=== PATIENT | female | born 1955 | race Caucasian/White ===

== ENCOUNTER 2018-08-06 11:27 | Outpatient (REF) | payer SELFPAY ==
[2018-08-06 20:55] LABS: TSH (W/Ref FT4) 0.22 uIU/mL (0.358-3.74)
[2018-08-06 21:13] LABS: FREE T4 1.33 ng/dL (0.76-1.46)
== END 2018-08-06 11:47 ==
LOC: NCHCN 11:27
PROVIDERS: Visit Provider Family Medicine
DX: E03.9 Hypothyroidism, unspecified (principal)
CPT/HCPCS: 84439; 84443

== ENCOUNTER 2018-11-30 12:02 | Outpatient (REF) | payer BC, SELFPAY | END 2018-11-30 12:22 | LOC: NCHCN 12:02 | PROVIDERS: Visit Provider Family Medicine | DX: E03.9 Hypothyroidism, unspecified (principal) | CPT/HCPCS: 84443 ==

== ENCOUNTER 2019-11-11 22:17 | Outpatient (REF) | payer MEDICARE, SELFPAY ==
[2019-11-11 21:32] LABS: COMMENT (LAB VIEW ONLY) 47.66 mg/dL
[2019-11-11 21:34] LABS: Anion Gap 10.2 mmol/L (3-11); BUN 25 mg/dL (7-18); CO2 25.8 mmol/L (21.0-32.0); CREATININE 0.97 mg/dL (0.55-1.02); Calcium 9.6 mg/dL (8.5-10.1); Chloride 102 mmol/L (98-107); Estimated GFR 57.64 (mL/min/1.73m2); Glucose 106 mg/dL (74-106); Potassium 4.3 mmol/L (3.5-5.1); Sodium 138 mmol/L (136-145); TSH 1.37 uIU/mL (0.36-3.74)
== END 2019-11-11 22:37 ==
LOC: NCHCN 22:17
PROVIDERS: Visit Provider Family Medicine
DX: E03.9 Hypothyroidism, unspecified (principal); E78.5 Hyperlipidemia, unspecified; E11.9 Type 2 diabetes mellitus without complications
CPT/HCPCS: 80048; 82043; 82570; 84443

== ENCOUNTER 2020-02-14 14:59 | Outpatient (REF) | payer MEDICARE, SELFPAY ==
[2020-02-15 16:36] LABS: Rheumatoid Factor <8.6 IU/mL (<12.0)
[2020-02-16 15:16] LABS: ANA Interpretation Positive (Negative); ANA Titer Pattern 1:160 Homogeneous
[2020-02-17 16:03] LABS: SS-A Antibody 1.4 Units (<20.0)
== END 2020-02-14 15:19 ==
LOC: NCHCN 14:59
PROVIDERS: Visit Provider Family Medicine
DX: R68.2 Dry mouth, unspecified (principal)
CPT/HCPCS: 86038; 86235; 86431

== ENCOUNTER 2020-11-13 16:53 | Outpatient (REF) | payer MEDICARE, SELFPAY ==
[2020-11-13 22:04] LABS: COMMENT (LAB VIEW ONLY) 70.21 mg/dL; Microalb ug/mg Crea 20.9 ug/mg Cr
[2020-11-13 22:37] LABS: Anion Gap 8.9 mmol/L (3-11); BUN 27 mg/dL (7-18); CO2 27.1 mmol/L (21.0-32.0); CREATININE 0.9 mg/dL (0.55-1.02); Calcium 9.3 mg/dL (8.5-10.1); Calculated LDL 133 mg/dL (<100); Chloride 105 mmol/L (98-107); Cholesterol 221 mg/dL (<200); Glucose 120 mg/dL (74-106); HDL Cholesterol 48 mg/dL (40-60); Potassium 4.3 mmol/L (3.5-5.1); Sodium 141 mmol/L (136-145); TSH 0.06 uIU/mL (0.36-3.74); Triglyceride 204 mg/dL (<150)
== END 2020-11-13 16:54 | disposition home or self-care (01) ==
LOC: NCHCN 16:53
PROVIDERS: Visit Provider Family Medicine
DX: E78.5 Hyperlipidemia, unspecified (principal); E03.9 Hypothyroidism, unspecified; E11.9 Type 2 diabetes mellitus without complications; Z85.07 Personal history of malignant neoplasm of pancreas
CPT/HCPCS: 80048; 80061; 82043; 82570; 84443

== ENCOUNTER 2021-05-07 16:36 | Outpatient (REF) | payer MEDICARE, SELFPAY ==
[2021-05-07 21:42] LABS: Anion Gap 9.4 mmol/L (3-11); BUN 23 mg/dL (7-18); CO2 28.6 mmol/L (21.0-32.0); CREATININE 0.8 mg/dL (0.55-1.02); Calcium 9.9 mg/dL (8.5-10.1); Chloride 103 mmol/L (98-107); Glucose 105 mg/dL (74-106); Potassium 4.3 mmol/L (3.5-5.1); Sodium 141 mmol/L (136-145); TSH 0.37 uIU/mL (0.36-3.74)
== END 2021-05-07 16:37 | disposition home or self-care (01) ==
LOC: NCHCN 16:36
PROVIDERS: Visit Provider Family Medicine
DX: E03.9 Hypothyroidism, unspecified (principal); E11.9 Type 2 diabetes mellitus without complications; E78.5 Hyperlipidemia, unspecified
CPT/HCPCS: 80048; 83735; 84443

== ENCOUNTER 2022-02-03 19:00 | Outpatient (REF) | payer MEDICARE, SELFPAY ==
[2022-02-04 17:54] LABS: Albumin ug/mg Crea 8 (<30); Albumin, Ur 0.7 mg/dL (See Note); Creatinine, Ur 82.7 mg/dL (See Note)
== END 2022-02-03 19:01 | disposition home or self-care (01) ==
LOC: NCHCN 19:00
PROVIDERS: Visit Provider Family Medicine
DX: E11.9 Type 2 diabetes mellitus without complications (principal)
CPT/HCPCS: 82043; 82570

== ENCOUNTER 2022-08-04 13:18 | Outpatient (REF) | payer MEDICARE, SELFPAY ==
[2022-08-04 14:45] LABS: HCT 42.2 % (36.0-46.0); HGB 14.6 g/dL (11.2-15.7); MCH 32.1 pg (27.0-33.0); MCHC 34.6 % (32.0-36.0); MCV 93 fL (80-95); MPV 10.2 fL (8.0-11.0); Platelet Count 188 10^3/uL (130-400); RBC 4.55 10^6/uL (3.93-5.22); RDW 12.3 % (11.7-14.6); RDW-SD 42.5 fL; WBC 5.59 10^3/uL (4.4-10.8)
[2022-08-04 15:16] LABS: Anion Gap 10.6 mmol/L (3-11); BUN 28 mg/dL (7-18); CO2 25.4 mmol/L (21.0-32.0); CREATININE 0.9 mg/dL (0.55-1.02); Calcium 9.6 mg/dL (8.5-10.1); Calculated LDL 144 mg/dL (<100); Chloride 105 mmol/L (98-107); Cholesterol 234 mg/dL (<200); Estimated GFR 69.64 (mL/min/1.73m2); Glucose 132 mg/dL (74-106); HDL Cholesterol 59 mg/dL (40-60); Potassium 4.2 mmol/L (3.5-5.1); Sodium 141 mmol/L (136-145); TSH 1.43 uIU/mL (0.36-3.74); Triglyceride 159 mg/dL (<150)
== END 2022-08-04 13:19 | disposition home or self-care (01) ==
LOC: NCHCN 13:18
PROVIDERS: Visit Provider Family Medicine
DX: E03.9 Hypothyroidism, unspecified (principal); R53.83 Other fatigue; E78.5 Hyperlipidemia, unspecified; E11.9 Type 2 diabetes mellitus without complications
CPT/HCPCS: 80048; 80061; 85027; 84443

== ENCOUNTER 2022-11-20 17:29 | Outpatient (REF) | payer MEDICARE, SELFPAY ==
[2022-11-20 21:34] LABS: ESR 7 mm/hr (0-30)
[2022-11-20 21:57] LABS: Hemoglobin A1C 6.2 % (<5.7)
[2022-11-24 10:25] LABS: Lyme Ab w Rflx to Lyme Confirm Negative (Negative)
[2022-11-24 21:04] LABS: Anaplasma phagocytophilum Negative (Negative); B. miyamotoi PCR Negative (Negative); Babesia divergens/MO-1 Negative (Negative); Babesia duncani Negative (Negative); Babesia microti Negative (Negative); Ehrlichia chaffeensis Negative (Negative); Ehrlichia ewingii/canis Negative (Negative); Ehrlichia muris eauclairensis Negative (Negative)
== END 2022-11-20 17:30 | disposition home or self-care (01) ==
LOC: NCHCN 17:29
PROVIDERS: Visit Provider Family Medicine
DX: E11.9 Type 2 diabetes mellitus without complications (principal); M25.561 Pain in right knee; M25.562 Pain in left knee; Z11.8 Encounter for screening for other infectious and parasitic diseases
CPT/HCPCS: 85652; 87798; 83036; 86618

== ENCOUNTER 2023-10-06 16:02 | Outpatient (REF) | payer MEDICARE, SELFPAY ==
[2023-10-06 22:00] LABS: HCT 44.1 % (36.0-46.0); HGB 14.6 g/dL (11.2-15.7); MCH 31.6 pg (27.0-33.0); MCHC 33.1 % (32.0-36.0); MCV 96 fL (80-95); MPV 10.3 fL (8.0-11.0); Platelet Count 182 10^3/uL (130-400); RBC 4.62 10^6/uL (3.93-5.22); RDW 12.3 % (11.7-14.6); RDW-SD 43.1 fL; WBC 6.73 10^3/uL (4.4-10.8)
[2023-10-06 22:25] LABS: ALT 34 U/L (14-59); AST 26 U/L (15-37); Albumin 4.4 g/dL (3.4-5.0); Alkaline Phosphatase 84 U/L (46-116); Anion Gap 8.9 mmol/L (3-11); BUN 22 mg/dL (7-18); Bilirubin, Total 0.8 mg/dL (0.2-1.0); CO2 30.1 mmol/L (21.0-32.0); CREATININE 0.9 mg/dL (0.55-1.02); Calcium 9.6 mg/dL (8.5-10.1); Chloride 105 mmol/L (98-107); Glucose 89 mg/dL (74-106); Potassium 4.2 mmol/L (3.5-5.1); Sodium 144 mmol/L (136-145); TSH 0.88 uIU/Ml (0.36-3.74); Total Protein 7.8 g/dL (6.4-8.2)
[2023-10-06 22:30] LABS: COMMENT (LAB VIEW ONLY) 87.44 mg/dL; Microalb ug/mg Crea 5.6 ug/mg Cr
== END 2023-10-06 16:03 | disposition home or self-care (01) ==
LOC: NCHCN 16:02
PROVIDERS: Visit Provider Family Medicine
DX: E11.9 Type 2 diabetes mellitus without complications (principal); E03.9 Hypothyroidism, unspecified; R59.9 Enlarged lymph nodes, unspecified
CPT/HCPCS: 80053; 85027; 82043; 82570; 84443

== ENCOUNTER 2024-03-17 17:59 | Outpatient (REF) | payer MEDICARE, SELFPAY ==
[2024-03-17 17:20] LABS: TSH (W/Ref FT4) 2.41 uIU/mL (0.36-3.74)
--- OUTSIDE RECORDS SUMMARY | 2024-03-17 18:01 | XMS_ITS | Clinical Summary ---
Author Organization [facility] Address [address] [place] [address] Care Team Providers Care Pan Devulcanizer Helper Name Role Phone Roxanne Dawn MD Primary Care Provider [phone] Allergies Active Allergy Reactions Criticality Noted Date Comments Prochlorperazine Anxiety Medium 06/24/2016 Levofloxacin 06/24/2016 Patient's white blood count was affected Medications Medication Sig Dispensed Refills Start Date End Date Status insulin glargine (LANTUS SOLOSTAR) 100 unit/mL (3 mL) injection pen Inject 7 Units into the skin at bedtime. Active insulin aspart (NOVOLOG FLEXPEN) 100 unit/mL injectable pen Inject 3 Units into the skin as needed. Active levothyroxine (SYNTHROID) 100 mcg tablet Take 100 mcg by mouth daily. Active calcium-vitamin D (OS-VASU D) 500 mg(1,250mg) -200 unit per tablet Take 1 Tab by mouth 2 times daily with breakfast and dinner. Active insulin pen needles 31G x 5/16 by misc (non-drug; combo route) route daily. Active lancets 1 lancet by misc (non-drug; combo route) route as needed. Active canagliflozin (INVOKANA ORAL) Take by mouth. Activ e Active Problems Problem Noted Date Diagnosed Date Pure hypercholesterolemia 08/18/2016 Uncontrolled diabetes mell us secondary to pancreatic insufficiency 06/24/2016 Acquired hypothyroidism 06/24/2016 Surgical History Surgery Date Site/Laterality Comments BREAST SURGERY APPENDECTOMY Medical History Medical History Date Comments Thyroid disease Diabetes mellitus (HCC-CMS) Cancer (HCC-CMS) breast (2000) a nd 2007 neuroendocrine pancreatic - surgery at [facility] Family History Medical History Relation Comments Heart Disease Brother Cancer Father Heart Disease Mother Heart Disease Sister Relation Status Comments Brother Father Mother Sister Social History Tobacco Use Types Packs/Day Years Used Date Smoking Tobacco: Never Smokeless Tobacco: Never Alcohol Use Standard Drinks/Week Comments No 0 (1 standard drink = 0.6 oz pur e alcohol) stopped since diabetes Interpersonal Safety Answer Date Record ed Physically Hurt Never 02/07/2020 Verbally Threaten Not on file 02/07/2020 Sex and Gender Information Value Date Recorded Sex Assigned at Not on file Gender Identity Female 08/19/2021 9:10 EDT Sexual Orientation Not on file Obstetrics History Last Filed Vital Signs Vital Sign Reading Time Taken Comments Blood Pressure 118/68 08/18/2016 1115 EDT Pulse 62 08/18/2016 1115 EDT Temperature - - Respiratory Rate - - Oxygen Saturation - - Inhaled Oxygen Concentration - - Weight 74.8 kg (165 lb) 08/29/2021 1017 EDT Height 175.3 cm (5' 9) 08/29/2021 1017 EDT Body Mass Index 24.37 08/29/2021 1017 EDT Plan of Treatment Health Maintenance Due Date Last Done Comments Eye Exam 1955 Foot Exam 1955 Hepatitis C Screen 1954 RSV Immunization ( o r 60+ Years) (1 - 1-dose 60+ series) 2014 Hemoglobin A1C (Ha1C) 02/18/2017 08/18/2016, 017 Lipid Profile Screening (Cholesterol) 06/24/2017 Fall Risk Screening 2019 Microalbumin/Creatinine Ratio 02/03/2023 02/03/2022, 06/24/2016 COVID-19 Vaccine ( season) 2023 Procedures Procedure Name Priority Date/Time Associated Diagnosis Comments URINE [id number]-HC-GEXHSANC NE RATIO (ACR) Routine 02/03/2022 8:00 EDT POCT HEMOGLOBIN A1C, INTERFACED Routine 08/18/2016 11:57 EDT LIPID PROFILE (INCLUDES CHOLESTEROL, TRIGLYCERIDES, HDL, LDL) Routine 06/24/2016 11:50 EST 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 ([facility]) from Last 3 Months or Most Recently Relevant to Health Maintenance Results * URINE [id number] RATIO (ACR) (02/03/2022 8:00 EDT) Albumin, Urine 0.7 See Note mg/dL 2021 17:49 EDT [facility] Comment: NOTE: Reference range not established Creatinine, Urine 82.7 See Note mg/dL 02/04/2022 17:49 EDT [facility] Comment: NOTE: Reference range not established Lab Urine Albumin to Creatinine Ratio 8 <30 ??g/mg Creatinine 02/04/2022 17:49 EDT [facility] Comment: Urine Albumin/Creatinine Ratio: Normal: <30 ug/mg Creatinine Moderately increased albuminuria: 30-300 ug/mg Creatinine Severley increased albuminuria: >300 ug/mg Creatinine Urine URINE SPECIMEN COLLECTION, CLEAN CATCH / Unknown 02/03/2022 8:00 EDT 02/04/2022 17:00 EDT Provider Outr Resulting Lab CHEMISTRY & BLOOD GAS ORDERABLES Performing Organization Address City/[facility]/ZIP Co de Phone Number [facility] [address] [place] [address] * (ABNORMAL) POCT HEMOGLOBIN A1C (08/18/2016 11:57 EDT) [facility] [address] Hemoglobin A1C, POC Interfaced 6.5(H) <5.7 % 08/18/2016 12:03 EDT [facility] international banker ID [id number] 08/18/2016 12:03 EDT [facility] Comment:Test performed at En docrinology Blood specimen (specimen) BLOOD SPECIMEN / Unknown 08/18/2016 11:57 EDT 08/18/2016 12:03 EDT Salazar Melendrez MD POINT OF CARE TEST ORDERABLES Performing Organization Address City/[facility]/ZIP Co de Phone Number [facility] [address] [place] [address] * LIPID PROFILE (INCLUDES CHOLESTEROL, TRIGLYCERIDES, HDL, LDL) (06/24/2016 11:50 EST) Cholesterol 239 mg/dl 06/24/2016 13:52 [facility] Comment: Desirable:<200 Borderline High:200-239 High:>bn=441 Triglycerides 181 mg/dl 06/24/2016 13:52 [facility] Comment: Normal:<150 Borderline High:150-199 High:200-499 Very High:>eh=022 HDL 48 mg/dl 06/24/2016 13:52 [facility] Comment: Low:<40 Normal:40-60 Desirable: >60 LDL, Calculated 155 mg/dl 7 13:52 [facility] Comment: Optimal:<100 Near Optimal:100-129 Borderline High:130-159 High:160-189 Very High:>ub=058 Chol/HDL Ratio 5.0 06/24/2016 13:52 [facility] Fasting? Unknown 06/24/2016 13:52 [facility] Non HDL Cholesterol 191 mg/dl 06/24/2016 13:52 [facility] Comment: Desirable:<130 Borderline:130-159 High: 160-189 Very High: >ty=369 Blood specimen (specimen) BLOOD SPECIMEN / Unknown 06/24/2016 11:50 EST 06/24/2016 13:04 EST Salazar Melendrez MD CHEMISTRY & BLOOD GAS ORDERABLES [facility] [address] [place] [address] from Last 3 Months or Most Recently Relevant to Health Maintenance Care Teams Pan Devulcanizer Helper Relationship Specialty Start Date End Date Roxanne Dawn MD [address] [place] [address] PCP - General 06/16/16
--- OUTSIDE RECORDS SUMMARY | 2024-03-17 18:01 | XMS_ITS | Encounter Summary ---
Author Organization [facility] Address [address] [place] [address] Care Team Providers Care Music Industry Intern Name Role Phone Roxanne Dawn MD Primary Care Provider [phone] Encounter Details Date Type Department Care Team (Late st Contact Info) Description 02/04/2022 Lab Requisition [facility] Pathology & Laboratory Medicine - [address] [id number] Outr Resulting Lab, Provider Social History Tobacco Use Types Packs/Day Years [...] 9:10 EDT Sexual Orientation Not on file documented as of this encounter Functional Status Functional Status Response Date of Assess ment Because of a physical, menta l, or emotional condition, does this person have difficulty doing errands alone such as visiting a doctor's office or shopping? No 08/18/2016 Cognitive Status Response Date of Assessm ent Because of a physical, menta l, or emotional condition, does this person have serious difficulty concentrating, remembering, or making decisions? Yes 08/18/2016 documented as of this encounter Plan of Treatment Not on file documented as of this encounter Procedures Procedure Name Priority Date/Time Associated Diagnosis Comments URINE [id number]-VJ-BPGMZGJK NE RATIO (ACR) Routine 02/03/2022 8:00 EDT documented in this encounter Results * URINE [id number]-ZJ-[id number] RATIO (ACR) (02/03/2022 8:00 EDT) Albumin, Urine 0.7 See Note mg/dL 2021 17:49 EDT [facility] Comment: NOTE: Reference range not established Creatinine, Urine 82.7 See Note mg/dL 02/04/2022 17:49 EDT [facility] Comment: NOTE: Reference range not established Lab Urine Albumin to Creatinine Ratio 8 <30 ??g/mg Creatinine 02/04/2022 17:49 EDT [facility] Comment: Urine Albumin/Creatinine Ratio: Normal: <30 ug/mg Creatinine Moderately increased albuminuria: 30-300 ug/mg Creatinine Darrellley increased albuminuria: >300 ug/mg Creatinine Urine URINE SPECIMEN COLLECTION, CLEAN CATCH / Unknown 02/03/2022 8:00 EDT 02/04/2022 17:00 EDT Provider Outr Resulting Lab CHEMISTRY & BLOOD GAS ORDERABLES [facility] [address] [place] [address] documented in this encounter Visit Diagnoses Not on filedocumented in this encounter Care Teams Music Industry Intern Relationship Specialty Start Date End Date Roxanne Dawn MD [address] [place] [id number] PCP - General 06/16/16 documented as of this encounter
--- OUTSIDE RECORDS SUMMARY | 2024-03-17 18:01 | XMS_ITS | Referral Summary ---
Author Organization [facility] Address [address] [place] [address] Care Team Providers Care Senior Validation Engineer Name Role Phone Roxanne Dawn MD Primary Care Provider [phone] Allergies Active Allergy Reactions Criticality Noted Date [...] Diagnosed Date Pure hypercholesterolemia 08/18/2016 Uncontrolled diabetes mellit us secondary to pancreatic insufficiency 06/24/2016 Acquired hypothyroidism 06/24/2016 Social History Tobacco Use Types Packs/Day Years [...] 9:10 EDT Sexual Orientation Not on file Last Filed Vital Signs Vital Sign Reading Time Taken Comments Blood Pressure 118/68 08/18/2016 1115 EDT Pulse 62 08/18/2016 1115 EDT Temperature - - Respiratory Rate - - Oxygen Saturation - - Inhaled Oxygen Concentration - - Weight 74.8 kg (165 lb) 08/29/2021 1017 EDT Height 175.3 cm (5' 9) 08/29/2021 1017 EDT Body Mass Index 24.37 08/29/2021 1017 EDT Functional Status Functional Status Response Date of [...] concentrating, remembering, or making decisions? Yes 08/18/2016 Plan of Treatment Not on file Procedures Procedure Name Priority Date/Time Associated Diagnosis Comments URINE [id number] NE RATIO (ACR) Routine 02/03/2022 8:00 EDT POCT HEMOGLOBIN A1C, INTERFACED Routine 08/18/2016 11:57 EDT LIPID PROFILE (INCLUDES CHOLESTEROL, TRIGLYCERIDES, HDL, LDL) Routine 06/24/2016 11:50 EST 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 ([facility]) from Last 3 Months or Most Recently Relevant to Health Maintenance Results * URINE [id number] RATIO (ACR) (02/03/2022 8:00 EDT) Albumin, Urine 0.7 See Note mg/dL 2021 17:49 EDT [facility] Comment: NOTE: Reference range not established Creatinine, Urine 82.7 See Note mg/dL 02/04/2022 17:49 EDT [facility] Comment: NOTE: Reference range not established Lab Urine Albumin to Creatinine Ratio 8 <30 ??g/mg Creatinine 02/04/2022 17:49 EDT [facility] Comment: Urine Albumin/Creatinine Ratio: Normal: <30 ug/mg Creatinine Moderately increased albuminuria: 30-300 ug/mg Creatinine Severley increased albuminuria: >300 ug/mg Creatinine Urine URINE SPECIMEN COLLECTION, CLEAN CATCH / Unknown 02/03/2022 8:00 EDT 02/04/2022 17:00 EDT Provider Outr Resulting Lab CHEMISTRY & BLOOD GAS ORDERABLES Performing Organization Address City/[facility] Co de Phone Number [facility] [address] [place] [address] * (ABNORMAL) POCT HEMOGLOBIN A1C (08/18/2016 11:57 EDT) Hemoglobin A1C, POC Interfaced 6.5(H) <5.7 % 08/18/2016 12:03 EDT [facility] picking supervisor ID [id number] 08/18/2016 12:03 EDT [facility] Comment:Test performed at En docrinology Blood specimen (specimen) BLOOD SPECIMEN / Unknown 08/18/2016 11:57 EDT 08/18/2016 12:03 EDT Salazar Melendrez MD POINT OF CARE TEST ORDERABLES Performing Organization Address [facility] Co de Phone Number [facility] [address] [place] [address] * LIPID PROFILE (INCLUDES CHOLESTEROL, TRIGLYCERIDES, HDL, LDL) (06/24/2016 11:50 EST) Cholesterol 239 mg/dl 06/24/2016 13:52 [facility] Comment: Desirable:<200 Borderline High:200-239 High:>ka=076 Triglycerides 181 mg/dl 06/24/2016 13:52 [facility] Comment: Normal:<150 Borderline High:150-199 High:200-499 Very High:>as=646 HDL 48 mg/dl 06/24/2016 13:52 [facility] Comment: Low:<40 Normal:40-60 Desirable: >60 LDL, Calculated 155 mg/dl 01/17/201 7 13:52 EST [facility] Comment: Optimal:<100 Near Optimal:100-129 Borderline High:130-159 High:160-189 Very High:>vz=500 Chol/HDL Ratio 5.0 06/24/2016 13:52 EST [facility] Fasting? Unknown 06/24/2016 13:52 EST [facility] Non HDL Cholesterol 191 mg/dl 06/24/2016 13:52 EST [facility] Comment: Desirable:<130 Borderline:130-159 High: 160-189 Very High: >sa=962 Blood specimen (specimen) BLOOD SPECIMEN / Unknown 06/24/2016 11:50 EST 06/24/2016 13:04 EST Salazar Melendrez MD CHEMISTRY & BLOOD GAS ORDERABLES [facility] [address] [place] [address] from Last 3 Months or Most Recently Relevant to Health Maintenance Care Teams Senior Validation Engineer Relationship Specialty Start Date End Date Roxanne Dawn MD [address] [place] [address] PCP - General 06/16/16
--- OUTSIDE RECORDS SUMMARY | 2024-03-17 18:01 | XMS_ITS | Encounter Summary ---
Author Organization [facility] Address [address] [place] [address] Care Team Providers Care Assistant Boiler Operator Name Role Phone Roxanne Dawn MD Primary Care Provider [phone] Encounter Details Date Type Department Care Team (Late st Contact Info) Description 11/21/2022 Lab Requisition [facility] Pathology & Laboratory Medicine - [address] [id number] Outr Resulting Lab, Provider Social History Tobacco [...] Procedure Name Priority Date/Time Associated Diagnosis Comments LYME AB Routine 11/20/2022 17:15 EDT documented in this encounter Results * LYME AB (11/20/2022 17:15 EDT) Lyme Ab Negative Negative 11/24/2022 10:20 EDT [facility] Blood VENOUS BLOOD / Unknown 11/20/2022 17:15 EDT 11/21/2022 19:59 EDT Provider Outr Resulting Lab IMMUNOLOGY A ND SEROLOGY ORDERABLES Performing Organization Address City/State/[facility] Co de Phone Number [facility] [address] [place] [address] documented in this encounter Visit Diagnoses Not on filedocumented in this encounter Care Teams Assistant Boiler Operator Relationship Specialty Start Date End Date Roxanne Dawn MD [address] [place] [id number] PCP - General 06/16/16 documented as of this encounter
--- OUTSIDE RECORDS SUMMARY | 2024-03-17 18:02 | XMS_ITS | Encounter Summary ---
Author Organization [facility] [address] Care Team Providers Care Embedded Systems Designer Name Role Phone Roxanne Dawn MD Primary Care Provider [phone] Reason for Visit * Reason Comments Genetic Evaluation * Consultation (Priority 1) - Closed Specialty Diagnoses / Procedures Referred By Bryan cai Referred To Contact Genetics Diagnoses Malignant neoplasm of right breast, stage 2 Noe Joel MD [facility] HEMATOLOGY/[place] [address] [facility] Hem Onc Office [address] [place] [id number] Referral ID Status Reason Start Date Expiration Date V isits Requested Visits Authorized [id number] Closed Consult, Test & Treat 02/13/2023 02/13/2024 1 1 Encounter Details Date Type Department Care Team (Late st Contact Info) Description 05/11/2023 11:30 AM EST TH Visit (TeleHealth) Hematology [place] [address] Cally Stanford, [facility] HEMATOLOGY AND ONCOLOGY [place], [place] [id number] Malignant neoplasm of right breast, stage 2; Benign pancreatic islet cell tumors; Family history of malignant neoplasm of breast; Family history of colon cancer Social History Tobacco Use Types Packs/Day Years Used Date Smoking Tobacco: Never Smokeless Tobacco: Never Alcohol Use Standard Drinks/Week Comments Yes 0 (1 standard drink = 0.6 oz pur e alcohol) Sex and Gender Information Value Date Recorded Sex Assigned at Not on file Gender Identity Not on file Sexual Orientation Not on file documented as of this encounter Progress Notes * Cally Stanford LGC - 05/11/2023 11:30 AM EST Serenity Cummings was seen by ADEEL Loaiza in consultation at the request of Noe Joel to advise regarding possible heritable predisposition to cancer. I spent 30 minutes of this video encounter with the patient gathering medical and family history and discussing the likelihood of a genetic predisposition to cancer and the option of genetic testing. Reason for referral/Chief complaint Personal history of of breast cancer and pancreatic neuroendocrine tumor. Medical history Cancer hx and treatment: Serenity is a pleasant 67yo female with a history of breast cancer and pancreatic neuroendocrine tumor. 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 She was diagnosed with a pancreatic neuroendocrine tumor in 2007 at the age of 53 (s/p distal pancreatectomy with Dr. Saunders). She has no undergone any follow up for the PNET, however her CT a/p were wnl (imaging prompted by symptoms). She has been released from Med Onc follow up regarding her breast cancer history and is recommended to undergo annual mammograms. Family History Problem Relation Age of Onset Cancer Mother Oral cancer of the mouth (bone) Kidney Cancer Father 75 Colorectal Cancer Maternal Cousin 70 Breast Cancer Maternal Cousin Maternal ethnic background is [place] and [place]er. Paternal ethnic background is Faroese, Czech, and [place] Islander. There is no known Ashkenazi Buddhist ancestry. Genetic risk assessment Based on personal and/or family history, the likelihood that Serenity would be found to have a mutationin a cancer predisposition gene is high enough to offer the option of genetic testing. Specifically, Serenity meets NCCN criteria for BRCA1/2 based on her history of breast cancer diagnosed at age 46. Genetic test results may inform Serenity and her family members of their genetic cancer risks and guide cancer screening recommendations. Panel genetic testing for an inherited predisposition to cancer, including breast cancer and PNET, was discussed. The risks, benefits and limitations of panel genetic testing were reviewed, specifically a high rate of identifying a variant of uncertain significance, lack of knowledge of cancer riskfor newly identified, moderate risk genes included in the panel and lack of effective screening, aswell as cancer risk for other cancers not observed in the family. We reviewed dominant inheritance, meaning that if a mutation is detected there is a 50% chance for Serenity's children and siblings to have also inherited the same gene alteration. We discussed the Genetic Information Nondiscrimination Act (KINA), a federal law prohibiting discrimination by health insurance companies and most employers based on genetic information. KINA does not apply to life insurance, disability insurance or long-term care insurance. More information about KINA may be found at www.GinaHelp.org. Serenity opted for testing with [facility]' CancerNext-Expanded Panel, a next generation sequencingpanel that simultaneously analyzes 77 genes, including BRCA1 and BRCA2, that contribute to increased risk for cancer. Serenity was verbally consented and will be sent consent forms via [employer] to review, sign, and return. Orders for the saliva kit will be placed after signed consents are received. [facility] will send a saliva collection kit with prepaid return envelope directly to Serenity's home to obtain a sample. Instructions for sample collection and return are provided within the kit. We reviewed [facility]'s billing policy. Serenity will be notified by text and/or email once [facility] completestheir benefits investigation if her estimated out of pocket cost is over $100. At that time, if Serenity is concerned about the estimated test cost she will have the option to contact [facility] directly and either apply for [facility]'s patient assistance program to try and reduce cost of testing based on income information, cancel testing, or switch to a self-pay option of $250. If Serenity does not respond to [facility], testing will be billed to her insurance as the default option. Testing will take up to 3 weeks from when the lab receives the sample. Serenity will be contacted via telephone once her test results become available. At that time, we will discuss with Serenity the implications that this test result may have for her as well as her family members, review any recommended screening guidelines for cancer prevention and early detection, and answer any questions she may have. 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
--- OUTSIDE RECORDS SUMMARY | 2024-03-17 18:02 | XMS_ITS | Encounter Summary ---
Author Organization [facility] [place] [address] Care Team Providers Care Rn Document Improvement Specialist Name Role Phone Roxanne Dawn MD Primary Care Provider Encounter Details Date Type Department Care Team (Latest Contact Info) Description 10/19/2020 12:30 PM EDT - 10/19/2020 11:59 PM EDT Hospital Encounter Mammography/[place] [address] Noe Joel MD [facility] HEMATOLOGY/[place] [address] Malignant neoplasm of right breast, stage 2 Discharge Disposition: Home Social History Tobacco Use Types Packs/Day Years Used Date Smoking Tobacco: Never Smokeless Tobacco: Never Alcohol Use Standard Drinks/Week Comments Yes 0 (1 standard drink = 0.6 oz pur e alcohol) Sex and Gender Information Value Date Recorded Sex Assigned at Not on file Gender Identity Not on file Sexual Orientation Not on file documented as of this encounter Medications at Time of Discharge Medication Sig Dispensed Refills Start Date End Date cetirizine (ZyrTEC) 10 mg Tablet Take 10 mg by mouth daily. 09/21/2020 insulin needles, disposable, 31 gauge x 16 Needle Inject 1 each subcutaneously daily. Dx Code: E11.9 100 each 3 07/27/2019 levothyroxine (SYNTHROID) 112 mcg Tablet Take 1 tablet by mouth daily. 90 tablet 3 06/11/2018 LANTUS SOLOSTAR U-100 INSULIN pen Inject 3-5 Units subcutaneously every morning. 15 mL 3 05/12/2018 FREESTYLE LITE STRIPS 1 each by Other route 3 times daily. 300 strip 3 05/12/2018 HUMALOG KWIKPEN 100 unit/mL Insulin Pen Inject 1-4 Units subcutaneously 4 times daily as needed for High Blood Sugar. 15 mL 12 02/22/2018 estradiol (ESTRACE) 0.01 % (0.1 mg/gram) CreamIndications:Atro phic vaginitis Apply a montemayor-sized amount of cream twice weekly as needed 42.5 g 02/02/2018 FREESTYLE LANCETS 28 gauge Misc 1 each by Other route 2 times daily. 0 03/07/2017 cholecalciferol (Vitamin D3) 1,000 unit Tablet Take 1,000 Units by mouth daily. ALCAFTADINE (LASTACAFT OPHT) Apply to eye daily as needed. ketotifen (Zaditor) 0.025 % (0.035 %) Drops 1 drop as needed. Reported on 12/05/2016 documented as of this encounter Plan of Treatment Upcoming Encounters Date Type Department Care Team (Late st Contact Info) Description 04/25/2024 10:40 AM EST Appointment Mammography/[place] [address] Roxanne Dawn MD [address] [address] documented as of this encounter Procedures Procedure Name Priority Date/Time Associated Diagnosis Comments MAMMO SCREENING CAD AND COLLIN LEFT Routine 10/19/2020 12:53 PM EDT Malignant neoplasm of right breast, stage 2 documented in this encounter Results * Mammo Screening Cad and Collin Left (10/19/2020 12:53 PM EDT) Anatomical Region Laterality Modality Breast Left Mammography Narrative 10/21/2020 9:25 AM EDT LEFT BREAST MAMMOGRAPHY REASON FOR EXAM: Screening Clinical history: S/P Right mastectomy and left breast reduction. TECHNIQUE: CC and MLO views were obtained of the left breast using standard 2-D mammography as well as 3-D tomosynthesis. Computer aided detection was used. This is compared with prior images. FINDINGS: The breast is heterogeneously dense, which may obscure small masses. There are no suspicious microcalcifications, masses, or areas of distortion. The pattern is stable. CONCLUSION: No mammographic evidence of malignancy. RECOMMENDATION: Regular screening mammograms starting between age 40 and 50 reduces the risk of from breast cancer. All screening tests have both risks and benefits. These risks and benefits should be assessed for each individual patient through discussion with their provider to determine their preferred breast cancer screening schedule. Women should report any breast changes to a health care provider right away. Some women, because of their family history, a genetic tendency, or other factors, should be screened with annual breast MRI as well as with mammograms. (The number of women who fall into this category is very small). Patients and health care providers should discuss each patient? s history to decide if earlier screening and/or breast MRI are appropriate. Screening should continue as long as a woman is in good health and is expected to live 10 years or longer. Screening mammography may not detect 10-15% of breast cancers. A result letter has been sent to this patient by the [facility]. BIRADS CATEGORY 1: NEGATIVE Electronically signed by: ??JOSÉ MIGUEL MARTINEZ MD Noe Joel MD IMG MAMMO ORDERABLES documented in this encounter Visit Diagnoses Diagnosis Malignant neoplasm of right breast, stage 2 documented in this encounter Care Teams Rn Document Improvement Specialist Relationship Specialty Start Date End Date Roxanne Dawn MD [address] [place] [address] PCP - General 04/30/10 documented as of this encounter
--- OUTSIDE RECORDS SUMMARY | 2024-03-17 18:02 | XMS_ITS | Encounter Summary ---
Author Organization [facility] [place] [address] Care Team Providers Care Welding Machine Operator Arc Name Role Phone Roxanne Dawn MD Primary Care Provider [phone] Reason for Visit * Reason Onset Date Comments Medication Refill 05/12/2018 Encounter Details Date Type Department Care Team (Late st Contact Info) Description 05/12/2018 Refill [place] [address] Shyla Garber MD [facility] [place] [address] Social History Tobacco Use Types Packs/Day Years Used Date Smoking Tobacco: Never Smokeless Tobacco: Never Alcohol Use Standard Drinks/Week Comments Yes 0 (1 standard drink = 0.6 oz pur e alcohol) Sex and Gender Information Value Date Recorded Sex Assigned at Not on file Gender Identity Not on file Sexual Orientation Not on file documented as of this encounter Miscellaneous Notes * Telephone Encounter - Susy Luciano LPN - 05/12/2018 3:56 PM EST R/c to patient who verifies lantus dose. States she is testing 3 times per day and only needs one pen needle per day. Is not using fast acting insulin * Telephone Encounter - Susy Luciano LPN - 05/12/2018 3:50 PM EST 1. Medication: Patient will continue lantus very low dose 3-5 units to keep fasting BG 90-140 range. To decrease levothyroxine from 112 to 1 tab Thu-Thu and 0.5 tab on Thursday with lower TSH level at 0.30 (was 4.56 in Apr 2017). Target TSH 1.0-3.0 for her weight issue. To continue OTC-vitD 2,000 iu qd to keep vitD in mid normal range for her bone health To continue all other medications ?? 2. Monitoring: ok to monitor finger stick blood glucose 1x/day randomly either before each meal or at bedtime, or even 2 h post meals if she wants to know the food effect. Target BG 80-150 fasting, 80-150 pre-meal and below 180-200 if checking 2 h post meal. Target A1c < 7% for this patient documented in this encounter Plan of Treatment Upcoming Encounters Date Type Department Care Team (Late st Contact Info) Description 04/25/2024 10:40 AM EST Appointment Mammography/[place] [address] Roxanne Dawn MD [address] [place], [place] [address] documented as of this encounter Visit Diagnoses Not on filedocumented in this encounter Care Teams Welding Machine Operator Arc Relationship Specialty Start Date End Date Roxanne Dawn MD [address] [place] [address] PCP - General 04/30/10 documented as of this encounter
--- OUTSIDE RECORDS SUMMARY | 2024-03-17 18:02 | XMS_ITS | Encounter Summary ---
Author Organization [facility] Address [facility] [place] [address] Care Team Providers Care Scale Operator Name Role Phone Roxanne Dawn MD Primary Care Provider [phone] Reason for Visit * Consultation (Routine) - Closed Specialty Diagnoses / Procedures Referred By Bryan cai Referred To Contact Dermatology Diagnoses Notalgia paresthetica Noe Joel MD [facility] HEMATOLOGY/[place] [address] [facility] [address] [place] [address] Referral ID Status Reason Start Date Expiration Date V isits Requested Visits Authorized [id number] Closed Consult, Test & Treat 10/19/2020 10/19/2021 1 1 Encounter Details Date Type Department Care Team (Late st Contact Info) Description 12/19/2020 3:15 PM EDT Office Visit Dermatology at [facility] [address] [place] [address] Gal Greenfield MD [facility] DR [facility] [place] [address] [place] (actinic keratosis); SK (seborrheic keratosis); Notalgia paresthetica; Porokeratosis; Intertrigo; Subungual hematoma of fifth toe of left foot, subsequent encounter Social History Tobacco Use Types Packs/Day Years Used Date Smoking Tobacco: Never Smokeless Tobacco: Never Alcohol Use Standard Drinks/Week Comments Yes 0 (1 standard drink = 0.6 oz pur e alcohol) Sex and Gender Information Value Date Recorded Sex Assigned at Not on file Gender Identity Not on file Sexual Orientation Not on file documented as of this encounter Progress Notes * Gal Greenfield MD - 12/19/2020 3:15 PM EDT Images from the original note were not included. DEPARTMENT OF DERMATOLOGY [facility] Provider: Gal Greenfield MD Patient's preferred name Seernity Preferred contact method for results []myDH []Letter [x]Phone Detailed phone message OK? Yes PAST MEDICAL HISTORY If no, type N. If yes, type date, location, treatment Melanoma N Dysplastic nevi N SCC N BCC N AKs Y Other relevant past medical history (i.e. 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 year old. Patient returns to clinic today for a full skin exam, she had a mole on the forehead that her PCP was concerned about, it fell off, but the area gets scaly and scratchy, she has some spots on the legs and she keeps getting more of them, she would also like to discuss extreme itchiness on her back, it is constant, sometimes it gets painful, she takes an antihistamine which helped for a while but it doesn't help with pain, she notes that one of her toenails was black, it grew out and is mostly white with one dark area left. She has not noted any other new, growing, changing, bleeding, painful or otherwise symptomatic moles or other lesions. She has not noted any other changes in any preexisting lesions. Last visit at [facility] Derm: 03/11/2018 Last visit with this provider: Visit date not found Medications: Reviewed in eD-H Allergies: Reviewed in eD-H Skin Examination: Full skin examination: Patient asked to undress to their comfort level. Verbalized that the provider???s preference is that the patient remove all clothing and that the provider will not examine areas patient elects to keep covered. Patient elects to keep underwear on and have the following examined: scalp, hair, head, face, ears, neck, chest, axillae, abdomen, buttocks, back, and upper and lowerextremities. Genitalia were not examined. Assessment/Plan #. Actinic keratosis - Ill-defined gritty papule(s) on the right cheek x1 - Explained etiology, natural history and premalignant potential of these lesions. - Patient opted to proceed with liquid nitrogen. - Patient should to return to clinic for re-evaluation if lesions do not resolve with this treatment. Procedure: Destruction of lesion(s) with cryotherapy. Location(s): As noted above Number: 1 Discussed procedure and expectations including risks and benefits. Verbal consent obtained. Treatedwith LN2. There were no complications. Patient tolerated the procedure well. Post-procedure expectations and wound care were reviewed. #. Seborrheic Keratoses - stuck on, waxy papules on the face, trunk and extremities - Benign. No treatment needed. Patient reassured. #. Notalgia paresthetica -Chronic. Bothersome. -Recommends OTC Topical Capsicin - Start Rx Triamcinolone 0.1% cream twice a day to the affected areas for x 2 weeks, take 1 week off, and repeat as needed. Discontinue when smooth and no longer symptomatic.Discussed side effects and risks with chronic use including: skin thinning, glaucoma and cataracts with facial use and atrophy and ulceration on other joi of the body with prolonged daily use #.Porokeratosis-erythematous papule with hyperkeratotic left arm - Discussed that the treatment of porokeratosis is challenging. Asymptomatic. No further intervention required. #. Intertrigo: Patient with slightly erythematous and macerated plaques left axilia -Most frequently seen in obese and/or diabetic patients -Ensure intertriginous areas are completely dry after bathing -Avoid excessive heat and/or sweating as friction and moisture can exacerbate disease -Patient would benefit from tucking cotton or linen towels or cloths between the opposing skin folds. - Avoid clothing that is too tight or that chafes. -Discussed etiology and history. -can use Rx: Triamcinolone on affected areas as well BID for 2-3 days #. Subungual Hematoma- dark brown to black/purple discoloration underneath the 3rd digit of the left foot -No linear bands or dystrophy of the nail -Hx of trauma to the area Pt reassured. Advised given slow rate of growth of the nail of approx 1mm/month that this can take a year or more to resolve #. Sunscreen: -use at least SPF 30 sunscreen preferably zinc or titanium oxide, avoid peak hours of the day between 10am-2pm when the sun is the brightest. Other items to document in the assessment/plan if relevant ??? Sun protection discussed (protective clothing and SPF30+ broad-spectrum sunscreen) ??? OTC skin products discussed RTC: 2 year for FSE []Note routed to secretary board of commissioners [x]Recall has been placed in scheduling system []Appointment scheduled at checkout Scribe attestation: Boogie Calderon CMA and Reny Hopson have performed the documentation for this encounter in the presence of and acting as a scribe for Gal Greenfield MD I performed the above scribed service and agree with the accuracy of the documentation in this encounter. Reviewed and signed by: Gal Greenfield MD Dermatology [facility] documented in this encounter Plan of Treatment Upcoming Encounters Date Type Department Care Team (Late st Contact Info) Description 04/25/2024 10:40 AM EST Appointment Mammography[place] [address] Roxanne Dawn MD [address] [place] [address] documented as of this encounter Visit Diagnoses Diagnosis AK (actinic keratosis) Actinic keratosis SK (seborrheic keratosis) Other seborrheic keratosis Notalgia paresthetica Disturbance of skin sensation Porokeratosis Other specified congenital anomaly of skin Intertrigo Other specified erythematous condition Subungual hematoma of fifth toe of left foot, subsequent encounter documented in this encounter Care Teams Scale Operator Relationship Specialty Start Date End Date Roxanne Dawn MD [address] [place] [address] PCP - General 04/30/10 documented as of this encounter
--- OUTSIDE RECORDS SUMMARY | 2024-03-17 18:02 | XMS_ITS | Encounter Summary ---
Author Organization [facility] [place] [address] Care Team Providers Care Kitchen Cleaner Name Role Phone Roxanne Dawn MD Primary Care Provider [phone] Encounter Details Date Type Department Care Team (Latest Contact Info) Description 11/14/2021 1:48 PM EDT - 11/14/2021 11:59 PM EDT Hospital Encounter Mammography[place] [address] Noe Joel MD [facility] HEMATOLOGY/[place] [address] Malignant neoplasm of right breast, stage 2; Encounter for screening mammogram for malignant neoplasm of breast Discharge Disposition: Home Social History Tobacco Use [...] Sig Dispensed Refills Start Date End Date Invokana 100 mg Tablet 08/28/2021 naltrexone HCl (NALTREXONE ORAL) Take 4.5 mg by mouth daily. Jardiance 10 mg Tablet 11/23/2020 triamcinolone (KENALOG) 0.1 % CreamIndications:Nota lgia paresthetica,Intertri go apply twice a day to the affected areas for 2 weeks, take 1 week off, and repeat as needed 80 g 12/19/2020 cetirizine (ZyrTEC) 10 mg Tablet Take 10 mg by mouth daily. 09/21/2020 insulin needles, disposable, 31 gauge x / Needle Inject 1 each subcutaneously daily. Dx [...] 04/25/2024 10:40 AM EST Appointment Mammography[place] [address] Roxanne Dawn MD [address] [place] [id number] documented as of this encounter Procedures Procedure Name Priority Date/Time Associated Diagnosis Comments MAMMO SCREENING CAD AND COLLIN LEFT Routine 11/14/2021 2:08 PM EDT Malignant neoplasm of right breast, stage 2 Encounter for screening mammogram for malignant neoplasm of breast documented in this encounter Results * Mammo Screening Cad and Collin Left (11/14/2021 2:08 PM EDT) Anatomical Region Laterality Modality Breast Left Mammography Narrative 11/15/2021 1:33 PM EDT EXAMINATION: Unilateral left breast mammogram CLINICAL HISTORY: Personal history of breast cancer. Status post right mastectomy. Technique: CC and MLO views were obtained of the left breast using standard 2-D mammography as well as 3-D tomosynthesis. Computer aided detection was used. Comparison: This is compared with prior images. Findings: The breast is heterogeneously dense, which may obscure small masses There are no suspicious microcalcifications, masses, or areas of distortion. The pattern is stable. Conclusion: No mammographic evidence of malignancy. Recommendation: Routine annual screening mammography is recommended for women age 40 and above. Additional studies may be recommended for women with higher than average risk for breast cancer. BI-RADS Category 1: Negative * ??The [employer] and The Society of Breast Imaging recommend annual screening beginning at age 40 for the general female population. * ??Screening should continue as long as a woman is in good health and is expected to live 10 more years or longer. * ??All women should be familiar with the known benefits, limitations, and potential harms linked to breast cancer screening. They also should know how their breasts normally look and feel and report any breast changes to a health care provider right away. * ??Some women, because of their family history, a genetic tendency, or certain other factors, should be screened with MRIs along with mammograms. (The number of women who fall into this category is very small.) The patient and health care provider should discuss the patient history and decide if earlier screening and breast MRI are appropriate. Thank you for letting us participate in the care of this patient. ??If you are a health care provider and have any questions regarding this report, please contact the number below. ??For patients who have questions please contact the health day care assistant that requested your imaging first. ? Noe Joel MD IMG MAMMO ORDERABLES documented in this encounter Visit Diagnoses Diagnosis Malignant neoplasm of right breast, stage 2 Encounter for screening mammogram for malignant neoplasm of breast Other screening mammogram documented in this encounter Care Teams Kitchen Cleaner Relationship Specialty Start Date End Date Roxanne Dawn MD [address] [place] [address] PCP - General 04/30/10 documented as of this encounter
--- OUTSIDE RECORDS SUMMARY | 2024-03-17 18:02 | XMS_ITS | Encounter Summary ---
Author Organization [facility] [place] [address] Care Team Providers Care Supply Analyst Name Role Phone Roxanne Dawn MD Primary Care Provider [phone] Reason for Visit * Reason Comments Follow-up Encounter Details Date Type Department Care Team (Late st Contact Info) Description 11/14/2021 3:00 PM EDT Office Visit Hematology [place] [address] Noe Joel MD [facility] [place] [address] Surya Abreu [facility] HEMATOLOGY/[place] [address] Malignant neoplasm of right breast, stage 2; Encounter for screening mammogram for malignant neoplasm of breast Social History Tobacco Use Types Packs/Day Years Used Date Smoking Tobacco: Never Smokeless Tobacco: Never Alcohol Use Standard Drinks/Week Comments Yes 0 (1 standard drink = 0.6 oz pur e alcohol) Sex and Gender Information Value Date Recorded Sex Assigned at Not on file Gender Identity Not on file Sexual Orientation Not on file documented as of this encounter Last Filed Vital Signs Vital Sign Reading Time Taken Comments Blood Pressure 109/71 11/14/2021 2:59 PM EDT Pulse 80 11/14/2021 2:59 PM EDT Temperature 36.4 ??C (97.6 ??F) 11/14/2021 2:59 PM ED T Respiratory Rate 18 11/14/2021 2:59 PM EDT Oxygen Saturation 98% 11/14/2021 2:59 PM EDT Inhaled Oxygen Concentration - - Weight 74.4 kg (164 lb) 11/14/2021 2:59 PM EDT Height 174 cm (5' 8.5) 11/14/2021 2:59 PM EDT Body Mass Index 24.57 11/14/2021 2:59 PM EDT documented in this encounter Progress Notes * Noe Joel MD - 11/14/2021 3:00 PM EDT Subjective: Patient ID: Serenity Cummings is a 66 y.o. female with Stage II breast cancer, here for 17 month followup. HPI Ms. Cummings presented in October of 2000 with a 3.5-cm invasive lobular carcinoma, with angiolymphatic invasion. One of four sampled sentinel nodes was positive with a less than 1 mm deposit. Eight nonsentinel nodes were negative. Estrogen and progesterone receptors were positive and HER-2 was negative. She received six cycles of FEC chemotherapy between January 19 and May 04, 2001 and she began tamoxifen in May 2001. She completed a five year course of tamoxifen on May 24, 2006, and she received five years of letrozole between June 2006 and June 2011. Serenity was also diagnosed with a 9 mm pancreatic endocrine tumor, with negative regional nodes in November 2007. The tumor stained positive for glucagon, and Ki-67 was under 1%. She underwent a distal pancreatectomy on April 03, 2008. She had elevation of her transaminases thought secondary to hepatic steatosis which resolved with weight loss. She has not followed up with Dr. Saunders since 2007 and shehas not had any routine imaging since then, although she had CTs of the abdomen and pelvis done in 2010 and in 2016 for symptoms. She was diagnosed with diabetes in May 2016 with a hemoglobin A1c of greater than 9. Her glucose control improved with weight loss, she continues to use small daily doses of insulin, and her last hemoglobin A1c was 7.2. She started invokana last year and she lost about ten pounds over the pastyear. She had pain on swallowing and dysphagia last spring, I ordered a swallowing study which was normal, and she had a laryngoscopy which suggested acid reflux. She continues to have pain with swallowingwhich seems to improve when she goes out of town, and she does not take acid blockers. She gets nauseated when her blood sugars are low. She gets weekly headaches, and she has night time muscle cramping in her ankles and feet, and cramping in her left flank an average of once per week. She has pruritis of her back which is responding to treatment with naltrexone. She is retired and she enjoys Brid[employer]ory[employer]. She exercises with kayaking, walking, and gardening. She takes Vitamin D at 2000 units daily. Review of Systems She denies breast pain or a palpable breast mass, a cough, shortness of breath, chest pain, vomiting, diarrhea, constipation, double vision, pain, redness, or swelling in her lower extremities, or any other sites of joint or skeletal pain. The remainder of her review of systems is negative. Objective: Physical Exam Vitals reviewed. Constitutional: Appearance: She is well-developed. Comments: Her weight is down 4.8 kg over the past year, and her BP is 109/71. HENT: Mouth/Throat: Pharynx: No oropharyngeal exudate. Eyes: General: No scleral icterus. Neck: Comments: No supraclavicular adenopathy. Cardiovascular: Rate and Rhythm: Normal rate and regular rhythm. Heart sounds: Normal heart sounds. No murmur heard. No gallop. Pulmonary: Breath sounds: Normal breath sounds. No wheezing or rales. Comments: There are no masses within the left breast. There is a small defect at the base of the lollipop stem at the inframammary fold. There is no erythema or nodularity within the skin of the right chest wall. There is no axillary adenopathy palpable on either side. Abdominal: General: There is no distension. Palpations: Abdomen is soft. There is no mass. Tenderness: There is no abdominal tenderness. There is no guarding. Musculoskeletal: Comments: She has no pain on percussion over the spine, sternum, ribs, or hips. There is no edema, erythema, or warmth of her lower extremities. Lymphadenopathy: Cervical: No cervical adenopathy. Skin: General: Skin is warm and dry. Findings: No erythema. The most recent left-sided 3-D mammograms from October 19, 2020 showed no suspicious microcalcifications, masses, or architectural distortion. The breast was heterogeneously dense. The left-sided mammograms were repeated today, and the results are pending. The most recent Dexa scan from October 19, 2020 showed T scores of 0.3 in the lumbar spine (up from -0.1 in January 2013), 0.8 in the left hip (up from 0.5 in January 2013), and 0.8 in the left femoral neck (up from 0.3 in January 2013). The most recent CT of the abdomen and pelvis from December 05, 2016 showed a stable 3.0 cm cystic focusis seen in the posterior right lobe of the liver, and no suspicious hepatic lesions. She is post distal pancreatectomy. The remaining pancreatic neck, head, and uncinate process were normal. There were no enhancing lesions to suggest neoplasm recurrence. There were no suspicious osseous lesions. Assessment and Plan: Serenity is doing well and she has no evidence of breast cancer recurrence, 21 years out from diagnosisof a Stage II invasive lobular carcinoma. She received adjuvant chemotherapy plus extended adjuvantendocrine therapy for ten years. I will contact her by email tomorrow with the official read on hermammograms. Her bone density is very good, it improved by 2-3% over the past nine years, and she has a very lowrisk of developing osteoporosis in the future. I will see her next in followup in one year, and I will repeat her left-sided mammograms at that time. She knows to contact me in the interim if she has any concerns about her breast exam. Noe Joel MD ditch rider in Hematology-Oncology documented in this encounter Plan of Treatment Upcoming Encounters Date Type Department Care Team (Late st Contact Info) Description 04/25/2024 10:40 AM EST Appointment Mammography/[place] [phone] Roxanne Dawn MD [address] [address] documented as of this encounter Results * Mammo Screening Cad and Nathanael Left (02/13/2023 1:31 PM EDT) Anatomical Region Laterality Modality Breast Left Mammography Impressions 02/13/2023 1:46 PM EDT No mammographic evidence of malignancy, Routine annual screening mammography is recommended. FINAL ASSESSMENT: BI-RADS Category 2: Benign Findings * ??Regular screening mammograms starting at age 40 reduces the risk of from breast cancer. * ??Yearly screening provides the most benefit. Women should discuss with their provider their preferred breast cancer screening schedule. * ??Women should report any breast changes to a health care provider right away. * ??Some women, because of their family history, a genetic tendency, or other factors, should be screened with annual breast MRI as well as with mammograms. Thank you for letting us participate in the care of this patient. ??If you are a health care provider and have any questions regarding this report, please contact the number below. ??For patients who have questions please contact the health primary care pediatrician that requested your imaging first. ? Narrative 02/13/2023 1:46 PM EDT EXAMINATION: MAMMO SCREENING CAD AND NATHANAEL LEFT REASON FOR EXAM: Screening TECHNIQUE: CC and MLO views were obtained of the LEFT breast. 2D and 3D tomosynthesis images were obtained. Computer aided detection was used. COMPARISON: Comparison was made to the prior relevant examinations. BREAST DENSITY: The breasts are heterogeneously dense, which may obscure small masses. FINDINGS: Post reduction change, left breast, stable. There are no suspicious microcalcifications, masses, or areas of distortion. Stable appearance. Noe Joel MD IMG MAMMO ORDERABLES documented in this encounter Visit Diagnoses Diagnosis Malignant neoplasm of right breast, stage 2 Encounter for screening mammogram for malignant neoplasm of breast Other screening mammogram Malignant neoplasm of right breast, stage 2 Encounter for screening mammogram for malignant neoplasm of breast Other screening mammogram documented in this encounter Care Teams Supply Analyst Relationship Specialty Start Date End Date Roxanne Dawn MD [address] [place] [id number] PCP - General 04/30/10 documented as of this encounter
--- OUTSIDE RECORDS SUMMARY | 2024-03-17 18:02 | XMS_ITS | Encounter Summary ---
[place] [address] Care Team Providers Care Staff Anesthetist Name Role Phone Roxanne Dawn MD Primary Care Provider Reason for Visit * Reason Onset Date Comments Medication Refill 07/27/2019 Encounter Details Date Type Department Care Team (Late st Contact Info) Description 07/27/2019 Refill [place] [address] Jonny Alston, RN Social History Tobacco Use Types Packs/Day Years Used Date Smoking Tobacco: Never Smokeless Tobacco: Never Alcohol Use Standard Drinks/Week Comments Yes 0 (1 standard drink = 0.6 oz pur e alcohol) Sex and Gender Information Value Date Recorded Sex Assigned at Not on file Gender Identity Not on file Sexual Orientation Not on file documented as of this encounter Plan of Treatment Upcoming Encounters Date Type Department Care Team (Late st Contact Info) Description 04/25/2024 10:40 AM EST Appointment Mammography[place] [address] Roxanne Dawn MD [address] [place], [place] [address] documented as of this encounter Visit Diagnoses Not on filedocumented in this encounter Care Teams Staff Anesthetist Relationship Specialty Start Date End Date Roxanne Dawn MD [address] [place], [place] [id number] PCP - General 04/30/10 documented as of this encounter
--- OUTSIDE RECORDS SUMMARY | 2024-03-17 18:02 | XMS_ITS | Encounter Summary ---
Author Organization [facility] Address [address] [place] [address] Care Team Providers Care Value Advisor Name Role Phone Roxanne Dawn MD Primary Care Provider [phone] Encounter Details Date Type Department Care Team (Latest Contact Info) Description 08/29/2021 Travel Social History Tobacco Use Types Packs/Day Years [...] 9:10 EDT Sexual Orientation Not on file COVID-19 Exposure Response Date Recorded In the last 10 days, have yo u been in contact with someone who was confirmed or suspected to have Coronavirus/COVID-19? No / Unsure 08/29/2021 10:07 EDT documented as of this encounter Functional Status [...] on file documented as of this encounter Visit Diagnoses Not on filedocumented in this encounter Care Teams Value Advisor Relationship Specialty Start Date End Date Roxanne Dawn MD [address] [place] [id number] PCP - General 06/16/16 documented as of this encounter
--- OUTSIDE RECORDS SUMMARY | 2024-03-17 18:02 | XMS_ITS | Encounter Summary ---
Author Organization [facility] Address [address] [place] [address] Care Team Providers Care Co Pilot Name Role Phone Roxanne Dawn MD Primary Care Provider [phone] Reason for Visit * Reason Comments New Patient Visit Encounter Details Date Type Department Care Team (Late st Contact Info) Description 04/05/2020 9:00 EDT Office Visit [facility] - [address] [address] Debra Rush DPM [address] [place] [address] Bilateral bunions (Primary Dx) Social History Tobacco Use Types Packs/Day Years [...] Yes 08/18/2016 documented as of this encounter Progress Notes * Debra Rush, DPM - 04/05/2020 0900 EDT [facility] NEW PATIENT EVALUATION - 04/05/2020 HISTORY OF PRESENT ILLNESS: Ms Cummings presents today with bilateral bunion deformities. Both feet bother her about the same. They have been present for years, but seems to be causing her more problems now. She has been more concerned with this since about July or August. She does not have any pain from the bunions themselves in terms of rubbing in shoes or bump pain or joint pain. She wears good supportive shoes with a wide toe box. She does get some numbness across the toes, however, and aprickly pain in all the toes, as well as occasional cramping. The cramping happens at night. The numbness happens when she is driving. She does have a history of diabetes from surgery -- pancreatic cancer -- and has a history of chemotherapy from breast cancer. Denies any history of back issues. Does have a history of low thyroid. PAST MEDICAL HISTORY: Bilateral knee osteoarthritis, pancreatic cancer, breast cancer, diabetes, hypothyroid. SOCIAL HISTORY: Nonsmoker, retired from [employer], active including about 3 miles of walking 3times a week, biking, gardening, yoga. ALLERGIES: No known drug allergies. MEDICATIONS: Levothyroxine and insulin. REVIEW OF SYSTEMS: Denies nausea, vomiting, fever, chills. PHYSICAL EXAM: General: Alert and oriented x3, no acute distress. Lower extremity problem-focused: Palpable DP and PT pulses. Skin temperature gradient within normallimits. Capillary filling time less than 3 seconds to all toes. No open lesions. No interdigital maceration. Bilateral bunion deformities, left slightly greater than right. No pain on palpation. No pain with range of motion of the 1st metatarsophalangeal joints. No pain with range of motion of the 1st tarsometatarsal joints. Mild hypermobility on the left. Pes planus. Manual muscle testing 5/5. Protective sensation intact via [place] monofilament 10/10. ASSESSMENT: Ms Cummings presents today with bilateral bunions, as well as bilateral foot pain. Bunions are not painful. Bilateral foot pain most consistent with neuropathy. PLAN: We discussed the above findings. As the bunions are not painful, I recommended that she monitor them for now. We discussed that if they do become painful or if she has trouble with shoe gear, could consider surgical workup, which would start with some x-rays of the feet. We briefly discussed what surgery would entail and the recovery time. I do think her foot pain is not caused by the bunions, but does sound more neuropathic in nature. She does have a history of diabetes as well as low thyroid that could be contributing. Possible nerve impingement. We discussed the possibility of obtaining an EMG/nerve conduction study today. She would like to hold off on this for now. If this progresses, she will consider this and I would be happy to place the order for her. She is going to monitorthings for now. We discussed wearing good supportive shoes with a wide toe box. We discussed some [id number] orthotics. She is going to follow up with me as needed. She knows to call with any questions and is happy with this plan. Debra Rush DPM / Dictation ID: [id number] cc: documented in this encounter Plan of Treatment Not on file documented as of this encounter Visit Diagnoses Diagnosis Bilateral bunions- Primary Bunion documented in this encounter Care Teams Co Pilot Relationship Specialty Start Date End Date Roxanne Dawn MD [address] [place] [phone] PCP - General 06/16/16 documented as of this encounter
--- OUTSIDE RECORDS SUMMARY | 2024-03-17 18:02 | XMS_ITS | Encounter Summary ---
Author Organization [facility]in [facility] [place] [address] Care Team Providers Care Rn Maternal Child Name Role Phone Roxanne Dawn MD Primary Care Provider [phone] Reason for Visit * Reason Onset Date Comments Results 07/01/2023 Encounter Details Date Type Department Care Team (Late st Contact Info) Description 07/01/2023 Telephone Hematology [place] [address] [address] [address] [place] [address] Results Social History Tobacco Use Types Packs/Day Years [...] encounter Miscellaneous Notes * Telephone Encounter - Cally Stanford [facility] - 07/01/2023 5:28 PM EST This test result was discussed with the patient by phone. A copy of the test results have been scanned in the medical record and sent to Serenity. A summary of the results is provided below. Please be advised that [place] law requires that all health care workers respect the confidentiality of this information and not pass it along to other health care providers, insurance companies, or individuals without the written permission of the patient. The Famil[facility] Cancer Program welcomes any questions about these matters. Our phone number is: [phone]. On 05/11/2023 Serenity was seen for genetic counseling and subsequently underwent genetic testing for a hereditary predisposition to cancers in eight major organ systems including breast, gynecologic, gastrointestinal, endocrine, genitourinary, skin, brain/nervous system, sarcoma and hematologic. Following are the results of this test. Result: [facility]'s CancerNext-Expanded Panel showed no mutation was detected. This means that Serenity does not carry a mutation in the genes detectable by this test. The following 77 genes were analyzed: AIP, ALK,APC, ELIZA, BAP1, BARD1, BLM, BMPR1A, BRCA1, BRCA2, BRIP1, CDC73, CDH1, CDK4, CDKN1B, CDKN2A, CHEK2, DICER1, FANCC, FH, FLCN, GALNT12, KIF1B, LZTR1, MAX, MEN1, MET, MLH1, MSH2, MSH6, MUTYH, NBN, NF1, NF2, NTHL1, PALB2, PHOX2B, PMS2, POT1, CBWVY5E, PTCH1, PTEN, RAD51C, RAD51D, RB1, RECQL, RET, SDHA, SDHAF2, SDHB, SDHC, SDHD, SMAD4, SMARCA4, SMARCB1, SMARCE1, STK11, SUFU, QREB197, TP53, TSC1, TSC2, VHL and XRCC2 (sequencing and deletion/duplication); AXIN2, CTNNA1, EGFR, EGLN1, HOXB13, KIT, MITF, MSH3, PDGFRA, POLD1 and POLE (sequencing only); EPCAM and GREM1 (deletion/duplication only). Interpretation: This test did not identify an underlying genetic cause for the personal or family history of cancer. Possible explanations for this negative test result include: Serenity's cancer and the cancer in her family may be due to non genetic, environmental causes. There could be a mutation in Serenity's family that Serenity did not inherit There could be mutations in other cancer genes not included in this test, or in genes yet to be discovered. There is a very small chance that a pathogenic variant/mutation could be missed due to limitations in the testing. Based on these results, Serenity's children do not need genetic testing for hereditary cancer risk due to their maternal family history. If their father's family history is of concern, we would recommendfurther evaluation of that side of the family by a genetic counselor. Additional germline genetic testing for Serenity is not recommended at this time. Screening Recommendations Based on genetic test results and personal and/or family history, we recommend: Breast cancer screening Clinical breast exams and imaging as recommended by [place]'s oncologists. Gynecologic cancer screening Pelvic exams and/or Pap smears as recommended by [place]'s water use inspector or primary care provider. Colon cancer screening Baseline colorectal cancer screening starting by age 45-50 is important for everyone, regardless ofgenetic predisposition. Periodic colonoscopy screening as recommended by [place]'s hospital nurse liaison. Skin cancer screening Skin cancer screening and sun protection are important for everyone, regardless of genetic predisposition. Consideration of routine dermatologic/skin exams, as recommended by [place]'s primary care provider ordermatologist. documented in this encounter Plan of Treatment Upcoming Encounters Date Type Department Care Team (Late st Contact Info) Description 04/25/2024 10:40 AM EST Appointment Mammography[place] [address] Roxanne Dawn MD [address] [place], [place] [address] documented as of this encounter Visit Diagnoses Not on filedocumented in this encounter Care Teams Rn Maternal Child Relationship Specialty Start Date End Date Roxanne Dawn MD [address] [place] [address] PCP - General 04/30/10 documented as of this encounter
--- OUTSIDE RECORDS SUMMARY | 2024-03-17 18:02 | XMS_ITS | Encounter Summary ---
Author Organization [facility] Address [address] [place] [address] Care Team Providers Care Terminologist Name Role Phone Unavailable Primary Care Provider Unavailabl e Encounter Details Date Type Department Care Team (Late st Contact Info) Description 03/20/2009 Orders Only [facility] - [facility] ([facility]) [address] [place], [place] [address] Roxanne Infante MD [address] [place] [phone] Social History Tobacco Use Types Packs/Day Years Used Date Smoking Tobacco: Never Assessed Sex and Gender Information Value Date Recorded Sex Assigned at Not on file Gender Identity Female 08/19/2021 9:10 EDT Sexual Orientation Not on file documented as of this encounter Plan of Treatment Not on file documented as of this encounter Procedures Procedure Name Priority Date/Time Associated Diagnosis Comments CYTOPATHOLOGY Routine 03/20/2009 0:00 EDT documented in this encounter Results * CYTOPATHOLOGY (03/20/2009 0:00 EDT) Pathology Report: CYTOPATHOLOGY REPORT ? Reports generated via electronic interface contain original data; ? however they are lacking the format of the original report. ? Caution should be taken when reading/interpreti ng unformatted reports. ? Name: ? KATE PRIDE ? Accession #: ? [id number] ? : ? 1955 (Age: 53) ??F ?Collect Date: ? 03/20/2009 ? Location: ? [facility] ? Receive Date: ? 03/22/2009 ? Provider: ?ROXANNE INFANTE MD ? Copy to: ? Specimen/Source: ?Pap Test, Cervix, ThinPrep Imaging System with manual ?? evaluation ? Last Menstrual Period: ? 2 weeks ago ? SPECIMEN ADEQUACY ? Satisfactory for Evaluation ? - transformation zone component present ? GENERAL CATEGORIZATION ? Negative for Intraepithelial Lesion or Malignancy ? Document reviewed and electronically signed by: ? Pat V[place](ASCP) ? Report Date: ??03/28/2009 14:26 ? End of Report ? [facility] 03/20/2009 03/22/2009 Roxanne Infante MD PATHOLOGY ORDERABLES Performing Organization Address City/State/[facility] Co de Phone Number [facility] [address] [place] [address] documented in this encounter Visit Diagnoses Not on filedocumented in this encounter
--- OUTSIDE RECORDS SUMMARY | 2024-03-17 18:02 | XMS_ITS | Encounter Summary ---
Author Organization [facility] Address [address] [place] [address] Care Team Providers Care Poultry Vaccinator Name Role Phone Roxanne Dawn MD Primary Care Provider [phone] Encounter Details Date Type Department Care Team (Late st Contact Info) Description 02/15/2020 Lab Requisition [facility] Pathology & Laboratory Medicine - [address] [address] Outr Resulting Lab, Provider Social History Tobacco [...] Procedure Name Priority Date/Time Associated Diagnosis Comments HOLD SST Today 02/14/2020 11:15 EDT ZZHN SSA ANTIBODIES BY RODOLFO Today 02/14/2020 11:15 EDT RHEUMATOID FACTOR Today 02/14/2020 11: 15 EDT ANTI NUCLEAR AB (VALENTINA), IFA Today 02/14/2020 11:15 EDT documented in this encounter Results * HOLD SST (02/14/2020 11:15 EDT) Hold Hold 02/15/2020 17:15 EDT [facility] Blood VENOUS BLOOD / Unknown 02/14/2020 11:15 EDT 02/15/2020 16:09 EDT Provider Outr Resulting Lab LAB INFO SER VICE AND SUPPORT & PHONE RESULT Performing Organization Address [facility]/ZIP Co de Phone Number [facility] [address] [place] [address] * RHEUMATOID FACTOR (02/14/2020 11:15 EDT) Pathologist [facility] Rheumatoid Factor <8.6 <12.0 IU/mL 02/15/2020 16:33 EDT [facility] Blood VENOUS BLOOD / Unknown 02/14/2020 11:15 EDT 02/15/2020 16:09 EDT Provider Outr Resulting Lab CHEMISTRY & BLOOD GAS ORDERABLES Performing Organization Address [facility] Co de Phone Number [facility] [address] [place] [address] * SSA ANTIBODIES BY RODOLFO (02/14/2020 11:15 EDT) Pathologist [facility] SSA Antibody 1.4 <20.0 Units 02/17/2020 15:59 EDT [facility] Comment: ? Negative: <20.0 Units ? Weak Positive: 20.0 - 39.9 Units ? Moderate Positive: 40.0 - 80.0 Units ? Strong Positive: >80.0 Units Results were obtained with the INOVA QUANTA Lite SS-A RODOLFO. ??SS-A values obtained with different manufacturers' assay methods may not be used interchangeably. ??The magnitude of the reported IgG levels cannot be correlated to an endpoint titer. Blood VENOUS BLOOD / Unknown 02/14/2020 11:15 EDT 02/15/2020 16:09 EDT Provider Outr Resulting Lab IMMUNOLOGY A ND SEROLOGY ORDERABLES Performing Organization Address [facility] Co de Phone Number [facility] [address] [place] [address] * (ABNORMAL) ANTI NUCLEAR AB (VALENT[place]), IFA (02/14/2020 11:15 EDT) [place] Interpretation Positive(A) Negative 02/16/2020 15:11 EDT [facility] Comment: For titers greater than or equal to 1:160 (except the centromere and nucleolar patterns) it is recommended that specific follow-up autoantibody testing ??(such as for dsDNA and Extractable Nuclear Antigens) be performed on all diffuse and/or speckled patterns NOTE: For add-on testing dsDNA is stable for 7 days refrigerated while Extractable Nuclear Antigens are only stable for 48 hours refrigerated. VALENTINA Titer and Pattern 1 1:160 Homogeneous 02/16/2020 15:11 EDT [facility] Blood VENOUS BLOOD / Unknown 02/14/2020 11:15 EDT 02/15/2020 16:09 EDT Narrative [facility] - 02/16/2020 15:11 EDT Results were obtained with the INOVA NOVA Lite HEp-2 VALENTINA Kit by indirect immunofluorescence. Provider Outr Resulting Lab IMMUNOLOGY A ND SEROLOGY ORDERABLES Performing Organization Address [facility] Co de Phone Number [facility] [address] [place] [address] documented in this encounter Visit Diagnoses Not on filedocumented in this encounter Care Teams Poultry Vaccinator Relationship Specialty Start Date End Date Roxanne Dawn MD [address] [place] [address] PCP - General 06/16/16 documented as of this encounter
--- OUTSIDE RECORDS SUMMARY | 2024-03-17 18:02 | XMS_ITS | Encounter Summary ---
Author Organization [facility] Address [address] [place] [address] Care Team Providers Care Traffic Inspector Name Role Phone Roxanne Dawn MD Primary Care Provider [phone] Encounter Details Date Type Department Care Team (Late st Contact Info) Description 06/24/2016 Results Only [facility] Endocr[facility]ology - [facility] [address] [place] [address] Salazar Melendrez MD [address] [facility] [address] [place] [address] Social History Tobacco Use Types Packs/Day Years Used Date Smoking Tobacco: Never Smokeless Tobacco: Never Alcohol Use Standard Drinks/Week Comments No 0 (1 standard drink = 0.6 oz pur e alcohol) stopped since diabetes Sex and Gender Information Value Date Recorded Sex Assigned at Not on file Gender Identity Female 08/19/2021 9:10 EDT Sexual Orientation Not on file documented as of this encounter Plan of Treatment Not on file documented as of this encounter Procedures Procedure Name Priority Date/Time Associated Diagnosis Comments TSH Routine 06/24/2016 11:50 EST T4 FREE Routine 06/24/2016 11:50 EST documented in this encounter Results * TSH (06/24/2016 11:50 EST) TSH 2.37 0.55 - 4.78 uIU/ml 06/24/2016 16:02 EST [facility] BLOOD SPECIMEN / Unknown 06/24/2016 11:50 EST 06/24/2016 13:04 EST Salazar Melendrez MD CHEMISTRY & BLOOD GAS ORDERABLES Performing Organization Address [facility] Co de Phone Number [facility] [address] [place] [address] * T4 FREE (06/24/2016 11:50 EST) Free T4 1.5 0.8 - 1.8 ng/dl 06/24/2016 15:00 EST [facility] BLOOD SPECIMEN / Unknown 06/24/2016 11:50 EST 06/24/2016 13:04 EST Salazar Melendrez MD CHEMISTRY & BLOOD GAS ORDERABLES Performing Organization Address [facility] de Phone Number [facility] [address] [place] [address] documented in this encounter Visit Diagnoses Not on filedocumented in this encounter Care Teams Traffic Inspector Relationship Specialty Start Date End Date Roxanne Dawn MD [address] [place] [address] PCP - General 06/16/16 documented as of this encounter
--- OUTSIDE RECORDS SUMMARY | 2024-03-17 18:02 | XMS_ITS | Encounter Summary ---
Author Organization [facility] Address [address] [place] [address] Care Team Providers Care Switch Repairer Name Role Phone Roxanne Dawn MD Primary Care Provider [phone] Reason for Visit * Reason Onset Date Comments COVID-19 08/07/2021 Encounter Details Date Type Department Care Team (Late st Contact Info) Description 08/07/2021 Telephone [facility] - [facility] ENT [address] [place] [address] Bill Wheat MD [address] [place] [address] [address] [place] [address] COVID-19 Social History Tobacco Use Types Packs/Day Years [...] Yes 08/18/2016 documented as of this encounter Miscellaneous Notes * Telephone Encounter - Miriam Polanco - 08/07/2021 1508 EST COVID TEST REQUIRED Please order COVID test for this patient INTERNAL ORDER TO [facility] Patient advised to go to [facility] lab 3 days prior to their appointment with ENT. Date patient needs to have COVID test done: 08/26 Appt Reason: dysphagia Appt Date 08/29 Provider arlen Notified patient of the need to Quarantine once test is complete until the appointment Patient confirmed to quarantine and call if any sx's documented in this encounter Plan of Treatment Scheduled Orders Name Type Priority Associated Diagnoses Orde r Schedule COVID-19 TESTING ([facility], [facility] [place]) Microbiology Routine Pre-procedure lab exam Ordered: 08/07/2021 documented as of this encounter Visit Diagnoses Diagnosis Pre-procedure lab exam- Primary Pre-procedural laboratory examination documented in this encounter Care Teams Switch Repairer Relationship Specialty Start Date End Date Roxanne Dawn MD [address] [place] [id number] PCP - General 06/16/16 documented as of this encounter
--- OUTSIDE RECORDS SUMMARY | 2024-03-17 18:02 | XMS_ITS | Encounter Summary ---
Author Organization [facility] [place] [address] Care Team Providers Care Tmr Teacher Name Role Phone Roxanne Dawn MD Primary Care Provider [phone] 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 * Consultation (Routine) - Closed Specialty Diagnoses / Procedures Referred By Bryan cai Referred To Contact Dermatology Diagnoses Notalgia paresthetica Noe Joel MD [facility] HEMATOLOGY/[place] [address] [facility] Dermatology [address] [place] [address] Referral ID Status Reason Start Date Expiration Date V isits Requested Visits Authorized [id number] Closed Consult, Test & Treat 10/19/2020 10/19/2021 1 1 Encounter Details Date Type Department Care Team (Late st Contact Info) Description 10/19/2020 2:30 PM EDT Office Visit Hematology [place] [address] Noe Joel MD [facility] HEMATOLOGY/[place] [address] Malignant neoplasm of right breast, stage 2; Notalgia paresthetica; Dysphagia, unspecified type; Encounter for screening mammogram for malignant neoplasm [...] Sign Reading Time Taken Comments Blood Pressure 134/92 10/19/2020 1:59 PM EDT Pulse 58 10/19/2020 1:59 PM EDT Temperature 36.7 ??C (98.1 ??F) 10/19/2020 1:59 PM ED T Respiratory Rate 16 10/19/2020 1:59 PM EDT Oxygen Saturation 99% 10/19/2020 1:59 PM EDT Inhaled Oxygen Concentration - - Weight 79.2 kg (174 lb 9.6 oz) 10/19/2020 1:59 P M EDT Height - - Body Mass Index 25.78 02/02/2018 1:01 PM EDT documented in this encounter Progress Notes * oNe Joel MD - 10/19/2020 2:30 PM EDT Subjective: Patient ID: Serenity Cummings is a 65 y.o. female with Stage II breast cancer, [...] with a hemoglobin A1c of greater than 9, but she lost 25 pounds and her Hgb A1c fell below 6. She does not tolerate metformin, and she got her insulindose as low as 3-5 units of Lantus daily. Her insulin requirements have crept back up over the pastsix months, she is now on Lantus at 20 units daily, and her last A1c was 7.4. Serenity has night sweats, but they appear to be associated with nausea and feeling poorly, and these episodes resolve with consumption of carbs. She has pain in her left knee, and muscle cramping in herlegs from the ankles to the feet at night. She has no other sites of joint or skeletal pain. Her left flank pain has resolved. Since her last visit here she has had worsening discomfort of her throat. Her throat feels raw and she feels that something is lodged there. She occasionally aspirates food, and she occasionally has to regurgitate swallowed food. She also sometimes has to make an effort to swallow. She has the worst problems swallowing liquids and hard boiled eggs. She takes Vitamin D at 2000 units daily. Review of Systems She denies breast pain or a palpable breast mass, a cough, shortness of breath, chest pain, nausea,vomiting, diarrhea, constipation, headaches, double vision, or pain, redness, or swelling in her lower extremities. The remainder of her review of systems is negative. Objective: Physical Exam Vitals reviewed. Constitutional: Appearance: She is well-developed. Comments: Her weight is up 1.2 kg over the past 17 months, and her BP is 134/92. HENT: Mouth/Throat: Pharynx: No oropharyngeal exudate. Eyes: General: No scleral icterus. Neck: Comments: No supraclavicular adenopathy. Cardiovascular: Rate and Rhythm: Normal rate and regular rhythm. Heart sounds: Normal heart sounds. No murmur. No gallop. Pulmonary: Breath sounds: Normal breath [...] over the spine, sternum, ribs, or hips. Lymphadenopathy: Cervical: No cervical adenopathy. Skin: General: Skin is warm and dry. Findings: No erythema. The most recent left-sided 3-D mammograms from May 13, 2019 showed no suspicious microcalcifications, masses, or architectural distortion. The breast was heterogeneously dense. The mammograms were repeated today, and the results are pending. The most recent CT of the abdomen [...] recurrence. There were no suspicious osseous lesions. Today's Dexa scan shows T scores of 0.3 in the lumbar spine (up from -0.1 in January 2013), 0.8 in the left hip (up from 0.5 in January 2013), and 0.8 in the left femoral neck (up from 0.3 in January 2013). The most recent chemistries I have from December 05, 2016 showed a Na 141, K 4.5, Cl 101, bicarb 27, BUN 24, creatinine 0.86, Ca 9.9, albumin 4.7, bili 0.4, alk phos 74, AST 15, and ALT 24. Assessment and Plan: Serenity is doing well and she has no evidence of breast cancer recurrence, 20 years out from diagnosisof a Stage II invasive lobular carcinoma. She received adjuvant chemotherapy plus extended adjuvantendocrine therapy for ten years. Her bone density is very good, it has improved by 2-3% over the past eight years, and she has a very low risk of developing osteoporosis in the future. I will contact her by email Thursday with the official read on her mammograms. 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 Dr. Saunders told her in 2007 that this was a good risk cancer and that followup and routine imaging were not necessary. I looked up the recommended followup for pancreatic neuroendocrine cancers on the current NCCN website, which corroborates what Dr. Saunders told her. They recommend imaging only as needed to evaluate symptoms, which we have been doing. She asked for help in evaluating her swallowing issues. Although the current problem only dates back about 17 months, Serenity had a modified barium swallow done in November of 2006 for very similar complaints. I will refer her for another swallowing study, as her symptoms have worsened in the recent past.She would also like a referral back to Dr. Greenfield in Dermatology for the same day, which I will arrange. I will see her next in followup in October 2021, and I will repeat her left-sided mammograms at that time. She knows to contact me in the interim if she has any concerns about her breast exam. Noe Joel MD account consultant in Hematology-Oncology documented in this encounter Plan of Treatment Upcoming Encounters Date Type Department Care Team (Late st Contact Info) Description 04/25/2024 10:40 AM EST Appointment Mammography/[place] [address] Roxanne Dawn MD [address] [address] Scheduled Orders Name Type Priority Associated Diagnoses Orde r Schedule XR Fluoro Barium Swallow (Double Contrast) Imaging Routine Dysphagia, unspecified type Expected: 10/20/2020, Expires: 01/19/2021 Scheduled Referrals Name Type Priority Associated Diagnoses Orde r Schedule Referral to Dermatology Outpatient Referral Routine Notalgia paresthetica Ordered: 10/19/2020 documented as of this encounter Results * [...] cancer. BI-RADS Category 1: Negative * ??[employer] and The Society of [...] who have questions please contact the health care giver that requested your imaging first. ? Noe Joel MD IM MAMMO ORDERABLES documented in this encounter Visit Diagnoses Diagnosis Malignant neoplasm of right breast, stage 2 Notalgia paresthetica Disturbance of skin sensation Dysphagia, unspecified type Encounter for screening mammogram for malignant neoplasm of breast Other screening mammogram Malignant neoplasm of right breast, stage 2 Encounter for screening mammogram for malignant neoplasm of breast Other screening mammogram documented in this encounter Care Teams Tmr Teacher Relationship Specialty Start Date End Date Roxanne Dawn MD [address] [place] [address] PCP - General 04/30/10 documented as of this encounter
--- OUTSIDE RECORDS SUMMARY | 2024-03-17 18:02 | XMS_ITS | Encounter Summary ---
Author Organization [facility] Address [address] [place] [address] Care Team Providers Care Policy Value Calculator Name Role Phone Unavailable Primary Care Provider Unavailabl e Encounter Details Date Type Department Care Team (Late st Contact Info) Description 07/21/2001 Results Only [facility] [address] [place] [address] Jade Armstrong MD [address] [address] Social History Tobacco Use Types Packs/Day Years Used Date Smoking Tobacco: Never Assessed Sex and Gender Information Value Date Recorded Sex Assigned at Not on file Gender Identity Female 08/19/2021 9:10 EDT Sexual Orientation Not on file documented as of this encounter Plan of Treatment Not on file documented as of this encounter Procedures Procedure Name Priority Date/Time Associated Diagnosis Comments CYTOPATHOLOGY Routine 07/21/2001 0:00 EST documented in this encounter Results * CYTOPATHOLOGY (07/21/2001 0:00 EST) Pathology Report: CYTOPATHOLOGY REPORT Reports generated via electronic interface contain original data; however they are lacking the format of the original report. Caution should be taken when reading/interpreti ng unformatted reports. Name: ? KATE PRIDE ? Accession #: ? [id number] : ? 1955 (Age: 46) ??F ?Collect Date: ? 07/21/2001 Location: ? [facility] ? Receive Date: ? 07/27/2001 Provider: ?JADE ARMSTRONG MD Copy to: ? Specimen/Source: ?Conventional Pap Test, Endocervix Last Menstrual Period: ? SPECIMEN ADEQUACY ? Satisfactory for Evaluation - transformation zone component present GENERAL CATEGORIZATION ? Negative for Intraepithelial Lesion or Malignancy ? Document reviewed and electronically signed by: ? Yen Rocha, CT(ASCP) ? Report Date: ??07/27/2001 15:21 End of Report ADRIENNE GARCIA 07/21/2001 07/27/2001 Jade Armstrong MD PATHOLOGY ORDERABLES ADRIENNE GARCIA [address] [place] [address] documented in this encounter Visit Diagnoses Not on filedocumented in this encounter
--- OUTSIDE RECORDS SUMMARY | 2024-03-17 18:02 | XMS_ITS | Encounter Summary ---
[place] [address] Care Team Providers Care Supply Manager Name Role Phone Roxanne Dawn MD Primary Care Provider [phone] Encounter Details Date Type Department Care Team (Late st Contact Info) Description 05/13/2018 Telephone [place] [phone] Susy Luciano LPN Social History Tobacco Use Types Packs/Day Years [...] Telephone Encounter - Susy Luciano LPN - 05/13/2018 2:25 PM EST R/c to P[facility]el pharmacist at who is questioning Lantus dose. Per Pawel the dose of 3-5U is less thenprevious Rx by PCP for 7U Pawel was advised that per office note 02/02/18 dose is 3-5U and patient verified this dose when thisnurse called her yesterday documented in this encounter Plan of Treatment Upcoming Encounters Date Type Department Care Team (Late st Contact Info) Description 04/25/2024 10:40 AM EST Appointment Mammography/[place] [address] Roxanne Dawn MD [address] [place], [place] [id number] documented as of this encounter Visit Diagnoses Not on filedocumented in this encounter Care Teams Supply Manager Relationship Specialty Start Date End Date Roxanne Dawn MD [address] [place] [address] PCP - General 04/30/10 documented as of this encounter
--- OUTSIDE RECORDS SUMMARY | 2024-03-17 18:02 | XMS_ITS | Encounter Summary ---
Author Organization [facility] [address] Care Team Providers Care Hardwood Floor Installation Helper Name Role Phone Roxanne Dawn MD Primary Care Provider [phone] 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 * Consultation (Priority 1) - Closed Specialty Diagnoses / Procedures Referred By Bryan t Referred To Contact Genetics Diagnoses Malignant neoplasm of right breast, stage 2 Noe Joel MD [facility] HEMATOLOGY/[place] [address] [facility] [address] [place] [phone] Referral ID Status Reason Start Date Expiration Date V isits Requested Visits Authorized [id number] Closed Consult, Test & Treat 02/13/2023 02/13/2024 1 1 Reason for Visit * Reason Comments Follow-up Encounter Details Date Type Department Care Team (Late st Contact Info) Description 02/13/2023 4:00 PM EDT Office Visit Hematology [place] [address] Noe Joel MD [facility] HEMATOLOGY/[place] [address] Malignant neoplasm of right breast, stage 2 Social History Tobacco Use Types Packs/Day Years [...] Sign Reading Time Taken Comments Blood Pressure 110/65 02/13/2023 3:49 PM EDT Pulse 81 02/13/2023 3:49 PM EDT Temperature 36 ??C (96.8 ??F) 02/13/2023 3:49 PM EDT Respiratory Rate 18 02/13/2023 3:49 PM EDT Oxygen Saturation 98% 02/13/2023 3:49 PM EDT Inhaled Oxygen Concentration - - Weight 73.7 kg (162 lb 7.7 oz) 02/13/2023 3:49 P M EDT Height 177 cm (5' 9.69) 02/13/2023 3:49 PM EDT Body Mass Index 23.52 02/13/2023 3:49 PM EDT documented in this encounter Progress Notes * Noe Joel MD - 02/13/2023 4:00 PM EDT Subjective: Patient ID: Serenity Cummings is a 67 y.o. female with Stage II breast cancer, here for 15 month followup. HPIMs. Cummings presented in October of 2000 with [...] up with Dr. Saunders since 2007 and tannahas not had any routine imaging since then, although she had CTs of the abdomen and pelvis done in 2010 and in 2017 for symptoms. She was diagnosed with diabetes in May 2016 with a hemoglobin A1c of greater than 9. Her glucose control improved with weight loss, she continues to use small daily doses of insulin, and her A1cis under 7.0. She has had episodic pain in her left neck, in her left flank, in her legs between the groin and the knees, and in her left knee. She has ongoing dysphagia, and she had a negative swallowing study and a laryngoscopy two years ago. She has pruritus over her back. 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 She exercises with kayaking, walking, and gardening. She takes Vitamin D at 2000 units daily. Review of Systems She denies breast pain or a palpable breast mass, a cough, shortness of breath, chest pain, nausea, vomiting, diarrhea, constipation, headaches, double vision, pain, redness, or swelling in her lower extremities, or any other sites of joint or skeletal pain. The remainder of her review of systems is negative. Objective: Physical Exam Vitals reviewed. Constitutional: Appearance: She is well-developed. Comments: Her weight is down 0.6 kg over the past year, and her BP is 110/65 with an oxygen saturation of 98%. HENT: Mouth/Throat: Pharynx: No oropharyngeal exudate. Eyes: [...] no abdominal tenderness. There is no guarding. Comments: She has no right upper quadrant pain or hepatomegaly. Musculoskeletal: Comments: She has no pain on percussion over the spine, sternum, ribs, or hips. There is no edema, erythema, or warmth of her lower extremities. Lymphadenopathy: Cervical: No cervical adenopathy. Skin: General: Skin is warm and dry. Findings: No erythema. Today's left-sided 3-D mammograms show no suspicious microcalcifications, masses, or architectural distortion. The breast is heterogeneously dense. The most recent Dexa scan from October [...] has no evidence of breast cancer recurrence, 22 years out from diagnosisof a Stage II invasive lobular carcinoma. She received adjuvant chemotherapy plus extended adjuvantendocrine therapy for ten years. She asked about genetic testing. She was age 46 when she was diagnosed with her first breast cancer, I referred her to Dr. King in 2008, she declined testing then, but she now wishes to get tested, and testing should be covered for her. I will make a referral to the [facility]amil[facility] Cancer [facility]. I will be retiring in April. I will now sign off and I do not think that she needs to continue to be followed by a medical oncologist down here. I will ask Dr. Dawn toschedule her yearly mammograms starting in one year. Noe Joel MD planimeter operator in Hematology-Oncology documented in this encounter Plan of Treatment Upcoming Encounters Date Type Department Care Team (Late st Contact Info) Description 04/25/2024 10:40 AM EST Appointment Mammography/[place] [address] Roxanne Dawn MD [address] [place] [address] Scheduled Referrals Name Type Priority Associated Diagnoses Orde r Schedule Referral to Familial Cancer Outpatient Referral Routine Malignant neoplasm of right breast, stage 2 Ordered: 02/13/2023 documented as of this encounter Visit Diagnoses Diagnosis Malignant neoplasm of right breast, stage 2 documented in this encounter Care Teams Hardwood Floor Installation Helper Relationship Specialty Start Date End Date Roxanne Dawn MD [address] [place] [address] PCP - General 04/30/10 documented as of this encounter
--- OUTSIDE RECORDS SUMMARY | 2024-03-17 18:02 | XMS_ITS | Encounter Summary ---
[place] [address] Care Team Providers Care Allergy Physician Name Role Phone Roxanne Dawn MD Primary Care Provider [phone] Reason for Visit * Speech Therapy (Routine) - Closed Specialty Diagnoses / Procedures Referred By Bryan cai Referred To Contact Speech Pathology / Speech Therapy Diagnoses Other dysphagia Noe Joel MD [facility] [address] HEMATOLOGY/[place] [address] [facility] Manager [place] [address] Referral ID Status Reason Start Date Expiration Date V isits Requested Visits Authorized [id number] Closed Evaluate and Treat 01/29/2021 01/29/2022 100 100 Encounter Details Date Type Department Care Team (Late st Contact Info) Description 02/06/2021 9:00 AM EDT Office [place] [address] Wild Carreon, [place] Dysphagia, unspecified type Social History Tobacco Use Types Packs/Day Years Used Date Smoking Tobacco: Never Smokeless Tobacco: Never Alcohol Use Standard Drinks/Week Comments Yes 0 (1 standard drink = 0.6 oz pur e alcohol) Sex and Gender Information Value Date Recorded Sex Assigned at Not on file Gender Identity Not on file Sexual Orientation Not on file documented as of this encounter Miscellaneous Notes * Initial Evaluation - Wild Carreon, [place] - 02/06/2021 9:00 AM EDT Speech-Language Pathology Office Swallow Evaluation 02/06/2021 9:36 AM 1955 Referring MD: Noe Joel MD Date seen by referring MD: 10/19/20 Total Treatment Time: 30 min. Total Timed Code Treatment: 0 min. Certification Period: Eval Only. KX modifier used beginning on date: Not applied. History: Patient is a 65 y.o. female with PMH of breast cancer treated with chemotherapy in 2000 and pancreatic endocrine cancer, s/p distal pancreatectomy on 04/03/2008. Pt now presents for a swallow evaluation with primary concern for a lump in her throat. She reports very little difficulty swallowing other than with hard boiled eggs. PMH: Past Medical History: Diagnosis Date ??? Benign pancreatic islet cell tumors 12/24/2010 ??? Breast cancer, stage 2 12/08/2000 ??? Chronic lower back pain ??? Hypothyroidism 12/24/2010 ??? Infection ??? Urinary disorder S: ?? Pt. Arrived for appointment. Sitting upright. ?? Pt reports no difficulty swallowing liquids or solids with the exception of a hard boiled egg. She reports avoiding hard boiled eggs at this time. ?? Pt reports her primary concern is a lump in her throat. She reports she feels this even when sheis not swallowing anything. She reports it is worse at night. ?? Pt. denies pain at this time. O: Current diet: Regular diet and thin liquids. Respiratory Status: On RA. Feeding / Oral Care Status: Independent. Oral / Laryngeal Mechanism Clinical Assessment: ?? Lingual: Normal tongue movement in all planes. Normal articulation in conversation. ?? Labial: Normal labial retraction, protrusion and labial seal. Normal articulation in conversation. ?? Velar: Uvula is midline. Velar elevation is present. Velo-pharyngeal seal is functional. ?? Vocal fold function and airway protection: Vocal quality is clear. Cough/throat clear is strong. Bolus Presentation(s) ??? Thin liquid from cup and straw. ??? Puree ??? Regular consistency Oral Preparatory Phase ?? Mastication: Normal for solids. ?? Oral Transit: Efficient across consistencies. ?? Bolus Cohesion: Appears functional. Defaults to piecemeal bolus formulation with pudding. Pt is able to do entire bolus without difficulty. ?? Labial Seal / Loss: Negative. ?? Oral Stasis: Negative. Pharyngeal Phase ?? Initiation: Swallow initiation appears timely. ?? Laryngeal Elevation: Normal to palpation. ?? Vocal quality change: Negative following all swallows. ?? Cough: Negative following all swallows. ?? Pt. complaint of food getting stuck: Negative. Unable to voluntarily retch bolus material back to oral cavity. Esophageal Phase Appears to be WFL, No overt clinical s/s of esophageal phase dysphagia noted during this evaluation. A: Dx: Normal oral swallow with functionally appearing pharyngeal swallow. Summary: Normal oral manipulation of bolus material across consistencies. No overt signs of aspiration or pharyngeal dysphagia. Pt reports her primary concern is the chronic sensation of a lump in her throat at the level of the larynx. This sensation is present even when she is not swallowing. Given no overt signs of aspiration or pharyngeal dysphagia, I wonder if pt may benefit from an ENT consult for direct visualization of hypopharynx given concern for lump in throat.. Education: Explained anatomy and physiology of oropharyngeal swallow. Reviewed above assessment. P: RECOMMENDATIONS: ??? Consider ENT consult for direct visualization of laryngeal / pharyngeal tissues given pt's complaint of chronic lump in throat. ??? Continue regular diet and thin liquids. Frequency of care: ??? No Speech Pathology intervention recommended at this time. ??? Pt. is in agreement with treatment plan. Short-Term Goals: ??? N/A Long-Term Goals: ?? N/A Thank you for this consult with this patient. Please feel free to page me with any questions or concerns. Wild Carreon MS, [facility] [place] Inpatient Rehabilitation Medicine Pager: # [phone] documented in this encounter Plan of Treatment Upcoming Encounters Date Type Department Care Team (Late st Contact Info) Description 04/25/2024 10:40 AM EST Appointment Mammography/[place] [address] Roxanne Dawn MD [address] [phone] Scheduled Referrals Name Type Priority Associated Diagnoses Orde r Schedule Referral to Speech Therapy Outpatient Referral Routine Other dysphagia Ordered: 01/29/2021 documented as of this encounter Visit Diagnoses Diagnosis Dysphagia, unspecified type documented in this encounter Care Teams Allergy Physician Relationship Specialty Start Date End Date Roxanne Dawn MD [facility] [address] [place] [address] PCP - General 04/30/10 documented as of this encounter
--- OUTSIDE RECORDS SUMMARY | 2024-03-17 18:02 | XMS_ITS | Encounter Summary ---
Author Organization [facility] [place] [address] Care Team Providers Care Innersole Maker Name Role Phone Roxanne Dawn MD Primary Care Provider [phone] Encounter Details Date Type Department Care Team (Late Contact Info) Description 12/19/2020 Orders Only Hematology [place] [phone] Noe Joel MD [facility] [address] HEMATOLOGY/[place] [address] Social History Tobacco Use Types Packs/Day Years [...] 04/25/2024 10:40 AM EST Appointment Mammography[place] [phone] Roxanne Dawn MD [address] [place] [address] documented as of this encounter Visit Diagnoses Not on filedocumented in this encounter Care Teams Innersole Maker Relationship Specialty Start Date End Date Roxanne Dawn MD [address] [place] [address] PCP - General 04/30/10 documented as of this encounter
--- OUTSIDE RECORDS SUMMARY | 2024-03-17 18:02 | XMS_ITS | Encounter Summary ---
Author Organization [facility] Address [address] [place] [address] Care Team Providers Care Hand Finisher Name Role Phone Roxanne Dawn MD Primary Care Provider [phone] Encounter Details Date Type Department Care Team (Late st Contact Info) Description 06/27/2016 Results Only Imaging [facility] [phone] Roxanne Dawn MD [address] [place] [address] Social History Tobacco Use Types Packs/Day [...] on filedocumented in this encounter Care Teams Hand Finisher Relationship Specialty Start Date End Date Roxanne Dawn MD [address] [place] [address] PCP - General 06/16/16 documented as of this encounter
--- OUTSIDE RECORDS SUMMARY | 2024-03-17 18:02 | XMS_ITS | Encounter Summary ---
Author Organization [facility] Address [address] [place] [address] Care Team Providers Care Steward/Stewardess Chief Cargo Vessel Name Role Phone Unavailable Primary Care Provider Unavailabl e Encounter Details Date Type Department Care Team (Late st Contact Info) Description 11/25/2010 Results Only [facility] ([facility]) [address] [place], [place] [address] Roxanne Infante MD [address] [place] [phone] Social History Tobacco Use Types Packs/Day Years Used Date Smoking Tobacco: Never Assessed Sex and Gender Information Value Date Recorded Sex Assigned at Not on file Gender Identity Female 08/19/2021 9:10 EDT Sexual Orientation Not on file documented as of this encounter Plan of Treatment Not on file documented as of this encounter Procedures Procedure Name Priority Date/Time Associated Diagnosis Comments PAP TEST- RESULT ONLY Routine 11/25/2010 0:00 EDT documented in this encounter Results * PAP TEST- RESULT ONLY (11/25/2010 0:00 EDT) Pathology Report: CYTOPATHOLOGY REPORT ? Reports generated via electronic interface contain original data; ? however they are lacking the format of the original report. ? Caution should be taken when reading/interpreti ng unformatted reports. ? Name: ? KATE PRIDE ? Accession #: ? [id number] ? : ? 1955 (Age: 55) ??F ?Collect Date: ? 11/25/2010 ? Location: ? [facility] ? Receive Date: ? 11/27/2010 ? Provider: ?ROXANNE INFANTE MD ? Copy to: ? Specimen/Source: ?Pap Test, Cervix/Endocervix, ThinPrep Imaging System ? with manual evaluation ? Last Menstrual Period: ? 10 yrs ago ? SPECIMEN ADEQUACY ? Satisfactory for Evaluation ? - transformation zone component present ? - scant squamous epithelial component secondary to excessive blood ? GENERAL CATEGORIZATION ? Negative for Intraepithelial Lesion or Malignancy ? Document reviewed and electronically signed by: ? Rickey Cullenos, CT(ASCP) ? Report Date: ??12/06/2010 13:29 ? End of Report ? ADRIENNE GARCIA 11/25/2010 11/27/2010 Roxanne Infante MD PATHOLOGY ORDERABLES Performing Organization Address City/State/[facility] Co de Phone Number ADRIENNE GARCIA [address] [place] [address] documented in this encounter Visit Diagnoses Not on filedocumented in this encounter
--- OUTSIDE RECORDS SUMMARY | 2024-03-17 18:02 | XMS_ITS | Encounter Summary ---
Author Organization [facility] Address [address] [place] [address] Care Team Providers Care Documentation Specialist Name Role Phone Unavailable Primary Care Provider Unavailabl e Encounter Details Date Type Department Care Team (Late st Contact Info) Description 05/04/2012 Results Only [facility] Laboratory Services - [facility] ([facility]) [address] [place], [place] [phone] Roxanne Infante MD [address] [place] [phone] Social History Tobacco Use Types Packs/Day [...] Diagnosis Comments PAP TEST- RESULT ONLY Routine 05/04/2012 0:00 EST documented in this encounter Results * PAP TEST- RESULT ONLY (05/04/2012 0:00 EST) Pathology Report: CYTOPATHOLOGY REPORT Reports generated via electronic interface contain original data; however they are lacking the format of the original report. Caution should be taken when reading/interpreti ng unformatted reports. Name: ? KATE PRIDE ? Accession #: ? [id number] ? : ? 1955 (Age: 56) ??F ?Collect Date: ? 05/04/2012 ? Location: ? [facility] ? Receive Date: ? 05/06/2012 ? Provider: ROXANNE INFANTE MD Copy to: ? Final Report SPECIMEN ADEQUACY ? Satisfactory for Evaluation - transformation zone component present GENERAL CATEGORIZATION ? Negative for Intraepithelial Lesion or Malignancy ?? Last Menstrual Period: 2000 Specimen/Source: ??Pap Test, Cervix/Endocervix, ThinPrep Imaging System with manual evaluation Document reviewed and electronically signed by: ? NARCISO Ackerman(ASCP) ? Report ??Date: 05/13/2012 10:17 HPV with Pap Test ? Date Ordered: ? 05/13/2012 ? Status: ?? Signed Out ?Date Complete: ? 05/17/2012 ? By: ??System Interface ? Date Reported: ? 05/17/2012 ? Interpretation RESULT: Negative for HPV. No E6 or E7 mRNA is detected from HPV types 16,18,31,33,35, 39,45,51,52,56,58, 59,66, and 68 by tractor distributor mediated amplification. Comments Document reviewed and electronically signed by: ? System Interface ? Report date: 05/17/2012 By the signature above, the attending physician certifies that he/she has personally conducted a gross and/or microscopic examination of the described specimens and rendered or confirmed the above diagnosis. End of Report [facility] INIGUE[facility] 05/04/2012 05/06/2012 Roxanne Infante MD PATHOLOGY ORDERABLES Performing Organization Address City/State/[facility] Co de Phone Number [place] [phone] documented in this encounter Visit Diagnoses Not on filedocumented in this encounter
--- OUTSIDE RECORDS SUMMARY | 2024-03-17 18:02 | XMS_ITS | Encounter Summary ---
[place] [address] Care Team Providers Care Power Distributor Name Role Phone Roxanne Dawn MD Primary Care Provider Encounter Details Date Type Department Care Team (Latest Contact Info) Description 10/15/2023 Travel Social History Tobacco Use Types Packs/Day [...] 04/25/2024 10:40 AM EST Appointment Mammography/[place] [address] Roxanne Dawn MD [address] [place], [place] [address] documented as of this encounter Visit Diagnoses Not on filedocumented in this encounter Care Teams Power Distributor Relationship Specialty Start Date End Date Roxanne Dawn MD [address] [place], [place] [address] PCP - General 04/30/10 documented as of this encounter
--- OUTSIDE RECORDS SUMMARY | 2024-03-17 18:02 | XMS_ITS | Encounter Summary ---
[place] [address] Care Team Providers Care Plastic Press Molder Name Role Phone Roxanne Dawn MD Primary Care Provider Encounter Details Date Type Department Care Team (Latest Contact Info) Description 02/13/2023 Travel Social History Tobacco Use Types Packs/Day [...] 04/25/2024 10:40 AM EST Appointment Mammography/[place] [address] Roxanne Dawn MD [address] [place], [place] [address] documented as of this encounter Visit Diagnoses Not on filedocumented in this encounter Care Teams Plastic Press Molder Relationship Specialty Start Date End Date Roxanne Dawn MD [address] [place], [place] [address] PCP - General 04/30/10 documented as of this encounter
--- OUTSIDE RECORDS SUMMARY | 2024-03-17 18:02 | XMS_ITS | Encounter Summary ---
Author Organization [facility] Address [address] [place] [address] Care Team Providers Care Plywood Factory Worker Name Role Phone Roxanne Dawn MD Primary Care Provider [phone] Encounter Details Date Type Department Care Team (Late st Contact Info) Description 08/05/2016 Phlebotomy Only [address] [address] Pulling Unit Floorhand, Outpatient Social History Tobacco Use Types Packs/Day Years [...] on filedocumented in this encounter Care Teams Plywood Factory Worker Relationship Specialty Start Date End Date Roxanne Dawn MD [address] [place] [phone] PCP - General 06/16/16 documented as of this encounter
--- OUTSIDE RECORDS SUMMARY | 2024-03-17 18:02 | XMS_ITS | Encounter Summary ---
Author Organization Formerly [facility] [place] [address] Care Team Providers Care Cardiology Associate Name Role Phone Roxanne Dawn MD Primary Care Provider [phone] 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 * Diagnostic Test (Routine) - Closed Specialty Diagnoses / Procedures Referred By Contac t Referred To Contact Radiology Diagnoses History of aromatase inhibitor therapy Acquired premature ovarian failure Procedures DXA Central Spine, Hip, and/or Whole Body (Generic) Noe Joel MD [facility] HEMATOLOGY/[place] [address] [facility] Xray [address] [place] [address] [place] [address] Referral ID Status Reason Start Date Expiration Date V isits Requested Visits Authorized [id number] Closed Specialty Service Requested 05/13/2019 05/12/2020 1 1 Reason for Visit * Reason Comments Follow-up Encounter Details Date Type Department Care Team (Late st Contact Info) Description 05/13/2019 11:30 AM EST Office Visit Hematology and Oncology at [facility] [place] [address] Noe Joel MD [facility] HEMATOLOGY/[place] [address] Malignant neoplasm of right breast, stage 2; History of aromatase inhibitor therapy; Acquired premature ovarian failure Social History Tobacco Use Types Packs/Day Years [...] Sign Reading Time Taken Comments Blood Pressure 110/79 05/13/2019 11:26 AM EST Pulse 78 05/13/2019 11:26 AM EST Temperature 36.9 ??C (98.4 ??F) 05/13/2019 1 1:26 AM EST Respiratory Rate 29 05/13/2019 11:2 6 AM EST Oxygen Saturation 98% 05/13/2019 11: 26 AM EST Inhaled Oxygen Concentration - - Weight 77.9 kg (171 lb 12.8 oz) 019 11:26 AM EST Height - - Body Mass Index 25.37 02/02/2018 1:01 PM EDT documented in this encounter Patient Instructions * Patient Instructions* Noe Joel MD - 05/13/2019 11:30 AM EST The things you can use for the itching include refrigerated Sarna which contains camphor and menthol, capsaicin cream, or Gold Miner medicated ointment. There are a number of oral prescription medications which block the itching sensation, let me know if you would like to try them. documented in this encounter Progress Notes * Noe Joel MD - 05/13/2019 11:30 AM EST Subjective: Patient ID: Serenity Cummings is a 63 y.o. female with Stage II breast cancer, here for one year followup. HPI Ms. Cummings presented in October [...] November 2007. The tumor stained positive for glucagon. She underwent a distal pancreatectomy on April 03, 2008. She had elevation of her transaminases thought secondary to hepatic steatosis which resolvedwith weight loss last year. She was diagnosed with diabetes in May 2016 with a hemoglobin A1c of greater than 9, but she lost 25 pounds and her Hgb A1c fell below 6. She does not tolerate metformin, and she is maintained on 3-5 units of Lantus daily. Her last Hgb A1c was 5.5 in December 2018. Serenity has very occasional hot flashes which worsen after she uses the vaginal estrogen. She has morning stiffness, she has a band of pain across the back of her upper neck, and she has pain in her right knee. She has had left flank pain for years, but she has this pain less frequently and she goes several months between episodes of this pain. She has not had her rectal pain in over a year. She hasatrophic vaginitis which she controls with one dose of topical vaginal estrogen per month. She denies any vaginal bleeding or spotting. 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 She walks and does yoga, and she takes Vitamin D at 2000 units daily. Review of Systems She denies breast pain or a palpable breast mass, a cough, shortness of breath, chest pain, nausea,vomiting, diarrhea, constipation, headaches, double vision, pain, redness, or swelling in her lowerextremities, or any other sites of joint or skeletal pain. The remainder of her review of systems is negative. Objective: Physical Exam Constitutional: She appears well-developed and well-nourished. Her weight is up 3.2 kg over the past year, and her BP is 110/79. HENT: Mouth/Throat: Oropharynx is clear and moist. No oropharyngeal exudate. Eyes: No scleral icterus. Neck: No supraclavicular adenopathy. Cardiovascular: Normal rate, regular rhythm and normal heart sounds. Exam reveals no gallop. No murmur heard. Pulmonary/Chest: Breath sounds normal. She has no wheezes. She has no rales. There are no masses within the left breast. There is a small defect at the base of the lollipop stem at the inframammary fold. There is no erythema or nodularity within the skin of the right chest wall. There is no axillary adenopathy on either side. Abdominal: Soft. She exhibits no distension and no mass. There is no tenderness. There is no guarding. Musculoskeletal: She exhibits no edema. She has no pain on percussion over the spine, sternum, ribs, or hips. Lymphadenopathy: She has no cervical adenopathy. Skin: Skin is warm and dry. No erythema. Psychiatric: She has a normal mood and affect. Vitals reviewed. Today's left-sided 3-D mammograms show no suspicious microcalcifications, masses, or architectural distortion. The breast is heterogeneously dense. A CT of the head and sinuses on March 11 was negative. The most recent CT of the abdomen [...] recurrence. There were no suspicious osseous lesions. The most recent Dexa scan from January 06, 2013 was normal, with T scores of -0.1 in the lumbar spine(up from -0.2 in May 2009), 0.5 in the left hip (up from 0.3 in May 2009), and 0.3 in theleft femoral neck (down from 0.5 in May 2009). The most recent chemistries from December 05, 2016 showed a Na 141, K 4.5, Cl 101, bicarb 27, BUN 24, creatinine 0.86, Ca 9.9, albumin 4.7, bili 0.4, alk phos 74, AST 15, and ALT 24. Assessment and Plan: Serenity is doing well and she has no evidence of breast cancer recurrence, 18 years out from diagnosisof a Stage II invasive lobular carcinoma. She received adjuvant chemotherapy plus extended adjuvantendocrine therapy for ten years. I had referred her for genetic testing, which she cancelled, and I did not repeat the consultation. She asked me about management of her pruritis. Dr. Greenfield from Dermatology had suggested OTC Sarnalotion, capsaicin cream, or local anesthetic creams. He also mentioned gapabentin, pregabalin, or atricyclic antidepressant. I gave her the list of topical agents, and she will let me know if she would like to try a systemic medication for the pruritis. I will see her next in followup in October 2020, and I will repeat her left-sided mammograms and Dexa scan at that time. She knows to contact me in the interim if she has any concerns about her breast exam. Noe Joel MD site technician in Hematology-Oncology documented in this encounter Plan of Treatment Upcoming Encounters Date Type Department Care Team (Late st Contact Info) Description 04/25/2024 10:40 AM EST Appointment Mammography/[place] [address] Roxanne Dawn MD [address] [address] documented as of this encounter Results * DXA Central Spine, Hip, and/or Whole Body (Generic) (10/19/2020 1:39 PM EDT) Anatomical Region Laterality Modality C-spine, Hip N/A Other Impressions 10/23/2020 1:36 PM EDT The small change of BMD is insignificant and represents normal variation since it is within or less than the calculated precision error or Least Significant Change. The measurements fulfill the WHO classification for normal and there is no significant change. Estimating Fracture Risk: The relationship between bone mineral density (BMD) and risk of fracture is well established. As BMD decreases, risk increases. Quantifying risk is difficult and is usually limited to estimation of the relative risk - a term which may have limited value when trying to discuss an individual's risk. Estimating the absolute risk for a patient requires an understanding of the incidence rate in a given population and consideration of multiple, partially independent, risk factors in addition to BMD. The World Health Organization (WHO) has developed a fracture risk prediction tool that calculates a ten-year risk of major osteoporotic fracture based on femoral neck bone density measurements and nine clinical risk factors for individuals who have not been treated for osteoporosis. This is available through an interactive web-based interface (http://www.shef.ac.uk/FRAX/) and can be used to estimate a given patient's absolute risk of major osteoporotic fracture or hip fracture over the next 10 years. These estimates may prove useful when discussing risk with a patient. It is important, however, to understand the tool's limitations and how a given individual's risk might differ from the tool's estimate. The tool does not take into account the dose-response associated with most risk factors. For example, the significant increase in risk associated with multiple prior fractures compared to a single prior fracture is not taken into account. Similarly, the location of a previous fracture, the amount of glucocorticoids and number of cigarettes smoked are not considered. These limitations are discussed in a Frequently Asked Questions section of the FRAX website which you are encouraged to review. DEXA data sheets with BMD measurements and plots are available in [employer] under the imaging tab. Paper copies will be sent to providers without E- access. If you have received this report without the data sheet and do not have access to [employer], please contact Radiology Residential Care Facility Manager at [phone] Thursday thru Thursday 8am-4pm. Thank you for letting us participate in the care of this patient. ??If you are a health care provider and have any questions regarding this report, please contact the number below. ??For patients who have questions please contact the health rn home care that requested your imaging first. ? 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 FINDINGS: Femoral neck BMD: 0.937 g/cm2 Lowest T-score at the diagnostic region of interest: T-score: 0.3, SHITAL: Lumbar spine, WHO diagnosis: Normal. ......... Comparison......... Previous scan:2012 Total spine: Compared to the previous, 2 % change. Total hip: Compared to the previous scan, 3 % change. Procedure Note Angela Russell MD - 10/23/2020 EXAMINATION: DXA CENTRAL SPINE, HIP, AND/OR WHOLE BODY (GENERIC) CLINICAL HISTORY: 64 year old woman who had been on long wall mining machine helper treatmentwith an aromatase inhibitor, compare to prior scan of January 06, 2013 ,entered by ordering service TECHNIQUE: Scans were acquired at the lumbar spine, and left hip. FINDINGS: Femoral neck BMD: 0.937 g/cm2 Lowest T-score at the diagnostic region of interest: T-score: 0.3, SHITAL: Lumbar spine, WHO diagnosis: Normal. ......... Comparison......... Previous scan:2012 Total spine: Compared to the previous, 2 % change. Total hip: Compared to the previous scan, 3 % change. IMPRESSION The small change of BMD is insignificant and represents normal variationsince it is within or less than the calculated precision error or LeastSignificant Change. The measurements fulfill the WHO classification for normal and there isno significant change. Estimating Fracture Risk: The relationship between bone mineral density (BMD) and risk of fractureis well established. As BMD decreases, risk increases. Quantifying risk isdifficult and is usually limited to estimation of the relative risk - a term which mayhave limited value when trying to discuss an individual's risk. Estimatingthe absolute risk for a patient requires an understanding of the incidencerate in a given population and consideration of multiple, partially independent,risk factors in addition to BMD. The World Health Organization (WHO) has developed a fracture riskprediction tool that calculates a ten-year risk of major osteoporotic fracture basedon femoral neck bone density measurements and nine clinical risk factorsfor individuals who have not been treated for osteoporosis. This isavailable through an interactive web-based interface (http://www.shef.ac.uk/FRAX/)and can be used to estimate a given patient's absolute risk of majorosteoporotic fracture or hip fracture over the next 10 years. These estimates mayprove useful when discussing risk with a patient. It is important, however, to understand the tool's limitations and how a given individual's risk mightdiffer from the tool's estimate. The tool does not take into account thedose-response associated with most risk factors. For example, the significant increasein risk associated with multiple prior fractures compared to a single priorfracture is not taken into account. Similarly, the location of a previous fracture,the amount of glucocorticoids and number of cigarettes smoked are notconsidered. These limitations are discussed in a Frequently Asked Questions sectionof the FRAX website which you are encouraged to review. DEXA data sheets with BMD measurements and plots are available in [employer]under the imaging tab. Paper copies will be sent to providers without [employer] access.If you have received this report without the data sheet and do not haveaccess to [employer], please contact Radiology Residential Care Facility Manager at [phone] Thursday thruFriday 8am-4pm. Thank you for letting us participate in the care of this patient. If youare a health care provider and have any questions regarding this report,please contact the number below. For patients who have questions please contactthe health rn home care that requested your imaging first. Electronically signed by: Angela Russell MD, [facility]([phone]), at 10/23/2020 1:36 PM Noe Joel MD IM DEXA ORDERABLES * Mammo Screening Cad and Collin Left [...] ??JOSÉ MIGUEL MARTINEZ MD Noe Joel MD [facility] [place] MAMMO ORDERABLES documented in this encounter Visit Diagnoses Diagnosis Malignant neoplasm of right breast, stage 2 History of aromatase inhibitor therapy Acquired premature ovarian failure History of aromatase inhibitor therapy Acquired premature ovarian failure Malignant neoplasm of right breast, stage 2 documented in this encounter Care Teams Cardiology Associate Relationship Specialty Start Date End Date Roxanne Dawn MD [address] [place] [address] PCP - General 04/30/10 documented as of this encounter
--- OUTSIDE RECORDS SUMMARY | 2024-03-17 18:02 | XMS_ITS | Clinical Summary ---
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 Reported on 12/05/2016 Active ALCAFTADINE (LASTACAFT OPHT) Apply to eye daily as needed. Active cholecalciferol (Vitamin D3) 1,000 unit Tablet Take 1,000 Units by mouth daily. Active FREESTYLE LANCETS 28 gauge Misc 1 each by Other route 2 times daily. 0 03/07/2017 Active estradiol (ESTRACE) 0.01 % (0.1 mg/gram) CreamIndications: Atrophic vaginitis Apply a montemayor-sized amount of cream twice weekly as needed 42.5 g 02/02/2018 Active HUMALOG KWIKPEN 100 unit/mL Insulin Pen Inject 1-4 Units subcutaneously 4 times daily as needed for High Blood Sugar. 15 mL 12 02/22/2018 Active Additional Information Patient not taking.Reported on 02/13/2023 LANTUS SOLOSTAR U-100 INSULIN pen Inject 3-5 Units subcutaneously every morning. 15 mL 3 05/12/2018 Active FREESTYLE LITE STRIPS 1 each by Other route 3 times daily. 300 strip 3 05/12/2018 Active levothyroxine (SYNTHROID) 112 mcg Tablet Take 1 tablet by mouth daily. 90 tablet 3 06/11/2018 Active insulin needles, disposable, 31 gauge x 5/16 Needle Inject 1 each subcutaneously daily. Dx Code: E11.9 100 each 3 07/27/2019 Active cetirizine (ZyrTEC) 10 mg Tablet Take 10 mg by mouth daily. 09/21/2020 Active Jardiance 10 mg Tablet 11/23/2020 Active triamcinolone (KENALOG) 0.1 % CreamIndications: Notalgia paresthetica,Inte rtrigo apply twice a day to the affected areas for 2 weeks, take 1 week off, and repeat as needed 80 g 12/19/2020 Active Additional Information Patient not taking.Reported on 02/13/2023 Invokana 100 mg Tablet 08/28/2021 Active naltrexone HCl (NALTREXONE ORAL) Take 4.5 mg by mouth daily. Active atorvastatin (Lipitor) 20 mg tablet 02/10/2023 Active Active Problems Problem Noted Date Diagnosed Date Diabetes mellitus since May 2016 (A1c >9%) => A1c 5.7% in on lantus low dose 05/07/2017 Pure hypercholesterolemia 08/18/[address] [facility] secondary to pancreatic insufficiency 06/24/2016 Acquired absence of breast 12/25/2011 Low grade pancreatic islet cell tumors 1 Hypothyroidism 12/24/2010 Malignant neoplasm of right breast, stage 2 06/2003 Overview (12/13/2011): Ms. Cummings presented in October of 2000 [...] letrozole between June 2006 and June 2011. Chronic lower back pain Overview (03/07/2012): with degenerative joint disease Immunizations Name Administration Dates Next Due HIB PRP-T Conjugate (ActHIB, Hiberix, OmniHib) 03/03/2008 Influenza PF, Split 04/25/2011 Influenza Vaccine, Whole 04/16/2010,04/04/2008,1 06/14/2006 Menomune MPSV4 (Menomune) 03/03/2008 Pneumococcal 23-Valent Polys accharide (Pneumovax 23) 03/03/2008 Family History Medical History Relation Comments Kidney Cancer Father Colorectal Cancer Maternal Cousin 1 Breast Cancer Maternal Cousin 2 Cancer Mother Oral cancer of t he mouth (bone) Relation Status Comments Father Maternal Cousin 1 Alive Maternal Cousin 2 Alive Mother Social History Tobacco Use Types Packs/Day Years Used Date Smoking Tobacco: Never Smokeless Tobacco: Never Alcohol Use Standard Drinks/Week Comments Yes 0 (1 standard drink = 0.6 oz pur e alcohol) Sex and Gender Information Value Date Recorded Sex Assigned at Not on file Gender Identity Not on file Sexual Orientation Not on file Last Filed [...] Mass Index 23.52 02/13/2023 3:49 PM EDT Plan of Treatment Upcoming Encounters Date Type Department Care Team (Late st Contact Info) Description 04/25/2024 10:40 AM EST Appointment Mammography/[place] [address] Roxanne Dawn MD [address] [place] [phone] Health Maintenance Due Date Last Done Comments CT Colonography 1955 Colonoscopy 1955 Colorectal Cancer Screening 1955 FIT DNA 1955 FIT 1955 Sigmoidoscopy (10 year) with FIT yearly 1955 Sigmoidoscopy 1955 DM Opthalmology Exam 1964 Hepatitis C Screening 1972 Tetanus/Diphtheria/Pertussis Vaccines (1 - Tdap) 1973 Breast Cancer Share Decision Needed 1994 Zoster vaccine (1 of 2) 2004 Pneumoccocal Vaccine: 65+ (2 of 2 - PCV) 03/03/2009 03/03/2008 Advance Directive 2009 DM Creatinine yearly 12/05/2017 12/05/2016, 12/03/19 17 DM Hemoglobin A1c 05/05/2018 02/02/2018, 05/07/2017 DM Urine Microalbumin yearly 05/07/2018 05/07/2017 Influenza (Flu) vaccine (1 o f 1 - Influenza standard series) 02/07/2024 04/25/2011, 04/16/2010, 04/04/2008, Additional history exists Breast Cancer screening 02/13/2025 02/14/20 23, 11/14/2021, 10/19/2020, Additional history exists Bone Density Scan 10/20/2035 10/19/2020, 01/06/2013 Lipid Screening Discontinued 02/02/2018, 05/07/2017 Covid-19 Vaccine Completed 10/06/2023, , 03/04/2022, Additional history exists Procedures Procedure Name Priority Date/Time Associated Diagnosis Comments MAMMO SCREENING CAD AND COLLIN LEFT Routine 02/13/2023 1:31 PM EDT Malignant neoplasm of right breast, stage 2 Encounter for screening mammogram for malignant neoplasm of breast DXA CENTRAL SPINE, HIP, AND/OR WHOLE BODY (GENERIC) Routine 10/19/2020 1:39 PM EDT History of aromatase inhibitor therapy Acquired premature ovarian failure LIPID PANEL (REFLEX DIRECT LDL) Routine 02/02/2018 11:58 AM EDT Pure hypercholesterolemia HEMOGLOBIN A1C Routine 02/02/2018 11:58 AM EDT Post-pancreatectomy diabetes U ALBUMIN/CRE RATIO Routine 05/07/2017 11:16 AM EST Post-pancreatectomy diabetes Other specified hypothyroidism COMPREHENSIVE METABOLIC PANEL STAT 12/05/2016 8:53 AM EDT Breast cancer, stage 2, right from Last 3 Months or Most Recently Relevant to Health Maintenance Results * Mammo Screening Cad and Collin Left (02/13/2023 1:31 PM EDT) Anatomical Region [...] who have questions please contact the health career law clerk that requested your imaging first. ? Electronically signed by: Deborah Fink MD, [facility] ([phone]), at 02/13/2023 1:46 PM Narrative 02/13/2023 1:46 PM EDT EXAMINATION: MAMMO SCREENING CAD AND COLLIN LEFT REASON FOR EXAM: Screening TECHNIQUE: CC [...] appearance. Noe Joel MD IMG MAMMO ORDERABLES * DXA Central Spine, Hip, and/or Whole [...] BMD measurements and plots are available in [employer] under the imaging tab. Paper copies will be sent to providers without LOFTY access. If you have received this report without the data sheet and do not have access to LOFTY, please contact Radiology [facility] at [phone] Thursday thru Thursday 8am-4pm. Thank you for letting us participate in the care of this patient. ??If you are a health care provider and have any questions regarding this report, please contact the number below. ??For patients who have questions please contact the health career law clerk that requested your imaging first. ? 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 Paper copies will be sent to providers without LOFTY access.If you have received this report without the data sheet and do not haveaccess to LOFTY, please contact Radiology [employer] [facility] at [phone] Thursday thruFriday 8am-4pm. Thank you for letting us participate in the care of this patient. If youare a health care provider and have any questions regarding this report,please contact the number below. For patients who have questions please contactthe health career law clerk that requested your imaging first. Noe Joel MD IMG DEXA ORDERABLES * (ABNORMAL) Hemoglobin A1c (02/02/2018 11:58 AM EDT) Hemoglobin A1c 6.1(H) 4.3 - 5.6 % [facility] Comment: Reference Range: 4.3 - 5.6% 5.7 - 6.4% - Increased Risk of Developing Diabetes Mellitus >= 6.5% - Consistent with diagnosis of Diabetes Mellitus In the absence of hyperglycemia (i.e. plasma glucose > 200 mg/dL) or classic symptoms of hyperglycemia a repeat measurement of HbA1c should be performed on a separate sample to confirm the diagnosis. Diagnosis and Classification of Diabetes Mellitus, Diabetes Care 2013; 36: Suppl. 1, S67-74 Estimated Average Glucose 128 mg/dL [facility] Comment: eAG equivalents for HbA1c percentages: HbA1c(%) ?eAG(mg/dL) 6.0 ?126 6.5 ?140 7.0 ?154 7.5 ?169 8.0 ?183 8.5 ?197 9.0 ?212 9.5 ?226 10.0 ? 240 Limitations: The eAG calculation has not been validated on women, individuals below 18 years old and above 70 years old, and individuals with hemoglobinopathies. Additional resources are available on the ADA website. German SWEET, Mynor J, Miguelina R, et al. ??Translating the A1C assay into estimated average glucose values. ??Diabetes Care 2008:31(8):2959-0951. Blood specimen (specimen) 02/02/2018 11:58 AM EDT 02/02/2018 12:11 PM EDT Narrative Resulting Agency Comment Spec In Lab Shyla Garber MD CHEMISTRY ORDERAB LES [facility] [place] [place] [address] * Lipid Panel (02/02/2018 11:58 AM EDT) Cholesterol, Total 210 mg/dL [facility] Comment: Lower Risk: <200 mg/dL Average Risk: 200-239 mg/dL Higher Risk: >hx=984 mg/dL Triglyceride 226 mg/dL [facility] Comment: Average Risk/Lower Risk: <150 mg/dL Borderline High Risk: 150-199 mg/dL High Risk: 200-499 mg/dL Very High Risk: >nw=395 mg/dL HDL Cholesterol 50 mg/dL [facility] Comment: Males: ?? Higher Risk: <40 mg/dL Females: ?? HIgher Risk: <50 mg/dL LDL Cholesterol 115 mg/dL [facility] Comment: Lowest Risk: <100 mg/dL Lower Risk: 100-129 mg/dL Borderline High Risk: 130-159 mg/dL High Risk: 160-189 mg/dL Very High Risk: >im=494 mg/dL Cholesterol/HDL Ratio 4.2 ratio [facility] Lipid Interpretation See Note [facility] Comment: Lipid management should be guided by a patient? s ASCVD risk, goals and preferences. ACC/AHA Guidelines recommend high intensity statin if clinical ASCVD or LDL greater than or equal to 190 mg/dL. http://Tab Solutions.com/ATZ-AMF-Yxqqsvhyu Adults aged 40-75 with LDL 70-189 mg/dL should have their 10 year ASCVD risk estimated with the ACC/AHA ASCVD risk landcare facilitator http://tools.acc.org/FCKWT-Xoqg-Dpdwrtozh/ Statin should be discussed if risk greater than or equal to 7.5% in non-diabetics. With diabetes, moderate intensity statin is recommended if risk less than 7.5%, high intensity if risk greater than or equal to 7.5%. Annual lipid monitoring on statins is not necessary. Evaluate secondary causes of Triglycerides greater than 500 mg/dL or LDL greater than 190 mg/dL: See table 6 of ACC/AHA Guideline. Lifestyle modification is a critical component of ASCVD risk reduction. Blood specimen (specimen) 02/02/2018 11:58 AM EDT 02/02/2018 12:11 PM EDT Narrative Resulting Agency Comment Spec In Lab Shyla Garber MD CHEMISTRY ORDERAB LES Performing Organization Address [facility] Co de Phone Number [facility] [place] [address] * U Albumin/Cre Ratio (05/07/2017 11:16 AM EST) Albumin / Creatinin Ratio, Urine Not Calculated 0 - 29 mcg/mg Cr [facility] Comment: Reference Ranges: <30 mcg/mg: Normal 30-300 mcg/mg: Moderately increased albuminuria.* >300 mcg/mg: Severely increased albuminuria. * ACEI or ARB recommended if diabetic; suggested if BP>130/80 without diabetes ACEI or ARB strongly recommended if diabetic; recommended if BP>130/80 without diabetes Two of three specimens collected within a 3 to 6 month period should be abnormal before considering a patient to have albuminuria. Transient causes: exercise, fever, infection, CHF, marked hyperglycemia or hypertension. Persistent albuminuria indicates CKD and is an independent risk factor for ASCVD. ADA Standards of Medical Care in Diabetes-2016; KDIGO: Kidney International Supplements (2012) 2, 357? 362 Albumin, Urine <3.0 mg/L [facility] Creatinine, Urine 61 mg/dL [facility] Urine specimen (specimen) 05/07/2017 11:16 AM EST 05/07/2017 11:39 AM EST Narrative Resulting Agency Comment Spec In Lab Shyla Garber MD URINE ORDERABLES Performing Organization Address [facility] Co de Phone Number [facility] [place] [address] * (ABNORMAL) Comprehensive metabolic panel (non-fasting) (12/05/2016 8:53 AM EDT) Glucose 105 65 - 199 mg/dL [facility] Comment:Diabetes: >=200 mg/d L plus symptoms Blood Urea Nitrogen 24(H) 8 - 18 mg/dL [facility] Creatinine 0.86 0.70 - 1.20 mg/dL [facility] Comment: Please note that the pediatric reference intervals supplied above were not validated at [facility]. Results from pediatric patients should be interpreted in conjunction to the patient's age, height and muscle mass. Sodium 141 135 - 145 mmol/L [facility] Potassium 4.5 3.5 - 5.0 mmol/L [facility] Comment: Please note: ??Patients with WBC >100,000 may have falsely elevated Potassium levels. ??For accurate Potassium quantification in these patients send serum separator tube (gold top) for subsequent determinations. ??Contact the Clinical Chemistry Laboratory if there are any questions. Chloride 101 98 - 107 mmol/L [facility] Carbon Dioxide 27 22 - 31 mmol/L [facility] Anion Gap 13 5 - 15 mmol/L [facility] Calcium 9.9 8.5 - 10.5 mg/dL [facility] Protein, Total 7.6 6.1 - 8.0 gm/dL [facility] Albumin 4.7 3.2 - 5.2 gm/dL [facility] Aspartate Aminotransferase 15 0 - 30 unit/L [facility] Alanine Aminotransferase 24 0 - 30 unit/L [facility] Alkaline Phosphatase 74 40 - 104 unit/L [facility] Bilirubin, Total 0.4 0.2 - 1.3 mg/dL [facility] Bilirubin, Direct 0.1 0.0 - 0.3 mg/dL [facility] Est Glomerular Filtration Rate >60 >=60 [facility] Comment: This estimated GFR (eGFR) value was calculated using the MDRD equation which has been validated on patients between the ages of 18 and 70. The MDRD should not be used to assess kidney function in patients < 18 years of age or in patients with extremes of body mass, or in patients with acute kidney failure. This value should be multiplied by 1.2 for patients. For further information please copy and paste the following links into your internet browser. 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
--- OUTSIDE RECORDS SUMMARY | 2024-03-17 18:02 | XMS_ITS | Encounter Summary ---
Author Organization [facility] Address [address] [place] [address] Care Team Providers Care Associate Store Leader Name Role Phone Roxanne Infante MD Primary Care Provider [phone] Encounter Details Date Type Department Care Team (Late st Contact Info) Description 03/10/2017 Results Only [facility] [phone] Roxanne Infante MD [address] [place] [phone] Social History Tobacco Use Types Packs/Day [...] Diagnosis Comments PAP TEST- RESULT ONLY Routine 03/10/2017 0:00 EDT documented in this encounter Results * PAP TEST- RESULT ONLY (03/10/2017 0:00 EDT) Pathology Report: CYTOPATHOLOGY REPORT Reports generated via electronic interface contain original data; however they are lacking the format of the original report. Caution should be taken when reading/interpreti ng unformatted reports. Name: ? KATE PRIDE ? Accession #: ? [id number] ? : ? 1955 (Age: 61) ??F ?Collect Date: ? 03/10/2017 ? Location: ? [facility] ? Receive Date: ? 03/13/2017 ? Provider: ROXANNE INFANTE MD Copy to: ? Final Report SPECIMEN ADEQUACY ? Satisfactory for Evaluation - transformation zone component present GENERAL CATEGORIZATION ? Negative for Intraepithelial Lesion or Malignancy ?? 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 NARCISO Burnett(ASCP) ? Report ??Date: 03/25/2017 11:08 HPV with Pap Test ? Date Ordered: ? 03/25/2017 ? Status: ?? Signed Out ?Date Complete: ? 03/26/2017 ? By: ??System Interface ? Date Reported: ? 03/26/2017 ? Interpretation RESULT: Negative for HPV. No E6 or E7 mRNA is detected from HPV types 16,18,31,33,35, 39,45,51,52,56,58, 59,66, and 68 by machine chain maker mediated amplification. Comments Document reviewed and electronically signed by: ? System Interface ? Report date: 03/26/2017 By the signature above, the attending physician certifies that he/she has personally conducted a gross and/or microscopic examination of the described specimens and rendered or confirmed the above diagnosis. End of Report [facility] 03/10/2017 03/13/2017 Roxanne Infante MD PATHOLOGY ORDERABLES [facility] [address] [place] [address] documented in this encounter Visit Diagnoses Not on filedocumented in this encounter Care Teams Associate Store Leader Relationship Specialty Start Date End Date Roxanne Infante MD [address] [place] [phone] PCP - General 06/16/16 documented as of this encounter
--- OUTSIDE RECORDS SUMMARY | 2024-03-17 18:02 | XMS_ITS | Encounter Summary ---
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 Her LDL is very elevated. 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 (CMS-HCC) HEMOGLOBIN A1C Routine 06/24/2016 11:50 EST 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 (CMS-HCC) LIPID PROFILE (INCLUDES CHOLESTEROL, TRIGLYCERIDES, HDL, LDL) Routine 06/24/2016 11:50 EST 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 The A1c goal for selected patients may be significantly lower than 7% if this can be achieved without significant hypoglycemia or other adverse effects of treatment. Est Avg Glucose 209 mg/dl 7 15:55 [facility] Comment: eAG represents the A1c result expressed as average glucose in mg/dl. Blood specimen (specimen) BLOOD SPECIMEN / Unknown 06/24/2016 11:50 EST 06/24/2016 13:04 EST Salazar Melendrez MD CHEMISTRY & BLOOD GAS ORDERABLES Performing Organization Address [facility] Co de Phone Number [facility] [address] [place] [address] * C PEPTIDE (06/24/2016 11:50 EST) C Peptide, S [id number] 3.6 1.1 - 4.4 ng/mL 06/27/2016 13:58 [facility] Comment: Performed by: [facility]: [facility] [address], [place] [address], Lab Dir: Deven Cha II, M.D., Ph.D. BLOOD SPECIMEN / Unknown 06/24/2016 11:50 EST 06/24/2016 13:04 EST Salazar Melendrez MD CHEMISTRY & BLOOD GAS ORDERABLES Performing Organization Address [facility] Co de Phone Number [facility] [address] [place] [address] * LIPID PROFILE (INCLUDES CHOLESTEROL, TRIGLYCERIDES, HDL, LDL) (06/24/2016 11:50 EST) Cholesterol 239 mg/dl 06/24/2016 13:52 [facility] Comment: Desirable:<200 Borderline High:200-239 High:>fz=504 Triglycerides 181 mg/dl 06/24/2016 13:52 [facility] Comment: Normal:<150 Borderline High:150-199 High:200-499 Very High:>kc=616 HDL 48 mg/dl 06/24/2016 13:52 [facility] Comment: Low:<40 Normal:40-60 Desirable: >60 LDL, Calculated 155 mg/dl 7 13:52 [facility] Comment: Optimal:<100 Near Optimal:100-129 Borderline High:130-159 High:160-189 Very High:>ie=073 Chol/HDL Ratio 5.0 06/24/2016 13:52 [facility] Fasting? Unknown 06/24/2016 13:52 [facility] Non HDL Cholesterol 191 mg/dl 06/24/2016 13:52 [facility] Comment: Desirable:<130 Borderline:130-159 High: 160-189 Very High: >xt=841 Blood specimen (specimen) BLOOD SPECIMEN / Unknown 06/24/2016 11:50 EST 06/24/2016 13:04 EST Salazar Melendrez MD CHEMISTRY & BLOOD GAS ORDERABLES Performing Organization Address [facility] de Phone Number [facility] [address] [place] [address] * ALBUMIN, URINE (06/24/2016 11:50 EST) Creatinine, Urn Britt 57.5 mg/dl 06/24/2016 13:50 [facility] Ur Albumin mg/dl 0.4 mg/dl 06/24/2016 15:25 [facility] Ur Alb ug/mg Crea 7.0 ug/mg Crea 06/24/2016 15:25 [facility] Comment: Normal: <30 ug/mg creat High albuminuria: 30-300 ug/mg creat Very high albuminuria: >300 ug/mg creat Urine specimen (specimen) URINE / Unknown 06/24/2016 11:50 EST 06/24/2016 12:55 EST Salazar Melendrez MD CHEMISTRY & BLOOD GAS ORDERABLES Performing Organization Address [facility] de Phone Number [facility] [address] [place] [address] * (ABNORMAL) COMPREHENSIVE METABOLIC PANEL (CMP) (06/24/2016 11:50 EST) Potassium 4.4 3.5 - 5.0 mEq/L 06/24/2016 13:52 [facility] Sodium 145 136 - 145 mEq/L 06/24/2016 13:52 [facility] Chloride 101 96 - 110 mEq/L 06/24/2016 13:52 [facility] CO2 27 22 - 32 mEq/L 06/24/2016 13:52 [facility] Comment:Note new reference r debra 03/25/16 Total Alkaline Phosphatase 68 38 - 126 U/L 06/24/2016 13:52 [facility] Bilirubin, Total 0.8 <1.4 mg/dl 06/24/19 17 13:52 [facility] AST 48(H) 15 - 46 U/L 06/24/2016 13:52 [facility] ALT 76(H) <53 U/L 06/24/2016 13:52 [facility] Albumin 5.2(H) 3.4 - 4.9 g/dl 06/24/2016 13:52 [facility] Total Protein 8.0 6.3 - 8.2 g/dl 06/24/2016 13:52 [facility] Creatinine 0.82 0.52 - 1.04 mg/dl 06/24/2016 13:52 [facility] GFR, Calculated 77 >60 ml/min/1.7 3m2 06/24/2016 13:52 [facility] Comment: eGFR calculated using CKD-EPI equation for non Americans. Multiply eGFR by 1.16 for Americans. BUN 20 10 - 26 mg/dl 06/24/2016 13:52 [facility] Calcium 10.3 8.5 - 10.5 mg/dl 06/24/2016 13:52 [facility] Calculated Calcium 9.3 8.5 - 10.5 mg/dl 06/24/2016 13:52 [facility] Comment: Note new formula for calculation in use 03/12/2016 Glucose, Serum 93 70 - 100 mg/dl 06/24/2016 13:52 [facility] Fasting? Unknown 06/24/2016 13:52 [facility] Blood specimen (specimen) BLOOD SPECIMEN / Unknown 06/24/2016 11:50 EST 06/24/2016 13:04 EST Salazar Melendrez MD CHEMISTRY & BLOOD GAS ORDERABLES [facility] [address] [place] [address] * (ABNORMAL) GLUTAMIC ACID DECARBOXYLASE ANTIBODY (06/24/2016 11:50 EST) Glutamic Acid Decarboxylase Antibody Assay 0.06(H) <=0.02 nmol/L 06/27/2016 13:12 EST [facility] Comment: (Note) The following antibody was identified: Glutamic Acid Decarboxylase. * This profile is consistent with predisposition to thyrogastric disorders, including thyroiditis, pernicious anemia, and type 1 diabetes, but has low specificity for neurological autoimmunity. ??GAD65 antibody values less than 2.00 nmol/L have a lower positive predictive value for neurological autoimmunity than values of 20.0 nmol/L and ??higher. * . ADDITIONAL INFORMATION This test was developed and its performance characteristics determined by [facility] in a manner consistent with CLIA requirements. This test has not been cleared or approved by the U.S. Food and Drug Administration. Performed or Referred by: [facility], [address] [place] [address], Lab Dir: Deven Cha II, M.D., Ph.D. Blood specimen (specimen) BLOOD SPECIMEN / Unknown 06/24/2016 11:50 EST 06/24/2016 13:04 EST Salazar Melendrez MD IMMUNOLOGY AND SER OLOGY ORDERABLES [facility] [address] [place] [address] documented in this encounter Visit Diagnoses Diagnosis 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 Secondary diabetes mellitus without mention of complication, uncontrolled Acquired hypothyroidism Unspecified hypothyroidism documented in this encounter Orders Lab Orders Without Results Count Last Ordered D ate First Ordered Date T4 FREE 1 06/24/2016 documented in this encounter Care Teams Press Machine Operator Relationship Specialty Start Date End Date Roxanne Dawn MD [address] [place] [phone] PCP - General 06/16/16 documented as of this encounter
--- OUTSIDE RECORDS SUMMARY | 2024-03-17 18:02 | XMS_ITS | Encounter Summary ---
Author Organization [facility] Address [address] [place] [address] Care Team Providers Care Mental Tester Name Role Phone Roxanne Dawn MD Primary Care Provider [phone] Encounter Details Date Type Department Care Team (Latest Contact Info) Description 06/24/2016 Orders Only [facility] Endocrinology - [facility] [address] [place] [address] Salazar Melendrez MD [address] [facility] [address] [place] [address] Acquired hypothyroidism (Primary Dx) Social History Tobacco Use Types [...] Procedure Name Priority Date/Time Associated Diagnosis Comments OUTPATIENT ADD-ON Routine 06/24/2016 15: 14 EST Acquired hypothyroidism documented in this encounter Results * OUTPATIENT ADD-ON (06/24/2016 15:14 EST) Tests to be added TSH 06/24/2016 15:12 EST [facility] Diagnosis Code SEE PRISM, DOS 1.17.17 06/24/2016 15:17 EST [facility] Number for problems NAIF [id number] 06/24/2016 15:12 EST [facility] Accession number [id number] 06/24/2016 15:17 EST [facility] Acknowledge ABP DONE 15:26 EST [facility] BLOOD SPECIMEN / Unknown 06/24/2016 15:14 EST 06/24/2016 15:17 EST Salazar Melendrez MD HEMATOLOGY & PF4 O RDERABLES [facility] [address] [place] [address] documented in this encounter Visit Diagnoses Diagnosis Acquired hypothyroidism- Primary Unspecified hypothyroidism documented in this encounter Care Teams Mental Tester Relationship Specialty Start Date End Date Roxanne Dawn MD [address] [place] [id number] PCP - General 06/16/16 documented as of this encounter
--- OUTSIDE RECORDS SUMMARY | 2024-03-17 18:02 | XMS_ITS | Encounter Summary ---
[place] [address] Care Team Providers Care Geographic Information System Surveyor Name Role Phone Roxanne Dawn MD Primary Care Provider [phone] Encounter Details Date Type Department Care Team (Late st Contact Info) Description 05/07/2023 Notes Only [place] [id number] Homa Alex MD Social History Tobacco Use Types Packs/Day Years Used Date Smoking Tobacco: Never Smokeless Tobacco: Never Alcohol Use Standard Drinks/Week Comments Yes 0 (1 standard drink = 0.6 oz pur e alcohol) Sex and Gender Information Value Date Recorded Sex Assigned at Not on file Gender Identity Not on file Sexual Orientation Not on file documented as of this encounter Progress Notes * Homa Alex MD - 05/07/2023 1:16 AM EST Images from the original note were not included. Patient Name: Serenity Cummings : 1955 I have reviewed the patient's record and, given personal and/or family history of cancer, Serenity Cummings should be seen by a genetic counselor. The appointment has been scheduled with [facility]. Homa Alex MD Medical Oncology [facility] Satellite Communications OperatorHead Host/Hostess, [facility] [employer] [facility] Cancer.[facility] [email or web address] documented in this encounter Plan of Treatment Upcoming Encounters Date Type Department Care Team (Late st Contact Info) Description 04/25/2024 10:40 AM EST Appointment Mammography/[place] [address] Roxanne Dawn MD [address] [place], [place] [id number] documented as of this encounter Visit Diagnoses Not on filedocumented in this encounter Care Teams Geographic Information System Surveyor Relationship Specialty Start Date End Date Roxanne Dawn MD [address] [place] [address] PCP - General 04/30/10 documented as of this encounter
--- OUTSIDE RECORDS SUMMARY | 2024-03-17 18:02 | XMS_ITS | Encounter Summary ---
[place] [address] Care Team Providers Care Navy Material Inspector Name Role Phone Roxanne Infante MD Primary Care Provider 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 * Diagnostic Test (Routine) - Closed Specialty Diagnoses / Procedures Referred By Contac t Referred To Contact Radiology Diagnoses Enlarged lymph node Procedures US Soft Tissue Head Or Neck Roxanne Infante MD [address] [place] [address] [place] [address] Referral ID Status Reason Start Date Expiration Date V isits Requested Visits Authorized [id number] Closed Specialty Service Requested 10/07/2023 04/08/2025 1 1 Reason for Visit * Diagnostic Test (Routine) - Closed Specialty Diagnoses / Procedures Referred By Contac t Referred To Contact Radiology Diagnoses Enlarged lymph node Procedures US Soft Tissue Head Or Neck Roxanne Infante MD [address] [place] [address] [facility] [place] [address] Referral ID Status Reason Start Date Expiration Date V isits Requested Visits Authorized [id number] Closed Specialty Service Requested 10/07/2023 04/08/2025 1 1 Encounter Details Date Type Department Care Team (Latest Contact Info) Description 10/15/2023 1:14 PM EDT - 10/15/2023 11:59 PM EDT Hospital [place] [address] Roxanne Infante MD [address] [place] [address] Enlarged lymph node Discharge Disposition: Home Social History Tobacco Use [...] Sig Dispensed Refills Start Date End Date atorvastatin (Lipitor) 20 mg tablet 02/10/2023 Invokana 100 mg Tablet 08/28/2021 naltrexone HCl [...] 09/21/2020 insulin needles, disposable, 31 gauge x 5/16 [...] 04/25/2024 10:40 AM EST Appointment Mammography[place] [address] Roxanne Infante MD [address] [place] [phone] documented as of this encounter Procedures Procedure Name Priority Date/Time Associated Diagnosis Comments US SOFT TISSUE HEAD OR NECK Routine 10/15/2023 1:45 PM EDT Enlarged lymph node documented in this encounter Results * US Soft Tissue Head Or Neck (10/15/2023 1:45 PM EDT) WORKSTATION ID [id number] RAD Anatomical Region Laterality Modality Ultrasound 10/15/2023 1:46 PM EDT Impressions 10/15/2023 2:16 PM EDT Both submandibular glands appear normal in size and morphology. Of note, the palpable abnormality on the left corresponds to the left submandibular gland Electronically signed by: Lorena Ambriz MD, [facility] ([phone]), at 10/15/2023 2:08 PM Thank you for letting us participate in the care of this patient. If you are a health care provider and have any questions regarding this report, please contact the number above. For patients who have questions, please contact the health child care cook that requested your imaging first. ?? Lorena Sargent, Staff Physician Electronically Signed Final Report ?? 10/15/2023 02:15 pm Narrative 10/15/2023 2:16 PM EDT Ultrasound: ??Soft Tissue ?(Signed Final 10/15/2023 02:15 pm) Neck or Head LEFT PATIENT INFO: ID #: ? [id number] ?: ??[birth year] (68 yrs)(F) Name: ? KATE De Souza SHANNEN ? Visit Date: 10/15/2023 01:46 pm PERFORMED BY: Attending: ?Lorena Ambriz MD Performed By: ? Percy Gonzalez RDMS Referred By: ?ROXANNE INFANTE Location: ? [place] SERVICE(S) PROVIDED: USTN - Soft Tissue Neck or Head - [id number] ? [id number] INDICATIONS: LYMPHADENOPATHY; ENLARGED LYMPH NODES, UNSPECIFIED COMPARISON: No prior studies for comparison. --------- FINDINGS: --------- Title: ? Ultrasound: ??Soft Tissue Neck or Head LEFT Findings: ?Area of concern correlates to a sonographically ?normal appearing left submandibular gland, ?similar in size to contralateral gland, measuring ?3.5 x 2 x 3.1 cm. Seen without dilated ducts, ?sialolithiasis or hyperemia. Multiple ?sonographically normal appearing lymph nodes ?seen largest measuring 1.2 x 0.4 x 0.8 cm. All ?seen with a preserved fatty aysha and normal ?cortical margins. Procedure Note Lorena Martinez MD - 10/15/2023 Ultrasound: Soft Tissue (Signed Final 10/15/2023 02:15 pm) Neck or Head LEFT PATIENT INFO: ID #: [id number] : [birth year] (68 yrs)(F) Name: KATE PRIDE Visit Date: 10/15/2023 01:46 pm PERFORMED BY: Attending: Lorena Ambriz MD Performed By: Percy Gonzalez RDMS Referred By: ROXANNE INFANTE Location: [place] SERVICE(S) PROVIDED: USTN - Soft Tissue Neck or Head - [id number] INDICATIONS: LYMPHADENOPATHY; ENLARGED LYMPH NODES, UNSPECIFIED COMPARISON: No prior studies for comparison. --------- FINDINGS: --------- Title: Ultrasound: Soft Tissue Neck or Head LEFT Findings: Area of concern correlates to a sonographically normal appearing left submandibular gland, similar in size to contralateral gland, measuring 3.5 x 2 x 3.1 cm. Seen without dilated ducts, sialolithiasis or hyperemia. Multiple sonographically normal appearing lymph nodes seen largest measuring 1.2 x 0.4 x 0.8 cm. All seen with a preserved fatty aysha and normal cortical margins. IMPRESSION Both submandibular glands appear normal in size and morphology. Of note, the palpable abnormality on the left corresponds to the left submandibular gland Electronically signed by: Lorena Ambriz MD, [facility] ([phone]), at 10/15/2023 2:08 PM Thank you for letting us participate in the care of this patient. If you are a health care provider and have any questions regarding this report, please contact the number above. For patients who have questions, please contact the health child care cook that requested your imaging first. Lorena Sargent, Staff Physician Electronically Signed Final Report 10/15/2023 02:15 pm Roxanne Infante MD IMG US GEN ORDERABLE S documented in this encounter Visit Diagnoses Diagnosis Enlarged lymph node Enlargement of lymph nodes documented in this encounter Care Teams Navy Material Inspector Relationship Specialty Start Date End Date Roxanne Infante MD [address] [address] PCP - General 04/30/10 documented as of this encounter
--- OUTSIDE RECORDS SUMMARY | 2024-03-17 18:02 | XMS_ITS | Encounter Summary ---
Author Organization [facility] Address [address] [place] [address] Care Team Providers Care Fiber Optic Splicer Name Role Phone Roxanne Dawn MD Primary Care Provider [phone] Reason for Visit * Reason Comments Diabetes Thyroid Problem Encounter Details Date Type Department Care Team (Latest Contact Info) Description 08/18/2016 11:20 EDT Office Visit [facility] - [address] [address] Salazar Melendrez MD [address] [place] [address] [address] [place] [address] 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 (CMS-HCC) (Primary Dx); Acquired hypothyroidism; Pure hypercholesterolemia Social History Tobacco Use Types Packs/Day Years [...] - Inhaled Oxygen Concentration - - Weight 75.3 kg (166 lb) 08/18/2016 1115 EDT Height 175 cm (5' 8.9) 08/18/2016 1115 EDT Body Mass Index 24.59 08/18/2016 1115 EDT documented in this encounter Functional Status Functional Status Response [...] Yes 08/18/2016 documented as of this encounter Patient Instructions * Patient Instructions* Salazar Melendrez MD - 08/18/2016 11:20 EDT Check Blood Sugar: Before meals and before bedtime. Lantus 6 units each nite Novolog 3 units with supper Lipids Results for KATE PRIDE ( ) as of 08/18/2016 11:45 Ref. Range 06/24/2016 11:50 Cholesterol Latest Units: mg/dl 239 Triglycerides Latest Units: mg/dl 181 HDL Latest Units: mg/dl 48 LDL, Calculated Latest Units: mg/dl 155 documented in this encounter Progress Notes * Salazar Melendrez MD - 08/18/2016 1120 EDT [facility] Diabetes and Thyroid Follow-up Evaluation Note CHIEF COMPLAINT: Chief Complaint Patient presents with ??? Diabetes ??? Thyroid Problem HPI: 1. 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 2. Acquired hypothyroidism 3. Pure hypercholesterolemia This is a rather complex case of a woman who had breast cancer in the year 2000 and tells me that because of the chemotherapy she became hypothyroid at that point ?? 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 In May she had sudden onset polyuria polydipsia and polyphagia as well as blurred vision and vaginitis with a tremendous amount of weight loss perhaps 30 pounds. She presented and the diagnosis of diabetes was made with a BS > 500 She was started on metformin with NovoLog but had GI issues with metformin this was discontinued and it was noted that she was taking about 35 units per day the NovoLog was then switched to Lantus and she remains on 5-10 units of Lantus each night. She only occasionally uses NovoLog now only recommended depending on what her blood sugar is She has a complex family history which shows that her father had what we believe is a Whipple procedure for unknown etiology probably a pancreatic lesion and she reports that her mother grew to rapidly and was 6 feet tall at age 11 and had a pituitary surgical intervention to stop her from growing There is no other family history ?? Kate Pride has had Pancreatic deficiency diabetes since May 2016 and thyroid disease [id number]. ?? Kate Pride has a history of being in poor glycemic control. Patient has a history of being compliant most of the time with medical therapy. ?? Prior treatment for diabetes: medications: See above. Patient's last HgbA1C was 9.5%. ?Refused HbA1c today but when I told her I could not give her any more information unless I had some more data she agreed to have it done and in fact it was 6.5% estimation point Assessment at my visit in June was that - Very complex case as far as the etiology of the patient's blood sugars concern. I discussed with the patient and her the possibility of having pancreatic deficiency and insulin deficiency based on the previous pancreatectomy which would eventually lead to a type 1 diabetes picture with insulin deficiency. But is intriguing that her blood sugarsin the morning only slightly elevated pretty decent during the day and then post prandial her biggest meal rice to somewhere between 130 -170. This is on Lantus alone ?? She may still have adequate beta cell function and that is why her blood sugars seem to be doing dimitrios and the only way to measure this would be with a C- peptide which I have also measured today. Idescribed the pathophysiology of type 1 diabetes type 2 diabetes on insulin deficiency secondary topancreatectomy as well. The consequences of hyperglycemia with microvascular and macrovascular complications have also been described. ?? Until we get a better baseline picture I have asked her to take a basal insulin a fixed dose of 7 units Lantus and only take short acting insulin with her largest meal which would be supper As can be seen below we have a conflicting picture. The patient's NGHIA antibody is minimally positive but this is a very sensitive assay. This is suggestive of type 1 diabetes. On the other hand the patient's C-peptide is 3.6 suggesting a substantial amount of beta cell function. This 3.6 ng/mL is in the face of a blood sugar of 93 Diabetes She presents for her initial diabetic visit. She has type 1 diabetes mellitus. Her disease course has been improving. There are no hypoglycemic associated symptoms. Pertinent negatives for hypoglycemia include no tremors. (80 Lowest ) Associated symptoms include polydipsia, polyuria and nocturia. Pertinent negatives for diabetes include no blurred vision, no chest pain, no fatigue, no foot paresthesias, no foot ulcerations, no polyphagia, no visual change, no weakness and no weight loss. Pertinent negatives for diabetic complications include no CVA, heart disease, nephropathy, peripheral neuropathy, PVD or retinopathy. She is compliant with treatment some of the time. She is following a diabetic diet. Meal planning includes avoidance of concentrated sweets. She participates in exercise daily. She monitors blood glucose at home 3-4 x per day. (Am 100 noon 100, hs highest ben when omitting novolog at night ) An MIKE inhibitor/angiotensin II receptor yuki is not being taken. She does not see a commercial litigation associate.Eye exam is current. Thyroid Problem Presents for follow-up visit. Symptoms include anxiety.Patient reports no cold intolerance, constipation, depressed mood, diaphoresis, diarrhea, dry skin, fatigue, hair loss, heat intolerance, hoarsevoice, leg swelling, palpitations, tremors, visual change, weight gain, weight loss, feeling of choking, cough, trouble swallowing, decreased appetite, excessive appetite, somnolence, jasmyne- orbital edema, facial swelling or irritability. The symptoms have been improving. Past treatments include levothyroxine. The treatment provided significant relief. Is having some polyuria polydipsia frequency and urgency and also states she has some blood in the urine I referred her to her primary care physician for follow-up . Kate Pride has a history of being in poor glycemic control. Patient has a history of being noncompliant some of the time with medical therapy. Patient's home regimen consists of has a current medication list which includes the following prescription(s): calcium-vitamin d, insulin aspart, insulin glargine, insulin pen needles 31g x 516, lancets, and levothyroxine. The patient has experienced the following acute diabetic complications: none. Social History Substance Use Topics ??? Smoking status: Never Smoker ??? Smokeless tobacco: Never Used ??? Alcohol use No Comment: stopped since diabetes Prior studies/tests include see below. PHYSICAL EXAMINATION: Vitals: Visit Vitals ??? BP 118/68 ??? Pulse 62 ??? Ht 175 cm (68.9) ??? Wt 75.3 kg (166 lb) ??? BMI 24.59 kg/m2 Physical Exam Funduscopic: no microaneurysms, exudates, hemorrhages or hernesto-vascularizations Feet: Good hygiene of the nails with no hypertrophy or onychomycosis. There are no osseous deformities or open lesions. Vibratory sense is intact. No pedal edema. Dorsalis pedis pulses and tibial pulses are felt. Neck: supple, symmetrical, trachea midline, no thyroidectomy scar, no adenopathy and abnormal thyroid: non-palpable Thyroid: no palpable nodule Skin: smooth, rough and dry Neuro: reflexes normal with no hung-up relaxation phase no tremors LABS: ?? Ref Range & Units 1mo ago ?? C Peptide, S [id number] 1.1 - 4.4 ng/mL 3.6 Results for KATE PRIDE ( ) as of 08/18/2016 11:26 Ref. Range 06/24/2016 11:50 Glutamic Acid Decarboxylase Antibody Assay Latest Ref Range: <=0.02 nmol/L 0.06 (H) Results for KATE PRIDE ( ) as of 08/18/2016 11:26 Ref. Range 06/24/2016 11:50 06/24/2016 11:50 08/05/2016 10:21 Free T4 Latest Ref Range: 0.8 - 1.8 ng/dl 1.5 1.4 TSH Latest Ref Range: 0.55 - 4.78 uIU/ml 2.37 Lab Results Component Value Date HGBA1C 6.5 (H) 08/18/2016 Results for KATE PRIDE ( ) as of 08/18/2016 11:45 Ref. Range 06/24/2016 11:50 Hemoglobin A1C Latest Units: % 8.9 Lab Results Component Value Date CHOL 239 06/24/2016 HDL 48 06/24/2016 LDLBASE 155 06/24/2016 TRIG 181 06/24/2016 CHOLHDL 5.0 06/24/2016 Lab Results Component Value Date BUN 20 06/24/2016 CREATININE 0.82 06/24/2016 NA 145 06/24/2016 K 4.4 06/24/2016 Lab Results Component Value Date ALT 76 (H) 06/24/2016 Lab Results Component Value Date LABALBU 5.2 (H) 06/24/2016 UCREA 57.5 06/24/2016 MICRALBCRRAT 7.0 06/24/2016 Lab Results Component Value Date TSH 2.37 06/24/2016 No results found for: [id number] No components found for: FREET3 No results found for: [id number] Lab Results Component Value Date FREET4 1.4 08/05/2016 No results found for: THGAB No results found for: THYROIDAB ASSESSMENT: 1. 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 2. Acquired hypothyroidism 3. Pure hypercholesterolemia I described to the patient the fact that she does have anti-beta cell antibodies but on the other hand she does have adequate C-peptide secretion. In either event whether it has type 1 diabetes or beta self-destruction diabetes I think insulin is the proper therapy with a very small dose of Lantus and a small dose of prandial insulin only with supper. In fact hemoglobin A1c has dropped 3 percentage points ! Her morning blood sugars are quite low and therefore I suggested a slight decrease in the amount ofLantus but I have asked her to continue with 3 units prandially with supper She asked me if I could predict what her blood sugars would be with and without insulin and I couldreally not give her any answer obviously this is impossible to predict I think she is euthyroid . Appropriate increased from 75 ??g 200 ??g was done by a primary care physician I have noted hypercholesterolemia and have referred her to her primary care physician is a first step in addressing this with proper therapy. I have included her lipids in her after visit summary Patient does demonstrate knowledge of diabetes and expectations. Patient does understand medication regimen. Barriers to adherence: No Barriers. This diagnosis was discussed and reviewed with the patient including the normal and pathophysiologyof the pituitary thyroidal axis and advantages of drug therapy, radioactive iodine, surgery, thyroid replacement/suppressive therapy and further testing as needed. Goals and plan to achieve these discussed. Systolic blood pressure less than 140. And diastolic blood pressure less than 80. Hemoglobin A1C less than 7%. LDL cholesterol: 70 to 99. HDL males >40 and females >50 mgm/dl Triglycerides fasting <150 mgm/dl *More or less stringent glycemic goals may be appropriate for individual patients. Goals should be individualized based on: ??? duration of diabetes ??? age/life expectancy ??? comorbid conditions ??? known CVD or advanced microvascular complications ??? hypoglycemia unawareness ??? individual patient considerations Based on patient characteristics and response to therapy, lower SBP targets may be appropriate. * In individuals with overt CVD, a lower LDL-C goal of <70 mg/dl (1.8 mmol/l), using a high dose of a statin, is an option. I spent a total of 30 minutes in face to face time with this patient and 25 minutes of that time was spent in counseling and coordination of care as described in the progress note. PLAN: No orders of the defined types were placed in this encounter. Medications: Recommend aspirin daily. Insulin: Insulin stabilization is required: Check Blood Sugar: Before meals and before bedtime. Lantus 6 units each nite Novolog 3 units with supper . Non-insulin: diet. Recommended: Would probably benefit by addition of statin but I have a feeling she would refuse. Thyroid - hernandez 1. Labs: No additional testing required at this point 2. Medications: [id number] Glucose monitoring QID. Referred to diabetic education program. Patient education already provided. Referred to frame expander no. Patient referred to eye healthcare marketer for annual dilated eye exam. Lifestyle modifications: recommend exercise and recommend compliance with a diabetic diet Salazar Melendrez MD 08/18/2016 12:16 documented in this encounter Plan of Treatment Not on file documented as of this encounter Procedures Procedure Name Priority Date/Time Associated Diagnosis Comments POCT HEMOGLOBIN A1C, INTERFACED Routine 08/18/2016 11:57 EDT documented in this encounter Results * (ABNORMAL) POCT HEMOGLOBIN A1C (08/18/2016 11:57 EDT) Hemoglobin A1C, POC Interfaced 6.5(H) <5.7 % 08/18/2016 12:03 EDT [facility] software development analyst ID [id number] 08/18/2016 12:03 EDT [facility] Comment:Test performed at En docrinology Blood specimen (specimen) BLOOD SPECIMEN / Unknown 08/18/2016 11:57 EDT 08/18/2016 12:03 EDT Salazar Melendrez MD POINT OF CARE TEST ORDERABLES [facility] [address] [place] [address] documented in this encounter Visit Diagnoses Diagnosis 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- Primary Secondary diabetes mellitus without mention of complication, uncontrolled Acquired hypothyroidism Unspecified hypothyroidism Pure hypercholesterolemia documented in this encounter Care Teams Fiber Optic Splicer Relationship Specialty Start Date End Date Roxanne Dawn MD [address] [place] [id number] PCP - General 06/16/16 documented as of this encounter
--- OUTSIDE RECORDS SUMMARY | 2024-03-17 18:02 | XMS_ITS | Encounter Summary ---
Author Organization [facility] [place] [address] Care Team Providers Care Car Wash Attendant Automatic Name Role Phone Roxanne Dawn MD Primary Care Provider [phone] Encounter Details Date Type Department Care Team (Latest Contact Info) Description 02/13/2023 1:17 PM EDT - 02/13/2023 11:59 PM EDT Hospital Encounter Mammography/[place] [address] Noe Joel MD [facility] HEMATOLOGY/[place] [address] Malignant neoplasm of right breast, stage 2; [...] 04/25/2024 10:40 AM EST Appointment Mammography/[place] [address] Roxanne Dawn MD [address] [place] [id number] documented as of this encounter Procedures Procedure [...] have questions please contact the health care transport nurse that requested your imaging first. ? Narrative 02/13/2023 1:46 PM EDT EXAMINATION: MAMMO SCREENING CAD AND COLLNI LEFT REASON FOR EXAM: Screening TECHNIQUE: CC [...] mammogram documented in this encounter Care Teams Car Wash Attendant Automatic Relationship Specialty Start Date End Date Roxanne Dawn MD [address] [place] [id number] PCP - General 04/30/10 documented as of this encounter
--- OUTSIDE RECORDS SUMMARY | 2024-03-17 18:02 | XMS_ITS | Encounter Summary ---
Author Organization [facility] Address [address] [place] [address] Care Team Providers Care Cannery Worker Name Role Phone Roxanne Dawn MD Primary Care Provider [phone] Encounter Details Date Type Department Care Team (Latest Contact Info) Description 08/05/2016 10:15 EST - 08/05/2016 23:59 EST Hospital Encounter [address] [address] Unknown, ProviderMD Salazar Melendrez MD [address] [place] [phone] Discharge Disposition: Auto Discharge Social History Tobacco Use Types Packs/Day Years Used Date Smoking Tobacco: Never Smokeless Tobacco: Never Alcohol Use Standard Drinks/Week Comments No 0 (1 standard drink = 0.6 oz pur e alcohol) stopped since diabetes Sex and Gender Information Value Date Recorded Sex Assigned at Not on file Gender Identity Female 08/19/2021 9:10 EDT Sexual Orientation Not on file documented as of this encounter Discharge Diagnoses Diagnosis E03.9 Hypothyroidism, unspecified-E03.9[ICD-10-CM] documented in this encounter Medications at Time of Discharge Medication Sig Dispensed Refills Start Date End Date calcium-vitamin D (OS-VASU D) 500 mg(1,250mg) -200 unit per tablet Take 1 Tab by mouth 2 times daily with breakfast and dinner. insulin aspart (NOVOLOG FLEXPEN) 100 unit/mL injectable pen Inject 3 Units into the skin as needed. insulin glargine (LANTUS SOLOSTAR) 100 unit/mL (3 mL) injection pen Inject 7 Units into the skin at bedtime. insulin pen needles 31G x 5/16 by misc (non-drug; combo route) route daily. lancets 1 lancet by misc (non-drug; combo route) route as needed. levothyroxine (SYNTHROID) 100 mcg tablet Take 100 mcg by mouth daily. documented as of this encounter Discharge Disposition Disposition Code Departure Means Destination Auto Discharge Home documented in this encounter Plan of Treatment Not on file documented as of this encounter Procedures Procedure Name Priority Date/Time Associated Diagnosis Comments T4 FREE Routine 08/05/2016 10:21 EST documented in this encounter Results * T4 FREE (08/05/2016 10:21 EST) Free T4 1.4 0.8 - 1.8 ng/dl 08/05/2016 12:55 EST [facility] BLOOD SPECIMEN / Unknown 08/05/2016 10:21 EST 08/05/2016 11:47 EST Salazar Melendrez MD CHEMISTRY & BLOOD GAS ORDERABLES [facility] [address] [place] [address] documented in this encounter Visit Diagnoses Not on filedocumented in this encounter Care Teams Cannery Worker Relationship Specialty Start Date End Date Roxanne Dawn MD [address] [place] [address] PCP - General 06/16/16 documented as of this encounter
--- OUTSIDE RECORDS SUMMARY | 2024-03-17 18:02 | XMS_ITS | Encounter Summary ---
Author Organization [facility] Address [address] [place] [address] Care Team Providers Care Theater Teacher Name Role Phone Roxanne Dawn MD Primary Care Provider [phone] 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 * Laboratory Services (Routine) - Closed Specialty Diagnoses / Procedures Referred By Contac t Referred To Contact Diagnoses Acquired hypothyroidism Procedures T4 FREE Salazar Melendrez MD [address] [address] Referral ID Status Reason Start Date Expiration Date Visits Re quested Visits Authorized [id number] Closed 06/25/2016 1 1 Reason for Visit * Reason Comments Diabetes Encounter Details Date Type Department Care Team (Latest Contact Info) Description 06/24/2016 10:30 EST Office Visit [facility] Endocrinology - [facility] [address] [place] [address] Salazar Melendrez MD 62 [facility] [address] [place] [phone] 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 ([facility]) (Primary Dx); Acquired hypothyroidism Discharge Disposition: Auto Discharge Social History Tobacco [...] Sign Reading Time Taken Comments Blood Pressure 120/70 06/24/2016 1031 EST Pulse - - Temperature - - Respiratory Rate - - Oxygen Saturation - - Inhaled Oxygen Concentration - - Weight 77.1 kg (170 lb) 06/24/2016 1031 EST Height 175.3 cm (5' 9) 06/24/2016 1031 EST Body Mass Index 25.1 06/24/2016 1031 EST documented in this encounter Discharge Diagnoses Diagnosis K86.89 Other specified diseases of pancreas-K86.89[ICD-10-CM] E03.9 Hypothyroidism, unspecified-E03.9[ICD-10-CM] E08.65 Diabetes mellitus due to underlying condition with hyperglycemia-E08.65[ICD-10-CM] documented in this encounter Patient Instructions * Patient Instructions* Salazar Melendrez MD - 06/24/2016 10:30 EST Check Blood Sugar: Before breakfast and two hours after a meal.- supper LANTUS 7 units at bedtime Novolog 3 units within 15 min before supper documented in this encounter Discharge Disposition Disposition Code Departure Means Destination Auto Discharge documented in this encounter Progress Notes * Sarah Camp - 06/24/2016 1030 EST Fingerstick blood sample obtained for POCT Hemoglobin A1C performed for this DOS at the order of Salazar Melendrez MD * Salazar Melendrez MD - 06/24/2016 1030 EST [facility] Diabetes and Thyroid Initial Evaluation Note CHIEF COMPLAINT: Chief Complaint Patient presents with ??? Diabetes HPI: Kate Pride presents with 1. 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 2. Acquired hypothyroidism this is a rather complex case of a woman who had breast cancer in the year 2000 and tells me that because of the chemotherapy she became hypothyroid at that point In 2007 she was diagnosed as having [...] growing There is no other family history Kate Pride has had Pancreatic deficiency diabetes since May 2016 and thyroid disease [id number]. Kate Pride has a history of being in poor glycemic control. Patient has a history of being compliant most of the time with medical therapy. Patient's home regimen consists of has a current medication list which includes the following prescription(s): calcium-vitamin d, insulin aspart, insulin glargine, insulin pen needles 31g x 5/16, lancets, and levothyroxine. Prior treatment for diabetes: medications: See above. Patient's last HgbA1C was 9.5%. Kate Pride reports the following: Symptoms have been present for a few weeks. The patient denies drug abuse. Diabetes She presents for her initial diabetic visit. She has type 1 (pancreatic surgery ) diabetes mellitus. Onset time: May 2016 Her disease course has been fluctuating. Pertinent negatives for hypoglycemiainclude no tremors. (Very few ) Pertinent negatives for diabetes include no blurred vision, no chest pain, no fatigue, no foot paresthesias (occas warmth), no foot ulcerations, no polydipsia, no polyphagia, no polyuria, no visual change, no weakness, no weight loss (regained most of initial wt loss) and no nocturia. Pertinent negatives for diabetic complications include no CVA, heart disease, nephropathy, peripheral neuropathy, PVD or retinopathy. Her weight is increasing steadily. She is following a generally healthy diet. Meal planning includes avoidance of concentrated sweets. She has not had a previous visit with a dietitian. She participates in exercise daily. (Am 120, noon 90-110, pm 90 hs 150 ) An MIKE inhibitor/angiotensin II receptor yuki is not being taken. She does not see a industrial health engineer.Eye exam is current. Thyroid Problem Presents for initial visit. Onset time: suggestion was that hypothyroid was due to breast cancer tchemo. Patient reports no anxiety, cold intolerance, constipation, depressed mood, diaphoresis, diarrhea, dry skin, fatigue, hair loss, heat intolerance, palpitations, tremors, visual change, weight loss (regained most of initial wt loss), feeling of choking, cough, trouble swallowing, decreased appetite, excessive appetite, somnolence, jasmyne-orbital edema or facial swelling. The symptoms have been stable. Past treatments include levothyroxine. The treatment provided significant relief. . The patient has experienced the following acute complications: hypoglycemia - Mild and only when taking NovoLog. Social History Substance Use Topics ??? Smoking status: Never Smoker ??? Smokeless tobacco: Never Used ??? Alcohol use No Comment: stopped since diabetes Children 2, heaviest 7-8. The following additional risk factors for the atherosclerosis are noted: none. Diabetic family history is reviewed and includes the following: Father had Whipple for pancreatic tumor ?? Mother had pituitary removed - she had rapid growth - 6 ft at 11 yr old and pituitary was removed Sister prediabetoc on metformin and she reports her brother has hypoglycemia. Psychosocial, cultural, or economic factors that might influence management of diabetes include: none. Thyroid family history includes no thyroid abnormalities. Prior studies/tests include Available records have been scanned in. REVIEW OF SYSTEMS: Review of Systems Constitutional: Negative for decreased appetite, diaphoresis, fatigue and weight loss (regained most of initial wt loss). HENT: Negative for facial swelling and trouble swallowing. Eyes: Negative for blurred vision. Respiratory: Negative for cough. Cardiovascular: Negative for chest pain and palpitations. Gastrointestinal: Negative for constipation, diarrhea and excessive appetite. Genitourinary: Negative for nocturia. Neurological: Negative for tremors and weakness. Endo/Heme/Allergies: Negative for cold intolerance, heat intolerance, polydipsia and polyphagia. hyperosmolar symptomatology has disappeared Eye: none. Neurologic: none. Kidney: none. PVD: none. Skin: none. Cardiac: none. PHYSICAL EXAMINATION: Vitals: Visit Vitals ??? BP 120/70 ??? Ht 175.3 cm (69) ??? Wt 77.1 kg (170 lb) ??? BMI 25.1 kg/m2 BMI: Body mass index is 25.1 kg/(m^2). Physical Exam General appearance - alert, well appearing, and in no distress and oriented to person, place, and time Mental status - alert, oriented to person, place, and time, normal mood, behavior, speech, dress, motor activity, and thought processes Eyes - pupils equal and reactive, extraocular eye movements intact, sclera anicteric Neck - supple, no significant adenopathy, carotids upstroke normal bilaterally, no bruits, thyroid exam: Not felt Chest - clear to auscultation, no wheezes, rales or rhonchi, symmetric air entry Heart - normal rate, regular rhythm, normal S1, S2, no murmurs, rubs, clicks or gallops, But there is perhaps a very faint grade 1 systolic murmur Abdomen - soft, nontender, nondistended, no masses or organomegaly Neurological - alert, oriented, normal speech, no focal findings or movement disorder noted, cranial nerves II through XII intact, funduscopic exam normal, discs flat and sharp, DTR's normal and symmetric, motor and sensory grossly normal bilaterally Musculoskeletal - no joint tenderness, deformity or swelling Extremities - peripheral pulses normal, no pedal edema, no clubbing or cyanosis Skin - normal coloration and turgor, no rashes, no suspicious skin lesions noted Funduscopic: no microaneurysms, exudates, hemorrhages or hernesto-vascularizations though poorly visualized Feet: Good hygiene of the nails with no hypertrophy or onychomycosis. There are no osseous deformities or open lesions. Vibratory sense is intact. No pedal edema. Dorsalis pedis pulses and tibial pulses are felt. Neck: abnormal thyroid: non-palpable Thyroid: no palpable nodule Skin: smooth, warm and dry Neuro: reflexes normal with no hung-up relaxation phase no tremors LABS: FBS: No results found for: HGBA1C Lab Results Component Value Date CHOL 239 06/24/2016 HDL 48 06/24/2016 LDLBASE 155 06/24/2016 TRIG 181 06/24/2016 CHOLHDL 5.0 06/24/2016 Lab Results Component Value Date BUN 20 06/24/2016 CREATININE 0.82 06/24/2016 NA 145 06/24/2016 K 4.4 06/24/2016 Lab Results Component Value Date ALT 76 (H) 06/24/2016 Lab Results Component Value Date LABALBU 5.2 (H) 06/24/2016 UCREA 57.5 06/24/2016 MICRALBCRRAT PENDING 06/24/2016 No results found for: TSH No results found for: [id number] No components found for: FREET3 No results found for: [id number] No results found for: FREET4 No results found for: THGAB No results found for: THYROIDAB tsh 9.28 FT4 1.25 May 2016 thyroid hormone inc to 100 mcg Hb A1c 9.5% ASSESSMENT: 1. 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 2. Acquired hypothyroidism This is a very complex case as far as the etiology of the patient's blood sugars concern. I discussed with the patient and her the possibility of having pancreatic deficiency and insulin deficiency based on the previous pancreatectomy which would eventually lead to a type 1 diabetes picturewith insulin deficiency. But is intriguing that her blood sugars in the morning only slightly elevated pretty decent during the day and then post prandial her biggest meal rice to somewhere between 130 -170. This is on Lantus alone She could in fact have type 1 diabetes and I am going to get a NGHIA antibody today She may still have adequate beta cell [...] and macrovascular complications have also been described. Until we get a better baseline picture I have asked her to take a basal insulin a fixed dose of 7 units Lantus and only take short acting insulin with her largest meal which would be supper Patient does demonstrate knowledge of diabetes and [...] dose of a statin, is an option. DIABETES PLAN: Medications: Recommend aspirin daily. Insulin: Insulin stabilization is required: Check Blood Sugar: Before breakfast and two hours after a meal.- supper LANTUS 7 units at bedtime Novolog 3 units within 15 min before supper Non-insulin: diet. Recommended: none. THYROID PLAN: As far as her thyroid is concerned she recently had an elevation in her dose To 112 ??g and it is only been about 4 weeks not yet time to repeat her thyroid function tests but given heran outpatient laboratory request to get these done in 2-4 weeks Reassess in 2-4 weeks 1. Labs: TSH and free thyroxine 2. Medications: Levothyroxine 112 Glucose monitoring QID. Referred to diabetic education program. Patient education already provided. Referred to tile layer helper no. Patient referred to eye long term care administrator for annual dilated eye exam. Lifestyle modifications: recommend exercise and recommend compliance with a diabetic diet I spent a total of 90 minutes in face to face time with this patient and 80 minutes of that time was spent in counseling and coordination of care as described in the progress note. Salazar Melendrez MD 06/24/2016 15:01 Addendum C-peptide value was still in process. Her LDL is very elevated. She is euthyroid I probably will discuss the LDL with her at her next visit Results for KATE PRIDE ( ) as of 06/25/2016 13:27 Ref. Range 06/24/2016 11:50 but it is noted that the patient has no proteinuria her LDL is very elevated but she is euthyroid C PEPTIDE Unknown Rpt (IN PROCESS) Hemoglobin A1C Latest Units: % 8.9 Est Avg Glucose Latest Units: mg/dl 209 Ur Alb ug/mg Crea Latest Units: ug/mg Crea 7.0 Ur Albumin mg/dl Latest Units: mg/dl 0.4 Results for KATE PRIDE ( ) as of 06/25/2016 13:27 Ref. Range 06/24/2016 11:50 Cholesterol Latest Units: mg/dl 239 Triglycerides Latest Units: mg/dl 181 HDL Latest Units: mg/dl 48 LDL, Calculated Latest Units: mg/dl 155 Chol/HDL Ratio, External Unknown 5.0 Non HDL Cholesterol Latest Units: mg/dl 191 Results for KATE PRIDE ( ) as of 06/25/2016 13:27 Ref. Range 06/24/2016 11:50 Free T4 Latest Ref Range: 0.8 - 1.8 ng/dl 1.5 TSH Latest Ref Range: 0.55 - 4.78 uIU/ml 2.37 documented in this encounter Plan of Treatment Scheduled Orders Name Type Priority Associated Diagnoses Orde r Schedule T4 FREE Lab Routine Acquired hypothyroidism Expected: 06/25/2016 (Approximate), Expires: 06/24/2017 documented as of this encounter Results * (ABNORMAL) POCT HEMOGLOBIN A1C (08/18/2016 11:57 EDT) Hemoglobin A1C, POC Interfaced 6.5(H) <5.7 % 08/18/2016 12:03 EDT [facility] snagger ID [id number] 08/18/2016 12:03 EDT [facility] Comment:Test performed at En docrinology Blood specimen (specimen) BLOOD SPECIMEN / Unknown 08/18/2016 11:57 EDT 08/18/2016 12:03 EDT Salazar Melendrez MD POINT OF CARE TEST ORDERABLES [facility] [address] [place] [id number] * HEMOGLOBIN A1C (06/24/2016 11:50 EST) Pathologist [facility] Hemoglobin A1C 8.9 % 06/24/2016 15:55 EST [facility] Comment: Reference Range: <5.7% Normal 5.7-6.4% Increased risk for diabetes =>6.5% Diagnostic for diabetes (if confirmed) The A1c goal for non adults in general is <7%. The A1c goal for selected patients may be significantly lower than 7% if this can be achieved without significant hypoglycemia or other adverse effects of treatment. Est Avg Glucose 209 mg/dl 7 15:55 EST [facility] Comment: eAG represents the A1c result expressed as average glucose in mg/dl. Blood specimen (specimen) BLOOD SPECIMEN / Unknown 06/24/2016 11:50 EST 06/24/2016 13:04 EST Salazar Melendrez MD CHEMISTRY & BLOOD GAS ORDERABLES Performing Organization Address [facility] Co de Phone Number [facility] [address] [place] [address] * C PEPTIDE (06/24/2016 11:50 EST) [facility] C Peptide, [id number] 3.6 1.1 - 4.4 ng/mL 06/27/2016 13:58 EST [facility] Comment: Performed by: [facility] Labs: [facility] [address], [place] [address], Lab Dir: Deven Cha II, M.D., Ph.D. BLOOD SPECIMEN / Unknown 06/24/2016 11:50 EST 06/24/2016 13:04 EST Salazar Melendrez MD CHEMISTRY & BLOOD GAS ORDERABLES Performing Organization Address [facility] Co de Phone Number [facility] [address] [place] [address] * LIPID PROFILE (INCLUDES CHOLESTEROL, TRIGLYCERIDES, HDL, LDL) (06/24/2016 11:50 EST) [facility] Cholesterol 239 mg/dl 06/24/2016 13:52 EST [facility] Comment: Desirable:<200 Borderline High:200-239 High:>qe=578 Triglycerides 181 mg/dl 06/24/2016 13:52 [facility] Comment: Normal:<150 Borderline High:150-199 High:200-499 Very High:>xo=944 HDL 48 mg/dl 06/24/2016 13:52 [facility] Comment: Low:<40 Normal:40-60 Desirable: >60 LDL, Calculated 155 mg/dl 7 13:52 [facility] Comment: Optimal:<100 Near Optimal:100-129 Borderline High:130-159 High:160-189 Very High:>fv=199 Chol/HDL Ratio 5.0 06/24/2016 13:52 [facility] Fasting? Unknown 06/24/2016 13:52 [facility] Non HDL Cholesterol 191 mg/dl 06/24/2016 13:52 [facility] Comment: Desirable:<130 Borderline:130-159 High: 160-189 Very High: >zm=900 Blood specimen (specimen) BLOOD SPECIMEN / Unknown 06/24/2016 11:50 EST 06/24/2016 13:04 EST Salazar Melendrez MD CHEMISTRY & BLOOD GAS ORDERABLES Performing Organization Address City/State/[facility] Co de Phone Number [facility] [address] [place] [address] * ALBUMIN, URINE (06/24/2016 11:50 EST) Creatinine, Urn Amelia 57.5 mg/dl 06/24/2016 13:50 [facility] Ur Albumin mg/dl 0.4 mg/dl 06/24/2016 15:25 [facility] Ur Alb ug/mg Crea 7.0 ug/mg Crea 06/24/2016 15:25 [facility] Comment: Normal: <30 ug/mg creat High albuminuria: 30-300 ug/mg creat Very high albuminuria: >300 ug/mg creat Urine specimen (specimen) URINE / Unknown 06/24/2016 11:50 EST 06/24/2016 12:55 EST Salazar Melendrez MD CHEMISTRY & BLOOD GAS ORDERABLES [facility] [address] [place] [address] * (ABNORMAL) COMPREHENSIVE METABOLIC PANEL (CMP) (06/24/2016 11:50 EST) Potassium 4.4 3.5 - 5.0 mEq/L 06/24/2016 13:52 [facility] Sodium 145 136 - 145 mEq/L 06/24/2016 13:52 [facility] Chloride 101 96 - 110 mEq/L 06/24/2016 13:52 [facility] CO2 27 22 - 32 mEq/L 06/24/2016 13:52 [facility] Comment:Note new reference r debra 03/25/16 Total Alkaline Phosphatase 68 38 - 126 U/L 06/24/2016 13:52 [facility] Bilirubin, Total 0.8 <1.4 mg/dl 06/24/19 17 13:52 [facility] AST 48(H) 15 - 46 U/L 06/24/2016 13:52 [facility] ALT 76(H) <53 U/L 06/24/2016 13:52 [facility] Albumin 5.2(H) 3.4 - 4.9 g/dl 06/24/2016 13:52 [facility] Total Protein 8.0 6.3 - 8.2 g/dl 06/24/2016 13:52 [facility] Creatinine 0.82 0.52 - 1.04 mg/dl 06/24/2016 13:52 [facility] GFR, Calculated 77 >60 ml/min/1.7 3m2 06/24/2016 13:52 [facility] Comment: eGFR calculated using CKD-EPI equation for non Americans. Multiply eGFR by 1.16 for Americans. BUN 20 10 - 26 mg/dl 06/24/2016 13:52 [facility] Calcium 10.3 8.5 - 10.5 mg/dl 06/24/2016 13:52 [facility] Calculated Calcium 9.3 8.5 - 10.5 mg/dl 06/24/2016 13:52 [facility] Comment: Note new formula for calculation in use 03/12/2016 Glucose, Serum 93 70 - 100 mg/dl 06/24/2016 13:52 [facility] Fasting? Unknown 06/24/2016 13:52 [facility] Blood specimen (specimen) BLOOD SPECIMEN / Unknown 06/24/2016 11:50 EST 06/24/2016 13:04 EST Salazar Melendrez MD CHEMISTRY & BLOOD GAS ORDERABLES [facility] [address] [place] [address] * (ABNORMAL) GLUTAMIC ACID DECARBOXYLASE ANTIBODY (06/24/2016 11:50 EST) Glutamic Acid Decarboxylase Antibody Assay 0.06(H) <=0.02 nmol/L 06/27/2016 13:12 [facility] Comment: (Note) The following antibody [...] developed and its performance characteristics determined by [facility] in a manner consistent with CLIA requirements. This test has not been cleared or approved by the U.S. Food and Drug Administration. Performed or Referred by: [facility], [address] [place] [id number], Lab Dir: Deven Cha II, M.D., Ph.D. Blood specimen (specimen) BLOOD SPECIMEN / Unknown 06/24/2016 11:50 EST 06/24/2016 13:04 EST Salazar Melendrez MD IMMUNOLOGY AND SER OLOGY ORDERABLES [facility] [address] [place] [address] documented in this encounter Visit Diagnoses Diagnosis 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- Primary Secondary diabetes mellitus without mention of complication, uncontrolled Acquired hypothyroidism Unspecified hypothyroidism documented in this encounter Historical Medications * This list may reflect changes made after this encounter. Medication Sig Dispensed Refills Start Date End Date lancets 1 lancet by misc (non-drug; combo route) route as needed. insulin pen needles 31G x 5/16 by misc (non-drug; combo route) route daily. calcium-vitamin D (OS-VASU D) 500 mg(1,250mg) -200 unit per tablet Take 1 Tab by mouth 2 times daily with breakfast and dinner. levothyroxine (SYNTHROID) 100 mcg tablet Take 100 mcg by mouth daily. insulin aspart (NOVOLOG FLEXPEN) 100 unit/mL injectable pen Inject 3 Units into the skin as needed. insulin glargine (LANTUS SOLOSTAR) 100 unit/mL (3 mL) injection pen Inject 7 Units into the skin at bedtime. added in this encounter Care Teams Theater Teacher Relationship Specialty Start Date End Date Roxanne Dawn MD [address] [place] [phone] PCP - General 06/16/16 documented as of this encounter
--- OUTSIDE RECORDS SUMMARY | 2024-03-17 18:02 | XMS_ITS | Encounter Summary ---
Author Organization [facility] Address [address] [place] [address] Care Team Providers Care Hospital Coordinator Name Role Phone Roxanne Dawn MD Primary Care Provider [phone] Reason for Visit * Reason Comments Dysphagia and sore throat symp toms started in may 2019. constant worse in the evening. during the night has fullness in throat. had neg barium swallow. symptom moderate. started when she had a flu or virus. * Referral (Routine) - Authorization Not Required Specialty Diagnoses / Procedures Referred By [facility] Referred To Contact Otolaryngology Diagnoses Dysphagia Odynophagia Roxanne Dawn MD [address] [place] [phone] [facility] [address] [place] [id number] Referral ID Status Reason Start Date Expiration Date Visits Requested Visits Authorized [id number] Authorization Not Required 1 1 Encounter Details Date Type Department Care Team (Late st Contact Info) Description 08/29/2021 10:10 EDT Office Visit [facility] [address] [place] [address] Bill Wheat MD [address] [place] [address] [address] Laryngeal edema (Primary Dx); LPRD (laryngopharyngeal reflux disease) Social History Tobacco Use Types Packs/Day Years [...] 10:07 EDT documented as of this encounter Last Filed Vital Signs Vital Sign Reading Time Taken Comments Blood Pressure - - Pulse - - Temperature - - Respiratory Rate - - Oxygen Saturation - - Inhaled Oxygen Concentration - - Weight 74.8 kg (165 lb) 08/29/2021 1017 EDT Height 175.3 cm (5' 9) 08/29/2021 1017 EDT Body Mass Index 24.37 08/29/2021 1017 EDT documented in this encounter Functional Status [...] as of this encounter Progress Notes * Bill Wheat MD - 08/29/2021 1010 EDT CHIEF COMPLAINT: Dysphagia HPI: 66-year-old female with a history of fullness in her throat that started after a flu in May 2019. Her symptoms are of mild severity chronic with mild sore throat globus or feeling of a lumpin the throat and more recently occasional odynophagia. She denies cough hoarseness or weight loss.She is worried about cancer. She is a non-smoker. Past Medical History: Diagnosis Date ??? 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 Diabetes mellitus (HCC) ??? Thyroid disease Past Surgical History: Procedure Laterality Date ??? APPENDECTOMY ??? BREAST SURGERY Allergies Allergen Reactions ??? Compazine [Prochlorperazine] Anxiety ??? Levaquin [Levofloxacin] Patient's white blood count was affected Outpatient Medications Marked as Taking for the 08/29/21 encounter (Office Visit) with Bill Wheat MD Medication Sig Dispense Refill ??? calcium-vitamin D (OS-VASU D) 500 mg(1,250mg) -200 unit per tablet Take 1 Tab by mouth 2 times daily with breakfast and dinner. ??? canagliflozin (INVOKANA ORAL) Take by mouth. ??? insulin aspart (NOVOLOG FLEXPEN) 100 unit/mL injectable pen Inject 3 Units into the skin as needed. ??? insulin glargine (LANTUS SOLOSTAR) 100 unit/mL (3 mL) injection pen Inject 7 Units into the skin at bedtime. ??? insulin pen needles 31G x 5/16 by misc (non-drug; combo route) route daily. ??? lancets 1 lancet by misc (non-drug; combo route) route as needed. ??? levothyroxine (SYNTHROID) 100 mcg tablet Take 100 mcg by mouth daily. Family History Problem Relation Age of Onset ??? Heart Disease Mother ??? Cancer Father ??? Heart Disease Sister ??? Heart Disease Brother Social History Socioeconomic History ??? Marital status: Spouse name: Not on file ??? Number of children: Not on file ??? Years of education: Not on file ??? Highest education level: Not on file Occupational History ??? Not on file Tobacco Use ??? Smoking status: Never Smoker ??? Smokeless tobacco: Never Used Substance and Sexual Activity ??? Alcohol use: No Comment: stopped since diabetes ??? Drug use: Not on file ??? Sexual activity: Not on file Other Topics Concern ??? Not on file Social History Narrative ??? Not on file Social Determinants of Health Financial Resource Strain: Not on file Food Insecurity: Not on file Transportation Needs: Not on file Physical Activity: Not on file Stress: Not on file Social Connections: Not on file REVIEW OF SYSTEMS: Significant for diabetes thyroid problems light sensitivity congestion sore throat otherwise negative for complete review of all systems PHYSICAL EXAM: Ht 175.3 cm (69) Wt 74.8 kg (165 lb) BMI 24.37 kg/m?? General: Well-developed well-nourished alert oriented cooperative adult female no acute distress. Normal voice. The face is normal without lesions. Facial strength is symmetric. Eye exam is normal. Ears: External ears are normal canals are clear tympanic membrane's are normal. Hearing is intact. Nose: Nasal dorsum is midline the airway is patent. Oral cavity and posterior pharynx is clear. Neck: No pathologic lymphadenopathy trach is midline thyroid is normal. Chest is clear to auscultation. Heart regular rate and rhythm. Procedure: Fiberoptic laryngoscopy was performed with topical anesthesia. No evidence of nasal polyps or purulence. The middle meatus is clear. The nasopharynx is clear. The base of tongue epiglottisvallecula piriform sinuses false vocal cords and true vocal cords are within normal limits. There is mild to moderate posterior antral edema in the post cricoid area. No cysts polyps nodules or tumor. IMPRESSION: Foreign body sensation, posterior laryngeal edema, consistent with laryngal pharyngeal reflux disease. PLAN: LPR instructions were given to the patient and discussed in detail. Follow-up with ENT as needed. August 29, 2021/15:17 Patient: Serenity Cummings Scope #: [id number] Has this been documented in the log: Yes documented in this encounter Plan of Treatment Not on file documented as of this encounter Visit Diagnoses Diagnosis Laryngeal edema- Primary Edema of larynx LPRD (laryngopharyngeal reflux disease) Other diseases of larynx documented in this encounter Historical Medications * This list may reflect changes made after this encounter. Medication Sig Dispensed Refills Start Date End Date canagliflozin (INVOKANA ORAL) Take by mouth. added in this encounter Care Teams Hospital Coordinator Relationship Specialty Start Date End Date Roxanne Dawn MD [address] [place] [address] PCP - General 06/16/16 documented as of this encounter
--- OUTSIDE RECORDS SUMMARY | 2024-03-17 18:02 | XMS_ITS | Encounter Summary ---
Author Organization [facility] [place] [address] Care Team Providers Care Cow Tender Name Role Phone Roxanne Dawn MD Primary Care Provider [phone] Reason for Visit * Reason Onset Date Comments Medication Refill 06/11/2018 Encounter Details Date Type Department Care Team (Late st Contact Info) Description 06/11/2018 [place] [address] [facility] [place] [address] Social History Tobacco Use Types Packs/Day Years [...] 04/25/2024 10:40 AM EST Appointment Mammography/[place] [id number] Roxanne Dawn MD [address] [place] [address] documented as of this encounter Visit Diagnoses Not on filedocumented in this encounter Care Teams Cow Tender Relationship Specialty Start Date End Date Roxanne Dawn MD [address] [place] [address] PCP - General 04/30/10 documented as of this encounter
--- OUTSIDE RECORDS SUMMARY | 2024-03-17 18:02 | XMS_ITS | Encounter Summary ---
Author Organization [facility] [place] [address] [place] [address] Care Team Providers Care Sewage Reticulation Drafting Officer Name Role Phone Roxanne Dawn MD Primary Care Provider [phone] 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 * Diagnostic Test (Routine) - Closed Specialty Diagnoses / Procedures Referred By Contac t Referred To Contact Radiology Diagnoses History of aromatase inhibitor therapy Acquired premature ovarian failure Procedures DXA Central Spine, Hip, and/or Whole Body (Generic) Noe Joel MD [facility] DR HEMATOLOGY/[place] [address] [facility] [address] [place] [address] [place] [address] Referral ID Status Reason Start Date Expiration Date V isits Requested Visits Authorized [id number] Closed Specialty Service Requested 05/13/2019 05/12/2020 1 1 Reason for Visit * Diagnostic Test (Routine) - Closed Specialty Diagnoses / Procedures Referred By Contac t Referred To Contact Radiology Diagnoses History of aromatase inhibitor therapy Acquired premature ovarian failure Procedures DXA Central Spine, Hip, and/or Whole Body (Generic) Noe Joel MD [facility] DR HEMATOLOGY/[place] [address] [facility] [address] [place] [address] [place] [address] Referral ID Status Reason Start Date Expiration Date V isits Requested Visits Authorized [id number] Closed Specialty Service Requested 05/13/2019 05/12/2020 1 1 Encounter Details Date Type Department Care Team (Latest Contact Info) Description 10/19/2020 12:30 PM EDT - 10/19/2020 11:59 PM EDT Hospital Encounter XRay at [address] [place] [address] Noe Joel MD [facility] HEMATOLOGY/[place] [address] History of aromatase inhibitor therapy; Acquired premature ovarian failure Discharge Disposition: Home Social History Tobacco Use [...] 09/21/2020 insulin needles, disposable, 31 gauge x 10/21 Needle Inject 1 each subcutaneously daily. Dx [...] 04/25/2024 10:40 AM EST Appointment Mammography/[place] [address] Roxanne Dawn MD [address] [place] [address] documented as of this encounter Procedures Procedure Name Priority Date/Time Associated Diagnosis Comments DXA CENTRAL SPINE, HIP, AND/OR WHOLE BODY (GENERIC) Routine 10/19/2020 1:39 PM EDT History of aromatase inhibitor therapy Acquired premature ovarian failure documented in this encounter Results * DXA Central Spine, [...] BMD measurements and plots are available in [employer] under the imaging tab. Paper copies will be sent to providers without E- access. If you have received this report without the data sheet and do not have access to [employer], please contact Radiology Advertising Copy Writer at [phone] Thursday thru Thursday 8am-4pm. Thank you for letting us participate in the care of this patient. ??If you are a health care provider and have any questions regarding this report, please contact the number below. ??For patients who have questions please contact the health child care center assistant director that requested your imaging first. ? Narrative 10/23/2020 1:36 PM EDT EXAMINATION: DXA CENTRAL SPINE, HIP, AND/OR WHOLE BODY (GENERIC) CLINICAL HISTORY: 64 year old woman who had been on mcc treatment with an aromatase inhibitor, compare to [...] year old woman who had been on manager terminal treatmentwith an aromatase inhibitor, compare to prior [...] BMD measurements and plots are available in EPlayFirstunder the imaging tab. Paper copies will be sent to providers without [employer] access.If you have received this report without the data sheet and do not haveaccess to [employer], please contact Radiology Advertising Copy Writer at [phone] Thursday thruFriday 8am-4pm. Thank you for letting us participate in the care of this patient. If youare a health care provider and have any questions regarding this report,please contact the number below. For patients who have questions please contactthe health child care center assistant director that requested your imaging first. Noe Joel MD IMG DEXA ORDERABLES documented in this encounter Visit Diagnoses Diagnosis History of aromatase inhibitor therapy Acquired premature ovarian failure documented in this encounter Care Teams Sewage Reticulation Drafting Officer Relationship Specialty Start Date End Date Roxanne Dawn MD [address] [place] [address] PCP - General 04/30/10 documented as of this encounter
--- OUTSIDE RECORDS SUMMARY | 2024-03-17 18:02 | XMS_ITS | Encounter Summary ---
Author Organization [facility] Address [facility] [place] [address] Care Team Providers Care Senior Data Warehouse Developer Name Role Phone Roxanne Dawn MD Primary Care Provider [phone] Encounter Details Date Type Department Care Team (Latest Contact Info) Description 05/13/2019 10:13 AM EST - 05/13/2019 11:59 PM [facility] Hospital Encounter Mammography[place] [address] Noe Joel MD [facility] HEMATOLOGY/[place] [address] Malignant neoplasm of right breast, stage 2 [...] Sig Dispensed Refills Start Date End Date levothyroxine (SYNTHROID) 112 mcg Tablet Take 1 [...] 02/22/2018 estradiol (ESTRACE) 0.01 % (0.1 mg/gram) CreamIndications:Atr ophic vaginitis Apply a montemayor-sized amount of cream [...] 1 drop as needed. Reported on 12/05/2016 insulin needles, disposable, 31 gauge x 5/16 Needle Inject 1 each subcutaneously daily. 100 each 3 05/12/2018 07/27/2019 documented as of this encounter Plan of Treatment Upcoming Encounters Date Type Department Care Team (Late st Contact Info) Description 04/25/2024 10:40 AM EST Appointment Mammography/[place] [address] Roxanne Dawn MD [address] [place] [address] documented as of this encounter Procedures Procedure Name Priority Date/Time Associated Diagnosis Comments MAMMO SCREENING CAD AND NATHANAEL LEFT Routine 05/13/2019 10:28 AM EST Malignant neoplasm of right breast, stage 2 documented in this encounter Results * Mammo Screening Cad and Nathanael Left (05/13/2019 10:28 AM EST) Anatomical Region Laterality Modality Breast Left Mammography Narrative 05/13/2019 10:37 AM EST LEFT BREAST MAMMOGRAPHY REASON FOR EXAM: Screening. S/P Right mastectomy and left breast reduction mammoplasty. TECHNIQUE: CC and MLO views were obtained of the left breast using standard 2-D mammography as well as 3-D tomosynthesis. Computer aided detection was used. This is compared with prior images. FINDINGS: The breast is heterogeneously dense, which may obscure small masses. There are no suspicious microcalcifications, masses, or areas of distortion. The pattern is stable. CONCLUSION: No mammographic evidence of malignancy. RECOMMENDATION: Medical organizations agree that annual screening mammography beginning at age 40 saves the most lives. The risks of screening are negligible compared to dying from breast cancer or suffering from more aggressive treatment required when detected at a later stage. No woman is at low risk for breast cancer. Some women, because of their family history, a genetic tendency, or certain other factors, should be screened with breast MRI along with mammograms. (The number of women who fall into this category is very small). The patient and health care provider should discuss the patient history and decide if earlier screening and breast MRI are appropriate. Screening should continue as long as a woman is in good health and is expected to live 10 years or longer. Screening mammography may not detect 10-15% of breast cancers. Women should report any breast changes to a health care provider right away. A result letter has been sent to this patient by the [facility]. BIRADS CATEGORY 1: NEGATIVE Noe Joel MD IMG MAMMO ORDERABLES documented in this encounter Visit Diagnoses Diagnosis Malignant neoplasm of right breast, stage 2 documented in this encounter Care Teams Senior Data Warehouse Developer Relationship Specialty Start Date End Date Roxanne Dawn MD [address] [place] [address] PCP - General 04/30/10 documented as of this encounter
--- OUTSIDE RECORDS SUMMARY | 2024-03-17 18:02 | XMS_ITS | Encounter Summary ---
[place] [address] Care Team Providers Care Raw Scales Operator Name Role Phone Roxanne Dawn MD Primary Care Provider 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 * Consultation (Routine) - Closed Specialty Diagnoses / Procedures Referred By Bryan t Referred To Contact Otolaryngology Diagnoses Lymphadenopathy Roxanne Dawn MD [address] [place] [address] [facility] Otolaryngology [address] [place] [phone] Referral ID Status Reason Start Date Expiration Date V isits Requested Visits Authorized [id number] Closed Consult, Test & Treat 10/09/2023 10/08/2024 1 1 Encounter Details Date Type Department Care Team (Late st Contact Info) Description 10/09/2023 Transcribe Orders eDH Incoming Referrals [phone] Roxanne Dawn MD [address] [place] [address] Lymphadenopathy Social History Tobacco Use Types Packs/Day Years [...] 04/25/2024 10:40 AM EST Appointment Mammography[place] [address] Roxanne Dawn MD [address] [place], [place] [address] Scheduled Referrals Name Type Priority Associated Diagnoses Orde r Schedule Referral to ENT Outpatient Referral Routine Lymphadenopathy Ordered: 10/09/2023 documented as of this encounter Visit Diagnoses Diagnosis Lymphadenopathy Enlargement of lymph nodes documented in this encounter Care Teams Raw Scales Operator Relationship Specialty Start Date End Date Roxanne Dawn MD [address] [place] [address] PCP - General 04/30/10 documented as of this encounter
--- OUTSIDE RECORDS SUMMARY | 2024-03-17 18:03 | XMS_ITS | Encounter Summary ---
Author Organization [facility] [place] [address] Care Team Providers Care Brew House Supervisor Name Role Phone Roxanne Dawn MD Primary Care Provider [phone] Encounter Details Date Type Department Care Team (Late st Contact Info) Description 04/12/2017 Orders Only [place] [phone] Shyla Garber MD [facility] [place] [address] Post-pancreatectomy diabetes; Other specified hypothyroidism Social History Tobacco Use Types Packs/Day [...] 04/25/2024 10:40 AM EST Appointment Mammography/[place] [id number] Roxanne Dawn MD [address] [place], [place] [address] documented as of this encounter Results * U Albumin/Cre Ratio (05/07/2017 11:16 AM EST) Albumin / Creatinin Ratio, Urine Not Calculated 0 - 29 mcg/mg Cr [facility] Comment: Reference Ranges: <30 mcg/mg: [...] 2, 357? 362 Albumin, Urine <3.0 mg/L [facility] Creatinine, Urine 61 mg/dL [facility] Urine specimen (specimen) 05/07/2017 11:16 AM EST 05/07/2017 11:39 AM EST Narrative Resulting Agency Comment Spec In Lab Shyla Garber MD URINE ORDERABLES Performing Organization Address City/[facility]/ZIP Co de Phone Number [facility] [place] [address] * (ABNORMAL) Thyroid peroxidase antibody (05/07/2017 11:08 AM EST) Thyroperoxidase Ab 50(H) <=34 IU/mL [facility] Blood specimen (specimen) 05/07/2017 11:08 AM EST 05/07/2017 11:25 AM EST Narrative Resulting Agency Comment Spec In Lab Shyla Garber MD IMMUNOLOGY ORDERA BLES Performing Organization Address City/[facility]/ZIP Co de Phone Number [facility] [place] [address] * (ABNORMAL) Lipid Panel (05/07/2017 11:08 AM EST) Cholesterol, Total 249(H) <=239 mg/dL [facility] Triglyceride 157 <=199 mg/dL [facility] HDL Cholesterol 61 >=40 mg/dL [facility] LDL Cholesterol 157 <=190 mg/dL [facility] Cholesterol/HDL Ratio 4.[address] [facility] Lipid Interpretation See Note [facility] Comment: Lipid management should be guided by a patient? s ASCVD risk, goals and preferences. ACC/AHA Guidelines recommend high intensity statin if clinical ASCVD or LDL greater than or equal to 190 mg/dL. http://[employer].com/PBD-WMP-Rciiatgkw Adults aged 40-75 with LDL 70-189 mg/dL should have their 10 year ASCVD risk estimated with the ACC/AHA ASCVD risk building estimator http://tools.acc.org/OJVHU-Ckce-Jxfelejmf/ Statin should be discussed if risk greater [...] of ASCVD risk reduction. Blood specimen (specimen) 05/07/2017 11:08 AM EST 05/07/2017 11:25 AM EST Narrative Resulting Agency Comment Spec In Lab Shyla Garber MD CHEMISTRY ORDERAB LES [facility] [place] [address] * Glucose, random (05/07/2017 11:08 AM EST) Glucose 108 65 - 199 mg/dL [facility] Comment:Diabetes: >=200 mg/d L plus symptoms Blood specimen (specimen) 05/07/2017 11:08 AM EST 05/07/2017 11:25 AM EST Narrative Resulting Agency Comment Spec In Lab Shyla Garber MD CHEMISTRY ORDERAB LES Performing Organization Address City/[facility]/ZIP Co de Phone Number [facility] [place] [address] * C-peptide (05/07/2017 11:08 AM EST) C-Peptide 2.8 0.8 - 5.2 ng/mL [facility] Blood specimen (specimen) 05/07/2017 11:08 AM EST 05/07/2017 11:25 AM EST Narrative Resulting Agency Comment Spec In Lab Shyla Garber MD CHEMISTRY ORDERAB LES Performing Organization Address [facility] Co de Phone Number [facility] [place] [address] * Vitamin D, 25-Hydroxy (05/07/2017 11:08 AM EST) Vitamin D Total 25 OH 31 30 - 100 ng/mL [facility] Comment: Deficient <10 ng/mL Insufficient 10 to 29 ng/mL Sufficient 30 to 100 ng/mL Potential Intoxication >100 ng/mL According to the US National Osteoporosis Foundation, Vitamin D concentrations >30 ng/mL are sufficient to protect bone health. ??The National Kidney Foundation has similarly stated that patients with Vitamin D concentrations <30ng/mL should be considered to be insufficient or deficient. http://[employer]/nkf-guidelines http://[employer]/nejm-VitD The [employer] iSYS Vitamin D Immunoassay detects both 25-OH Vitamin D2 and 25-OH Vitamin D3, but only a total Vitamin D concentration is reported. Blood specimen (specimen) 05/07/2017 11:08 AM EST 05/07/2017 1:37 PM EST Narrative Resulting Agency Comment Spec In Lab Shyla Garber MD CHEMISTRY ORDERAB LES Performing Organization Address City/[facility]/ZIP Co de Phone Number [facility] [place] [address] * (ABNORMAL) TSH (05/07/2017 11:08 AM EST) Thyroid Stimulating Hormone 4.56(H) 0.27 - 4.20 mlU/ML [facility] Blood specimen (specimen) 05/07/2017 11:08 AM EST 05/07/2017 11:25 AM EST Narrative Resulting Agency Comment Spec In Lab Shyla Garber MD CHEMISTRY ORDERAB LES [facility] [place] [address] * (ABNORMAL) Hemoglobin A1c (05/07/2017 11:08 AM EST) Pathologist [facility] Hemoglobin A1c 5.8(H) 4.3 - 5.6 % [facility] Comment: Reference Range: 4.3 - 5.6% 5.7 - 6.4% - Increased Risk of Developing Diabetes Mellitus >=6.5% - Consistent with diagnosis of Diabetes Mellitus In the absence of hyperglycemia (i.e. plasma glucose > 200 mg/dL) or classic symptoms of hyperglycemia a repeat measurement of HbA1c should be performed on a separate sample to confirm the diagnosis. Diagnosis and Classification of Diabetes Mellitus, Diabetes Care 2013; 36: Suppl. 1, S67-74 Estimated Average Glucose 120 mg/dL [facility] Comment: eAG equivalents for HbA1c [...] into estimated average glucose values. ??Diabetes Care 2008:31(8):4289-3979. Blood specimen (specimen) 05/07/2017 11:08 AM EST 05/07/2017 11:25 AM EST Narrative Resulting Agency Comment Spec In Lab Shyla Garber MD CHEMISTRY ORDERAB LES Performing Organization Address City/State/[facility] Co de Phone Number 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
--- OUTSIDE RECORDS SUMMARY | 2024-03-17 18:03 | XMS_ITS | Encounter Summary ---
Author Organization [facility] [place] [facility] [place] [address] Care Team Providers Care Software Sales Manager Name Role Phone Roxanne Dawn MD Primary Care Provider [phone] Reason for Visit * Reason Comments Breast Cancer Follow-up Encounter Details Date Type Department Care Team (Late st Contact Info) Description 11/18/2013 3:00 PM EDT Follow-Up [place] [address] Noe Joel MD [facility] HEMATOLOGY/[place] [address] Hypothyroidism (Primary Dx); Atrophic vaginitis; Breast cancer, stage 2, right Discharge Disposition: Home Social History Tobacco Use [...] Sign Reading Time Taken Comments Blood Pressure 121/66 11/18/2013 2:59 PM EDT Pulse 69 11/18/2013 2:59 PM EDT Temperature 36.7 ??C (98.1 ??F) 11/18/2013 2:59 PM ED T Respiratory Rate 16 11/18/2013 2:59 PM EDT Oxygen Saturation 100% 11/18/2013 2:59 PM EDT Inhaled Oxygen Concentration - - Weight 79.5 kg (175 lb 4.3 oz) 11/18/2013 2:59 P M EDT Height 176 cm (5' 9.29) 11/18/2013 2:59 PM EDT Body Mass Index 25.67 11/18/2013 2:59 PM EDT documented in this encounter Patient Instructions * Patient Instructions* Noe Joel MD - 11/18/2013 3:59 PM EDT Call our file room and ask them to mail a CD containing your mammogram files [facility]. Three years worth. You had Stage II invasive lobular carcinoma of the breast. Estrogen and progesterone receptor positive and Her-2 negative. You will need the mammograms done in January. You don;t need an oncologist, but you should have a primary care physician prescribe your meds and check your thyroid, sugar, and cholesterol. The mammograms should be continued yearly. I will see you when you come back on a day you are due for your next mammograms documented in this encounter Progress Notes * Noe Joel MD - 11/18/2013 10:28 PM EDT Subjective: Patient ID: Serneity Cummings is a 58 y.o. female with Stage II breast cancer, here for yearly followup. HPI : Ms. Cummings presented in October of 2000 [...] with negative regional nodes in November 2007. She underwent a distal pancreatectomy. She has chronic elevation of her LFT's as well as a stable enhancing lesion in the right lobe of the liver and hepatic steatosis. She has atrophic vaginitis. She had been put on an estring between May and October, but she developed vaginal pruritis andeye pain which resolved when the estring was removed. She has vulvar pain which has persisted sincethe ring was removed. She developed leg cramping after the ring was removed, and the leg cramping persists. She had bilateral jaw pain which resolved when several wisdom teeth were extracted. She hasa pulsing pain in her left flank which occurs three to four times a year. She walks an average of seven hours a week and she does not take supplemental Vitamin D. Review of Systems She denies breast pain or a palpable breast mass, a cough, shortness of breath, chest pain, nausea,vomiting, diarrhea, constipation, headaches, double vision, pain, redness, or swelling in her lowerextremities, or any other sites of joint or skeletal pain. The remainder of her review of systems is negative. Objective: Physical Exam Vitals reviewed. Constitutional: She appears well-developed and well-nourished. Her weight is up 2.1 kg over the past 10 months. HENT: Mouth/Throat: Oropharynx is clear and moist. No oropharyngeal exudate. Eyes: No scleral icterus. Cardiovascular: Normal rate, regular rhythm and normal [...] right chest wall. There is no axillary adenopathy. Abdominal: Soft. She exhibits no distension and no mass. There is no tenderness. There is no guarding. Musculoskeletal: She exhibits no edema. She has no pain on percussion over the spine, sternum, ribs, or hips. Lymphadenopathy: She has no cervical adenopathy. Skin: Skin is warm and dry. No erythema. Psychiatric: She has a normal mood and affect. The most recent left-sided mammograms from January 06, 2013 showed a stable fibroglandular pattern without significant change, with post-surgical changes. The breast was heterogeneously dense. The most recent Dexa scan from January 06, 2013 was normal, with T scores of -0.1 in the lumbar spine(up from -0.2 in May 2009), 0.5 in the left hip (up from 0.3 in May 2009), and 0.3 in theleft femoral neck (down from 0.5 in May 2009). The most recent labs from January 06, 2013 included an albumin of 4.9, bili 0.5, alk phos 66, AST 32,ALT 55, and a 25-hydroxy Vitamin D of 44. Assessment and Plan: Serenity is doing well and she has no evidence of breast cancer recurrence, 13 years out from diagnosisof a Stage II invasive lobular carcinoma. She received adjuvant chemotherapy plus extended adjuvantendocrine therapy. She will be moving to [facility] for the next two years, and she intends to return eventually to [facility]. I told her that as she is so far out from her diagnosisof breast cancer, she does not need to find a medical oncologist in [place], she can get high quality care from a primary care physician. She will need to have a screening mammogram done in January. I asked her to contact the radiology file room and ask them to have her last three years of mammograms transferred onto a CD and mailed to the hospital in [place] where she intends to have her mammograms done. She probably does not need my records but if her new PCP wants my records, we can send them to her. At her request, I renewed her prescription for synthroid, and I gave her a prescription for topical estrace cream. Rather than using 2 grams or more at a time with the applicator, I advi sed her to apply a montemayor-sized amount with her finger to the driest sites of her vaginal lining. Shewill apply it once a day for two weeks, then every other day for two weeks, then every third day and so on until she finds the least frequency necessary to control her dryness. Serenity is planning on returning in the spring, and I asked her to call then to set up a followup with mammograms and a visit with me in January 2016. She will not need a new Dexa scan until 2018. Noe Joel MD brush trimming machine setter in Hematology-Oncology documented in this encounter Plan of Treatment Upcoming Encounters Date Type Department Care Team (Late st Contact Info) Description 04/25/2024 10:40 AM EST Appointment Mammography[place] [phone] Roxanne Dawn MD [address] [place] [address] documented as of this encounter Visit Diagnoses Diagnosis Hypothyroidism- Primary Unspecified hypothyroidism Atrophic vaginitis Postmenopausal atrophic vaginitis Breast cancer, stage 2, right documented in this encounter Care Teams Software Sales Manager Relationship Specialty Start Date End Date Roxanne Dawn MD [address] [place], [place] [address] PCP - General 04/30/10 documented as of this encounter
--- OUTSIDE RECORDS SUMMARY | 2024-03-17 18:03 | XMS_ITS | Encounter Summary ---
Author Organization [facility] [place] [address] Care Team Providers Care Rough Rice Tender Name Role Phone Roxanne Dawn MD Primary Care Provider [phone] Reason for Visit * Reason Comments Follow-up Encounter Details Date Type Department Care Team (Late st Contact Info) Description 12/04/2015 2:00 PM EDT Office Visit Hematology [place] [address] Noe Joel MD [facility] HEMATOLOGY/[place] [address] Vitamin D deficiency; Breast cancer, stage 2, right Social History Tobacco Use Types Packs/Day Years [...] Sign Reading Time Taken Comments Blood Pressure 124/63 12/04/2015 1:52 PM EDT Pulse 55 12/04/2015 1:52 PM EDT Temperature 36 ??C (96.8 ??F) 12/04/2015 1:52 PM EDT Respiratory Rate - - Oxygen Saturation 100% 12/04/2015 1:52 PM EDT Inhaled Oxygen Concentration - - Weight 80.6 kg (177 lb 9.6 oz) 12/04/2015 1:52 P M EDT Height 175.7 cm (5' 9.17) 12/04/2015 1:52 PM ED T Body Mass Index 26.1 12/04/2015 1:52 PM EDT documented in this encounter Patient Instructions * Patient Instructions* Noe Joel MD - 12/04/2015 2:37 PM EDT Your exam looks good and I don't see any evidence of breast cancer recurrence. The phone number for Primary Care here is . I will email you with the results of the mammograms and labs. I will tell you if you need Vitamin D. i will see you next in November of 2016 with mammograms the same day. i will repeat the Dexa in about 2019. Call if you have any concerns about your breast exam. You daughter should start mammographic screening 10 years younger that you were at the time of diagnosis of your cancer. documented in this encounter Progress Notes * Noe Joel MD - 12/04/2015 6:36 PM EDT Subjective: Patient ID: Serenity Cummings is a 60 y.o. female with Stage II breast cancer, here for two year followup. She recently returned to [place] after a two year stay in [place], [place]. HPI Ms. Cummings presented in October of [...] right lobe of the liver and hepatic steatosis since the surgery. The most recent LFTs done in [place] in January 2014 were just at the upper limit of normal. She has atrophic vaginitis. She had been put on an estring several years ago, but she developed vaginal pruritis and eye pain which resolved when the estring was removed. She uses topical vaginal estrogen about twice a month which controls her atrophy, and she is able to have intercourse comfortably. She does have minor pain in her left vulva and her last pelvic exam done by Dr. Dawn in August was unremarkable. She has intermittent left flank pain which occurs several times a year. She has had hematuria on prior urinalyses. She has intermittent rectal pain but she does not have hematochezia, and her last colonoscopy was done three to four years ago. She has occasional tenderness in the outer left breast but she has not palpated any abnormalities in this breast. She also had a sore throat and sore eyes this winter when she returned to [place]. She walks regularly, but she does not take calcium or Vitamin D. Review of Systems She denies [...] well-developed and well-nourished. Her weight is up 1.1 kg over the past 2 years, and her BP is 124/63. HENT: Mouth/Throat: Oropharynx is clear and moist. [...] a normal mood and affect. Vitals reviewed. The most recent left-sided mammograms from May 08, 2014 showed no significant new findings on the left and benign changes on the left. The left- sided mammograms were repeated today, and the results are pending. The most recent Dexa scan from January 06, 2013 was normal, with T scores of -0.1 in the lumbar spine(up from -0.2 in May 2009), 0.5 in the left hip (up from 0.3 in May 2009), and 0.3 in theleft femoral neck (down from 0.5 in May 2009). The most recent CT of the abdomen from April 25, 2011 showed a stable 5 mm focus of enhancement and diffuse steatohepatitis. Recent Results (from the past 24 hour(s)) Hepatic Function Panel Result Value Ref Range Total Protein 7.6 6.1 - 8.0 gm/dL Albumin 5.0 3.2 - 5.2 gm/dL AST 39 (H) 0 - 30 unit/L ALT 72 (H) 0 - 30 unit/L Alk Phos 64 40 - 104 unit/L Total Bilirubin 0.6 0.2 - 1.3 mg/dL Bili, Direct 0.1 0.0 - 0.3 mg/dL VIT D Total Evaluation Result Value Ref Range 25-OH Vit D Total 29 (L) 30 - 100 ng/mL Assessment and Plan: Serenity is doing well and she has no evidence of breast cancer recurrence, 15 years out from diagnosisof a Stage II invasive lobular carcinoma. She received adjuvant chemotherapy plus extended adjuvantendocrine therapy for ten years. She has elevated transaminases, with a 1.2 x elevation in AST and a 2.4 x elevation in ALT, which is similar to where these labs have been over the past five years. An isolated elevation in the AST and ALT is consistent with the extent of steatosis seen on the CT ofthe abdomen from five years ago, and I do not feel compelled to repeat the CT. She is Vitamin D deficient, and I asked her to resume Vitamin D3 at 1000 units daily. I will contact her with the results of today's mammograms. I will see her next in followup in one year, and I will repeat her mammograms at that time. She knows to contact me in the interim if she has any concerns about her breast exam. I will repeat the Dexa scan in 2020. Noe Joel MD lineworker in Hematology-Oncology documented in this encounter Plan of Treatment Upcoming Encounters Date Type Department Care Team (Late st Contact Info) Description 04/25/2024 10:40 AM EST Appointment Mammography/[place] [address] Roxanne Dawn MD [address] [place] [address] documented as of this encounter Results * Mammo Digital Left Screening with CAD and Tomosynthesis (12/05/2016 12:54 PM EDT) Anatomical Region Laterality Modality Breast Left Mammography Narrative 12/05/2016 4:38 PM EDT EXAMINATION: Unilateral left breast mammogram CLINICAL HISTORY: Personal history of breast cancer. Status post right mastectomy. Technique: CC and MLO views were obtained of the left breast using standard 2-D mammography as well as 3-D tomosynthesis. Computer aided detection was used. Comparison: This is compared with prior images. Findings: The breasts are heterogeneously dense, which may obscure small masses. There are no suspicious microcalcifications, masses, or areas of distortion. The pattern is stable. Conclusion: No mammographic evidence of malignancy. Recommendation: Routine annual screening. BI-RADS Category 1: Negative * ??The [place] [employer] and The Society of [...] earlier screening and breast MRI are appropriate. Noe Joel MD IMG MAMMO ORDERABLES * (ABNORMAL) VIT D Total Evaluation (12/04/2015 2:51 PM EDT) Vitamin D Total 25 OH 29(L) 30 - 100 ng/mL [facility] Comment: Deficient <10 ng/mL Insufficient 10 to 29 ng/mL Sufficient 30 to 100 ng/mL Potential Intoxication >100 ng/mL According to the US National Osteoporosis Foundation, Vitamin D concentrations >30 ng/mL are sufficient to protect bone health. ??The National Kidney Foundation has similarly stated that patients with Vitamin D concentrations <30ng/mL should be considered to be insufficient or deficient. http://[employer]/Cloudfindernatlkidneyfoundation http://[employer]/CloudfinderVitD [employer] i[employer] Vitamin D Immunoassay detects both 25-OH Vitamin D2 and 25-OH Vitamin D3, but only a total Vitamin D concentration is reported. Blood specimen (specimen) 12/04/2015 2:51 PM EDT 12/04/2015 3:03 PM EDT Narrative Resulting Agency Comment Spec In Lab Noe Joel MD CHEMISTRY ORDERABLES [facility] [place] [address] * (ABNORMAL) Hepatic Function Panel (12/04/2015 2:51 PM EDT) Protein, Total 7.6 6.1 - 8.0 gm/dL [facility] Albumin 5.0 3.2 - 5.2 gm/dL [facility] Aspartate Aminotransferase 39(H) 0 - 30 unit/L [facility] Alanine Aminotransferase 72(H) 0 - 30 unit/L [facility] Alkaline Phosphatase 64 40 - 104 unit/L [facility] Bilirubin, Total 0.6 0.2 - 1.3 mg/dL [facility] Bilirubin, Direct 0.1 0.0 - 0.3 mg/dL [facility] Blood specimen (specimen) 12/04/2015 2:51 PM EDT 12/04/2015 3:04 PM EDT Narrative Resulting Agency Comment Spec In Lab Noe Joel MD CHEMISTRY ORDERABLES Performing Organization Address City/State/[facility] Co de Phone Number [facility] [place] [address] documented in this encounter Visit Diagnoses Diagnosis Vitamin D deficiency Unspecified vitamin D deficiency Breast cancer, stage 2, right Breast cancer, stage 2, right documented in this encounter Care Teams Rough Rice Tender Relationship Specialty Start Date End Date Roxanne Dawn MD [address] [place] [address] PCP - General 04/30/10 documented as of this encounter
--- OUTSIDE RECORDS SUMMARY | 2024-03-17 18:03 | XMS_ITS | Encounter Summary ---
Author Organization Formerly [facility] [place] [address] Care Team Providers Care [employer] Name Role Phone Roxanne Dawn MD Primary Care Provider [phone] 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 * Consultation (Routine) - Closed Specialty Diagnoses / Procedures Referred By Bryan cai Referred To Contact Endocrinology Diagnoses Post-pancreatectomy diabetes Shyla Garber MD [facility] [place] [address] [place] [address] Mahsa Orosco LD [facility] [place] [address] Referral ID Status Reason Start Date Expiration Date V isits Requested Visits Authorized [id number] Closed Continuity of Care 05/07/2017 05/07/2018 1 1 Reason for Visit * Reason Comments Diabetes * Consultation (Routine) - Closed Specialty Diagnoses / Procedures Referred By Bryan cai Referred To Contact Endocrinology Diagnoses Type 2 diabetes mellitus without complication, with long-term current use of insulin Noe Joel MD [facility] HEMATOLOGY/[place] [address] Syhla Garber MD [facility] [address] [place] [address] Referral ID Status Reason Start Date Expiration Date V isits Requested Visits Authorized [id number] Closed Consult, Test & Treat 12/05/2016 12/05/2017 1 1 Encounter Details Date Type Department Care Team (Latest Contact Info) Description 05/07/2017 9:30 AM EST Office Visit Endocrinology at [facility] [place] [address] Shyla Garber MD [facility] [place] [address] Post-pancreatectomy diabetes; Other specified hypothyroidism; Pure hypercholesterolemia Social History Tobacco Use [...] Sign Reading Time Taken Comments Blood Pressure 133/71 05/07/2017 9:21 AM EST Pulse 71 05/07/2017 9:21 AM EST Temperature - - Respiratory Rate - - Oxygen Saturation - - Inhaled Oxygen Concentration - - Weight 73.9 kg (163 lb) 05/07/2017 9:21 AM EST Height 174 cm (5' 8.5) 05/07/2017 9:21 AM EST Body Mass Index 24.42 05/07/2017 9:21 AM EST documented in this encounter Patient Instructions * Patient Instructions* Shyla Garber MD - 05/07/2017 9:30 AM EST Recommendation: 1. Medication: Patient will start tapering lantus dose by 1-2 units if fasting BG <100 and likely that she doesnot need insulin any more Ok to use Humalog or Novolog pen as needed before meals or at bedtime for high BG >140 based on 1U:40 BG. Simple sliding scale was given,and explained in details. Patient was advised of proper dosage, how to take the medication properly, precautions, and potential complication of the medication prescribed. To continue all other medications including levothyroxine same dose 100 mcg qd with normal TSH levels as previously. 2. Monitoring: ok to monitor finger stick blood glucose more often initially before each meal and at bedtime, or randomly 2 h post meals if she wants to know the food effect. Target BG 80-150 fasting, 80-150 pre-meal and below 180-200 if checking 2 h post meal. Target A1c < 7% for this patient. 3. Diet and exercise: Patient was counselled on medical nutritional therapy, the importance of complying with diabetes medications as well as low fat/low carb diet & exercise as tolerated to keeplipids, BG and weight stable. Info on carb counting was discussed and given to the patient today. Patient will keep log of blood glucose, carb intake and insulin used for review at next visit. 4. Prevention: Patient knows the importance of yearly ophtalmologist and foot maintenance, checkingdaily for ulcers, keeping feet warm and dry and to monitor for loss of sensation. Blood pressure target with DM is below 140/90 and patient is currently meeting this goal. Lipid profile with target LDL below 100 or at least <130 for diabetic patients and below 70 withCAD and patient is currently meeting this goal. 5. Lab: to check lab for A1c, c-peptide, glucose, TSH, TPO Ab, non-fasting lipids, 25vitamin D and annual urine microalbumin/Cr ratio. We will let patient know test lab test results and adjust medication if needed during this interim. 6. RTC: Next visit in 6 months or on the same day she is here to see Dr. Joel or earlier if needed so we can help adjust DM medication regimen further. 7. Refer to see Mahsa Orosco RD, CDE so she can be seen on the same day at next visit for medical nutritional therapy. documented in this encounter Progress Notes * Shyla Garber MD - 05/07/2017 9:30 AM EST New Diabetes Evaluation Date of Consultation: 05/07/2017 Patient: Name: Serenity Cummings : 1955 PCP: Roxanne Dawn MD Reason for Consult: Serenity Cummings presents to establish care in consultation for Dr Noe Joel (her oncologist) and Dr Roxanne Dawn MD. I have reviewed the available records, interviewed and examined the patient. Brief History of Present Illness: Serenity Cummings is a very pleasant 61 y.o. female with the following problem list: Patient Active Problem List Diagnosis Code ??? Chronic lower back pain M54.5, G89.29 ??? Breast cancer, stage 2 C50.919 ??? 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 Hypothyroidism E03.9 ??? Acquired absence of breast Z90.10 ? ? Diabetes mellitus since May 2016 (A1c >9%) => A1c 5.7% in on lantus low dose E11.9 ??? Pure hypercholesterolemia E78.00 ??? 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 K86.89, E08.65 In May 2016, Serenity Cummings was first diagnosed with type 2 diabetes with A1c >9% and BG 560s. At that time she noted a tunnel vision and polydipsia/polyuria. She felt more unwell and lost wt 20-30 lbs as well around that time. She started on insulin right away and the dose has been tapering down to very low dose. Her main question if she can stop using insulin and if there is any other alterna tive since last A1c in November was excellent at 5.7% which is amazing. Diabetes History: Serenity Cummings has had distal pancreatectomy for PNET since Mar 2008 without diabetes until she developed symptoms with very high BG in 500s in May 2016 mentioned as above. She used to try metformin but it caused very bad GI side effects and has stayed on insulin since then. She modified her diet which greatly helped control both BG and lipids (LDL down from 155 in to 127 in ). Her wt has been stable 160-163 lbs and she feels more relaxed eating normal food. She noted low BG after drinking red wine. Current outpatient diabetes regimen: Medications: - Long acting insulin: Lantus 7units daily at 9p - Meal associated insulin: occasional Novolog 3 units with high carb meals ~ only 2x over the past 2 months - Novolog sliding scale for BG> 150 BGFS Monitoring is done 2 times a day, ranging between 90s-120s and rarely in 150s mg/dl over the past 2 months. Most recent HbA1c was done on 12/02/16 and was 5.7%, suggesting an average glucose of 110 mg/dL for the past 8 weeks. Typical diet is: 3 meals and 0-1 snack a day Breakfast- oatmeal with pumpkin seeds, tea with some milk, yogurt Lunch- big vegetable salad Supper- varies, meats with rice or potato or spagetthi occasionally. Diet plan: low carb low fat diet Typical exercise regimen is walking Trouble with hypoglycemia over the past 3 months ([x]) no ([]) yes Diabetes Complications Status: Patient denies any history of diabetic retinopathy, nephropathy, neuropathy. No history of foot ulcers. Currently not taking an MIKE inhibitor (or ARB), statin, or an aspirin. ROS: Constitutional: No fatigue, recent weight changes No polyuria & polydipsia Endocrine: + thyroid problems on LT4 100 mcg qd with normal TSH 2.37 in Eyes: No recent vision change ENT: No dysphagia, dental issues Cardiovascular: No chest pain Respiratory: No wheezing, shortness of breath GI: No nausea, vomiting, diarrhea, constipation : No frequent urinary tract infections. Integument: No ulcerations or easily bruising skin. Neurological: No weakness or numbness. No seizure, fainting or dizziness. Musculoskeletal: Some joint aches and muscle pain. Psych: No depression and anxiety Past medical history is significant for: Patient Active Problem List Diagnosis Code ??? Chronic lower back pain M54.5, G89.29 ??? Breast cancer, stage 2 C50.919 ??? 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 Hypothyroidism E03.9 ??? Acquired absence of breast Z90.10 ? ? Diabetes mellitus since May 2016 (A1c >9%) => A1c 5.7% in on lantus low dose E11.9 ??? Pure hypercholesterolemia E78.00 ??? 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 insulin glargine (LANTUS SOLOSTAR) Insulin Pen Inject 7 Units subcutaneously nightly. ??? cholecalciferol, Vitamin D3, (VITAMIN D) 1,000 unit Tablet Take 1,000 Units by mouth daily. ??? ketotifen (ANTIHISTAMINE EYE DROPS) 0.025 % ophthalmic solution 1 drop 2 times daily. Reported on 12/05/2016 ??? ALCAFTADINE (LASTACAFT OPHT) Apply to eye daily as needed. ??? estradiol (ESTRACE) 0.01 % (0.1 mg/gram) vaginal cream Apply a montemayor-sized amount of cream once daily x 2 wks, then every other day for 2 wks, then every 3rd day til you find the least necessary (Patient not taking: Reported on 05/07/2017) 42.5 g 2 No current facility-administered medications on file prior to visit. ADR/ALLERGIES: Allergies Allergen Reactions ??? Prochlorperazine Other (See Comments) Extrapyramidal reaction ??? Dronabinol Other (See Comments) Shakes, Diarrhea, Bad Trip ??? Levofloxacin Other (See Comments) Leukopenia SOCIAL HISTORY/HABITS Social History Social History ??? Marital status: Spouse name: N/A ??? Number of children: N/A ??? Years of education: N/A Occupational History ??? Not on file. Social History Main Topics ??? Smoking status: Never Smoker ??? Smokeless tobacco: Never Used ??? Alcohol use Yes 7 Glasses of wine, 0 Cans of beer, 0 Shots of liquor, 0 Standard drinks or equivalent per week ??? Drug use: No ??? Sexual activity: Not on file Other Topics Concern ??? Exercise: Patient Reported Yes Social History Narrative FAMILY HISTORY Family History Problem Relation Age of Onset ??? Pancreatic Cancer Father 75 ??? Breast Cancer Neg Hx Physical Exam BP 133/71 Pulse 71 Ht 174 cm (5' 8.5) Wt 73.9 kg (163 lb) BMI 24.42 kg/m2 Appearance: Patient is very pleasant 61 y.o. female, obese, clinically euthyroid, not in acute distress. Skin - normal in texture and temperature, no acanthosis nigricans around the nape of the neck, no abnormal striae or ecchymosis. HEENT - PERRLA, EOMI, no lid lag Neck - supple, no goiter or nodule, no lymphadenopathy Lungs - Normal chest expansion, no crackles or wheeze Heart - regular rhythm, normal apical impulse, normal S1, S2 and no murmur Abdomen - soft, non-tender, no abnormal mass. Extremities - no pitting edema, no proximal muscle weakness, reflexes were normal. No foot ulcer. Psych: normal affect RECENT LABS: As in HPI/ROS. Pending today Impression: Serenity Cummings has excellent control of recently diagnosed distal pancreatectomy-related diabetes with much better A1c down from >9% at diagnosis in May 2016 to 5.7% in November 2016 on lowering dose of lantus only 7u qhs and rarely used (2x) short-acting insulin for BG>150 over the past couple of months. So she is out of glucotoxicity and should be able to taper off insulin soon as explained today. If BG is high, we may consider glipizide or glimiperide low dose as she had severeGI side effects with metformin. She is eating much better with better BG and lipid control which isexcellent. We discussed at length about DM and the cause, effects of food on BG control and carb counts for medical nutritional therapy today. Recommendation: 1. Medication: Patient will start tapering lantus dose by 1-2 units if fasting BG <100 and likely that she doesnot need insulin any more Ok to use Humalog or Novolog pen as needed before meals or at bedtime for high BG >140 based on 1U:40 BG. Simple sliding scale was given,and explained in details. Patient was advised of proper dosage, how to take the medication properly, precautions, and potential complication of the medication prescribed. Addendum: To increase levothyroxine from 100 to 112 mcg qd with higher TSH level at 4.56 today. Target TSH 1.0-3.0 for her weight issue. To increase OTC-vitD from 1,000 to 2,000 iu qd to keep vitD in mid normal range for her bone health To continue all other medications 2. Monitoring: ok to monitor finger stick blood glucose more often initially before each meal and at bedtime, or randomly 2 h post meals if she wants to know the food effect. Target BG 80-150 fasting, 80-150 pre-meal and below 180-200 if checking 2 h post meal. Target A1c < 7% for this patient. 3. Diet and exercise: Patient was counselled on medical nutritional therapy, the importance of complying with diabetes medications as well as low fat/low carb diet & exercise as tolerated to keeplipids, BG and weight stable. Info on carb counting was discussed and given to the patient today. Patient will keep log of blood glucose, carb intake and insulin used for review at next visit. 4. Prevention: Patient knows the importance of yearly ophtalmologist and foot maintenance, checkingdaily for ulcers, keeping feet warm and dry and to monitor for loss of sensation. Blood pressure target with DM is below 140/90 and patient is currently meeting this goal. Lipid profile with target LDL below 100 or at least <130 for diabetic patients and below 70 withCAD and patient is currently meeting this goal. 5. Lab: to check lab for A1c, c-peptide, glucose, TSH, TPO Ab, non-fasting lipids, 25vitamin D and annual urine microalbumin/Cr ratio. We will let patient know test lab test results and adjust medication if needed during this interim. To recheck lab on 06/17/17 on the same day she is here to see Mahsa for nutritional counselling forT, and to wait for at least 3 months during the interim to recheck lab for A1c, lipids and TSH. 6. RTC: Next visit in 6 months or on the same day she is here to see Dr. Joel or earlier if needed so we can help adjust DM medication regimen further. 7. Refer to see Mahsa Orosco RD, CDE so she can be seen on the same day at next visit for medical nutritional therapy. We have reviewed our plan outlined above with the patient and patient verbalized understanding. Allquestions were answered, spent approximately 60 minutes together during today's visit, of which more than 40 minutes was spent in counseling about diet, exercise, medications adjustment and proper use of DM medication, cardiac risk prophylaxis, the diagnostic and therapeutic decisions, and coordination of care. Thank you for allowing me to participate in the care of this very pleasant and interesting patient. Shyla Garber MD, PhD, FACE, FACP CC: Roxanne Dawn MD Addendum: Lab results after the visit today 05/07/17 & called pt directly as well on 05/08/17 for Rx & advice May 07, 2017 Dear : Below are the results from your recent visit which showed all good results for diabetes : Ref. Range 05/07/2017 11:08 05/07/2017 Glucose Lvl Latest Ref Range: 65 - 199 mg/dL 108 Hemoglobin A1C Latest Ref Range: 4.3 - 5.6 % 5.8 (H), excellent! diabetes control Est Avg Gluc Latest Units: mg/dL 120 25-OH Vit D Total Latest Ref Range: 30 - 100 ng/mL 31, borderline low => to double vitD Chol, Total Latest Ref Range: <=239 mg/dL 249 (H), high HDL (good one) Latest Ref Range: >=40 mg/dL 61, good news Chol/HDL Ratio Latest Units: ratio 4.1 Triglycerides Latest Ref Range: <=199 mg/dL 157, good even for non-fasting lab LDL Cholesterol Latest Ref Range: <=190 mg/dL 157 TSH Latest Ref Range: 0.27 - 4.20 mlU/ML 4.56 (H) due to low Thyroid C-Peptide insulin Latest Ref Range: 0.8 - 5.2 ng/mL 2.8, good news Alb/Cr Ratio Latest Ref Range: 0 - 29 mcg/mg Cr Negative U Albumin Latest Units: mg/L <3.0 U Creatinine Latest Units: mg/dL 61 So, you should increase levothyroxine from 100 to 112 mcg/day to suppress TSH down to 1.0-3.0 rangeas your target and this will help you lose weight down and lower cholesterol levels as well. The new prescription was efaxed to your [facility] already today. To recheck lab on 06/17/17 same day with Mahsa's appointment for TSH and to wait for 3 months during the interim to recheck lab for A1c, lipids and TSH. If you have any questions or concerns, please feel free to call my office or contact me through ourpatient portal, [email or web address], at [email or web address] Sincerely, SHYLA GARBER MD, PhD, FACE, FACP documented in this encounter Miscellaneous Notes * Addendum Note - Shyla Garber MD - 05/08/2017 11:16 AM ESTAddended by: SHYLA GARBER on: 05/08/2017 11:16 AM Modules accepted: Orders * Addendum Note - Shyla Garber MD - 05/07/2017 8:19 PM ESTAddended by: SHYLA GARBER on: 05/07/2017 08:19 PM Modules accepted: Orders * Addendum Note - Brittney Dozier - 05/07/2017 10:59 AM ESTAddended by: BRITTNEY DOZIER on: 05/07/2017 10:59 AM Modules accepted: Orders documented in this encounter Plan of Treatment Upcoming Encounters Date Type Department Care Team (Late st Contact Info) Description 04/25/2024 10:40 AM EST Appointment Mammography/[place] [address] Roxanne Dawn MD [address] [place] [address] Scheduled Referrals Name Type Priority Associated Diagnoses Orde r Schedule Referral to Nutrition Services Outpatient Referral Routine Post-pancreatectomy diabetes Ordered: 05/07/2017 documented as of this encounter Procedures Procedure Name Priority Date/Time Associated Diagnosis Comments U ALBUMIN/CRE RATIO Routine 05/07/2017 1 1:16 AM EST Post-pancreatectomy diabetes Other specified hypothyroidism THYROID PEROXIDASE ANTIBODY Routine 05/07/2017 11:08 AM EST Post-pancreatectomy diabetes Other specified hypothyroidism VITAMIN D, 25-HYDROXY Routine 05/07/2017 11:08 AM EST Post-pancreatectomy diabetes Other specified hypothyroidism C-PEPTIDE Routine 05/07/2017 11:08 AM EST Post-pancreatectomy diabetes Other specified hypothyroidism TSH Routine 05/07/2017 11:08 AM EST Post-pancreatectomy diabetes Other specified hypothyroidism HEMOGLOBIN A1C Routine 05/07/2017 11:08 AM EST Post-pancreatectomy diabetes Other specified hypothyroidism GLUCOSE Routine 05/07/2017 11:08 AM EST Post-pancreatectomy diabetes Other specified hypothyroidism LIPID PANEL (REFLEX DIRECT LDL) STAT 05/07/2017 11:08 AM EST Post-pancreatectomy diabetes Other specified hypothyroidism documented in this encounter Results * (ABNORMAL) Hemoglobin A1c (02/02/2018 11:58 AM EDT) Hemoglobin A1c 6.1(H) 4.3 - 5.6 % [facility] Comment: Reference Range: 4.3 - 5.6% [...] Mellitus, Diabetes Care 2013; 36: Suppl. 1, S67-53 Estimated Average Glucose 128 mg/dL [facility] Comment: eAG equivalents for HbA1c percentages: [...] into estimated average glucose values. ??Diabetes Care 2008:31(8):5915-2835. Blood specimen (specimen) 02/02/2018 11:58 AM EDT 02/02/2018 12:11 PM EDT Narrative Resulting Agency Comment Spec In Lab Shyla Garber MD CHEMISTRY ORDERAB LES [facility] [place] [address] * Lipid Panel (02/02/2018 11:58 AM EDT) Cholesterol, Total 210 mg/dL [facility] Comment: Lower Risk: <200 mg/dL Average Risk: 200-239 mg/dL Higher Risk: >yb=373 mg/dL Triglyceride 226 mg/dL [facility] Comment: Average Risk/Lower Risk: <150 mg/dL Borderline High Risk: 150-199 mg/dL High Risk: 200-499 mg/dL Very High Risk: >dh=488 mg/dL HDL Cholesterol 50 mg/dL [facility] Comment: Males: ?? Higher Risk: <40 mg/dL Females: ?? HIgher Risk: <50 mg/dL LDL Cholesterol 115 mg/dL [facility] Comment: Lowest Risk: <100 mg/dL Lower Risk: 100-129 mg/dL Borderline High Risk: 130-159 mg/dL High Risk: 160-189 mg/dL Very High Risk: >vy=625 mg/dL Cholesterol/HDL Ratio 4.2 ratio [facility] Lipid Interpretation See Note [facility] Comment: Lipid management should be guided by a patient? s ASCVD risk, goals and preferences. ACC/AHA Guidelines recommend high intensity statin if clinical ASCVD or LDL greater than or equal to 190 mg/dL. http://tinyurl.com/SJW-IJP-Oyvissdrk Adults aged 40-75 with LDL 70-189 mg/dL should have their 10 year ASCVD risk estimated with the ACC/AHA ASCVD risk production or plant engineer http://tools.acc.org/EVRQA-Zlyo-Eakancblf/ Statin should be discussed if risk greater [...] MD CHEMISTRY ORDERAB LES Performing Organization Address City/[facility]/ZIP Co de Phone Number [facility] [place] [address] * TSH (02/02/2018 11:58 AM EDT) Thyroid Stimulating Hormone 0.30 0.27 - 4.20 mlU/ML [facility] Blood specimen (specimen) 02/02/2018 11:58 AM EDT 02/02/2018 12:11 PM EDT Narrative Resulting Agency Comment Spec In Lab Shyla Garber MD CHEMISTRY ORDERAB LES Performing Organization Address [facility] Co de Phone Number [facility] [place] [place] [address] * U Albumin/Cre Ratio (05/07/2017 11:16 AM EST) Albumin / Creatinin Ratio, Urine Not Calculated 0 - 29 mcg/mg Cr [facility] Comment: Reference Ranges: <30 mcg/mg: Normal [...] 2, 357? 362 Albumin, Urine <3.0 mg/L [facility] Creatinine, Urine 61 mg/dL YONNY SINTIA [facility] Urine specimen (specimen) 05/07/2017 11:16 AM EST 05/07/2017 11:39 AM EST Narrative Resulting Agency Comment Spec In Lab Shyla Garber MD URINE ORDERABLES Performing Organization Address City/[facility]/ZIP Co de Phone Number [facility] [place] [address] * (ABNORMAL) Thyroid peroxidase antibody (05/07/2017 11:08 AM EST) Thyroperoxidase Ab 50(H) <=34 IU/mL [facility] Blood specimen (specimen) 05/07/2017 11:08 AM EST 05/07/2017 11:25 AM EST Narrative Resulting Agency Comment Spec In Lab Shyla Garber MD IMMUNOLOGY ORDERA BLES Performing Organization Address [facility] Co de Phone Number [facility] [place] [address] * (ABNORMAL) Lipid Panel (05/07/2017 11:08 AM EST) Cholesterol, Total 249(H) <=239 mg/dL [facility] Triglyceride 157 <=199 mg/dL [facility] HDL Cholesterol 61 >=40 mg/dL [facility] LDL Cholesterol 157 <=190 mg/dL [facility] Cholesterol/HDL Ratio 4.1 ratio [facility] Lipid Interpretation See Note [facility] Comment: Lipid management should be guided by a patient? s ASCVD risk, goals and preferences. ACC/AHA Guidelines recommend high intensity statin if clinical ASCVD or LDL greater than or equal to 190 mg/dL. http://Gen9url.com/KHK-MKD-Unovcwflr Adults aged 40-75 with LDL 70-189 mg/dL should have their 10 year ASCVD risk estimated with the ACC/AHA ASCVD risk production or plant engineer http://tools.acc.org/MNHDQ-Xdlo-Cmfcobhnn/ Statin should be discussed if risk greater [...] MD CHEMISTRY ORDERAB LES Performing Organization Address City/[facility]/ZIP Co de Phone Number [facility] [place] [address] * Glucose, random (05/07/2017 11:08 AM EST) Glucose 108 65 - 199 mg/dL [facility] Comment:Diabetes: >=200 mg/d L plus symptoms Blood specimen (specimen) 05/07/2017 11:08 AM EST 05/07/2017 11:25 AM EST Narrative Resulting Agency Comment Spec In Lab Shyla Garber MD CHEMISTRY ORDERAB LES [facility] [place] [address] * C-peptide (05/07/2017 11:08 AM EST) C-Peptide 2.8 0.8 - 5.2 ng/mL [facility] Blood specimen (specimen) 05/07/2017 11:08 AM EST 05/07/2017 11:25 AM EST Narrative Resulting Agency Comment Spec In Lab Shyla Garber MD CHEMISTRY ORDERAB LES Performing Organization Address City/[facility]/ZIP Co de Phone Number [facility] [place] [address] * Vitamin D, 25-Hydroxy (05/07/2017 11:08 AM EST) Vitamin D Total 25 OH 31 30 - 100 ng/mL [facility] Comment: Deficient <10 ng/mL Insufficient 10 to 29 ng/mL Sufficient 30 to 100 ng/mL Potential Intoxication >100 ng/mL According to the US National Osteoporosis Foundation, Vitamin D concentrations >30 ng/mL are sufficient to protect bone health. ??The National Kidney Foundation has similarly stated that patients with Vitamin D concentrations <30ng/mL should be considered to be insufficient or deficient. http://[employer]/nkf-guidelines http://[employer]/nejm-VitD [employer] i[employer] Vitamin D Immunoassay detects both 25-OH Vitamin D2 and 25-OH Vitamin D3, but only a total Vitamin D concentration is reported. Blood specimen (specimen) 05/07/2017 11:08 AM EST 05/07/2017 1:37 PM EST Narrative Resulting Agency Comment Spec In Lab Shyla Garber MD CHEMISTRY ORDERAB LES Performing Organization Address [facility]/ZIP Co de Phone Number [facility] [place] [address] * (ABNORMAL) TSH (05/07/2017 11:08 AM EST) Thyroid Stimulating Hormone 4.56(H) 0.27 - 4.20 mlU/ML [facility] Blood specimen (specimen) 05/07/2017 11:08 AM EST 05/07/2017 11:25 AM EST Narrative Resulting Agency Comment Spec In Lab Shyla Garber MD CHEMISTRY ORDERAB LES Performing Organization Address [facility]/ZIP Co de Phone Number [facility] [place] [address] * (ABNORMAL) Hemoglobin A1c (05/07/2017 11:08 AM EST) Hemoglobin A1c 5.8(H) 4.3 - 5.6 % [facility] Comment: Reference Range: 4.3 - 5.6% [...] Mellitus, Diabetes Care 2013; 36: Suppl. 1, H27-41 Estimated Average Glucose 120 mg/dL [facility] Comment: eAG equivalents for HbA1c percentages: [...] into estimated average glucose values. ??Diabetes Care 2008:31(8):5134-9549. Blood specimen (specimen) 05/07/2017 11:08 AM EST 05/07/2017 11:25 AM EST Narrative Resulting Agency Comment Spec In Lab Shyla Garber MD CHEMISTRY ORDERAB LES [facility] [place] [place] [address] documented in this encounter Visit Diagnoses Diagnosis Post-pancreatectomy diabetes Postsurgical hypoinsulinemia Other specified hypothyroidism Pure hypercholesterolemia documented in this encounter Care Teams Roofer Vinyl Coating Relationship Specialty Start Date End Date Roxanne Dawn MD [address] [place] [address] PCP - General 04/30/10 documented as of this encounter
--- OUTSIDE RECORDS SUMMARY | 2024-03-17 18:03 | XMS_ITS | Encounter Summary ---
Author Organization [facility] Address [facility] [place] [address] Care Team Providers Care Tool And Die Maker Apprentice Name Role Phone Roxanne Dawn MD Primary Care Provider [phone] Encounter Details Date Type Department Care Team (Latest Contact Info) Description 12/04/2015 1:10 PM EDT - 12/04/2015 2:44 PM EDT Hospital [place] [address] Noe Joel MD [facility] HEMATOLOGY/[place] [address] Breast cancer, stage 2, unspecified laterality Discharge Disposition: Home Social History Tobacco Use [...] Sig Dispensed Refills Start Date End Date ALCAFTADINE (LASTACAFT OPHT) Apply to eye daily as needed. ketotifen (Zaditor) 0.025 % (0.035 %) Drops 1 drop as needed. Reported on 12/05/2016 levothyroxine (SYNTHROID) 100 mcg tabletIndications:Hypo thyroidism Take 1 tablet by mouth daily. 180 tablet 3 11/18/2013 05/07/2017 estradiol (ESTRACE) 0.01 % (0.1 mg/gram) vaginal creamIndications:Atrop hic vaginitis Apply a montemayor-sized amount of cream once daily x 2 wks, then every other day for 2 wks, then every 3rd day til you find the least necessary 42.5 g 2 11/18/2013 02/02/2018 documented as of this encounter Plan of Treatment Upcoming Encounters Date Type Department Care Team (Late st Contact Info) Description 04/25/2024 10:40 AM EST Appointment Mammography/[place] [address] Roxanne Dawn MD [address] [place] [id number] documented as of this encounter Procedures Procedure Name Priority Date/Time Associated Diagnosis Comments MAMMO SCREENING CAD AND NATHANAEL LEFT Routine 12/04/2015 1:41 PM EDT Breast cancer, stage 2, unspecified laterality documented in this encounter Results * Mammo Digital Left Screening with CAD and Tomosynthesis (12/04/2015 1:41 PM EDT) Anatomical Region Laterality Modality Breast Left Mammography Narrative 12/05/2015 8:33 AM EDT EXAMINATION: MAMMO DIGITAL LEFT SCREENING WITH CAD AND TOMOSYNTHESIS CLINICAL HISTORY: 60 year old female, history of right breast cancer status post right mastectomy, routine screening TECHNIQUE: CC and MLO views were obtained of the left breast using standard 2-D mammography as well as 3-D tomosynthesis. Computer aided detection was used. Comparison: This is compared with prior images. FINDINGS: There are scattered areas of fibroglandular density. There are no suspicious microcalcifications, masses, or areas of distortion. The pattern is stable. CONCLUSION: No mammographic evidence of malignancy. RECOMMENDATION: Routine screening. A result letter has been sent to this patient by the [facility]. BIRADS CATEGORY 1: NEGATIVE * ??The [employer] and The Society of [...] earlier screening and breast MRI are appropriate. ?? Noe Joel MD IMG MAMMO ORDERABLES documented in this encounter Visit Diagnoses Diagnosis Breast cancer, stage 2, unspecified laterality documented in this encounter Care Teams Tool And Die Maker Apprentice Relationship Specialty Start Date End Date Roxanne Dawn MD [address] [place] [address] PCP - General 04/30/10 documented as of this encounter
--- OUTSIDE RECORDS SUMMARY | 2024-03-17 18:03 | XMS_ITS | Encounter Summary ---
Author Organization [facility] [place] [address] Care Team Providers Care Salon Stylist Name Role Phone Roxanne Dawn MD Primary Care Provider [phone] Encounter Details Date Type Department Care Team (Late st Contact Info) Description 05/23/2014 Telephone Hematology [place] [phone] Noe Joel MD [facility] DR HEMATOLOGY/[place] [address] Social History Tobacco Use Types Packs/Day Years [...] encounter Miscellaneous Notes * Telephone Encounter - Noe Joel MD - 05/23/2014 6:07 PM EST Serenity contacted me from [place], requesting that I write a prescription for synthroid, as she washaving trouble getting it prescribed by her primary care physician. I received his records this afternoon, her TSH was 0.834 with a FT4 on 75 mcg of synthroid on April 10, 2014. I refilled her prescription through [facility] in [place], [place] for synthroid 75 mcg, one tablet once daily, disp 90 with 3 refills. Noe Joel MD squeak rattle and leak repairer in Hematology-Oncology documented in this encounter Plan of Treatment Upcoming Encounters Date Type Department Care Team (Late st Contact Info) Description 04/25/2024 10:40 AM EST Appointment Mammography/[place] [address] Roxanne Dawn MD [address] [place] [id number] documented as of this encounter Visit Diagnoses Not on filedocumented in this encounter Care Teams Salon Stylist Relationship Specialty Start Date End Date Roxanne Dawn MD [address] [place], [place] [id number] PCP - General 04/30/10 documented as of this encounter
--- OUTSIDE RECORDS SUMMARY | 2024-03-17 18:03 | XMS_ITS | Encounter Summary ---
Author Organization [facility] [place] [address] Care Team Providers Care Microsoft Dynamics Consultant Name Role Phone Roxanne Dawn MD Primary Care Provider [phone] Reason for Visit * Diagnostic Test (Routine) - Closed Specialty Diagnoses / Procedures Referred By Contac t Referred To Contact Radiology Diagnoses Neuroendocrine carcinoma of pancreas Procedures CT Abdomen & Pelvis w Contrast CT Abdomen w Contrast CT Abdomen & Pelvis wwo Contrast (Generic) Noe Joel MD [facility] DR HEMATOLOGY/[place] [address] [facility] [place] [address] Referral ID Status Reason Start Date Expiration Date V isits Requested Visits Authorized [id number] Closed Specialty Service Requested 11/24/2016 11/24/2017 1 1 Encounter Details Date Type Department Care Team (Latest Contact Info) Description 12/05/2016 9:22 AM EDT - 12/05/2016 12:27 PM EDT Hospital [place] [address] Noe Joel MD [facility] HEMATOLOGY/[place] [address] Neuroendocrine carcinoma of pancreas Discharge Disposition: Home Social History Tobacco Use [...] 04/25/2024 10:40 AM EST Appointment Mammography/DXA at [place] [phone] Roxanne Dawn MD [address] [address] documented as of this encounter Procedures Procedure Name Priority Date/Time Associated Diagnosis Comments CT ABDOMEN AND PELVIS W CONTRAST Routine 12/05/2016 10:55 AM EDT Neuroendocrine carcinoma of pancreas documented in this encounter Results * CT Abdomen & Pelvis w Contrast (12/05/2016 10:55 AM EDT) Anatomical Region Laterality Modality Abdomen, Pelvis Computed Tomogra phy Impressions 12/05/2016 11:32 AM EDT 1. ??No evidence of metastasis. 2. ??Post distal pancreatectomy 3. ??No evidence of complication or local tumor recurrence. 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 TECHNIQUE: Helical CT of the abdomen and pelvis was performed following the intravenous administration of contrast. 91 cc of Omnipaque 350 was given. Arterial and portal venous phase images were obtained utilizing a pancreatic protocol. COMPARISON: ??April 16, 2010 FINDINGS: Lower chest: Normal. Liver: A 3.0 cm cystic focus is seen in the posterior RIGHT lobe of the liver. This is stable compared to the previous study. No suspicious hepatic lesions. Bile ducts: Nondilated. Gallbladder: No calcified gallstones. Normal caliber wall. Pancreas: Post distal pancreatectomy. The remaining pancreatic neck, head, an approximate process are normal. No evidence of enhancing lesions to suggest neoplasm recurrence. Spleen: Normal. Adrenals: Normal. Kidneys: 1.2 cm cortical cyst seen in the interpole region of the RIGHT kidney. This has increased in size since the previous study, but is benign appearing. No hydronephrosis bilaterally Vasculature: No aneurysm. Lymph Nodes: No enlarged lymph nodes. Bowel: Scattered colonic diverticula. No evidence of diverticulitis. Peritoneum and mesentery: No ascites, free air, or loculated fluid collection. No mesenteric inflammation. Abdominal wall: Normal. Urinary Bladder: Limited evaluation Reproductive organs: Normal. Osseous structures: No suspicious lesions. Procedure Note Antonio Gleason MD - 12/05/2016 EXAMINATION: CT ABDOMEN AND PELVIS W CONTRAST CLINICAL HISTORY: 61 year old woman with history of a distalpancreatectomy in 2008 for a neuroendocrine carcinoma of the pancreas, she now has the newonset of diabetes. TECHNIQUE: Helical CT of the abdomen and pelvis was performed followingthe intravenous administration of contrast. 91 cc of Omnipaque 350 wasgiven. Arterial and portal venous phase images were obtained utilizing apancreatic protocol. COMPARISON: April 16, 2010 FINDINGS: Lower chest: Normal. Liver: A 3.0 cm cystic focus is seen in the posterior RIGHT lobe of theliver. This is stable compared to the previous study. No suspicious hepaticlesions. Bile ducts: Nondilated. Gallbladder: No calcified gallstones. Normal caliber wall. Pancreas: Post distal pancreatectomy. The remaining pancreatic neck, head,an approximate process are normal. No evidence of enhancing lesions tosuggest neoplasm recurrence. Spleen: Normal. Adrenals: Normal. Kidneys: 1.2 cm cortical cyst seen in the interpole region of the RIGHTkidney. This has increased in size since the previous study, but is benignappearing. No hydronephrosis bilaterally Vasculature: No aneurysm. Lymph Nodes: No enlarged lymph nodes. Bowel: Scattered colonic diverticula. No evidence of diverticulitis. Peritoneum and mesentery: No ascites, free air, or loculated fluidcollection. No mesenteric inflammation. Abdominal wall: Normal. Urinary Bladder: Limited evaluation Reproductive organs: Normal. Osseous structures: No suspicious lesions. IMPRESSION 1. No evidence of metastasis. 2. Post distal pancreatectomy 3. No evidence of complication or local tumor recurrence. Noe Joel MD IMG CT ORDERABLES documented in this encounter Visit Diagnoses Diagnosis Neuroendocrine carcinoma of pancreas Malignant carcinoid tumor of other sites documented in this encounter Administered Medications Inactive Administered Medications - up to 3 most recent administrations Medication Order MAR Action Action Date Dose Rate Site iohexol (OMNIPAQUE) 350 mg/mL solution 17,500 mg 17,500 mg (50 mL), Oral, ONCE PRN, 1 dose, Starting on Thu12/05/16 at 1045, Until Thu12/05/16 at 1055, Per Protocol, Warning Vesicant/Irritant Medication , Routine Given 12/05/2016 10:55 AM EDT 17,500 mg iohexol (OMNIPAQUE) 350 mg/mL solution 31,850 mg 31,850 mg (91 mL), Intravenous, ONCE PRN, 1 dose, Starting on Thu12/05/16 at 1045, Until Thu12/05/16 at 1055, Per Protocol, Warning Vesicant/Irritant Medication , Routine Given 12/05/2016 10:55 AM EDT 31,850 mg documented in this encounter Care Teams Microsoft Dynamics Consultant Relationship Specialty Start Date End Date Roxanne Dawn MD [address] [place] [address] PCP - General 04/30/10 documented as of this encounter
--- OUTSIDE RECORDS SUMMARY | 2024-03-17 18:03 | XMS_ITS | Encounter Summary ---
Author Organization [facility] Address [facility] [place] [address] Care Team Providers Care Crushing Machine Operator Name Role Phone Roxanne Dawn MD Primary Care Provider [phone] Encounter Details Date Type Department Care Team (Latest Contact Info) Description 02/02/2018 11:06 AM EDT - 02/02/2018 11:59 PM EDT Hospital [place] [address] Noe Joel MD [facility] HEMATOLOGY/[place] [address] Breast cancer, stage 2, right Discharge Disposition: [...] Sig Dispensed Refills Start Date End Date estradiol (ESTRACE) 0.01 % (0.1 mg/gram) CreamIndications:Atr [...] drop as needed. Reported on 12/05/2016 insulin aspart (NOVOLOG) Insulin Pen Inject 3 Units subcutaneously as needed. 02/10/2018 insulin needles, disposable, 31 gauge x 5/16 Needle Inject 1 each subcutaneously 2 times daily. 05/12/2018 FREESTYLE LITE STRIPS 1 strip by Other route 2 times daily. 0 03/07/2017 05/12/2018 levothyroxine (SYNTHROID) 112 mcg Tablet Take 1 tablet by mouth daily. 90 tablet 3 05/07/2017 06/11/2018 insulin glargine (LANTUS SOLOSTAR) Insulin Pen Inject 2-5 Units subcutaneously every morning. 05/12/2018 documented as of this encounter Plan of Treatment Upcoming Encounters Date Type Department Care Team (Late st Contact Info) Description 04/25/2024 10:40 AM EST Appointment Mammography/[place] [address] Roxanne Dawn MD [address] [address] documented as of this encounter Procedures Procedure Name Priority Date/Time Associated Diagnosis Comments MAMMO SCREENING CAD AND NATHANAEL LEFT Routine 02/02/2018 11:16 AM EDT Breast cancer, stage 2, right documented in this encounter Results * Mammo Screen CAD and Nathanael Left (Generic) (02/02/2018 11:16 AM EDT) Anatomical Region Laterality Modality Breast Left Mammography Narrative 02/02/2018 11:40 AM EDT LEFT BREAST MAMMOGRAPHY REASON FOR EXAM: Screening ?? History of breast cancer TECHNIQUE: CC and MLO views were obtained of the left breast using standard 2-D mammography as well as 3-D tomosynthesis. Computer aided detection was used. This is compared with prior images. FINDINGS: The breast is heterogeneously dense, which may obscure small masses. There are no suspicious microcalcifications, masses, or areas of distortion. The pattern is stable. CONCLUSION: No mammographic evidence of malignancy. RECOMMENDATION: The [employer] and The Society of Breast Imaging recommend annual screening beginning at age 40 for the general female population. Screening should continue as long as a woman is in good health and is expected to live 10 more years or longer. All women should be familiar with the known benefits, limitations, and potential harms linked to breast cancer screening. They should also know how their breasts normally look and feel and report any breast changes to a health care provider right away. Some women - because of their family history, a genetic tendency, or certain other factors - should be screened with MRIs along with mammograms. (The number of women who fall into this category is very small.) The patient and health care provider should discuss the patient history and decide if earlier screening and breast MRI are appropriate. A result letter has been sent to this patient by the [facility]. BIRADS CATEGORY 1: NEGATIVE Noe Joel MD IMG MAMMO ORDERABLES documented in this encounter Visit Diagnoses Diagnosis Breast cancer, stage 2, right documented in this encounter Care Teams Crushing Machine Operator Relationship Specialty Start Date End Date Roxanne Dawn MD [address] [place] [address] PCP - General 04/30/10 documented as of this encounter
--- OUTSIDE RECORDS SUMMARY | 2024-03-17 18:03 | XMS_ITS | Encounter Summary ---
[place] [address] Care Team Providers Care Screen Stretcher Name Role Phone Roxanne Dawn MD Primary Care Provider Encounter Details Date Type Department Care Team (Late Contact Info) Description 01/05/2013 Orders Only Hematology [place] [phone] Noe Joel MD [facility] DR HEMATOLOGY/[place] [address] Social History Tobacco Use Types Packs/Day Years [...] 04/25/2024 10:40 AM EST Appointment Mammography/[place] [phone] Roxanne Dawn MD [address] [place] [address] documented as of this encounter Visit Diagnoses Not on filedocumented in this encounter Care Teams Screen Stretcher Relationship Specialty Start Date End Date Roxanne Dawn MD [address] [place] [address] PCP - General 04/30/10 documented as of this encounter
--- OUTSIDE RECORDS SUMMARY | 2024-03-17 18:03 | XMS_ITS | Encounter Summary ---
[place] [address] Care Team Providers Care Conventions Assistant Name Role Phone Roxanne Dawn MD Primary Care Provider [phone] Encounter Details Date Type Department Care Team (Latest Contact Info) Description 02/02/2018 11:15 AM EDT Laboratory Appointment Lab [address] [place] [phone] Pure hypercholesterolemia; Post-pancreatectomy diabetes; Other specified hypothyroidism Social History [...] 04/25/2024 10:40 AM EST Appointment Mammography[place] [address] Roxanne Dawn MD [address] [place] [address] documented as of this encounter Procedures Procedure Name Priority Date/Time Associated Diagnosis Comments TSH Routine 02/02/2018 11:58 AM EDT Other specified hypothyroidism HEMOGLOBIN A1C Routine 02/02/2018 11:58 AM EDT Post-pancreatectomy diabetes LIPID PANEL (REFLEX DIRECT LDL) Routine 02/02/2018 11:58 AM EDT Pure hypercholesterolemia documented in this encounter Results * TSH (02/02/2018 11:58 AM EDT) Thyroid Stimulating Hormone 0.30 0.27 - 4.20 mlU/ML [facility] Blood specimen (specimen) 02/02/2018 11:58 AM EDT 02/02/2018 12:11 PM EDT Narrative Resulting Agency Comment Spec In Lab Shyla Garber MD CHEMISTRY ORDERAB LES [facility] [place] [address] * (ABNORMAL) Hemoglobin A1c (02/02/2018 11:58 AM EDT) Hemoglobin A1c 6.1(H) 4.3 - 5.6 % [facility] Comment: Reference Range: 4.3 - [...] Mellitus, Diabetes Care 2013; 36: Suppl. 1, L07-97 Estimated Average Glucose 128 mg/dL [facility] Comment: eAG equivalents for HbA1c [...] into estimated average glucose values. ??Diabetes Care 2008:31(8):9686-9028. Blood specimen (specimen) 02/02/2018 11:58 AM EDT 02/02/2018 12:11 PM EDT Narrative Resulting Agency Comment Spec In Lab Shyla Garber MD CHEMISTRY ORDERAB LES [facility] [place] [address] * Lipid Panel (02/02/2018 11:58 AM EDT) Cholesterol, Total 210 mg/dL [facility] Comment: Lower Risk: <200 mg/dL Average Risk: 200-239 mg/dL Higher Risk: >jn=665 mg/dL Triglyceride 226 mg/dL [facility] Comment: Average Risk/Lower Risk: <150 mg/dL Borderline High Risk: 150-199 mg/dL High Risk: 200-499 mg/dL Very High Risk: >uu=510 mg/dL HDL Cholesterol 50 mg/dL [facility] Comment: Males: ?? Higher Risk: <40 mg/dL Females: ?? HIgher Risk: <50 mg/dL LDL Cholesterol 115 mg/dL [facility] Comment: Lowest Risk: <100 mg/dL Lower Risk: 100-129 mg/dL Borderline High Risk: 130-159 mg/dL High Risk: 160-189 mg/dL Very High Risk: >bq=251 mg/dL Cholesterol/HDL Ratio 4.2 ratio [facility] Lipid Interpretation See Note [facility] Comment: Lipid management should be guided by a patient? s ASCVD risk, goals and preferences. ACC/AHA Guidelines recommend high intensity statin if clinical ASCVD or LDL greater than or equal to 190 mg/dL. http://[employer].com/MVY-YQU-Kxzaoonwt Adults aged 40-75 with LDL 70-189 mg/dL should have their 10 year ASCVD risk estimated with the ACC/AHA ASCVD risk estimator jewelry http://tools.acc.org/XIQOC-Zxdz-Oecbhpygm/ Statin should be discussed if risk greater [...] Lab Shyla Garber MD CHEMISTRY ORDERAB LES [facility] [place] [address] documented in this encounter Visit Diagnoses Diagnosis Pure hypercholesterolemia Post-pancreatectomy diabetes Postsurgical hypoinsulinemia Other specified hypothyroidism documented in this encounter Care Teams Conventions Assistant Relationship Specialty Start Date End Date Roxanne Dawn MD [address] [place] [address] PCP - General 04/30/10 documented as of this encounter
--- OUTSIDE RECORDS SUMMARY | 2024-03-17 18:03 | XMS_ITS | Encounter Summary ---
[place] [address] Care Team Providers Care Bobbin Sorter Name Role Phone Roxanne Dawn MD Primary Care Provider [phone] Encounter Details Date Type Department Care Team (Latest Contact Info) Description 12/05/2016 8:45 AM EDT Laboratory Appointment Lab [address] [place] [phone] Breast cancer, stage 2, right Social History [...] 04/25/2024 10:40 AM EST Appointment Mammography/[place] [phone] Roxanne Dawn MD [address] [place] [address] documented as of this encounter Procedures Procedure Name Priority Date/Time Associated Diagnosis Comments COMPREHENSIVE METABOLIC PANEL STAT 12/05/2016 8:53 AM EDT Breast cancer, stage 2, right documented in this encounter Results * (ABNORMAL) Comprehensive metabolic panel (non-fasting) (12/05/2016 8:53 AM EDT) Glucose 105 65 - 199 mg/dL [facility] Comment:Diabetes: >=200 mg/d L plus symptoms Blood Urea Nitrogen 24(H) 8 - 18 mg/dL [facility] Creatinine 0.86 0.70 - 1.20 mg/dL [facility] Comment: Please note that the pediatric reference intervals supplied above were not validated at [facility]. Results from pediatric patients should be interpreted in conjunction to the patient's age, height and muscle mass. Sodium 141 135 - 145 mmol/L [facility] Potassium 4.5 3.5 - 5.0 mmol/L [facility] Comment: Please note: ??Patients with WBC >100,000 may have falsely elevated Potassium levels. ??For accurate Potassium quantification in these patients send serum separator tube (gold top) for subsequent determinations. ??Contact the Clinical Chemistry Laboratory if there are any questions. Chloride 101 98 - 107 mmol/L [facility] Carbon Dioxide 27 22 - 31 mmol/L [facility] Anion Gap 13 5 - 15 mmol/L [facility] Calcium 9.9 8.5 - 10.5 mg/dL [facility] Protein, Total 7.6 6.1 - 8.0 gm/dL [facility] Albumin 4.7 3.2 - 5.2 gm/dL [facility] Aspartate Aminotransferase 15 0 - 30 unit/L [facility] Alanine Aminotransferase 24 0 - 30 unit/L [facility] Alkaline Phosphatase 74 40 - 104 unit/L [facility] Bilirubin, Total 0.4 0.2 - 1.3 mg/dL [facility] Bilirubin, Direct 0.1 0.0 - 0.3 mg/dL [facility] Est Glomerular Filtration Rate >60 >=60 [facility] Comment: This estimated GFR (eGFR) value [...] the following links into your internet browser. [email or web address] Blood specimen (specimen) 12/05/2016 8:53 AM EDT 12/05/2016 8:57 AM EDT Narrative Resulting Agency Comment Spec In Lab Noe Joel MD [place] [address] documented in this encounter Visit Diagnoses Diagnosis Breast cancer, stage 2, right documented in this encounter Care Teams Bobbin Sorter Relationship Specialty Start Date End Date Roxanne Dawn MD [address] [place] [address] PCP - General 04/30/10 documented as of this encounter
--- OUTSIDE RECORDS SUMMARY | 2024-03-17 18:03 | XMS_ITS | Encounter Summary ---
[place] [address] Care Team Providers Care Bank Secrecy Act Officer Name Role Phone Roxanne Dawn MD Primary Care Provider [phone] Encounter Details Date Type Department Care Team (Latest Contact Info) Description 01/06/2013 9:20 AM EDT - 01/06/2013 11:59 PM EDT Hospital [place] [address] Malignant neoplasm of breast (female), unspecified site Social History Tobacco Use Types Packs/Day Years [...] Sig Dispensed Refills Start Date End Date ketotifen (Zaditor) 0.025 % (0.035 %) Drops 1 drop as needed. Reported on 12/05/2016 cholecalciferol, Vitamin D3, 400 unit tablet Take 400 Units by mouth daily. 12/04/2015 CIS Free Text Med - Multiple Vitamin 12/06/2009 12/04/2015 levothyroxine (SYNTHROID) 100 mcg tablet 100 MCG = 1 Tablet(s), PO, Once daily 12/06/2009 11/18/2013 CALCIUM ORAL 12/06/2009 12/04/2015 documented as of this encounter Plan of Treatment Upcoming Encounters Date Type Department Care Team (Late st Contact Info) Description 04/25/2024 10:40 AM EST Appointment Mammography[place] [phone] Roxanne Dawn MD [address] [place] [address] documented as of this encounter Procedures Procedure Name Priority Date/Time Associated Diagnosis Comments MAMMO UNILATERAL DIGITAL SCREENING STAT 01/06/2013 9:11 AM EDT Malignant neoplasm of breast (female), unspecified site documented in this encounter Results * Mammo unilateral digital screening (01/06/2013 9:11 AM EDT) Anatomical Region Laterality Modality Breast N/A Mammography 01/06/2013 9:11 AM EDT Narrative 01/06/2013 12:51 PM EDT LEFT BREAST MAMMOGRAPHY ?? REASON FOR EXAM: Screening, H/O breast cancer ?? TECHNIQUE: Cranio-caudal (CC) and mediolateral oblique (MLO) views of the Left breast obtained with direct digital capture. The exam was evaluated by CAD Version 8.3.17. ?? In addition to the routine 2D imaging this exam was also performed with 3D tomographic imaging in MLO and CC projections. ?? FINDINGS This is a benign mammogram (ACR Category 2). There are post-surgical changes in the left breast. There has been no change in the appearance of the breast since the previous examination, and there is no evidence of cancer. ? The breast is heterogeneously dense which may limit mammographic sensitivity for the detection of malignancy. ? CONCLUSION ?? BENIGN mammogram (ACR Category 2). Routine screening mammography is recommended with the frequency dependent on the patient's age and breast cancer risk factors. ?? A letter has been sent to this patient by [facility]. Procedure Note Estela Perez MD - 01/06/2013 LEFT BREAST MAMMOGRAPHY REASON FOR EXAM: Screening, H/O breast cancer TECHNIQUE: Cranio-caudal (CC) and mediolateral oblique (MLO) views of theLeft breast obtained with direct digital capture. The exam was evaluated by CAD Version 8.3.17. In addition to the routine 2D imaging this exam was also performed with 3D tomographic imaging in MLO and CC projections. FINDINGS This is a benign mammogram (ACR Category 2). There are post-surgicalchanges in the left breast. There has been no change in the appearance of the breastsince the previous examination, and there is no evidence of cancer. The breast is heterogeneously dense which may limit mammographicsensitivity for the detection of malignancy. CONCLUSION BENIGN mammogram (ACR Category 2). Routine screening mammography isrecommended with the frequency dependent on the patient's age and breast cancer risk factors. A letter has been sent to this patient by the [facility]. Noe Joel MD IMG MAMMO ORDERABLES documented in this encounter Visit Diagnoses Diagnosis Malignant neoplasm of breast (female), unspecified site documented in this encounter Care Teams Bank Secrecy Act Officer Relationship Specialty Start Date End Date Roxanne Dawn MD [address] [place] [address] PCP - General 04/30/10 documented as of this encounter
--- OUTSIDE RECORDS SUMMARY | 2024-03-17 18:03 | XMS_ITS | Encounter Summary ---
[place] [address] Care Team Providers Care Composite Laminator Name Role Phone Roxanne Infante MD Primary Care Provider [phone] Reason for Visit * Reason Comments Advice Only Malignant neoplasm o f L breast red Encounter Details Date Type Department Care Team (Late st Contact Info) Description 12/25/2011 11:20 AM EDT Office [place] [address] Arnold Espinal MD [address] [place] [id number] Breast cancer, stage 2; Acquired absence of breast Discharge Disposition: Home Social History [...] Sign Reading Time Taken Comments Blood Pressure 112/63 12/25/2011 12:02 PM EDT Pulse - - Temperature - - Respiratory Rate - - Oxygen Saturation - - Inhaled Oxygen Concentration - - Weight 80.2 kg (176 lb 12.8 oz) 012 12:02 PM EDT Height 175.9 cm (5' 9.25) 12/25/2011 1 2:02 PM EDT Body Mass Index 25.92 12/25/2011 12:02 PM EDT documented in this encounter Progress Notes * Arnold Espinal MD - 12/25/2011 12:00 PM EDT PLASTIC SURGERY CONSULTATION Arnold Espinal MD PCP: ROXANNE INFANTE MD Referring Physician: None Reason for office visit: Breast reduction for symmetry HPI: Serenity Cummings is a 56 y.o. female who presents today for evaluation of symptomatic macromastia. She is not accompanied for today???s visit. She had a right breast mastectomy in 2001 , and at that time she had a 370 gm breast reduction of her contralateral breast. She is here mainly because she feels unbalanced after her right mastectomy surgery and she misses the dark color of her areola onher left breast. She would like to discuss the procedures available, but she is unsure if she wantsto proceed with surgery at this time. She reports that she does not miss her right breast but she is more unhappy about the color of her areola she does not think it is dark enough. She thinks that she may be interested in a tattoo of her areola and is unsure about the reduction. She has completed the breast specific symptom questionnaire and Pertinent findings to emphasize are: [facility] Breast Q 12/25/2011 Shoulder pain? A little of the time Difficulty sleeping because of discomfort in your breast area? None of the time Neck pain? A little of the time Arm pain? None of the time Her most recent mammogram was December 2010 and was normal. I have reviewed her allergies and medications, past medical and surgical history, ROS, Social history, family history and smoking status EXAMINATION: BMI: Body mass index is 25.92 kg/(m^2). Bra size: C General: On my examination today, the patient appears to be in good health. Her emotional outlook is positive and she asked appropriate questions throughout the visit. Musculoskeletal: Her back is straight without evidence of kyphosis. BREAST MEASUREMENTS RIGHT LEFT SN-N (cm) N/A 26.5 NAC elevat (cm) N/A 11.5 Abd: Rotund, soft NTND Extrem: wwp, no c/e/e ASSESSMENT: Acquired absence of right breast PLAN: Left breast reduction for symmetry. She was provided with an ASPS brochure and informed consent on breast reduction and she watched the BRITE informational video that includes graphic images of excellent, average and poor results. It reviews the surgical risks, alternate skin incisions and pedicle versus free nipple graft techniques. It also discusses the option of volume reduction by liposuctionalone, which does not alter the nipple-areolar complex position. It talks about the impact of this surgery on decreasing breast cancer risk. The following risks were reviewed in the video or in our discussion: Surgical Risks which are greater with open reduction: bleeding with risk of hematoma (<5%); numbness, which may be temporary or permanent; scarring, including abnormal scarring; infection (5-10%);fat necrosis resulting in a breast mass and possible need for revision. I stressed the likelihood of minor problems with delayed wound healing (~30%) and the rare complication of nippleareolar necrosis. She is also aware that there may be some residual pain after the surgery and that there may possibly be some asymmetry. Vertical or Lollipop Incision: Less scarring on breast, but slightly greater risk for delayed healing and desire for scar revision. (She was informed that her insurer might not cover secondary revisions for scarring or asymmetry.) look entirely normal and may have patchy hypopigmentation. She will not be able to breast feed withthis technique. After fully discussing the options, she would be a good candidate for : X Left Breast Reduction Vertical Pedicle X NAC tattooing left breast She will consider her options and let us know if she would like tot proceed. SURGERY BOOKING INFORMATION: Surgeon: Arnold Espinal Duration: 1.5 Timeframe: elective Procedure/CPT:Unilateral breast reduction: [id number] Surgical site: Breast Side: Left Anesthesia: General Follow up: 1-3 days for drain removal; 7-10 days for HCK with Abbie PAT: No Abx: Ancef 1 g IV documented in this encounter Plan of Treatment Upcoming Encounters Date Type Department Care Team (Late st Contact Info) Description 04/25/2024 10:40 AM EST Appointment Mammography[place] [phone] Roxanne Infante MD [address] [address] documented as of this encounter Visit Diagnoses Diagnosis Breast cancer, stage 2 Malignant neoplasm of breast (female), unspecified site Acquired absence of breast Acquired absence of breast and nipple documented in this encounter Care Teams Composite Laminator Relationship Specialty Start Date End Date Roxanne Infante MD [address] [place] [address] PCP - General 04/30/10 documented as of this encounter
--- OUTSIDE RECORDS SUMMARY | 2024-03-17 18:03 | XMS_ITS | Encounter Summary ---
[place] [address] Care Team Providers Care Head Concierge Name Role Phone Roxanne Dawn MD Primary Care Provider [phone] Encounter Details Date Type Department Care Team (Late st Contact Info) Description 01/06/2013 9:19 AM EDT Hospital Encounter Hematology [place] [phone] Social History Tobacco Use Types Packs/Day Years [...] Sig Dispensed Refills Start Date End Date cholecalciferol, Vitamin D3, 400 unit tablet Take [...] 04/25/2024 10:40 AM EST Appointment Mammography/[place] [phone] Roxanne Dawn MD [address] [place] [address] documented as of this encounter Visit Diagnoses Not on filedocumented in this encounter Care Teams Head Concierge Relationship Specialty Start Date End Date Roxanne Dawn MD [address] [place] [address] PCP - General 04/30/10 documented as of this encounter
--- OUTSIDE RECORDS SUMMARY | 2024-03-17 18:03 | XMS_ITS | Encounter Summary ---
[place] [address] Care Team Providers Care Assistant Research Scientist Name Role Phone Roxanne Dawn MD Primary Care Provider [phone] Encounter Details Date Type Department Care Team (Late Contact Info) Description 01/02/2011 10:21 AM EDT - 01/02/2011 10:28 AM EDT Hospital Encounter Hematology [place] [address] Social History Tobacco Use Types Packs/Day Years Used Date Smoking Tobacco: Never Alcohol Use Standard Drinks/Week Comments No 0 (1 standard drink = 0.6 oz pur e alcohol) Sex and Gender Information Value Date Recorded Sex Assigned at Not on file Gender Identity Not on file Sexual Orientation Not on file documented as of this encounter Medications at Time of Discharge Medication Sig Dispensed Refills Start Date End Date CIS Free Text Med - Multiple Vitamin 12/06/2009 12/04/2015 levothyroxine (SYNTHROID) 100 mcg tablet 100 MCG = 1 Tablet(s), PO, Once daily 12/06/2009 11/18/2013 letrozole (FEMARA) 2.5 mg tablet 2.5 MG = 1 Tablet(s), PO, Once daily 12/06/2009 12/25/2011 CALCIUM ORAL 12/06/2009 12/04/2015 estradiol (ESTRING) 2 mg vaginal ring 7.5 MCG/24h = 1 Ring(s), Vag, Once every 3 months 12/06/2009 12/25/2011 documented as of this encounter Plan of Treatment Upcoming Encounters Date Type Department Care Team (Late st Contact Info) Description 04/25/2024 10:40 AM EST Appointment Mammography/[place] [address] Roxanne Dawn MD [address] [place] [address] documented as of this encounter Procedures Procedure Name Priority Date/Time Associated Diagnosis Comments DIFFERENTIAL, AUTOMATED STAT 01/02/2011 10:27 AM EDT documented in this encounter Results * REFLEX LAB-A-DIFF (01/02/2011 10:27 AM EDT) Neutrophil % 43.3 34.0 - 71.0 % CERNER MILLENNIUM Neutrophil Absolute 2.51 1.50 - 6.30 x10(3)/mcL CERNER MILLENNIUM Lymph % 46.1 19.0 - 53.0 % CERNER MILLENNIUM Lymphocytes Abs 2.7 1.0 - 3.6 x10(3)/mcL CERNER MILLENNIUM Monocyte % 8.4 4.0 - 13.0 % CERNER MILLENNIUM Monocyte Abs 0.5 0.2 - 1.0 x10(3)/mcL CERNER MILLENNIUM Eos % 1.7 0.0 - 7.0 % CERNER MILLENNIUM Eosinophils Abs 0.1 0.0 - 0.5 x10(3)/mcL CERNER MILLENNIUM Basophil % 0.3 0.0 - 2.0 % CERNER MILLENNIUM Baso Absolute 0.0 0.0 - 0.2 x10(3)/mcL CERNER MILLENNIUM Immature Gran % 0.20 0.00 - 0.66 % CERNER MILLENNIUM Comment: Immature granulocytes(IG's)percentage and absolute count will include metamyelocytes, myelocytes, and promyelocytes. Blood smears from CBCs yielding IG's will be scanned manually for concordance. If this scan disagrees with the automated IG or if promyelocytes are noted, a manual differential will be performed. Immature Gran Absolute 0.01 0.00 - 0.05 x10(3)/mcL CERNER MILLENNIUM Blood specimen (specimen) 01/02/2011 10:27 AM EDT 01/02/2011 10:34 AM EDT Noe Joel MD HEMATOLOGY ORDERABLE S Performing Organization Address City/State/[facility] Co ct Phone Number [facility] documented in this encounter Visit Diagnoses Not on filedocumented in this encounter Care Teams Assistant Research Scientist Relationship Specialty Start Date End Date Roxanne Dawn MD [address] [place] [address] PCP - General 04/30/10 documented as of this encounter
--- OUTSIDE RECORDS SUMMARY | 2024-03-17 18:03 | XMS_ITS | Encounter Summary ---
Author Organization [facility] [place] [address] Care Team Providers Care Cover Stitch Machine Operator Name Role Phone Roxanne Dawn MD Primary Care Provider [phone] Encounter Details Date Type Department Care Team (Late st Contact Info) Description 12/25/2011 4:30 PM EDT Follow-Up H[place]ology [place] [address] CLINIC, Noe Peñaloza MD [facility] HEMATOLOGY/[place] [address] Breast cancer, stage 2 (Primary Dx) Discharge Disposition: Home Social History Tobacco Use [...] Taken Comments Blood Pressure - - Pulse 80 12/25/2011 4:29 PM EDT Temperature 37 ??C (98.6 ??F) 12/25/2011 4:29 PM EDT Respiratory Rate 20 12/25/2011 4:29 PM EDT Oxygen Saturation 98% 12/25/2011 4:29 PM EDT Inhaled Oxygen Concentration - - Weight - - Height - - Body Mass Index - - documented in this encounter Patient Instructions * Patient Instructions* Noe Joel MD - 12/25/2011 5:20 PM EDT Your exam land mammograms look good and I don't see any evidence of breast cancer recurrence. I will e-mail you with your Vitamin D level, and I'll ask you to resume taking it if your level is under 35. I will see you back in one year, we'll repeat the mammograms with a same day read, Dexa scan, and we'll repeat the liver enzymes. For the itch you can get 1% hydrocortisone at your local pharmacy, and ask Will to apply the creme to those areas with the raised red rash. For the back pain you can look look at the John book Treat Your Own Back documented in this encounter Progress Notes * Noe Joel MD - 12/25/2011 9:32 PM EDT Subjective: Patient ID: Serenity Cummings is a 56 y.o. female with Stage II breast cancer, here for yearly followup. HPI : Ms. Cummings presented in October of 2000 with a 3.5-cm invasive lobular carcinoma, with angiolymphatic invasion. One of four sampled sentinel nodes was positive with a less than 1 mm deposit. Eightnonsentinel nodes were negative. Estrogen and progesterone receptors [...] the liver and hepatic steatosis. She has felt well over the past year. She has pain in her left flank when she stands for too long or works hard physically,and she has had 3-4 episodes of left upper quadrant pain over the past year. She has stable left retro-orbital pain, stable dysphagia, and her vaginal dryness resolved after she stopped the letrozole. She has a pruritic area with several linear rashes on her back under the bra. She is not taking Vit sweeney D supplementation. Review of Systems : She denies breast pain, a cough, shortness of breath, chest pain, nausea, vomiting, diarrhea, constipation, headaches, double vision, pain, redness, or swelling in her lower extremities, or any other sites of skeletal pain. The remainder of her review of systems is negative. Objective: Physical Exam Vitals reviewed. Constitutional: She appears well-developed and well-nourished. HENT: Mouth/Throat: Oropharynx is clear and moist. No oropharyngeal exudate. Eyes: No scleral icterus. Cardiovascular: Normal rate, regular rhythm and normal heart sounds. Exam reveals no gallop. No murmur heard. Pulmonary/Chest: Breath sounds normal. She has no wheezes. She has no rales. There are no masses within the left breast. There is a wedge-shaped defect at the base of the lollipop stem at the inframammary fold. There is no erythema or nodularity within the skin of the right chest wall. There is no axillary adenopathy. Abdominal: Soft. She exhibits no distension and no mass. No tenderness. She has no guarding. Musculoskeletal: She exhibits no edema. Lymphadenopathy: She has no cervical adenopathy. Skin: Skin is warm and dry. No erythema. There are two linear papular rashs over the back just to the right of the midline, under the braline. Psychiatric: She has a normal mood and affect. The most recent left-sided mammograms from January 02, 2011 showed a stable fibroglandular pattern without significant change. There are post-reduction surgery changes. A Dexa scan from May 11, 2009 was normal, with T scores of -0.2 in the lumbar spine (was 0.1 [id number]), 0.3 in the left hip (was 0.9 in 2006), and 0.5 in the left femoral neck (was 0.7 in 2006). Recent Results (from the past 24 hour(s)) HEPATIC FUNCTION PANEL Component Value Range ??? Total Protein 7.1 6.4 - 8.3 (gm/dL) ??? Albumin 4.7 3.2 - 5.2 (gm/dL) ??? AST 36 (*) 0 - 30 (unit/L) ??? ALT 70 (*) 0 - 30 (unit/L) ??? Alk Phos 67 40 - 104 (unit/L) ??? Total Bilirubin 0.5 0.2 - 1.3 (mg/dL) ??? Bili, Direct 0.1 0.0 - 0.3 (mg/dL) VITAMIN D2 AND D3 25 HYDROXY Component Value Range ??? 25-OH Vit D Total 34 30 - 100 (ng/mL) Assessment and Plan: Serenity is doing well and she has no evidence of breast cancer recurrence. She has completed ten yearsof endocrine therapy, following six cycles of FEC chemotherapy in 2000. She has chronic left upper quadrant pain and left flank pain, but the pain at these sites has not changed over time and they donot disturb her. She has fatty infiltration of the liver and a stable elevation in her transaminases. I told her that the fatty infiltration will usually improve with weight loss. She has a borderline low Vitamin D level and I will ask her to resume a twice weekly dose of Vitamin D to get her levelover 35 ng/mL. I suggested applying 1% hydrocortisone creme to the rash on the back, which appears to be consistent with a contact dermatitis. I will see her next in followup in one year, and I will repeat her left-sided mammograms, Dexa scan, and labs at that time. Noe Joel MD inspector precision assembly in Hematology-Oncology documented in this encounter Plan of Treatment Upcoming Encounters Date Type Department Care Team (Late st Contact Info) Description 04/25/2024 10:40 AM EST Appointment Mammography/[place] [address] Roxanne Dawn MD [address] [place] [address] documented as of this encounter Procedures Procedure Name Priority Date/Time Associated Diagnosis Comments VITAMIN D, 25-HYDROXY Routine 12/25/2011 10:40 AM EDT Breast cancer, stage 2 HEPATIC FUNCTION PANEL STAT 12/25/2011 10:40 AM EDT Breast cancer, stage 2 documented in this encounter Results * Vitamin D2 and D3 25 Hydroxy (12/25/2011 10:40 AM EDT) Vitamin D Total 25 OH 34 30 - 100 ng/mL CERNER MILLENNIUM Comment: Deficient <10 ng/mL Insufficient 10 to 29 ng/mL Sufficient 30 to 100 ng/mL Potential Intoxication >100 ng/mL According to the [place] National Osteoporosis Foundation, Vitamin D concentrations >30 ng/mL are sufficient to protect bone health. ??The National Kidney Foundation has similarly stated that patients with Vitamin D concentrations <30ng/mL should be considered to be insufficient or deficient. http://www.kidney.org/professionals/KDOQI/guidelines_bone/Guide7.htm http://www.nof.org/professionals/clinical-guidelines The [employer] iSYS Vitamin D Immunoassay detects both 25-OH Vitamin D2 and 25-OH Vitamin D3, but only a total Vitamin D concentration is reported. Please note, the performing location for this test has changed. ??As of 07/15/2011 the Vitamin D Total, 25 Hydroxy assays are being analyzed by the [facility] Chemistry Laboratory. ??There is NO CHANGE in units. ??Please contact the chemistry laboratory at [phone] with questions. Blood specimen (specimen) 12/25/2011 10:40 AM EDT 12/25/2011 10:45 AM EDT Narrative Resulting Agency Comment Spec In Lab Noe Joel MD CHEMISTRY ORDERABLES [facility] * (ABNORMAL) Hepatic function panel (HFP) (12/25/2011 10:40 AM EDT) Protein, Total 7.1 6.4 - 8.3 gm/dL CERNER MILLENNIUM Albumin 4.7 3.2 - 5.2 gm/dL CERNER MILLENNIUM Aspartate Aminotransferase 36(H) 0 - 30 unit/L CERNER MILLENNIUM Alanine Aminotransferase 70(H) 0 - 30 unit/L CERNER MILLENNIUM Alkaline Phosphatase 67 40 - 104 unit/L CERNER MILLENNIUM Bilirubin, Total 0.5 0.2 - 1.3 mg/dL CERNER MILLENNIUM Bilirubin, Direct 0.1 0.0 - 0.3 mg/dL JARED NANYCAROLYNN Blood specimen (specimen) 12/25/2011 10:40 AM EDT 12/25/2011 10:45 AM EDT Narrative Resulting Agency Comment Spec In Lab Noe Joel MD CHEMISTRY ORDERABLES JARED AYONISAACHÉCTOR documented in this encounter Visit Diagnoses Diagnosis Breast cancer, stage 2- Primary Malignant neoplasm of breast (female), unspecified site documented in this encounter Care Teams Cover Stitch Machine Operator Relationship Specialty Start Date End Date Roxanne Dawn MD [address] [place] [address] PCP - General 04/30/10 documented as of this encounter
--- OUTSIDE RECORDS SUMMARY | 2024-03-17 18:03 | XMS_ITS | Encounter Summary ---
[place] [address] Care Team Providers Care Production Welder Name Role Phone Roxanne Dawn MD Primary Care Provider [phone] Encounter Details Date Type Department Care Team (Late st Contact Info) Description 01/05/2013 Orders Only Hematology [place] [phone] Noe Joel MD [facility] DR HEMATOLOGY/[place] [address] Malignant neoplasm of breast (female), unspecified site (Primary Dx) Social History Tobacco Use Types [...] 04/25/2024 10:40 AM EST Appointment Mammography/[place] [phone] Roxanne Dawn MD [address] [place] [address] documented as of this encounter Results * Mammo unilateral digital [...] Diagnosis Malignant neoplasm of breast (female), unspecified site- Primary Malignant neoplasm of breast (female), unspecified site documented in this encounter Care Teams Production Welder Relationship Specialty Start Date End Date Roxanne Dawn MD [address] [place] [address] PCP - General 04/30/10 documented as of this encounter
--- OUTSIDE RECORDS SUMMARY | 2024-03-17 18:03 | XMS_ITS | Encounter Summary ---
[place] [address] Care Team Providers Care Patient Access Representative Name Role Phone Roxanne Dawn MD Primary Care Provider [phone] 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 * Diagnostic Test (Routine) - Specialty Diagnoses / Procedures Referred By Contac t Referred To Contact Radiology Diagnoses Malignant neoplasm of right breast, stage [address] Head wo Contrast (Generic) CT Head w Contrast Noe Joel MD [facility] DR HEMATOLOGY/[place] [address] [facility] [place] [address] Referral ID Status Reason Start Date Expiration Date Visits Requested Visits Authorized [id number] Specialty Service Requested 02/22/2018 04/22/2018 1 1 * Diagnostic Test (Routine) - Closed Specialty Diagnoses / Procedures Referred By Contac t Referred To Contact Radiology Diagnoses Malignant neoplasm of right breast, stage [address] Sinus wo Contrast (Generic) CT Sinus w Contrast Noe Jeol MD [facility] DR HEMATOLOGY/[place] [address] [facility] [place] [address] Referral ID Status Reason Start Date Expiration Date V isits Requested Visits Authorized [id number] Closed Specialty Service Requested 02/22/2018 04/22/2018 1 1 Reason for Visit * Diagnostic Test (Routine) - Closed Specialty Diagnoses / Procedures Referred By Bryan cai Referred To Contact Radiology Diagnoses Malignant neoplasm of right breast, stage [address] Sinus wo Contrast (Generic) CT Sinus w Contrast Noe Joel MD [facility] DR HEMATOLOGY/[place] [address] [facility] [place] [address] Referral ID Status Reason Start Date Expiration Date V isits Requested Visits Authorized [id number] Closed Specialty Service Requested 02/22/2018 04/22/2018 1 1 Encounter Details Date Type Department Care Team (Latest Contact Info) Description 03/11/2018 12:34 PM EDT - 03/11/2018 11:59 PM EDT Hospital [place] [address] Noe Joel MD [facility] HEMATOLOGY/[place] [address] Malignant neoplasm of right breast, stage 2 [...] Sig Dispensed Refills Start Date End Date HUMALOG KWIKPEN 100 unit/mL Insulin Pen Inject [...] 04/25/2024 10:40 AM EST Appointment Mammography/[place] [address] Roxanne Dawn MD [address] [address] documented as of this encounter Procedures Procedure Name Priority Date/Time Associated Diagnosis Comments CT SINUS W CONTRAST Routine 03/11/2018 1 :41 PM EDT Malignant neoplasm of right breast, stage 2 CT HEAD WO CONTRAST (GENERIC) Routine 03/11/2018 1:41 PM EDT Malignant neoplasm of right breast, stage 2 documented in this encounter Results * CT Head wo Contrast (Generic) (03/11/2018 1:41 PM EDT) Anatomical Region Laterality Modality Head Computed Tomogra phy Impressions 03/11/2018 2:[address] of the head and sinuses. Narrative 03/11/2018 2:21 PM EDT EXAMINATION: CT SINUS WO CONTRAST (GENERIC), CT HEAD WO CONTRAST (GENERIC) CLINICAL HISTORY: 62 year old woman with recurrent headaches as well as pain localizing behind the left eye. ??Has a history of Stage II breast cancer, ?sinusitis, breain metastases TECHNIQUE: CT of the head and CT the sinuses performed without the use of intravenous contrast. COMPARISON: None FINDINGS: CT HEAD: The ventricles are normal in size and contour. There is no intracranial mass, mass effect, or shift. There is no intracranial hemorrhage, or extra-axial collection. Cerebral parenchyma is normal in attenuation. There is no osseous abnormality. Sinuses: Paranasal sinuses are normally aerated. There are small bilateral Steven cells. Ostiomeatal units are patent. Medial kaufman are intact. Floor of anterior cranial fossa is normal. There is no aggressive osseous lesion. Retroantral fat pads are normal. Soft tissues of the orbits are normal. Procedure Note Mahesh Sanders MD - 03/11/2018 EXAMINATION: CT SINUS WO CONTRAST (GENERIC), CT HEAD WO CONTRAST(GENERIC) CLINICAL HISTORY: 62 year old woman with recurrent headaches as well aspain localizing behind the left eye. Has a history of Stage II breastcancer, ?sinusitis, breain metastases TECHNIQUE: CT of the head and CT the sinuses performed without the useof intravenous contrast. COMPARISON: None FINDINGS: CT HEAD: The ventricles are normal in size and contour. There is nointracranial mass, mass effect, or shift. There is no intracranial hemorrhage, orextra-axial collection. Cerebral parenchyma is normal in attenuation. There is noosseous abnormality. Sinuses: Paranasal sinuses are normally aerated. There are smallbilateral Steven cells. Ostiomeatal units are patent. Medial kaufman are intact. Floorof anterior cranial fossa is normal. There is no aggressive osseous lesion. Retroantral fat pads are normal. Soft tissues of the orbits are normal. IMPRESSION Normal CT of the head and sinuses. Noe Joel MD [facility] CT ORDERABLES * CT Sinus wo Contrast (Generic) (03/11/2018 1:41 PM EDT) Anatomical Region Laterality Modality Head Computed Tomogra phy Impressions 03/11/2018 2:[address] of the head and sinuses. Narrative 03/11/2018 2:21 PM EDT EXAMINATION: CT SINUS WO CONTRAST (GENERIC), CT HEAD WO CONTRAST (GENERIC) CLINICAL HISTORY: 62 year old woman with recurrent headaches as well as pain localizing behind the left eye. ??Has a history of Stage II breast cancer, ?sinusitis, breain metastases TECHNIQUE: CT of the head and CT the sinuses performed without the use of intravenous contrast. COMPARISON: None FINDINGS: CT HEAD: The ventricles are normal in size and contour. There is no intracranial mass, mass effect, or shift. There is no intracranial hemorrhage, or extra-axial collection. Cerebral parenchyma is normal in attenuation. There is no osseous abnormality. Sinuses: Paranasal sinuses are normally aerated. There are small bilateral Steven cells. Ostiomeatal units are patent. Medial kaufman are intact. Floor of anterior cranial fossa is normal. There is no aggressive osseous lesion. Retroantral fat pads are normal. Soft tissues of the orbits are normal. Procedure Note Mahesh Sanders MD - 03/11/2018 EXAMINATION: CT SINUS WO CONTRAST (GENERIC), CT HEAD WO CONTRAST(GENERIC) CLINICAL HISTORY: 62 year old woman with recurrent headaches as well aspain localizing behind the left eye. Has a history of Stage II breastcancer, ?sinusitis, breain metastases TECHNIQUE: CT of the head and CT the sinuses performed without the useof intravenous contrast. COMPARISON: None FINDINGS: CT HEAD: The ventricles are normal in size and contour. There is nointracranial mass, mass effect, or shift. There is no intracranial hemorrhage, orextra-axial collection. Cerebral parenchyma is normal in attenuation. There is noosseous abnormality. Sinuses: Paranasal sinuses are normally aerated. There are smallbilateral Steven cells. Ostiomeatal units are patent. Medial kaufman are intact. Floorof anterior cranial fossa is normal. There is no aggressive osseous lesion. Retroantral fat pads are normal. Soft tissues of the orbits are normal. IMPRESSION Normal CT of the head and sinuses. Noe N Joel MD IMG CT ORDERABLES documented in this encounter Visit Diagnoses Diagnosis Malignant neoplasm of right breast, stage 2 documented in this encounter Care Teams Patient Access Representative Relationship Specialty Start Date End Date Roxanne Dawn MD [address] [place] [address] PCP - General 04/30/10 documented as of this encounter
--- OUTSIDE RECORDS SUMMARY | 2024-03-17 18:03 | XMS_ITS | Encounter Summary ---
Author Organization [facility] [place] [address] Care Team Providers Care Telegraph Editor Name Role Phone Roxanne Dawn MD Primary Care Provider [phone] Encounter Details Date Type Department Care Team (Late st Contact Info) Description 10/11/2015 Orders Only Hematology [place] [phone] Mitzi Colon APRN [facility] DR HEMATOLOGY/[place] [address] Breast cancer, stage 2, unspecified laterality Social History Tobacco Use Types Packs/Day Years [...] 04/25/2024 10:40 AM EST Appointment Mammography/[place] [address] Roxanne Dawn MD [address] [place] [address] documented as of this encounter Results * [...] Center. BIRADS CATEGORY 1: NEGATIVE * ??The [employer] and The Society of [...] MRI are appropriate. ?? Noe Joel MD IM MAMMO ORDERABLES documented in this encounter Visit Diagnoses Diagnosis Breast cancer, stage 2, unspecified laterality Breast cancer, stage 2, unspecified laterality documented in this encounter Care Teams Telegraph Editor Relationship Specialty Start Date End Date Roxanne Dawn MD [address] [place] [address] PCP - General 04/30/10 documented as of this encounter
--- OUTSIDE RECORDS SUMMARY | 2024-03-17 18:03 | XMS_ITS | Encounter Summary ---
Author Organization [facility] [place] [address] Care Team Providers Care Malted Milk Supervisor Name Role Phone Roxanne Dawn MD Primary Care Provider [phone] Encounter Details Date Type Department Care Team (Latest Contact Info) Description 04/25/2011 1:53 PM EST - 04/25/2011 11:59 PM [facility] Hospital [place] [address] CLINIC, DR ANABELA Joel, Noe Cano MD [facility] HEMATOLOGY/[place] [address] Discharge Disposition: Home Social History Tobacco Use [...] 12/06/2009 12/25/2011 documented as of this encounter Miscellaneous Notes * Miscellaneous - Provider, Scanning - 04/30/2011 9:21 AM EST documented in this encounter Plan of Treatment Upcoming Encounters Date Type Department Care Team (Late st Contact Info) Description 04/25/2024 10:40 AM EST Appointment Mammography/[place] [address] Roxanne Dawn MD [address] [place] [address] documented as of this encounter Procedures Procedure Name Priority Date/Time Associated Diagnosis Comments CT ABDOMEN W CONTRAST Routine 04/25/2011 3:42 PM EST documented in this encounter Results * CT ABDOMEN WITH CONTRAST (04/25/2011 3:42 PM EST) Anatomical Region Laterality Modality Abdomen Computed Tomogra phy 04/25/2011 3:42 PM EST Impressions 04/25/2011 5:01 PM EST IMPRESSION: Stable, approximate 5 mm enhancing focus in liver; given its greater than one year stability, if this is benign and it likely hemangioma. ?? Post partial pancreatectomy. Postsurgical bed remarkable for decreasing size of previously noted pancreatic fluid collection. This is benign-appearing. ?? Stable, mildly enlarged, nonspecific, perivascular/mesenteric lymph nodes. Narrative 04/25/2011 5:[address] ABDOMEN: ?? CLINICAL: ??Stage II breast cancer, small pancreatic endocrine cancer, enhancing right lobe of the liver, question change. ?? TECHNIQUE: ??Dual phase intravenously-enhanced (110 cc Omnipaque-350) CT of the abdomen. ?? CONTRAST: ??110 cc Omnipaque-350. ?? COMPARISON: ??04/16/10. ?? FINDINGS: ?? ABDOMEN: ??A stable, solitary, approximate 5 mm focus hepatic enhancement is seen best on the arterial phase images. This was also note on the study from 12/12/09 and is also stable. The liver is diffusely fatty replaced. A stable, approximate 19 mm cyst is seen in the posterior right lobe of the liver. Another, smaller approximate 15 mm, stable cyst is seen in the posterior right lobe of the liver. No biliary ductal dilatation or perihepatic fluid. The spleen, gallbladder, and pancreatic head are stable. Post pancreatic body and tail resection. The previously noted fluid collection seen at the post pancreatectomy surgical bed is smaller, measuring approximately 13 mm compared to 20 mm on the previous study. Stable, mildly enlarged perivascular/mesenteric lymph nodes are seen (series #2, image #185; image #194). These are nonspecific. ?? No free fluid. ?? Procedure Note Antonio Gleason MD - 04/25/2011 CT ABDOMEN: CLINICAL: Stage II breast cancer, small pancreatic endocrine cancer,enhancing right lobe of the liver, question change. TECHNIQUE: Dual phase intravenously-enhanced (110 cc Omnipaque-350) CT ofthe abdomen. CONTRAST: 110 cc Omnipaque-350. COMPARISON: 04/16/10. FINDINGS: ABDOMEN: A stable, solitary, approximate 5 mm focus hepatic enhancementis seen best on the arterial phase images. This was also note on the studyfrom 12/12/09 and is also stable. The liver is diffusely fatty replaced. Astable, approximate 19 mm cyst is seen in the posterior right lobe of the liver. Another, smaller approximate 15 mm, stable cyst is seen in the posteriorright lobe of the liver. No biliary ductal dilatation or perihepatic fluid. The spleen, gallbladder, and pancreatic head are stable. Post pancreatic bodyand tail resection. The previously noted fluid collection seen at the post pancreatectomy surgical bed is smaller, measuring approximately 13 mmcompared to 20 mm on the previous study. Stable, mildly enlargedperivascular/mesenteric lymph nodes are seen (series #2, image #185; image #194). These are nonspecific. No free fluid. IMPRESSION IMPRESSION: Stable, approximate 5 mm enhancing focus in liver; given its greater thanone year stability, if this is benign and it likely hemangioma. Post partial pancreatectomy. Postsurgical bed remarkable for decreasingsize of previously noted pancreatic fluid collection. This is benign-appearing. Stable, mildly enlarged, nonspecific, perivascular/mesenteric lymphnodes. Noe Joel MD IMG CT ORDERABLES documented in this encounter Visit Diagnoses Not on filedocumented in this encounter Administered Medications Inactive Administered Medications - up to 3 most recent administrations Medication Order MAR Action Action Date Dose Rate Site iohexol (OMNIPAQUE) 350 mg/mL injection 38,500 mg 38,500 mg (110 mL), Intravenous, ONCE PRN, 1 dose, Starting on Thu04/25/11 at 1530, Until Thu04/25/11 at 1535, Per Protocol, Routine Given 04/25/2011 3:35 PM EST 38,500 mg documented in this encounter Care Teams Malted Milk Supervisor Relationship Specialty Start Date End Date Roxanne Dawn MD [address] [place] [address] PCP - General 04/30/10 documented as of this encounter
--- OUTSIDE RECORDS SUMMARY | 2024-03-17 18:03 | XMS_ITS | Encounter Summary ---
[place] [address] Care Team Providers Care Workforce Analyst Name Role Phone Roxanne Dawn MD Primary Care Provider [phone] 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 * Consultation (Routine) - Specialty Diagnoses / Procedures Referred By Contac t Referred To Contact Hematology and Oncology Diagnoses Malignant neoplasm of right breast, stage 2 Noe Joel MD [facility] DR HEMATOLOGY/[place] [address] [facility] Hem Onc [address] [place] [address] Referral ID Status Reason Start Date Expiration Date V isits Requested Visits Authorized [id number] Consult, Test & Treat 02/02/2018 02/02/2019 1 1 * Consultation (Routine) - Closed Specialty Diagnoses / Procedures Referred By Contac t Referred To Contact Dermatology Diagnoses Malignant neoplasm of right breast, stage 2 Noe Joel MD [facility] DR HEMATOLOGY/[place] [address] [facility] Dermatology [address] [place] [address] Referral ID Status Reason Start Date Expiration Date V isits Requested Visits Authorized [id number] Closed Consult, Test & Treat 02/02/2018 02/02/2019 1 1 Reason for Visit * Reason Comments Follow-up Encounter Details Date Type Department Care Team (Late st Contact Info) Description 02/02/2018 2:30 PM EDT Office Visit [place]ematology [place] [address] Noe Joel MD [facility] HEMATOLOGY/[place] [address] Atrophic vaginitis; Malignant neoplasm of right breast, stage 2; Persistent headaches Social History Tobacco Use Types Packs/Day Years [...] Taken Comments Blood Pressure - - Pulse 60 02/02/2018 2:38 PM EDT Temperature 36.9 ??C (98.4 ??F) 02/02/2018 2:38 PM ED T Respiratory Rate 18 02/02/2018 2:38 PM EDT Oxygen Saturation 99% 02/02/2018 2:38 PM EDT Inhaled Oxygen Concentration - - Weight - - Height - - Body Mass Index - - documented in this encounter Progress Notes * Noe Joel MD - 02/02/2018 2:30 PM EDT Subjective: Patient ID: Serenity Cummings is a 62 y.o. female with Stage II breast cancer, [...] 25 pounds and her Hgb A1c fell to 6 or lower. She does not tolerate metformin, and she is maintained on 3-5 units of Lantus daily. Serenity has hot flashes and sweats which occur day and night. She has atrophic vaginitis which she controls with about two doses of topical vaginal estrogen per month. She denies any vaginal bleeding orspotting. She has about three episodes of left flank pain anteriorly or posteriorly per month, and she has three episodes of rectal pain per year. She has intermittent headaches, which were bad in June and July, and again now, as well as pain behind the left eye. She gets visual migraines. She is also requesting a referral to one of our dermatologists. Review of Systems She denies breast pain or a palpable breast mass, a cough, shortness of breath, chest pain, nausea,vomiting, diarrhea, constipation, double vision, pain, redness, or swelling in her lower extremities, or any other sites of joint or skeletal pain. The remainder of her review of systems is negative. Objective: Physical Exam Constitutional: She appears well-developed and well-nourished. Her weight is up 2 kg over the past year, and her BP is 125/72. HENT: Mouth/Throat: Oropharynx is clear and moist. [...] breast is heterogeneously dense. The most recent CT of the abdomen [...] has no evidence of breast cancer recurrence, 17 years out from diagnosisof a Stage II invasive lobular carcinoma. She received adjuvant chemotherapy plus extended adjuvantendocrine therapy for ten years. Serenity was 45 years old at the time of diagnosis, and her father had a history of pancreas cancer. Testing criteria now includes patients diagnosed with breast cancer before the age of 50. She is willing to get genetic testing done at the time of our next followup in one year. I will refer her to Dermatology here at her request. She also has chronic headaches with unilateral retro-orbital pain, Khanh will obtain a CT of her sinuses. If she has sinus disease, I will refer her to ENT. I will see her next in followup in one year, and I will repeat her left-sided mammograms at that time. She knows to contact me in the interim if she has any concerns about her breast exam. I will repeat the Dexa scan in 2020. Noe Joel MD freight trucker in Hematology-Oncology documented in this encounter Plan of Treatment Upcoming Encounters Date Type Department Care Team (Late st Contact Info) Description 04/25/2024 10:40 AM EST Appointment Mammography/[place] [address] Roxanne Dawn MD [address] [place] [address] Scheduled Referrals Name Type Priority Associated Diagnoses Order Schedule Referral to Dermatology Outpatient Referral Routine Malignant neoplasm of right breast, stage 2 Ordered: 02/02/2018 Referral to Familial Cancer Outpatient Referral Routine Malignant neoplasm of right breast, stage 2 Ordered: 02/02/2018 documented as of this encounter Results * Mammo Screening Cad and Collin Left (05/13/2019 10:28 AM EST) Anatomical Region [...] documented in this encounter Visit Diagnoses Diagnosis Atrophic vaginitis Postmenopausal atrophic vaginitis Malignant neoplasm of right breast, stage 2 Persistent headaches Headache Malignant neoplasm of right breast, stage 2 documented in this encounter Care Teams Workforce Analyst Relationship Specialty Start Date End Date Roxanne Dawn MD [address] [place] [address] PCP - General 04/30/10 documented as of this encounter
--- OUTSIDE RECORDS SUMMARY | 2024-03-17 18:03 | XMS_ITS | Encounter Summary ---
Author Organization [place] [id number] Care Team Providers Care Director Of Market Intelligence Name Role Phone Roxanne Dawn MD Primary Care Provider [phone] Encounter Details Date Type Department Care Team (Late st Contact Info) Description 11/22/2016 Orders Only [place]ology [place] [phone] Noe Joel MD [facility] HEMATOLOGY/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
--- OUTSIDE RECORDS SUMMARY | 2024-03-17 18:03 | XMS_ITS | Encounter Summary ---
[place] [address] Care Team Providers Care Flasher Adjuster Name Role Phone Roxanne Dawn MD Primary Care Provider Encounter Details Date Type Department Care Team (Late st Contact Info) Description 01/02/2011 10:29 AM EDT - 01/02/2011 11:59 PM EDT Hospital En[place] [address] Breast cancer Social History Tobacco Use Types Packs/Day [...] 04/25/2024 10:40 AM EST Appointment Mammography[place] [address] Roxanne Dawn MD [address] [place] [address] documented as of this encounter Procedures Procedure Name Priority Date/Time Associated Diagnosis Comments MAMMO UNILATERAL DIGITAL SCREENING Routine 01/02/2011 10:51 AM EDT Breast cancer documented in this encounter Results * Mammo unilateral digital screening (01/02/2011 10:51 AM EDT) Anatomical Region Laterality Modality Breast N/A Mammography 01/02/2011 10:5 1 AM EDT Narrative 01/02/2011 11:15 AM EDT LEFT BREAST MAMMOGRAPHY ?? REASON FOR EXAM: Screening, H/O breast cancer ?? TECHNIQUE: Cranio-caudal (CC) and mediolateral oblique (MLO) views of the Left breast obtained with direct digital capture. The exam was evaluated by CAD Version 8.3.17. ?? FINDINGS: This is a negative mammogram (ACR Category 1). There is a stable fibroglandular pattern without significant change as compared to prior studies. There is no mammographic evidence of cancer. ? There are post-surgical changes in the Left breast. ? Reduction surgery has been performed. ? CONCLUSION ?? This is a NEGATIVE mammogram (ACR Category 1). Routine screening mammography is recommended with the frequency dependent on the patient's age and breast cancer risk factors. ?? A letter has been sent to this patient by [facility]. Procedure Note Manda Beverly MD - 01/02/2011 LEFT BREAST MAMMOGRAPHY REASON FOR EXAM: Screening, H/O breast cancer TECHNIQUE: Cranio-caudal (CC) and mediolateral oblique (MLO) views of theLeft breast obtained with direct digital capture. The exam was evaluated by CAD Version 8.3.17. FINDINGS: This is a negative mammogram (ACR Category 1). There is a stablefibroglandular pattern without significant change as compared to prior studies. There isno mammographic evidence of cancer. There are post-surgical changes in the Left breast. Reduction surgery has been performed. CONCLUSION This is a NEGATIVE mammogram (ACR Category 1). Routine screeningmammography is recommended with the frequency dependent on the patient's age and breastcancer risk factors. A letter has been sent to this patient by the [facility]. Noe Joel MD IM[facility] MAMMO ORDERABLES documented in this encounter Visit Diagnoses Diagnosis Breast cancer Malignant neoplasm of breast (female), unspecified site documented in this encounter Care Teams Flasher Adjuster Relationship Specialty Start Date End Date Roxanne Dawn MD [address] [address] PCP - General 04/30/10 documented as of this encounter
--- OUTSIDE RECORDS SUMMARY | 2024-03-17 18:03 | XMS_ITS | Encounter Summary ---
[place] [address] Care Team Providers Care Line Clearance Foreman Name Role Phone Roxanne Dawn MD Primary Care Provider [phone] Encounter Details Date Type Department Care Team (Latest Contact Info) Description 12/25/2011 10:00 AM EDT - 12/25/2011 10:28 AM EDT Hospital [place] [phone] Breast cancer, stage 2 Social History Tobacco Use Types [...] 04/25/2024 10:40 AM EST Appointment Mammography[place] [phone] Roxanne Dawn MD [address] [address] documented as of this encounter Procedures Procedure Name Priority Date/Time Associated Diagnosis Comments MAMMO UNILATERAL DIGITAL SCREENING Routine 12/25/2011 10:17 AM EDT Breast cancer, stage 2 documented in this encounter Results * Mammo unilateral digital screening (12/25/2011 10:17 AM EDT) Anatomical Region Laterality Modality Breast N/A Mammography 12/25/2011 10:1 7 AM EDT Narrative 12/29/2011 9:26 AM EDT LEFT BREAST MAMMOGRAPHY ?? REASON FOR EXAM: Screening. History of stage II breast cancer on Right. ?? TECHNIQUE: Cranio-caudal (CC) and mediolateral oblique (MLO) views of the Left breast obtained with direct digital capture. The exam was evaluated by CAD Version 8.3.17. ?? FINDINGS: This is a negative mammogram (ACR Category 1). There is a stable fibroglandular pattern without significant change as compared to prior studies. There is no mammographic evidence of cancer. ? The breast is of scattered density. ? Reduction surgery has been performed. ? CONCLUSION ?? This is a NEGATIVE mammogram (ACR Category 1). Routine screening mammography is recommended with the frequency dependent on the patient's age and breast cancer risk factors. ?? A letter has been sent to this patient by the [facility]. Procedure Note Manda Beverly MD - 12/29/2011 LEFT BREAST MAMMOGRAPHY REASON FOR EXAM: Screening. History of stage II breast cancer on Right. TECHNIQUE: Cranio-caudal (CC) and mediolateral oblique (MLO) views of theLeft breast obtained with direct digital capture. The exam was evaluated by CAD Version 8.3.17. FINDINGS: This is a negative mammogram (ACR Category 1). There is a stable fibroglandular pattern without significant change as compared to priorstudies. There is no mammographic evidence of cancer. The breast is of scattered density. Reduction surgery has been performed. CONCLUSION This [...] site documented in this encounter Care Teams Line Clearance Foreman Relationship Specialty Start Date End Date Roxanne Dawn MD [address] [place] [address] PCP - General 04/30/10 documented as of this encounter
--- OUTSIDE RECORDS SUMMARY | 2024-03-17 18:03 | XMS_ITS | Encounter Summary ---
Author Organization [facility] Address [facility] [place] [address] Care Team Providers Care Waste Hand Name Role Phone Roxanne Dawn MD Primary Care Provider [phone] Encounter Details Date Type Department Care Team (Late st Contact Info) Description 01/06/2013 3:00 PM EDT Follow-Up Hematology [place] [address] CLINIC, DR ANABELA Joel, Noe Cano MD [facility] HEMATOLOGY/[place] [address] Breast cancer, stage 2 (Primary Dx); Vitamin D deficiency Discharge Disposition: Home Social History Tobacco Use [...] Sign Reading Time Taken Comments Blood Pressure 98/61 01/06/2013 2:53 PM EDT Pulse 79 01/06/2013 2:53 PM EDT Temperature 36.7 ??C (98.1 ??F) 01/06/2013 2:53 PM ED T Respiratory Rate 16 01/06/2013 2:53 PM EDT Oxygen Saturation - - Inhaled Oxygen Concentration - - Weight 77.4 kg (170 lb 10.2 oz) 01/06/2013 2:53 PM EDT Height 175.7 cm (5' 9.17) 01/06/2013 2:53 PM ED T Body Mass Index 25.07 01/06/2013 2:53 PM EDT documented in this encounter Patient Instructions * Patient Instructions* Noe Joel MD - 01/06/2013 3:44 PM EDT Your exam and labs look good and I don;t see any evidence of breast cancer recurrence. I will email the Vitamin D results to you, and I will ask you to modify your dosing of Vitamin D ifthe level is low. We discussed decreasing fat in the diet or increasing exercise for the cholesterol profile. Let me know if you want me to refer you to an clinical nursing manager down here. I will see you next in one year with mammograms with a same day read and liver enzymes then. documented in this encounter Progress Notes * Noe Joel MD - 01/06/2013 9:06 PM EDT Subjective: Patient ID: Serenity Cummings is a 57 y.o. female with Stage II breast cancer, [...] the liver and hepatic steatosis. She has several complaints. She had a corneal infection in August, and she has chronic pain behind the left orbit and blurred vision which has not corrected with corrective lenses. She developed five days of a high fever in August and subsequently developed pain in the jaw on both sides, both upper and lower. She has seen her dentist and she does not have a dental problem. She has three to four attacks of left flank pain per year, and her most recent episode was in November. She also had a high cholesterol, a high LDL cholesterol, elevated triglycerides, and a ratio of 5.0. She admits to drinking whole milk, she is not trying to lose weight, and she has not changed her activity level. She exercises 4-5 hours a week and she takes 400 units of Vitamin D daily. Review of Systems She denies breast [...] appears well-developed and well-nourished. Her weight is down 2.8 kg over the past month. HENT: Mouth/Throat: Oropharynx is clear and moist. [...] She has a normal mood and affect. Today's left-sided mammograms show a stable fibroglandular pattern without significant change, withpost-surgical changes. The breast is heterogeneously dense. Today's Dexa scan is normal, with T scores of -0.1 in the lumbar spine (up from -0.2 in May 2009), 0.5 in the left hip (up from 0.3 in May 2009), and 0.3 in the left femoral neck (down from0.5 in May 2009). Recent Results (from the past 24 hour(s)) HEPATIC FUNCTION PANEL Component Value Range Total Protein 7.4 6.4 - 8.3 gm/dL Albumin 4.9 3.2 - 5.2 gm/dL AST 32 (*) 0 - 30 unit/L ALT 55 (*) 0 - 30 unit/L Alk Phos 66 40 - 104 unit/L Total Bilirubin 0.5 0.2 - 1.3 mg/dL Bili, Direct 0.1 0.0 - 0.3 mg/dL VIT D TOTAL EVALUATION Component Value Range 25-OH Vit D Total 44 30 - 100 ng/mL Assessment and Plan: Serenity is doing well and she has no evidence of breast cancer recurrence. She has completed ten yearsof endocrine therapy, following six cycles of FEC chemotherapy in 2000. She has fatty infiltration of the liver and a stable/falling elevation in her transaminases. Her weight is down a bit over the past year, and I encouraged her to try to continue to lose weight and improve her lipid profile by cutting back on dietary fat and trying to increase the duration or intensity of her exercise. Her Vitamin D intake is adequate, as her level is within the optimal range. I offered to refer her to ophthalmology here for a second opinion, and she declined. Her jaw pain and visual difficulties do not appear to be related to her breast cancer or her treatment history for breast cancer. I will see her next in followup in one year, and I will repeat her left-sided mammograms that day with a same day read. Noe Joel MD nut chopper in Hematology-Oncology documented in this encounter Plan of Treatment Upcoming Encounters Date Type Department Care Team (Late st Contact Info) Description 04/25/2024 10:40 AM EST Appointment Mammography/[place] [address] Roxanne Dawn MD [address] [place] [address] documented as of this encounter Procedures Procedure Name Priority Date/Time Associated Diagnosis Comments VITAMIN D, 25-HYDROXY Routine 01/06/2013 9:32 AM EDT Vitamin D deficiency HEPATIC FUNCTION PANEL STAT 01/06/2013 9:32 AM EDT Breast cancer, stage 2 documented in this encounter Results * VIT D Total Evaluation (01/06/2013 9:32 AM EDT) Vitamin D Total 25 OH 44 30 - 100 ng/mL CERNER MILLENNIUM Comment: [...] D concentration is reported. Blood specimen (specimen) 01/06/2013 9:32 AM EDT 01/06/2013 9:41 AM EDT Narrative Resulting Agency Comment Spec In Lab Noe Joel MD CHEMISTRY ORDERABLES [facility] * (ABNORMAL) Hepatic Function Panel (01/06/2013 9:32 AM EDT) Protein, Total 7.4 6.4 - 8.3 gm/dL CERNER MILLENNIUM Albumin 4.9 3.2 - 5.2 gm/dL CERNER MILLENNIUM Aspartate Aminotransferase 32(H) 0 - 30 unit/L CERNER MILLENNIUM Alanine Aminotransferase 55(H) 0 - 30 unit/L CERNER MILLENNIUM Alkaline Phosphatase 66 40 - 104 unit/L CERNER MILLENNIUM Bilirubin, Total 0.5 0.2 - 1.3 mg/dL CERNER MILLENNIUM Bilirubin, Direct 0.1 0.0 - 0.3 mg/dL CERNER MILLENNIUM Blood specimen (specimen) 01/06/2013 9:32 AM EDT 01/06/2013 9:41 AM EDT Narrative Resulting Agency Comment Spec In Lab Noe Joel MD CHEMISTRY ORDERABLES [facility] documented in this encounter Visit Diagnoses Diagnosis Breast cancer, stage 2- Primary Malignant neoplasm of breast (female), unspecified site Vitamin D deficiency Unspecified vitamin D deficiency documented in this encounter Care Teams Waste Hand Relationship Specialty Start Date End Date Roxanne Dawn MD [address] [place] [address] PCP - General 04/30/10 documented as of this encounter
--- OUTSIDE RECORDS SUMMARY | 2024-03-17 18:03 | XMS_ITS | Encounter Summary ---
Author [place] [address] Care Team Providers Care Plunger Shovel Operator Name Role Phone Roxanne Dawn MD Primary Care Provider Encounter Details Date Type Department Care Team (Late st Contact Info) Description 12/27/2012 Orders Only Hematology [place] [address] Noe Jole MD [facility] [address] HEMATOLOGY/[place] [address] Breast cancer, stage 2 (Primary Dx); Vitamin D deficiency Social History Tobacco Use Types Packs/Day Years [...] 04/25/2024 10:40 AM EST Appointment Mammography[place] [address] Roxanne Dawn MD [address] [place], [place] [address] documented as of this encounter Results * VIT D Total [...] In Lab Noe Joel MD CHEMISTRY ORDERABLES CERLILIYA MILLENNIUM * (ABNORMAL) Hepatic Function Panel (01/06/2013 9:32 [...] In Lab Noe Joel MD CHEMISTRY ORDERABLES CERLILIYA MILLENNIUM documented in this encounter Visit Diagnoses Diagnosis Breast cancer, stage 2- Primary Malignant neoplasm of breast (female), unspecified site Vitamin D deficiency Unspecified vitamin D deficiency documented in this encounter Care Teams Plunger Shovel Operator Relationship Specialty Start Date End Date Roxanne Dawn MD [address] [place] [address] PCP - General 04/30/10 documented as of this encounter
--- OUTSIDE RECORDS SUMMARY | 2024-03-17 18:03 | XMS_ITS | Encounter Summary ---
[place] [address] Care Team Providers Care Bonding Machine Operator Name Role Phone Roxanne Dawn MD Primary Care Provider [phone] Reason for Visit * Reason Onset Date Comments Prior Authorization 02/18/2018 Encounter Details Date Type Department Care Team (Late st Contact Info) Description 02/18/2018 Telephone [place] [address] Jerri Knott Prior Authorization Social History Tobacco Use Types Packs/Day Years [...] encounter Miscellaneous Notes * Telephone Encounter - Jerri Knott - 02/18/2018 11:57 AM EDT REC'D PA FOR PATIENT'S NOVOLOG FLEXPEN HUMALOG IS PREFERRED documented in this encounter Plan of Treatment Upcoming Encounters Date Type Department Care Team (Late st Contact Info) Description 04/25/2024 10:40 AM EST Appointment Mammography/[place] [address] Roxanne Dawn MD [address] [place], [place] [address] documented as of this encounter Visit Diagnoses Not on filedocumented in this encounter Care Teams Bonding Machine Operator Relationship Specialty Start Date End Date Roxanne Dawn MD [address] [place] [address] PCP - General 04/30/10 documented as of this encounter
--- OUTSIDE RECORDS SUMMARY | 2024-03-17 18:03 | XMS_ITS | Encounter Summary ---
[facility] [place] [address] Care Team Providers Care Staff Developer Name Role Phone Roxanne Dawn MD Primary Care Provider [phone] Encounter Details Date Type Department Care Team (Latest Contact Info) Description 01/06/2013 8:30 AM EDT - 01/06/2013 9:18 AM EDT Hospital Encounter XRay at [address] [place] [address] Malignant neoplasm of breast (female), unspecified site [...] 04/25/2024 10:40 AM EST Appointment Mammography/DXA at [facility] [place] [address] Roxanne Dawn MD [address] [address] documented as of this encounter Procedures Procedure Name Priority Date/Time Associated Diagnosis Comments DXA CENTRAL SPINE, HIP, AND/OR WHOLE BODY (GENERIC) Routine 01/06/2013 8:58 AM EDT Malignant neoplasm of breast (female), unspecified site documented in this encounter Results * Dexa central-spine, hip, and/or whole body (01/06/2013 8:58 AM EDT) Anatomical Region Laterality Modality C-spine, Hip N/A Radiographic Aparna ging 01/06/2013 8:58 AM EDT Narrative 01/06/2013 3:58 PM EDT Examination DXA CENTRAL-SPINE,HIP, AND/OR WHOLE BODY Clinical History Reason for exam and clinical history: 57 year olkd woman with history of use of aromatase inhibitor;last dexa 05/2009 Technique Scans were acquired at the lumbar spine, left hip. ?? Findings Lowest T-score at a diagnostic region of interest: T-score: 0.1,SHITAL: Lumbar spine, WHO diagnosis: Normal ........Comparison......... Recent scan: 05/11/2009, Baseline scan: 03/28/2005 Total Hip: Compared to the most recent scan, not significantly changed. ?? Compared to the baseline scan, decreased 3.4 %. ?? Total spine: Compared to the most recent scan, increased 3.2 %. Compared to the baseline scan, decreased 4.3 %. ?? Impression ? 1. Although the current measurements remain lower than the patient's baseline examination there has been a small increase in bone density when compared to the most recent study from 2008. ? 2. Normal by World Health organization criteria. _ Estimating Fracture Risk: The relationship between bone [...] BMD measurements and plots are available in Pull under the imaging tab. Paper copies will be sent to providers without Pull access. If you have received this report without the data sheet and do not have access to Pull, please contact Radiology Sales Analytics Manager at [phone] Thursday thru Thursday 8am-4pm. Procedure Note Floyd Moyer MD - 01/07/2013 Examination DXA CENTRAL-SPINE,HIP, AND/OR WHOLE BODY Clinical History Reason for exam and clinical history: 57 year olkd woman with history ofuse of aromatase inhibitor;last dexa 05/2009 Technique Scans were acquired at the lumbar spine, left hip. Findings Lowest T-score at a diagnostic region of interest: T-score: 0.1,SHITAL: Lumbar spine, WHO diagnosis: Normal ........Comparison......... Recent scan: 05/11/2009, Baseline scan: 03/28/2005 Total Hip: Compared to the most recent scan, not significantly changed. Compared to the baseline scan, decreased 3.4 %. Total spine: Compared to the most recent scan, increased 3.2 %. Compared to the baseline scan, decreased 4.3 %. Impression 1. Although the current measurements remain lower than the patient's baseline examination there has been a small increase in bone density when compared to the most recent study from 2008. 2. Normal by World Health organization criteria. _ Estimating Fracture Risk: The relationship between bone mineral density (BMD) and risk of fractureis well established. As BMD decreases, risk increases. Quantifying risk is difficult and is usually limited to estimation of the relative risk - aterm which may have limited value when trying to discuss an individual's risk. Estimating the absolute risk for a patient requires an understanding ofthe incidence rate in a given population and consideration of multiple,partially independent, risk factors in addition to BMD. The World Health Organization (WHO) has developed a fracture riskprediction tool that calculates a ten-year risk of major osteoporotic fracture basedon femoral neck bone density measurements and nine clinical risk factors for individuals who have not been treated for osteoporosis. This is available through an interactive web-based interface (http://www.shef.ac.uk/FRAX/)and can [...] associated with most risk factors. For example, thesignificant increase in risk associated with multiple prior fractures compared to asingle prior fracture is not taken into account. Similarly, the location of aprevious fracture, the amount of glucocorticoids and number of cigarettes smokedare not considered. These limitations are discussed in a Frequently AskedQuestions section of the FRAX website which you are encouraged to review. DEXA data sheets with BMD measurements and plots are available in E-DHunder the imaging tab. Paper copies will be sent to providers without E-DHaccess. If you have received this report without the data sheet and do not haveaccess to E-, please contact Radiology Sales Analytics Manager at [phone] Thursdaythru Thursday 8am-4pm. Noe Joel MD IMG DEXA ORDERABLES documented in this encounter Visit Diagnoses Diagnosis Malignant neoplasm of breast (female), unspecified site documented in this encounter Care Teams Staff Developer Relationship Specialty Start Date End Date Roxanne Dawn MD [address] [place] [address] PCP - General 04/30/10 documented as of this encounter
--- OUTSIDE RECORDS SUMMARY | 2024-03-17 18:03 | XMS_ITS | Encounter Summary ---
[place] [address] Care Team Providers Care Roaster Operator Name Role Phone Roxanne Dawn MD Primary Care Provider [phone] Encounter Details Date Type Department Care Team (Late st Contact Info) Description 12/04/2016 External Results [place]ematology [place] [phone] Celestina Hubbard Social History Tobacco Use Types Packs/Day Years [...] 04/25/2024 10:40 AM EST Appointment Mammography[place] [id number] Roxanne Dawn MD [address] [place] [address] documented as of this encounter Procedures Procedure Name Priority Date/Time Associated Diagnosis Comments COMPREHENSIVE METABOLIC PANEL Routine 12/02/2016 8:00 AM EDT documented in this encounter Results * (ABNORMAL) Comprehensive metabolic panel (non-fasting) (12/02/2016 8:00 AM EDT) Glucose 86([facility]) 70 - 100 Blood Urea Nitrogen 27(SILO WORKER AL/ABN) 7 - 18 Creatinine 0.76(Exte rnal Lab) 0.55 - 1.02 Est Glomerular Filtration Rate >60(Exter nal Lab) Sodium 141(Exter nal Lab) 136 - 145 Potassium 4.2(Exter nal Lab) 3.5 - 5.1 Chloride 103(Exter nal Lab) 98 - 107 Carbon Dioxide 30([facility]) 21 - 32 Calcium 9.2(Exter nal Lab) 8.5 - 10.1 Protein, Total 7.6(Exter nal Lab) 6.4 - 8.2 Albumin 4.5(Exter nal Lab) 3.4 - 5.0 Bilirubin, Total 0.51(Exte rnal Lab) 0.2 - 1.0 Alkaline Phosphatase 84([facility]) 46 - 116 Aspartate Aminotransferase 28([facility]) 15 - 37 Alanine Aminotransferase 36([facility]) 12 - 78 Blood specimen (specimen) 12/02/2016 8:00 AM EDT Historical Provider CHEMISTRY ORDERAB LES documented in this encounter Visit Diagnoses Not on filedocumented in this encounter Care Teams Roaster Operator Relationship Specialty Start Date End Date Roxanne Dawn MD [address] [place] [address] PCP - General 04/30/10 documented as of this encounter
--- OUTSIDE RECORDS SUMMARY | 2024-03-17 18:03 | XMS_ITS | Encounter Summary ---
Author Organization [place] [id number] Care Team Providers Care Salesperson Jewelry Name Role Phone Roxanne Dawn MD Primary Care Provider [phone] Encounter Details Date Type Department Care Team (Late st Contact Info) Description 11/24/2016 Orders Only Hematology [place] [phone] Noe Joel MD [facility] HEMATOLOGY/[place] [address] Neuroendocrine carcinoma of pancreas; Breast cancer, stage 2, right Social History [...] 04/25/2024 10:40 AM EST Appointment Mammography/[place] [phone] Roxanne Dawn MD [address] [place] [address] documented as of this encounter Results * (ABNORMAL) Comprehensive metabolic panel (non-fasting) (12/05/2016 8:53 AM EDT) Glucose 105 65 - 199 mg/dL [facility] Comment:Diabetes: >=200 mg/d L plus symptoms Blood Urea Nitrogen 24(H) 8 - 18 mg/dL [facility] Creatinine 0.86 0.70 - 1.20 mg/dL [facility] Comment: Please note that the pediatric reference intervals supplied above were not validated at [facility]. Results from pediatric patients should be interpreted in conjunction to the patient's age, height and muscle mass. Sodium 141 135 - 145 mmol/L [facility] Potassium 4.5 3.5 - 5.0 mmol/L [facility] Comment: Please note: ??Patients with WBC >100,000 may have falsely elevated Potassium levels. ??For accurate Potassium quantification in these patients send serum separator tube (gold top) for subsequent determinations. ??Contact the Clinical Chemistry Laboratory if there are any questions. Chloride 101 98 - 107 mmol/L [facility] Carbon Dioxide 27 22 - 31 mmol/L [facility] Anion Gap 13 5 - 15 mmol/L [facility] Calcium 9.9 8.5 - 10.5 mg/dL [facility] Protein, Total 7.6 6.1 - 8.0 gm/dL [facility] Albumin 4.7 3.2 - 5.2 gm/dL [facility] Aspartate Aminotransferase 15 0 - 30 unit/L [facility] Alanine Aminotransferase 24 0 - 30 unit/L [facility] Alkaline Phosphatase 74 40 - 104 unit/L [facility] Bilirubin, Total 0.4 0.2 - 1.3 mg/dL [facility] Bilirubin, Direct 0.1 0.0 - 0.3 mg/dL [facility] Est Glomerular Filtration Rate >60 >=60 [facility] Comment: This estimated GFR (eGFR) [...] the following links into your internet browser. http://[facility]/DHnkdep [email or web address] Blood specimen (specimen) 12/05/2016 8:53 AM EDT 12/05/2016 8:57 AM EDT Narrative Resulting Agency Comment Spec In Lab Noe Joel MD CHEMISTRY ORDERABLES [facility] [place] [address] documented in this encounter Visit Diagnoses Diagnosis Neuroendocrine carcinoma of pancreas Malignant carcinoid tumor of other sites Breast cancer, stage 2, right documented in this encounter Care Teams Salesperson Jewelry Relationship Specialty Start Date End Date Roxanne Dawn MD [address] [place] [address] PCP - General 04/30/10 documented as of this encounter
--- OUTSIDE RECORDS SUMMARY | 2024-03-17 18:03 | XMS_ITS | Encounter Summary ---
Author Organization [facility] Address [facility] [place] [address] Care Team Providers Care Farm Worker Name Role Phone Roxanne Dawn MD Primary Care Provider [phone] Reason for Visit * Reason Comments Skin Lesion * Consultation (Routine) - Closed Specialty Diagnoses / Procedures Referred By Bryan cai Referred To Contact Dermatology Diagnoses Malignant neoplasm of right breast, stage 2 Noe Joel MD [facility] HEMATOLOGY/[place] [address] [facility] Dermatology [address] [place] [address] Referral ID Status Reason Start Date Expiration Date V isits Requested Visits Authorized [id number] Closed Consult, Test & Treat 02/02/2018 02/02/2019 1 1 Encounter Details Date Type Department Care Team (Late st Contact Info) Description 03/11/2018 9:00 AM EDT Office Visit Dermatology at [facility] [address] [place] [address] Gal Greenfield MD [facility] [address] [place] [address] Seborrheic keratoses; Dermal nevi; AKs (actinic keratoses); Solar lentigo; Notalgia paresthetica; Subungual hematoma of digit of hand; Stucco keratoses Social History Tobacco Use Types Packs/Day Years Used Date Smoking Tobacco: Never Smokeless Tobacco: Never Alcohol Use Standard Drinks/Week Comments Yes 0 (1 standard drink = 0.6 oz pur e alcohol) Sex and Gender Information Value Date Recorded Sex Assigned at Not on file Gender Identity Not on file Sexual Orientation Not on file documented as of this encounter Patient Instructions * Patient Instructions* Sarah Kong - 03/11/2018 9:00 AM EDT Actinic Keratoses You have been diagnosed today with Actinic Keratosis (AK). These dry, scaly patches are considered the earliest stage in the development of skin cancer. In rare cases, an AK can progress to skin cancer. Because of this risk, AKs are usually treated. You were treated today with Liquid Nitrogen. This is the most common treatment for AKs. Liquid nitrogen is extremely cold, and freezes the surface of the skin, causing the lesion to flake off. Treatment with liquid nitrogen can be uncomfortable, but discomfort should subside after a couple of hours. The area treated will look red and irritated, and it may blister up or turn dark, then fall off. This is normal! You do not need any special treatment for the area, but you may find cold compresses and/or a lightapplication of Vaseline soothing. For best results, do not rub or pick at the healing lesion. Expected healing time is 3-4 weeks. Please contact the Dermatology clinic at [phone] if the lesion has not fully resolved after 6 weeks. documented in this encounter Progress Notes * Gal Greenfield - 03/11/2018 9:00 AM EDT Images from the original note were not included. DERMATOLOGY - NEW PATIENT NOTE Date of service: 03/11/2018 Serenity Cummings : 1955, 62 y.o. Chief Complaint: Chief Complaint Patient presents with ??? Skin Lesion HPI: Serenity Cummings is a 62 y.o. female referred by Noe Joel with the following concerns: Patient is here for a full skin exam with concerns about spots on her legs that have been there fora few years. They crust up and become inflamed but never seem to go away. Otherwise, no other concerning lesions . Relevant Skin History: - Okay to leave detailed message with results? 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 HUMALOG KWIKPEN 100 unit/mL Insulin Pen Inject 1-4 Units subcutaneously 4 times daily as neededfor High Blood Sugar. 15 mL 12 ??? estradiol (ESTRACE) 0.01 % (0.1 mg/gram) Cream Apply a montemayor-sized amount of cream twice weekly as needed 42.5 g 0 ??? insulin needles, disposable, 31 gauge x 5/16 Needle Inject 1 each subcutaneously 2 times daily. ??? FREESTYLE LANCETS 28 gauge Misc 1 each by Other route 2 times daily. 0 ??? FREESTYLE LITE STRIPS 1 strip by Other route 2 times daily. 0 ??? levothyroxine (SYNTHROID) 112 mcg Tablet Take 1 tablet by mouth daily. 90 tablet 3 ??? insulin glargine (LANTUS SOLOSTAR) Insulin Pen Inject 2-5 Units subcutaneously every morning. ??? cholecalciferol, Vitamin D3, (VITAMIN D) 1,000 unit Tablet Take 1,000 Units by mouth daily. ??? ALCAFTADINE (LASTACAFT OPHT) Apply to eye daily as needed. ??? ketotifen (ANTIHISTAMINE EYE DROPS) 0.025 % ophthalmic solution 1 drop as needed. Reported on 12/05/2016 No current facility-administered medications for this visit. Allergies: Allergies Allergen Reactions ??? Prochlorperazine Other (See Comments) Extrapyramidal reaction ??? Dronabinol Other (See Comments) Shakes, Diarrhea, Bad Trip ??? Levofloxacin Other (See Comments) Leukopenia Review of Systems: - General: Feels well. - Skin: No other skin concerns. Examination: - Constitutional: Patient was alert, well-appearing and in no noticeable distress. - Skin: A full body skin exam was performed. This includes examination of the skin of the face, ears, scalp, neck, chest, axillae, back, abdomen, left and right upper and lower extremities, hands, and feet. The genitalia were not examined. Diagnosis/Skin findings/Assessment/Plan: 1. Actinic keratoses -0.2-0.3cm scaly irregular pink papules on the right forearm x1, right cheek x1. - Discussed the natural history and etiology of actinic keratoses including the premalignent potential of these lesions. -Discussed treatment options. Procedure Note: Procedure: Destruction of lesions with cryotherapy. Number: 2 Location: as above Discussed procedure and expectations including risks (including risk of hypopigmentation) and benefits. Verbal consent obtained. Frozen with LN2, 15-30 second thaw time, TWICE. There were no complications; the patient tolerated the procedure well. Post-procedure expectations and wound care were reviewed. 2. Dermal nevi -3mm skin-colored papules on the left cheek x2 -patient reassured -advised the pt to monitor nevi monthly and if they are growing, changing color, or new lesions appear pt should call back to be seen before there next FBSE 3. Notalgia paresthetica -Pruritic patch overlying right shoulder blade -Explained that this is a very common and underdiagnosed condition that arises usually on one side of the back, often in the area just below the shoulder blade. Visible changes are a results of rubbing and scratching the areas, including hyper or hypopigmentation and LSC. Cases are usually idiopathic, though patients may admit to a history of back injury, shingles, severe sunburns, or myelopathy.Treatment is usually unnecessary and is not always successful, but if requested, patients may be offered OTC Sarna lotion which contains camphor and menthol (refridgerated), capsaicin cream, or local anesthetic creams. Oral agents like gapabentin, pregabalin, or a tricyclic at night might be beneficial. -Recommend OTC Sarna Lotion, refrigerated. -Information provided from [employer] [place]. 4. Subungual hematoma -first digit of right hand -patient reassured 5. Solar lentigines -scattered light brown 3-6mm macules on the upper back, chest, BL arms and BL lower extremities 6. Stucco keratoses -on the lower legs/ankles are white 2-3mm gritty stuck on papules ??-reassured of the benign nature of these lesions. No treatment needed.?? ?-Rx: Trial of 12% amlactin BID to reduce scaling 7. Seborrheic keratoses -Scattered yellow to manzanares stuck on papules 3-6 mm in size on chest, back, arms, and legs -benign nature of lesions discussed -patient reassured RTC: 1-2 years for FSE. Routed for scheduling. Note initiated by Marilee Oneill LPN. I, Sarah Kong, have performed the documentation for this encounter in the presence of and acting as a scribe for Gal Greenfield MD. I performed the above scribed service and agree with the accuracy of the documentation in this encounter. Reviewed and signed by Gal Greenfield MD Resident in Dermatology [facility] Patient seen in conjunction with staff javascript developer: Lorena Basilio MD Section of Dermatology [facility] * Lorena Basilio MD - 03/11/2018 9:00 AM EDT I directly supervised Dr. Greenfield during this office visit. Dr. Greenfield presented the history and physical exam to me. I then saw and examined this patient with Dr. Greenfield. We reviewed the history and pertinent details and I confirmed the physical findings. I agree with the details of the history and physical exam as documented in Dr. Greenfield' note. Lorena Basilio MD Staff Physician documented in this encounter Plan of Treatment Upcoming Encounters Date Type Department Care Team (Late st Contact Info) Description 04/25/2024 10:40 AM EST Appointment Mammography[place] [address] Roxanne Dawn MD [address] [address] Scheduled Referrals Name Type Priority Associated Diagnoses Order Schedule Referral to Dermatology Outpatient Referral Routine Malignant neoplasm of right breast, stage 2 Ordered: 02/02/2018 documented as of this encounter Visit Diagnoses Diagnosis Seborrheic keratoses Other seborrheic keratosis Dermal nevi Benign neoplasm of skin, site unspecified AKs (actinic keratoses) Actinic keratosis Solar lentigo Other dyschromia Notalgia paresthetica Disturbance of skin sensation Subungual hematoma of digit of hand Stucco keratoses documented in this encounter Care Teams Farm Worker Relationship Specialty Start Date End Date Roxanne Dawn MD [address] [place] [address] PCP - General 04/30/10 documented as of this encounter
--- OUTSIDE RECORDS SUMMARY | 2024-03-17 18:03 | XMS_ITS | Encounter Summary ---
Author Organization [facility] [place] [address] Care Team Providers Care System Sales Consultant Name Role Phone Roxanne Dawn MD Primary Care Provider [phone] Reason for Visit * Reason Comments Diabetes Encounter Details Date Type Department Care Team (Latest Contact Info) Description 02/02/2018 1:00 PM EDT Office Visit [place] [address] Shyla Garber MD [facility] [place] [address] Controlled type 2 diabetes mellitus without complication, with long-term current use of insulin; Other specified hypothyroidism; Vitamin D deficiency; Mixed hyperlipidemia Social History Tobacco Use Types Packs/Day Years [...] Sign Reading Time Taken Comments Blood Pressure 125/72 02/02/2018 1:01 PM EDT Pulse 78 02/02/2018 1:01 PM EDT Temperature - - Respiratory Rate - - Oxygen Saturation - - Inhaled Oxygen Concentration - - Weight 74.8 kg (164 lb 12.8 oz) 02/02/2018 1:01 PM EDT Height 175.3 cm (5' 9) 02/02/2018 1:01 PM EDT Body Mass Index 24.34 02/02/2018 1:01 PM EDT documented in this encounter Patient Instructions * Patient Instructions* Shyla Garber MD - 02/02/2018 1:00 PM EDT Results for KATE PRIDE ( ) as of 02/02/2018 Ref. Range 05/07/2017 11:08 05/07/2017 11:16 02/02/2018 11:16 02/02/2018 11:58 Glucose Lvl Range: 65 - 199 mg/dL 108 Hemoglobin A1C Range: 4.3 - 5.6 % 5.8 (H) 6.1 (H) Est Avg Gluc Latest Units: mg/dL 120 128 25-OH Vit D Total Range: 30 - 100 ng/mL 31 Chol, Total Latest Units: mg/dL 249 (H) 210 HDL Latest Units: mg/dL 61 50 Chol/HDL Ratio Latest Units: ratio 4.1 4.2 Triglycerides Latest Units: mg/dL 157 226 LDL Cholesterol Latest Units: mg/dL 157 115 Lipid Interpretation Unknown See Note See Note Thyroperox Ab Range: <=34 IU/mL 50 (H) TSH Range: 0.27 - 4.20 mlU/ML 4.56 (H) 0.30 C-Peptide Range: 0.8 - 5.2 ng/mL 2.8 Alb/Cr Ratio, Random 0 - 29 mcg/mg Cr Not Calculated U Albumin Conc Latest Units: mg/L <3.0 Recommendation: 1. Medication: Patient will continue lantus very low dose 3-5 units to keep fasting BG 90-140 range. To decrease levothyroxine from 112 to 1 tab and 0.5 tab on Thursday with lower [...] this goal. 5. Lab: to check lab in 6 mo for A1c, TSH, fasting lipids, 25vitamin D and annual urine microalbumin/Cr ratio. 6. RTC: Next visit in 6 months so we can help adjust DM medication regimen further. 7. To see Mahsa Orosco RD, CDE today as scheduled for medical nutritional therapy. documented in this encounter Progress Notes * Shyla Garber MD - 02/02/2018 1:00 PM EDT Diabetes Follow-up Note Date : 02/02/2018 Patient: Name: Kate Pride : 1955 PCP: Roxanne Dawn MD Reason for Follow-up: type 2 DM, hypothyroid and dyslipidemia Brief History of Present Illness: Kate Pride is a very pleasant 62 y.o. female with the following problem list: [...] pancreatic insufficiency K86.89, E08.65 In May 2016, Kate Pride was first diagnosed with type 2 diabetes [...] alterna tive since last A1c in November 2016 was excellent at 5.7% which is amazing. A1c is trending up slightly to 6.1% still ok today. 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 Most recent HbA1c was done on 12/02/16 and was 5.7% => 6.1% today, suggesting an average glucose of 125 mg/dL for the past 8 weeks. Typical [...] polydipsia Endocrine: + thyroid problems on LT4 Eyes: No recent vision change ENT: No [...] Visit Medication Sig Dispense Refill ??? insulin aspart (NOVOLOG) Insulin Pen Inject 3 Units subcutaneously as needed. ??? insulin needles, disposable, 31 gauge x [...] find the least necessary 42.5 g 2 ??? ketotifen (ANTIHISTAMINE EYE DROPS) 0.025 % ophthalmic solution 1 drop as needed. Reported on 12/05/2016 No current facility-administered medications on file prior [...] Breast Cancer Neg Hx Physical Exam BP 125/72 Pulse 78 Ht 175.3 cm (5' 9) Wt 74.8 kg (164 lb 12.8 oz) BMI 24.34 kg/m2 Appearance: Patient is very pleasant 62 y.o. female, obese, clinically euthyroid, not in [...] normal. No foot ulcer. Psych: normal affect *most of the time was spent on counseling today RECENT LABS: Results for KATE PRIDE ( ) as of 02/02/2018 Ref. Range 05/07/2017 11:08 05/07/2017 11:16 02/02/2018 11:16 02/02/2018 11:58 Glucose Lvl Range: 65 - 199 mg/dL 108 Hemoglobin A1C Range: 4.3 - 5.6 % 5.8 (H) 6.1 (H) Est Avg Gluc Latest Units: mg/dL 120 128 25-OH Vit D Total Range: 30 - 100 ng/mL 31 Chol, Total Latest Units: mg/dL 249 (H) 210 HDL Latest Units: mg/dL 61 50 Chol/HDL Ratio Latest Units: ratio 4.1 4.2 Triglycerides Latest Units: mg/dL 157 226 LDL Cholesterol Latest Units: mg/dL 157 115 Lipid Interpretation Unknown See Note See Note Thyroperox Ab Range: <=34 IU/mL 50 (H) TSH Range: 0.27 - 4.20 mlU/ML 4.56 (H) 0.30 C-Peptide Range: 0.8 - 5.2 ng/mL 2.8 Alb/Cr Ratio, Random 0 - 29 mcg/mg Cr Not Calculated U Albumin Conc Latest Units: mg/L <3.0 Impression: Kate Pride has excellent control of recently diagnosed distal pancreatectomy-related diabetes with much better A1c down from >9% at diagnosis in May 2016 to 5.7-6.1%% since November 2016 on lowering dose of lantus only 3-5u qAM. So she is out of glucotoxicity but unable to taper off insulin and only 3- 5u of lantus seems to help. If BG is high, we may consider glipizide or glimiperide low dose in the future as she had severe GI side effects with metformin. She is eating much better and lost 4 lbs over 9 mo with better BG and lipid control which is excellent. We discussed at length about DM and the cause, effects of food on BG control and carb counts for medical nutritional therapy again today. Recommendation: 1. Medication: Patient will continue lantus very [...] this goal. 5. Lab: to check lab in 6 mo for A1c, TSH, fasting lipids, 25vitamin D and annual urine microalbumin/Cr ratio. 6. RTC: Next visit in 6 months so we can help adjust DM medication regimen further. 7. To see Mahsa Orosco RD, JOAOE today as scheduled for medical nutritional therapy. We have reviewed [...] PhD, FACE, FACP CC: Roxanne Dawn MD Addendum 02/10/18: Email communication in eD Yes, absolutely and ok to use short-acting insulin if your BG remains high 4h after meals especially if it's >200. You used the Novolog flexpen before so I will efax to your [facility] now. Ok to use Humalog or Novolog pen as needed before meals or at bedtime for high BG >180 based on1U:40 BG - ok to use sensitive sliding scale below: BG 180-219 give Novolog 1 unit BG 220-259 give Novolog 2 units BG 260-300 give Novolog 3 units BG >300,?give Novolog 4 units. ----- Message ----- ? From: Kate Pride ? Sent: 02/10/2018 10:08 AM EDT ? To: SHYLA GARBER MD Subject: Medication Question Hello Dr. Daley, I am thinking I should renew the short acting novolog. I currently do not have a pen. My blood sugars , after being so good, have gone whacky, they have gone between 265 , 3 hours aftermeal to 125, fasting. (Instead of the 115 as the usual in the morning.)?The other night I woke up drenched in sweat, dizzy when I got up and my sugar was up to 265. As I understand it - that is not a dangerous sugar level, not sure about the extreme sweating.... and dizzyness. I am a bit puzzled because I have not radically changed mydiet and my sugars had been so good before. Anyway - do you think I should have a novolog pen for just in case. I think I would have given myself some that night. Would I have been correct? My [email or web address] in [place], [place]. Thanks for your consideration. Kate Pride documented in this encounter Plan of Treatment Upcoming Encounters Date Type Department Care Team (Late st Contact Info) Description 04/25/2024 10:40 AM EST Appointment Mammography/[place] [address] Roxanne Dawn MD [address] [place] [address] documented as of this encounter Visit Diagnoses Diagnosis Controlled type 2 diabetes mellitus without complication, with long-term current use of insulin Other specified hypothyroidism Vitamin D deficiency Unspecified vitamin D deficiency Mixed hyperlipidemia documented in this encounter Care Teams System Sales Consultant Relationship Specialty Start Date End Date Roxanne Dawn MD [address] [place] [address] PCP - General 04/30/10 documented as of this encounter
--- OUTSIDE RECORDS SUMMARY | 2024-03-17 18:03 | XMS_ITS | Encounter Summary ---
Author Organization [facility] [place] [address] Care Team Providers Care Sand Mill Grinder Name Role Phone Roxanne Dawn MD Primary Care Provider [phone] Reason for Visit * Reason Onset Date Comments Medication Refill 02/22/2018 Encounter Details Date Type Department Care Team (Late st Contact Info) Description 02/22/2018 Refill [place] [address] Shyla Garber MD [facility] [place] [address] Social History Tobacco Use Types Packs/Day Years [...] encounter Miscellaneous Notes * Telephone Encounter - Mustapha, JUSTINO Jain - 02/22/2018 9:00 AM EDT Images from the original note were not included. ----- Message ----- ? From: Jerri Knott ? Sent: 02/18/2018 ??11:57 AM ? To: Shyla Garber MD ? Conversation: Prior Authorization (Newest Message First) Shyla Garber MD to Jerri Knott ??? [facility] Endocrinology Nurse ?? 02/18/18 11:32 PM Susy, please help switch to the preferred insulin (Humalog pen). Thanks! SHYLA GARBER MD ? 02/18/18 11:57 AM Jerri Knott routed this conversation to Shyla Garber MD Dyer, Rebecca K ?? 02/18/18 11:57 AM Note REC'D PA FOR PATIENT'S NOVOLOG FLEXPEN HUMALOG IS PREFERRED documented in this encounter Plan of Treatment Upcoming Encounters Date Type Department Care Team (Late st Contact Info) Description 04/25/2024 10:40 AM EST Appointment Mammography/[place] [address] Roxanne Dawn MD [address] [place], [place] [address] documented as of this encounter Visit Diagnoses Not on filedocumented in this encounter Care Teams Sand Mill Grinder Relationship Specialty Start Date End Date Roxanne Dawn MD [address] [place], [place] [address] PCP - General 04/30/10 documented as of this encounter
--- OUTSIDE RECORDS SUMMARY | 2024-03-17 18:03 | XMS_ITS | Encounter Summary ---
Author Organization [facility] [place] [address] Care Team Providers Care Dock Clerk Name Role Phone Roxanne Dawn MD Primary Care Provider [phone] Encounter Details Date Type Department Care Team (Late st Contact Info) Description 02/02/2018 1:30 PM EDT Office [place] [address] [place] [address] Type 2 diabetes mellitus without complication, unspecified whether prison insulin use Social History Tobacco Use Types Packs/Day Years Used Date Smoking Tobacco: Never Smokeless Tobacco: Never Alcohol Use Standard Drinks/Week Comments Yes 0 (1 standard drink = 0.6 oz pur e alcohol) Sex and Gender Information Value Date Recorded Sex Assigned at Not on file Gender Identity Not on file Sexual Orientation Not on file documented as of this encounter Progress Notes * Mahsa Orosco LD - 02/02/2018 1:30 PM EDT Diabetes and Nutrition Note Serenity Cummings is a 62 y.o. female with controlled T2 Diabetes. Pt is here today to discuss lifestyle changes for healthy living. Discussed carb counting 30-45g carb per meal Discussed healthy eating Discussed building muscle Discussed exercise 60min/day Recent Labs 02/02/18 1158 05/07/17 1108 HA1C 6.1* 5.8* Vitals 02/02/2018 SYSTOLIC 125 DIASTOLIC 72 BP Location PULSE 78 TEMPERATURE RESPIRATIONS Height (Peruvian) 5' 9 Height (Metric) 175.3 cm Weight (Peruvian) 164 lbs 13 oz Weight (Metric) 74.753 kg BODY MASS INDEX 24.34 kg/m2 Pulse Oximetry BSA 1 hour spent on MNT documented in this encounter Plan of Treatment Upcoming Encounters Date Type Department Care Team (Late st Contact Info) Description 04/25/2024 10:40 AM EST Appointment Mammography/[place] [address] Roxanne Dawn MD [address] [place], [place] [id number] documented as of this encounter Visit Diagnoses Diagnosis Type 2 diabetes mellitus without complication, unspecified whether supervisor intermediates insulin use documented in this encounter Care Teams Dock Clerk Relationship Specialty Start Date End Date Roxanne Dawn MD [address] [place] [id number] PCP - General 04/30/10 documented as of this encounter
--- OUTSIDE RECORDS SUMMARY | 2024-03-17 18:03 | XMS_ITS | Encounter Summary ---
[place] [address] Care Team Providers Care Dietary Aide Teacher Name Role Phone Roxanne Dawn MD Primary Care Provider [phone] Encounter Details Date Type Department Care Team (Latest Contact Info) Description 12/04/2015 2:45 PM EDT - 12/04/2015 11:59 PM EDT Hospital Encounter H[place] [address] Breast cancer, stage 2, right; Vitamin D deficiency Discharge Disposition: Home Social [...] 04/25/2024 10:40 AM EST Appointment Mammography/DXA at [facility] [place] [address] Roxanne Dawn MD [address] [place] [address] documented as of this encounter Procedures Procedure Name Priority Date/Time Associated Diagnosis Comments VITAMIN D, 25-HYDROXY Routine 12/04/2015 2:51 PM EDT Vitamin D deficiency HEPATIC FUNCTION PANEL STAT 12/04/2015 2:51 PM EDT Breast cancer, stage 2, right documented in this encounter Results * (ABNORMAL) VIT D Total Evaluation (12/04/2015 2:51 PM EDT) Vitamin D Total 25 OH 29(L) 30 - 100 ng/mL [facility] [...] be considered to be insufficient or deficient. [email or web address].Arvirago/[facility] ADAnatlkidneyfoundation http://Enclarity/[facility] – ADAVitD The IDS iSYS Vitamin D Immunoassay detects both 25-OH Vitamin D2 and 25-OH Vitamin D3, but only a total Vitamin D concentration is reported. Blood specimen (specimen) 12/04/2015 2:51 PM EDT 12/04/2015 3:03 PM EDT Narrative Resulting Agency Comment Spec In Lab Noe Joel MD CHEMISTRY ORDERABLES [facility] [place] [address] * (ABNORMAL) Hepatic Function Panel (12/04/2015 2:51 PM EDT) Protein, Total 7.6 6.1 - 8.0 gm/dL [facility] Albumin 5.0 3.2 - 5.2 gm/dL [facility] Aspartate Aminotransferase 39(H) 0 - 30 unit/L [facility] Alanine Aminotransferase 72(H) 0 - 30 unit/L [facility] Alkaline Phosphatase 64 40 - 104 unit/L [facility] Bilirubin, Total 0.6 0.2 - 1.3 mg/dL [facility] Bilirubin, Direct 0.1 0.0 - 0.3 mg/dL [facility] Blood specimen (specimen) 12/04/2015 2:51 PM EDT 12/04/2015 3:04 PM EDT Narrative Resulting Agency Comment Spec In Lab Noe Joel MD CHEMISTRY ORDERABLES [facility] [place] [address] documented in this encounter Visit Diagnoses Diagnosis Breast cancer, stage 2, right Vitamin D deficiency Unspecified vitamin D deficiency documented in this encounter Care Teams Dietary Aide Teacher Relationship Specialty Start Date End Date Roxanne Dawn MD [address] [place] [address] PCP - General 04/30/10 documented as of this encounter
--- OUTSIDE RECORDS SUMMARY | 2024-03-17 18:03 | XMS_ITS | Encounter Summary ---
Author Organization [facility] [address] [place] [id number] Care Team Providers Care Rehabilitation Construction Specialist Name Role Phone Roxanne Dawn MD Primary Care Provider [phone] 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 * Consultation (Routine) - Closed Specialty Diagnoses / Procedures Referred By Contac t Referred To Contact Endocrinology Diagnoses Type 2 diabetes mellitus without complication, with long-term current use of insulin Noe Joel MD [facility] DR HEMATOLOGY/[place] [address] [facility] [place] [address] Referral ID Status Reason Start Date Expiration Date V isits Requested Visits Authorized [id number] Closed Consult, Test & Treat 12/05/2016 12/05/2017 1 1 Reason for Visit * Reason Comments Follow-up Encounter Details Date Type Department Care Team (Late st Contact Info) Description 12/05/2016 1:30 PM EDT Office Visit Hematology [place] [address] [facility] HEMATOLOGY/[place] [address] Breast cancer, stage 2, right; Type 2 diabetes mellitus without complication, with long-term current use of insulin Social History Tobacco Use Types Packs/Day Years [...] Sign Reading Time Taken Comments Blood Pressure 112/62 12/05/2016 1:23 PM EDT Pulse 78 12/05/2016 1:23 PM EDT Temperature 36.2 ??C (97.2 ??F) 12/05/2016 1:23 PM ED T Respiratory Rate 18 12/05/2016 1:23 PM EDT Oxygen Saturation 100% 12/05/2016 1:23 PM EDT Inhaled Oxygen Concentration - - Weight 72.8 kg (160 lb 6.4 oz) 12/05/2016 1:23 P M EDT Height 174 cm (5' 8.5) 12/05/2016 1:23 PM EDT Body Mass Index 24.03 12/05/2016 1:23 PM EDT documented in this encounter Patient Instructions * Patient Instructions* Noe Joel MD - 12/05/2016 1:30 PM EDT The exam and mammograms look good to me and I will email you when I get the report on the mammograms. You do not have a recurrent pancreas tumor. The pmo analyst I will send you to is Shyla Garber We will get back together in one year with mammograms the same day. Contact me if you have any concerns over your breast exam. documented in this encounter Progress Notes * Noe Joel MD - 12/05/2016 1:30 PM EDT Subjective: Patient ID: Serenity Cummings is a 61 y.o. female with Stage II breast cancer, [...] distal pancreatectomy on April 03, 2008. She has elevation of her transaminases thought secondary to hepatic steatosis since the surgery. She was diagnosed with diabetes in May 2016 with a hemoglobin A1c of greater than 9. I do not have labs from the time of diagnosis and I do not know if she was ketotic, but she was given a brieftrial of metformin, so I presume that she was not. Her C-peptide was not elevated. She did not tolerate the metformin, and she was converted to insulin shortly thereafter. She has lost 25 pounds and her hemoglobin A1c is now down to 5.7 on 7 units of Lantus daily. Her morning sugars are usually about 90, and she occasionally has symptomatic hypoglycemia. Her post-dinner sugars are between 90 and 140. Serenity has morning back pain which persists for about an hour after getting out of bed, and the pain sometimes radiates down the back of her left leg. She has left-sided flank pain about twice a month.She also has occasional rectal pain. She has several headaches a week as well as visual migraines. She denies any other sites of pain. She has atrophic vaginitis, which she manages with topical vaginal estrogen about once or twice a month. She denies any vaginal bleeding, and she last had a pelvic exam in August of 2015. She has frequent hot flashes which do not disturb her. Review of Systems She denies breast pain or a palpable breast mass, a cough, shortness of breath, chest pain, nausea,vomiting, diarrhea, constipation, double vision, or pain, redness, or swelling in her lower extremities. The remainder of her review of systems is negative. Objective: Physical Exam Constitutional: She appears well-developed and well-nourished. Her weight is down 7.8 kg over the past year, and her BP is 112/62. HENT: Mouth/Throat: Oropharynx is clear and moist. [...] architectural distortion. The breast is heterogeneously dense. Today's CT of the abdomen shows a stable 3.0 cm cystic focus is seen in the posterior right lobe ofthe liver, and no suspicious hepatic lesions. She is post distal pancreatectomy. The remaining pancreatic neck, head, and uncinate process are normal. There are noenhancing lesions to suggest neoplasm recurrence. There are no suspicious osseous lesions. The most recent Dexa scan from January 06, 2013 was normal, with T scores of -0.1 in the lumbar spine(up from -0.2 in May 2009), 0.5 in the left hip (up from 0.3 in May 2009), and 0.3 in theleft femoral neck (down from 0.5 in May 2009). Recent Results (from the past 24 hour(s)) Comprehensive metabolic panel (non-fasting) Result Value Ref Range Glucose Lvl 105 65 - 199 mg/dL BUN 24 (H) 8 - 18 mg/dL Creatinine 0.86 0.70 - 1.20 mg/dL Sodium 141 135 - 145 mmol/L Potassium 4.5 3.5 - 5.0 mmol/L Chloride 101 98 - 107 mmol/L CO2 27 22 - 31 mmol/L Anion Gap 13 5 - 15 mmol/L Calcium 9.9 8.5 - 10.5 mg/dL Total Protein 7.6 6.1 - 8.0 gm/dL Albumin 4.7 3.2 - 5.2 gm/dL AST 15 0 - 30 unit/L ALT 24 0 - 30 unit/L Alk Phos 74 40 - 104 unit/L Total Bilirubin 0.4 0.2 - 1.3 mg/dL Bili, Direct 0.1 0.0 - 0.3 mg/dL Estimated GFR >60 >=60 Assessment and Plan: Serenity is doing well and she has no evidence of breast cancer recurrence, 16 years out from diagnosisof a Stage II invasive lobular carcinoma. She received adjuvant chemotherapy plus extended adjuvantendocrine therapy for ten years. She has lost 25 pounds and her liver enzymes have normalized, which confirms that the elevation in the transaminases was due to steatohepatitis. 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 She has requested a second opinion with an pmo analyst here regarding management of her diabetes, and I will arrange this for her. I will see her next in followup in one year, and I will repeat her mammograms at that time. She knows to contact me in the interim if she has any concerns about her breast exam. I will repeat the Dexa scan in 2019. Noe Joel MD vehicle insurance agent in Hematology-Oncology documented in this encounter Plan of Treatment Upcoming Encounters Date Type Department Care Team (Late st Contact Info) Description 04/25/2024 10:40 AM EST Appointment Mammography/[place] [address] Roxanne Dawn MD [address] [place], [place] [address] Scheduled Referrals Name Type Priority Associated Diagnoses Order Schedule Referral to Endocrinology Outpatient Referral Routine Type 2 diabetes mellitus without complication, with long-term current use of insulin Ordered: 12/05/2016 documented as of this encounter Results * Mammo Screen CAD and Collin Left (Generic) (02/02/2018 11:16 AM EDT) Anatomical [...] No mammographic evidence of malignancy. RECOMMENDATION: [employer] and The Society of [...] Diagnoses Diagnosis Breast cancer, stage 2, right Type 2 diabetes mellitus without complication, with long-term current use of insulin Breast cancer, stage 2, right documented in this encounter Care Teams Rehabilitation Construction Specialist Relationship Specialty Start Date End Date Roxanne Dawn MD [address] [place] [address] PCP - General 04/30/10 documented as of this encounter
--- OUTSIDE RECORDS SUMMARY | 2024-03-17 18:03 | XMS_ITS | Encounter Summary ---
Author Organization [facility] Address [facility] [place] [address] Care Team Providers Care Cooling Machine Operator Name Role Phone Roxanne Dawn MD Primary Care Provider [phone] Encounter Details Date Type Department Care Team (Latest Contact Info) Description 12/05/2016 12:28 PM EDT - 12/05/2016 11:59 PM EDT Hospital En[place] [address] Noe Joel MD [facility] HEMATOLOGY/ON[place] [address] Breast cancer, stage 2, right Discharge Disposition: [...] Sig Dispensed Refills Start Date End Date cholecalciferol (Vitamin D3) 1,000 unit Tablet Take 1,000 Units by mouth daily. ALCAFTADINE (LASTACAFT OPHT) Apply to eye daily as needed. ketotifen (Zaditor) 0.025 % (0.035 %) Drops 1 drop as needed. Reported on 12/05/2016 insulin aspart (NOVOLOG) Cartridge Inject subcutaneously 3 times daily (with meals). 05/07/2017 insulin glargine (LANTUS SOLOSTAR) Insulin Pen Inject 2-5 Units subcutaneously every morning. 05/12/2018 levothyroxine (SYNTHROID) 100 mcg tabletIndications:H ypothyroidism Take 1 tablet by mouth daily. 180 tablet 3 11/18/2013 05/07/2017 estradiol (ESTRACE) 0.01 % (0.1 mg/gram) vaginal creamIndications:At [facility] vaginitis Apply a montemayor-sized amount of cream once daily x 2 wks, then every other day for 2 wks, then every 3rd day til you find the least necessary 42.5 g 2 11/18/2013 02/02/2018 documented as of this encounter Plan of Treatment Upcoming Encounters Date Type Department Care Team (Late st Contact Info) Description 04/25/2024 10:40 AM EST Appointment Mammography/[place] [address] Roxanne Dawn MD [address] [place] [address] documented as of this encounter Procedures Procedure Name Priority Date/Time Associated Diagnosis Comments MAMMO SCREENING CAD AND NATHANAEL LEFT Routine 12/05/2016 12:54 PM EDT Breast cancer, stage 2, right [...] screening. BI-RADS Category 1: Negative * ??[employer] of [...] appropriate. Noe Joel MD IMG MAMMO ORDERABLES documented in this encounter Visit Diagnoses Diagnosis Breast cancer, stage 2, right documented in this encounter Care Teams Cooling Machine Operator Relationship Specialty Start Date End Date Roxanne Dawn MD [address] [place] [address] PCP - General 04/30/10 documented as of this encounter
--- OUTSIDE RECORDS SUMMARY | 2024-03-17 18:03 | XMS_ITS | Encounter Summary ---
[place] [address] Care Team Providers Care Quarter Section Ironer Name Role Phone Roxanne Dawn MD Primary Care Provider Encounter Details Date Type Department Care Team (Late st Contact Info) Description 11/25/2016 Orders Only Hematology [place] [address] Trista Thomas Social History Tobacco Use Types Packs/Day Years [...] 04/25/2024 10:40 AM EST Appointment Mammography/[place] [address] Roxanne Dawn MD [address] [place], [place] [id number] documented as of this encounter Visit Diagnoses Not on filedocumented in this encounter Care Teams Quarter Section Ironer Relationship Specialty Start Date End Date Roxanne Dawn MD [address] [place] [address] PCP - General 04/30/10 documented as of this encounter
--- OUTSIDE RECORDS SUMMARY | 2024-03-17 18:03 | XMS_ITS | Encounter Summary ---
[place] [address] Care Team Providers Care Sales Office Coordinator Name Role Phone Roxanne Dawn MD Primary Care Provider [phone] Encounter Details Date Type Department Care Team (Late st Contact Info) Description 12/25/2011 10:29 AM EDT - 12/25/2011 11:59 PM EDT Hospital Encounter Hematology [place] [phone] Social History Tobacco Use Types Packs/Day Years [...] 04/25/2024 10:40 AM EST Appointment Mammography[place] [phone] Roxanne Dawn MD [address] [place], [place] [id number] documented as of this encounter Visit Diagnoses Not on filedocumented in this encounter Care Teams Sales Office Coordinator Relationship Specialty Start Date End Date Roxanne Dawn MD [address] [place] [address] PCP - General 04/30/10 documented as of this encounter
--- OUTSIDE RECORDS SUMMARY | 2024-03-17 18:03 | XMS_ITS | Encounter Summary ---
[place] [address] Care Team Providers Care Lathe Winder Name Role Phone Roxanne Dawn MD Primary Care Provider [phone] 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 * Diagnostic Test (Routine) - Specialty Diagnoses / Procedures Referred By Contac t Referred To Contact Radiology Diagnoses Malignant neoplasm of right breast, stage [address] Head wo Contrast (Generic) CT Head w Contrast Noe Joel MD [facility] DR HEMATOLOGY/[place] [address] [facility] [place] [address] Referral ID Status Reason Start Date Expiration Date Visits Requested Visits Authorized [id number] Specialty Service Requested 02/22/2018 04/22/2018 1 1 * Diagnostic Test (Routine) - Closed Specialty Diagnoses / Procedures Referred By Contac t Referred To Contact Radiology Diagnoses Malignant neoplasm of right breast, stage [address] Sinus wo Contrast (Generic) CT Sinus w Contrast Noe Joel MD [facility] DR HEMATOLOGY/[place] [address] [facility] [place] [address] Referral ID Status Reason Start Date Expiration Date V isits Requested Visits Authorized [id number] Closed Specialty Service Requested 02/22/2018 04/22/2018 1 1 Encounter Details Date Type Department Care Team (Late st Contact Info) Description 02/24/2018 Orders Only Hematology [place] [address] Noe Joel MD [facility] DR HEMATOLOGY/[place] [address] Malignant neoplasm of right breast, stage 2 [...] 04/25/2024 10:40 AM EST Appointment Mammography/[place] [address] Roxanne Dawn MD [address] [address] documented as of this encounter Results * CT Head wo [...] the head and sinuses. Noe Joel MD [facility] ORDERABLES * CT Sinus wo Contrast [...] the head and sinuses. Noe Joel MD IMG CT ORDERABLES documented in this encounter Visit Diagnoses Diagnosis Malignant neoplasm of right breast, stage 2 Malignant neoplasm of right breast, stage 2 documented in this encounter Care Teams Lathe Winder Relationship Specialty Start Date End Date Roxanne Dawn MD [address] [place] [address] PCP - General 04/30/10 documented as of this encounter
--- OUTSIDE RECORDS SUMMARY | 2024-03-17 18:04 | XMS_ITS | Encounter Summary ---
[place] [address] Care Team Providers Care Intermodal Dispatcher Name Role Phone Roxanne Dawn MD Primary Care Provider [phone] Encounter Details Date Type Department Care Team (Late st Contact Info) Description 04/03/2008 Orders Only [place] [phone] Price Saunders MD [facility] [place] [address] Social History Tobacco Use Types Packs/Day Years Used Date Smoking Tobacco: Never Assessed Sex and Gender Information Value Date Recorded Sex Assigned at Not on file Gender Identity Not on file Sexual Orientation Not on file documented as of this encounter Plan of Treatment Upcoming Encounters Date Type Department Care Team (Late st Contact Info) Description 04/25/2024 10:40 AM EST Appointment Mammography/[place] [address] Roxanne Dawn MD [address] [place] [address] documented as of this encounter Procedures Procedure Name Priority Date/Time Associated Diagnosis Comments SURGICAL PATHOLOGY REPORT Routine 04/03/2008 1:36 PM EDT documented in this encounter Results * Surgical Pathology Report (04/03/2008 1:36 PM EDT) Surgical Pathology Report [id number] ? Location: [facility]; 0414; A The signing pathologist has (i) examined the relevant preparation(s) for the specimen(s) and (ii) rendered or confirmed the diagnosis(es). . ?Pathology Surgical Pathology Final Report Clinical Information Specimen Submitted: A - Distal pancreas, white stitch pina pancreatic margin ??for frozen section Clinical History: Not provided Clinical Diagnosis: Pancreatic neuroendocrine tumor Frozen Section Diagnosis Frozen section(s) performed. ??Please refer to separate electronic frozen section report(s). Gross Description Labeled/Fixative: ? Labeled with the patient's name, distal pancreas, ?white stitch pina pancreatic margin, fresh. Qty/Size/Weight: ?Single, 10.0 x 4.5 x 1.6 cm. Tissue Description: ?? Manzanares-yellow, lobular segment of distal pancreas. ?There is a white suture marking the proximal surgical margin. Serial sections show yellow, lobular pancreatic parenchyma with a focal 0.9 x 0.5 x 0.5-cm, manzanares-pink, rubbery nodule, present 1.0 cm from the surgical margin. Sections/Processing: ??(A1) frozen section tissue remnant containing the ?entire tumor; (A2) surgical margin; (A3) uninvolved ?pancreas; (A4-A10) peripancreatic fat. ??(R10) ?[place]/BUCK Microscopic Description Slides reviewed, microscopic description not recorded. Immunohistochemistry Studies: Formalin-fixed, paraffin-embedded tissue sections are studied for chromogranin, CK19, Ki67, insulin, glucagon, VIP, serotonin, and gastrin using the B-SA system technique with appropriate positive and negative controls. These immunohistochemical studies provide ancillary information and are used only in conjunction with standard diagnostic procedures. Diagnosis A-Distal pancreatectomy specimen: ??Pancreatic endocrine tumor, 0.9cm, completely excised (clearance=1.0cm). ??Highest proliferative index is <1.0% (Ki-67 stain evaluated). ??No lymphovascular or perineural invasion or extension into peripancreatic ??soft tissue identified. ??Eight lymph nodes with no evidence of malignancy. ??Adjacent pancreatic parenchyma with focal chronic pancreatitis and ??PanIN-1. ??NOTE: The tumor cells are positive for chromogranin and glucagon and ??negative for serotonin, insulin, gastrin, VIP and CK19. . Diagnosis CR-0 04/06/08 04/06/08 Verified by: ? Walter Cotter MD ?Pathologist ?(Electronic Signature) The attending pathologist whose signature appears on this report has reviewed all diagnostic slides and has edited the gross and/or microscopic portion of the report in rendering the final pathologic diagnosis. ? Pathology Frozen Section Report Frozen Section Report A-Distal pancreatectomy nodule (for frozen section): ??Features consistent with pancreatic endocrine tumor (0.9cm). ??Clearance is 1.0cm from pancreatic resection margin. CR-0 04/03/08 ??Verified by: ??Walter Cotter MD, Pathologist The attending pathologist whose electronic signature appears on this report has reviewed all diagnostic slides in rendering the frozen section diagnosis. This intraoperative consultation should be interpreted as a preliminary diagnosis pending review of the entire specimen and special studies, if any. JARED PRATT 04/03/2008 1:36 PM EDT Price Saunders MD PATHOLOGY/CYTOLOGY O ROB JARED AYONENNIUM documented in this encounter Visit Diagnoses Not on filedocumented in this encounter Care Teams Intermodal Dispatcher Relationship Specialty Start Date End Date Roxanne Dawn MD [address] [place] [address] PCP - General 04/30/10 documented as of this encounter
--- OUTSIDE RECORDS SUMMARY | 2024-03-17 18:04 | XMS_ITS | Encounter Summary ---
[place] [address] Care Team Providers Care Oyster Planter Name Role Phone Roxanne Dawn MD Primary Care Provider [phone] Encounter Details Date Type Department Care Team (Late st Contact Info) Description 10/24/2010 Orders Only [place] [phone] Noe Joel MD [facility] DR HEMATOLOGY/[place] [address] Breast cancer (Primary Dx) Social History Tobacco Use Types [...] 04/25/2024 10:40 AM EST Appointment Mammography/[place] [address] Roxanne Dawn MD [address] [place] [address] documented as of this encounter Results * [...] Center. Noe Joel MD IMG MAMMO ORDERABLES * TSH (01/02/2011 10:27 AM EDT) Thyroid Stimulating Hormone 0.59 0.27 - 4.20 mcIU/mL [facility] Blood specimen (specimen) 01/02/2011 10:27 AM EDT 01/02/2011 10:34 AM EDT Noe Joel MD CHEMISTRY ORDERABLES Performing Organization Address [facility] Co de Phone Number CERLILIYA AYONENNIUM * CBC (with Diff) (01/02/2011 10:27 AM EDT) White Blood Cell 5.8 4.0 - 10.0 x10(3)/mcL CERNER MILLENNIUM Red Blood Cell 4.60 3.93 - 5.22 x10(6)/mcL CERNER MILLENNIUM Hemoglobin 14.7 11.2 - 15.7 gm/dL CERNER MILLENNIUM Hematocrit 42.7 34.0 - 45.0 % CERNER MILLENNIUM Mean Cell Volume 92.8 79.0 - 94.0 fL CERNER MILLENNIUM Mean Cell Hemoglobin 32.0 26.6 - 32.2 pg CERNER MILLENNIUM Mean Cell Hemoglobin Concentration 34.4 32.0 - 36.5 gm/dL CERNER MILLENNIUM Platelet 225 145 - 370 x10(3)/mcL CERNER MILLENNIUM RDW Standard Deviation 43.8 35.0 - 46.0 fL CERNER MILLENNIUM RDW coefficient of variation 13.0 10.9 - 14.4 % CERNER MILLENNIUM Mean Platelet Volume 10.4 9.0 - 12.0 fL CERNER MILLENNIUM Blood specimen (specimen) 01/02/2011 10:27 AM EDT 01/02/2011 10:34 AM EDT Noe Joel MD HEMATOLOGY ORDERABLE S Performing Organization Address [facility] Co de Phone Number CERLILIYA MUNGUIAIUM * (ABNORMAL) Hepatic Function Panel (01/02/2011 10:27 AM EDT) Protein, Total 7.5 6.4 - 8.3 gm/dL CERNER MILLENNIUM Albumin 4.9 3.2 - 5.2 gm/dL CERNER MILLENNIUM Aspartate Aminotransferase 31(H) 0 - 30 unit/L CERNER MILLENNIUM Alanine Aminotransferase 63(H) 0 - 30 unit/L CERNER MILLENNIUM Alkaline Phosphatase 83 40 - 104 unit/L CERNER MILLENNIUM Bilirubin, Total 0.4 0.2 - 1.3 mg/dL CERNER MILLENNIUM Bilirubin, Direct 0.1 0.0 - 0.3 mg/dL CERNER MILLENNIUM Blood specimen (specimen) 01/02/2011 10:27 AM EDT 01/02/2011 10:34 AM EDT Noe Joel MD CHEMISTRY ORDERABLES CERLILIYA MUNGUIAIUM documented in this encounter Visit Diagnoses Diagnosis Breast cancer- Primary Malignant neoplasm of breast (female), unspecified site Breast cancer Malignant neoplasm of breast (female), unspecified site documented in this encounter Care Teams Oyster Planter Relationship Specialty Start Date End Date Roxanne Dawn MD [address] [place] [address] PCP - General 04/30/10 documented as of this encounter
--- OUTSIDE RECORDS SUMMARY | 2024-03-17 18:04 | XMS_ITS | Encounter Summary ---
[place] [address] Care Team Providers Care Product Management Manager Name Role Phone Roxanne Dawn MD Primary Care Provider [phone] Reason for Visit * Reason Comments Follow-up Encounter Details Date Type Department Care Team (Latest Contact Info) Description 01/02/2011 10:21 AM EDT - 01/02/2011 11:59 PM EDT Hospital Encounter Hematology [place] [address] CLINIC, DR ANABELA Joel, Noe Cano MD [facility] HEMATOLOGY/[place] [address] Breast cancer; Breast cancer, stage 2; Low grade pancreatic islet cell tumors Discharge Disposition: Home Social History Tobacco Use [...] Sign Reading Time Taken Comments Blood Pressure 102/60 01/02/2011 2:49 PM EDT Pulse 74 01/02/2011 2:49 PM EDT Temperature 37 ??C (98.6 ??F) 01/02/2011 2:49 PM EDT Respiratory Rate 18 01/02/2011 2:49 PM EDT Oxygen Saturation 98% 01/02/2011 2:49 PM EDT Inhaled Oxygen Concentration - - Weight 78.9 kg (174 lb) 01/02/2011 2:49 PM EDT Height 175 cm (5' 8.9) 01/02/2011 2:49 PM EDT Body Mass Index 25.77 01/02/2011 2:49 PM EDT documented in this encounter Discharge Instructions * Patient Instructions* Noe Joel MD - 01/02/2011 3:37 PM EDT Your exam and mammograms today are great and you have no evidence of breast cancer recurrence. Your CBC is normal and your liver enzymes are somewhat less abnormal than they were last year. Thisindicates fat infiltration of the liver which is common in women who have taken the endocrine therapy for a long time. We'll repeat the CT scan of your abdomen in April. You may stop the letrozole at any time after June 15, 2011. We'll get back together in December 2011 for the usual mammograms and blood tests on a morningand afternoon. documented in this encounter Medications at Time [...] 12/06/2009 12/25/2011 documented as of this encounter Progress Notes * Noe Joel MD - 01/02/2011 10:02 PM EDT Subjective: Patient ID: Serenity Cummings is a 55 y.o. female with Stage II breast cancer, seen for yearly followup. HPI : Ms. Cummings [...] tamoxifen on May 24, 2006, and she began letrozole on June 15, 2006. She has chronic discomfort in the left upper quadrant. A CT of the abdomen and pelvis on November 26, 2007 showed a hypodense lesion in the left lobe of the liver and mesenteric adenopathy. An EUS on December 01 showed a 6 mm mass in the body of the pancreas, which on FNA demonstrated an islet cell tumor. The mesenteric nodes were biopsied and found to be reactive. On April 03 she underwent a distal pancreatectomy. She was found to have a 9 mm pancreatic endocrine tumor, with a low proliferative index. There were eight benign regional nodes. The tumor cells were positive for chromogranin and glucagon, the tumor was excised with a 1 cm margin, and there was focal chronic pancreatitis. Because of rising transaminases, a repeat CT of the abdomen was done on December 12, 2009 and showed an area of increased enhancement in the margin of the right lobe of the liver as well as fatty replacement of the liver. A CT repeated four months later showed stable enhancement in the right lobe of the liver. Interval history: Ms. Cummings continues to have two areas of discomfort in the left side of her abdomen, one in the left upper quadrant, and one in the left lower quadrant. She had a persistent coughlast winter, and she has a chronic post-nasal drip. She has arthralgias of her wrists and hands, but denies pain or stiffness of the larger joints. She has chronic left retro-orbital pain but her vision is stable. Her left-sided headaches have resolved. Her vaginal dryness is unchanged and she is still using vaginal estrogen. She also still has some dysphagia. She takes an average of 400 units ofVitamin D daily. Review of Systems : She denies breast pain, a cough, shortness of breath, chest pain, nausea, vomiting, diarrhea, constipation, double vision, skin rashes, pain, redness, or swelling in her lower extremities, or any new sites of skeletal pain. The remainder of her review of systems is negative. Objective: Physical Exam Vitals reviewed. Constitutional: She appears well-developed and well-nourished. HENT: Mouth/Throat: Oropharynx is clear and moist. No oropharyngeal exudate. Eyes: No scleral icterus. Neck: No thyromegaly present. Cardiovascular: Normal rate, regular rhythm and normal heart sounds. Exam reveals no gallop. No murmur heard. Pulmonary/Chest: Breath sounds normal. She has no wheezes. She has no rales. There is no erythema or nodularity within the skin of the right chest wall. There are no masses within the left breast. There is nodularity beneath the mastopexy scar, and there is a wedge-shaped defect at the base of the scar at the inframammary fold. There is no axillary adenopathy. Abdominal: Soft. She exhibits no distension and no mass. No tenderness. She has no guarding. Musculoskeletal: She exhibits no edema. Lymphadenopathy: She has no cervical adenopathy. Skin: Skin is warm and dry. No erythema. Psychiatric: She has a normal mood and affect. Today's left-sided mammograms show a stable fibroglandular pattern without significant change. There are post-surgical changes. The breast is heterogeneously dense. A Dexa scan from May 11, 2009 was normal, with T scores of -0.2 in the lumbar spine (was 0.1 up3173), 0.3 in the left hip (was 0.9 in 2006), and 0.5 in the left femoral neck (was 0.7 in 2006). Results for orders placed during the hospital encounter of 01/02/11 (from the past 24 hour(s)) HEPATIC FUNCTION PANEL Component Value Range ??? Total Protein 7.5 6.4 - 8.3 (gm/dL) ??? Albumin 4.9 3.2 - 5.2 (gm/dL) ??? AST 31 (*) 0 - 30 (unit/L) ??? ALT 63 (*) 0 - 30 (unit/L) ??? Alk Phos 83 40 - 104 (unit/L) ??? Total Bilirubin 0.4 0.2 - 1.3 (mg/dL) ??? Bili, Direct 0.1 0.0 - 0.3 (mg/dL) CBC (WITH DIFF) Component Value Range ??? WBC 5.8 4.0 - 10.0 (x10(3)/mcL) ??? RBC 4.60 3.93 - 5.22 (x10(6)/mcL) ??? Hemoglobin 14.7 11.2 - 15.7 (gm/dL) ??? Hematocrit 42.7 34.0 - 45.0 (%) ??? MCV 92.8 79.0 - 94.0 (fL) ??? MCH 32.0 26.6 - 32.2 (pg) ??? MCHC 34.4 32.0 - 36.5 (gm/dL) ??? Platelets 225 145 - 370 (x10(3)/mcL) ??? RDWSD 43.8 35.0 - 46.0 (fL) ??? RDWCV 13.0 10.9 - 14.4 (%) ??? MPV 10.4 9.0 - 12.0 (fL) TSH Component Value Range ??? TSH 0.59 0.27 - 4.20 (mcIU/mL) Assessment and Plan: Ms. Cummings is doing well, and she has no evidence of breast cancer recurrence. I plan on repeatingthe CT of her abdomen in April, 12 months after the prior scan, to prove radiologic stability ofthe area of enhancement in the right lobe of the liver. It is reassuring that the transaminases areimproved since last year. She will complete her five years of letrozole in early June 2011, and s he will stop her endocrine therapy at that time. I will continue to see her once yearly each December, and next year I will repeat her left-sided mammograms and labs. She will contact me in the interim if she has three weeks or more of a concerning new symptom. documented in this encounter Plan of Treatment Upcoming Encounters Date Type Department Care Team (Late st Contact Info) Description 04/25/2024 10:40 AM EST Appointment Mammography/[place] [id number] Roxanne Dawn MD [address] [address] documented as of this encounter Procedures Procedure Name Priority Date/Time Associated Diagnosis Comments CBC (WITH DIFF) STAT 01/02/2011 10:27 AM EDT Breast cancer TSH STAT 01/02/2011 10:27 AM EDT Breast cancer HEPATIC FUNCTION PANEL STAT 01/02/2011 10:27 AM EDT Breast cancer documented in this encounter Results * Vitamin D2 and D3 25 Hydroxy (12/25/2011 10:40 AM EDT) [facility] Vitamin D Total 25 OH 34 30 - 100 ng/mL [facility] Comment: Deficient <10 ng/mL Insufficient 10 to [...] Hydroxy assays are being analyzed by the [facility] Chemistry Laboratory. ??There is NO CHANGE in units. ??Please contact the chemistry laboratory at [phone] with questions. Blood specimen (specimen) 12/25/2011 10:40 AM EDT 12/25/2011 10:45 AM EDT Narrative Resulting Agency Comment Spec In Lab Noe Joel MD CHEMISTRY ORDERABLES [facility] * (ABNORMAL) Hepatic function panel (HFP) (12/25/2011 10:40 AM EDT) Pathologist [facility] Protein, Total 7.1 6.4 - 8.3 gm/dL [...] 0.3 mg/dL CERNER MILLENNIUM Blood specimen (specimen) 12/25/2011 10:40 AM EDT 12/25/2011 10:45 AM EDT Narrative Resulting Agency Comment Spec In Lab Noe Joel MD CHEMISTRY ORDERABLES CERNER MILLENNIUM * Mammo unilateral digital screening (12/25/2011 10:17 [...] Stimulating Hormone 0.59 0.27 - 4.20 mcIU/mL CERNER MILLENNIUM Blood specimen (specimen) 01/02/2011 10:27 AM EDT 01/02/2011 10:34 AM EDT Noe Joel MD CHEMISTRY ORDERABLES [facility]ERNER MILLENNIUM * CBC (with Diff) (01/02/2011 10:27 AM [...] MD HEMATOLOGY ORDERABLE S Performing Organization Address City/[facility] Co de Phone Number CERNER MILLENNIUM * (ABNORMAL) Hepatic Function Panel (01/02/2011 10:27 [...] AM EDT 01/02/2011 10:34 AM EDT Noe oJel MD CHEMISTRY ORDERABLES Performing Organization Address City/[facility] Co de Phone Number CERLILIYA MUNGUIAIUM documented in this encounter Visit Diagnoses Diagnosis Breast cancer Malignant neoplasm of breast (female), unspecified site Breast cancer, stage 2 Malignant neoplasm of breast (female), unspecified site 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
--- OUTSIDE RECORDS SUMMARY | 2024-03-17 18:04 | XMS_ITS | Continuity of Care Document ---
Author Organization [place] - [facility], [facility] Address [address] [place] [address] Assessment Encounter Date Assessment Date Assessment LastModified by Organization Details LastModified Time 03/09/2024 03/09/2024 Vaccination Update - Assessment: Patient has received the flu vaccine and discussed eligibility for the RSV vaccine, with plans to check insurance coverage. - Plan: a. Encourage the patient to stay informed about vaccinations and bring up any concerns during follow-up visits. [email or web address] Not available 03/09/2024 16:19:08 Plan of Treatment Reminders Order Date Submit Date Provider Last Modified By Organization Details Last Modified Time Details Appointments Nurse Visit 20 2023 10:50A M Crawford Nursing Staff Not available Not available Not available Medicare Wellness 40 (Subs) 2023 02:30P M ROXANNE INFANTE Not available Not available Not available Lab None recorded. Referral None recorded. Procedures None recorded. Surgeries None recorded. Imaging None recorded. Medication Orders None recorded. Patient TargetsNo targets recorded. Patient Instructions Encounter Date Encounter Id Patient Instructions Last Modified By Organization Details Last Modified Time 03/09/2024 [id number] Date: [Current Date] Dear Serenity, Thank you for visiting today and for your commitment to improving your health. It was good to discuss your current health concerns and medication effects. Here's a summary of the kong instructions from our conversation: - Medication Adjustments: - Continue increasing your Lantus dose by 2 units if morning sugars remain over 130 and there are no lows. Adjust downward if you experience any readings under 70. - Hold off on using Farxiga until you are over COVID and feeling less anxious. If you decide to retry it, consider starting with half a tablet. - Consider trying Januvia as an alternative if Farxiga remains unsuitable. - Monitoring and Tests: - Schedule a thyroid test at your convenience to check if recent weight changes have affected your thyroid levels. - Monitor your blood sugars closely, especially after adjusting insulin doses. - An A1c test is suggested after mid-March as per your insurance coverage. - Vaccinations: - You've received your flu vaccine. Consider the RSV vaccine, checking with your insurance for coverage. - General Advice: - Avoid skipping meals while on insulin. - Continue regular exercise as it contributes positively to your overall health. - Follow-Up: - I will be available for a follow-up in about six weeks, around the middle of April. Thank you for your proactive approach to managing your health. Please feel free to reach out if you have any concerns before our next scheduled meeting. 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 [email or web address] Not Available 02/20 23:27:12 02/21/20 24 08/12/2018 MAMMO , diagn ostic No observ ation record ed. [email or web address] Not Available 02/20 23:29:06 02/21/20 24 10/19/2020 MAMMO , diagn ostic No observ ation record ed. [email or web address] Not Available 02/20 23:29:07 02/21/20 24 10/19/2020 bone densi ty No observ ation record ed. [email or web address] Not Available 02/20 23:29:15 Result Notes None recorded. Problems Name Problem SNOMED Code Status Onset Date Resolution Date Notes Provider Name and Address Organization Details Recorded Time Personal history of primary malignan t neoplasm of breast 304054529 Active 2000 Problem Code: Z85.3; Problem Code Type: ICD-10; Not Available [facility] 3 05:28:58 Hypothyr oidism 80072537 Active 200508/04/19 23 - Comments only - Roxanne Infante MD - With report of increase d fatigue late in the day. Will check TSH which is due anyway and adjust Synthroi d dose if indicate d. We will also check CBC and BMP. Problem Code: E03.9; Problem Code Type: ICD-10; Not Available [facility] 3 05:28:58 Acute pharyngi tis 752684782 Completed 201506/29/2015 06/22/19 16 - Comments only - Roxanne Infante MD - appears viral. Improvin g. conserva tive measures . Problem Code: J02.9; Problem Code Type: ICD-10; Not Available [facility] 3 05:28:58 Atrophic vaginiti s 01301354 Active 201511/14/19 21 - Comments only - Roxanne Infante MD - Will renew Estrace cream. Problem Code: N95.2; Problem Code Type: ICD-10; Not Available [facility] 3 05:28:58 Anxiety disorder 318355603 Active 2015 Problem Code: F41.9; Problem Code Type: ICD-10; Not Available [facility] 3 05:28:58 Type 2 diabetes mellitus without complica tion 364244842 Active 201502/04/20 22 - Comments only - Roxanne Infante MD - Well-con trolled. A1c 6.4 today. Continue current manageme nt. Reviewed symptoms of hypoglyc emia that would necessit ate more frequent monitori ng. Problem Code: E11.9; Problem Code Type: ICD-10; Not Available [facility] 3 05:28:58 Candidia sis of vagina 47789361 Completed 201506/05/2016 05/22/20 16 - Comments only - Roxanne Infante MD - will treat with oral diflucan (or may use OTC cream). Problem Code: B37.3; Problem Code Type: ICD-10; Not Available [facility] 3 05:28:58 Subtotal pancreat ectomy Active 2015 Problem Code: Z90.411; Problem Code Type: ICD-10; Not Available [facility] 3 05:28:58 History of malignan t neoplasm of pancreas 81522175835 105 Active 201511/14/19 21 - Comments only - Roxanne Infante MD - I listened to her concerns and suggeste d perhaps she could connect directly with one of the [facility] based [employer] re provider s advising her friend who also has a history of neuroend ocrine tumor. Problem Code: Z85.07; Problem Code Type: ICD-10; Not Available [facility] 3 05:28:59 Lichen planus 3173755 Active 2015 Problem Code: L43.9; Problem Code Type: ICD-10; Not Available [facility] 3 05:28:59 Low back pain 722147593 Completed 201601/01/2017 Problem Code: M54.5; Problem Code Type: ICD-10; Not Available [facility] 3 05:28:59 Gynecolo gic examinat ion Completed 201603/12/2017 Problem Code: Z01.419; Problem Code Type: ICD-10; Not Available [facility] 3 05:28:59 Adult health examinat ion Completed 201812/14/2018 12/01/19 19 - Comments only - Antonio Gilliam - Referred for screenin g colonosc opy. Up-to-da te with mammogra m and Pap. She will be due for Prevnar in May 2019 or June 2019. Problem Code: Z00.00; Problem Code Type: ICD-10; Not Available [facility] 3 05:28:59 Screenin g for malignan t neoplasm of colon Completed 201806/09/2019 Problem Code: Z12.11; Problem Code Type: ICD-10; Not Available [facility] 3 05:28:59 Pain of right knee joint 96997842850 4100 Active 201805/19/20 19 - Comments only - Roxanne Infante MD - Referred to PT. Problem Code: M25.561; Problem Code Type: ICD-10; Not Available [facility] 3 05:28:59 Acquired hallux valgus 39007210 Active 201805/19/20 19 - Comments only - Roxanne Infante MD - Ladonna jones Referred to podiatry . Problem Code: M20.10; Problem Code Type: ICD-10; Not Available [facility] 3 05:28:59 Pain in thoracic spine 509668283 Completed 201912/09/2019 11/11/19 20 - Comments only - Roxanne Infante MD - UA negative for blood or signs of infectio n today. The fact that pain has resolved makes recurren t carcinom a of the very unlikely etiologi c cause. Advised she call if she has recurren t symptoms . Problem Code: M54.89; Problem Code Type: ICD-10; Not Available [facility] 3 05:29:00 Nonulcer dyspepsi a 5225943 Active 201911/11/19 20 - Comments only - Roxanne Infante MD - Suspect GERD given history, although pancreat ic insuffic iency also a possibil ity. Advised short-te rm trial of Prilosec . Could consider a trial of pancreat ic enzymes if this is not helpful. Problem Code: K30; Problem Code Type: ICD-10; Not Available [facility] 3 05:29:00 Pain of joint of knee 3364632736 Completed 201905/31/2020 Problem Code: M25.569; Problem Code Type: ICD-10; Not Available [facility] 3 05:29:00 Xerostom ia 71560119 Active 201902/14/20 20 - Comments only - Roxanne Infante MD - I have a low suspicio n for Sjogren' s but given concomit ant autoimmu ne conditio ns, will screen for that with blood work today. Problem Code: R68.2; Problem Code Type: ICD-10; Not Available [facility] 3 05:29:00 Somatofo rm disorder 76289055 Active 201908/05/19 22 - Comments only - Roxanne Infante MD - Now with report of mild odynopha bethany associat ed. Will refer to ENT to rule out eosinoph ilic esophagi tis, GERD or other contribu ting factors. If negative eval, will continue to push forward better anxiety manageme nt. Problem Code: F45.8; Problem Code Type: ICD-10; Not Available [facility] 3 05:29:00 Malaise 391034606 Active 2019 Problem Code: R53.81; Problem Code Type: ICD-10; Not Available [facility] 3 05:29:00 Itching of skin 706378511 Active 201902/04/20 22 - Comments only - Roxanne Infante MD - Reviewed option of resuming low-dose naltrexo ne which she is leaning toward. New prescrip tion sent. Problem Code: L29.9; Problem Code Type: ICD-10; Not Available [facility] 3 05:29:00 Neuropat hy due to type 2 diabetes mellitus 66255099704 9106 Active 2019 Problem Code: E11.40; Problem Code Type: ICD-10; Not Available [facility] 3 05:29:01 Screenin g for malignan t neoplasm of colon Active 202008/15/19 21 - Comments only - Roxanne Infante MD - overdue (nl colo 2007), would like to sched with Dr. Corona this spring. Problem Code: Z12.11; Problem Code Type: ICD-10; Not Available [facility] 3 05:29:01 Hyperlip idemia 43080948 Active 202001/01/20 23 - Improved - Roxanne Infante MD - Tolerati ng atorvast atin. LDL down from 1 44-60. Triglyce rides elevated today, patient nonfasti ng. She will continue current manageme nt. Problem Code: E78.5; Problem Code Type: ICD-10; Not Available [facility] 3 05:29:01 Divertic pierce of intestin e 44007644 Active 2020 Problem Code: K57.90; Problem Code Type: ICD-10; Not Available [facility] 3 05:29:01 Spasm 45504018 Active 202008/05/19 22 - Comments only - Roxanne Infante MD - Again advised strength ening and stretchi ng in addition to continue d efforts to hydrate adequate ly. No evidence of electrol yte abnormal ities at last visit. Urged her to resume yoga which she had previous ly found helpful. Problem Code: R25.2; Problem Code Type: ICD-10; Not Available [facility] 3 05:29:01 General symptom 873628706 Active 2021 Problem Code: R68.89; Problem Code Type: ICD-10; Not Available [facility] 3 05:29:01 Dysphagi a 30471904 Active 2021 Problem Code: R13.10; Problem Code Type: ICD-10; Not Available [facility] 3 05:29:01 Edema of larynx 40855041 Active 2021 Problem Code: J38.4; Problem Code Type: ICD-10; Not Available [facility] 3 05:29:02 Actinic keratosi s 459669997 Active 202102/04/20 22 - Comments only - Roxanne Infante MD - Treated with liquid nitrogen today. Recheck at next visit. Problem Code: L57.0; Problem Code Type: ICD-10; Not Available [facility] 3 05:29:02 Gastroes ophageal reflux disease without esophagi tis 261684410 Active 2021 Problem Code: K21.9; Problem Code Type: ICD-10; Not Available [facility] 3 05:29:02 Chest pain 54066436 Active 2021 Problem Code: R07.89; Problem Code Type: ICD-10; Not Available [facility] 3 05:29:02 Fatigue 23676338 Active 2022 Problem Code: R53.83; Problem Code Type: ICD-10; Not Available [facility] 3 05:29:02 Hyperlip idemia screenin g Completed 202208/18/2022 08/04/19 23 - Comments only - Roxanne Infante MD - Nonfasti ng lipids drawn today. Her CAD risk was 11.3%, will update risk calculat ion with updated numbers and urged her to consider starting on statin therapy. Problem Code: Z13.220; Problem Code Type: ICD-10; Not Available [facility] 3 05:29:03 General examinat ion of patient Active 202208/04/19 23 - Comments only - Roxanne Infante MD - Medicare wellness exam. Personal ized preventi on plan competed and rev'd with patient. patient was given copy of PPP at conclusi on of visit. 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 530552506 Completed 201503/04/2023 Problem Code: C25.2; Problem Code Type: ICD-10; Not Available [facility] 3 05:29:04 Disorder of nervous system 895455452 Completed 201608/18/2017 Problem Code: B02.29; Problem Code Type: ICD-10; Not Available [facility] 3 05:29:04 Overweig ht 869385443 Completed 201508/28/2016 Problem Code: E66.3; Problem Code Type: ICD-10; Not Available [facility] 3 05:29:04 Screenin g for disorder Completed 201603/10/2017 Problem Code: Z13.9; Problem Code Type: ICD-10; Not Available [facility] 3 05:29:04 Hyperlip idemia 62236547 Completed 201203/04/2023 Not Available [facility] 3 05:29:04 New daily persiste nt headache 06141066870 9105 Completed 201708/14/2020 Problem Code: G44.52; Problem Code Type: ICD-10; Not Available [facility] 3 05:29:05 Amnesia 72573454 Completed 201808/14/2020 Problem Code: R41.3; Problem Code Type: ICD-10; Not Available [facility] 3 05:29:05 Liver enzymes level above referenc e range 576228100 Completed 201508/14/2020 Problem Code: R74.01; Problem Code Type: ICD-10; Not Available [facility] 3 05:29:06 Screenin g mammogra phy Completed 201508/18/2017 Problem Code: Z12.31; Problem Code Type: ICD-10; Not Available [facility] 3 05:29:06 Nodule on toe 409051450 Completed 202203/04/2023 Not Available [facility] 3 05:29:06 Neoplasm of uncertai n behavior of skin 36450715 Completed 201905/15/2020 Problem Code: D48.5; Problem Code Type: ICD-10; Not Available [facility] 3 05:29:07 Spasm 01523863 Completed 201808/14/2020 Problem Code: R25.2; Problem Code Type: ICD-10; Not Available [facility] 3 05:29:07 Increase d frequenc y of urinatio n 699838149 Completed 201603/10/2017 Problem Code: R35.0; Problem Code Type: ICD-10; Not Available [facility] 3 05:29:07 Hypergly cemia 98982345 Completed 201508/28/2016 Problem Code: R73.9; Problem Code Type: ICD-10; Not Available [facility] 3 05:29:07 Nonalcoh olic steatohe patitis 016625095 Completed 201503/04/2023 Problem Code: K75.81; Problem Code Type: ICD-10; Not Available [facility] 3 05:29:08 Anorecta l disorder 374522264 Completed 201608/18/2017 Problem Code: K62.89; Problem Code Type: ICD-10; Not Available [facility] 3 05:29:08 Cyst of eyelid 34485050 Completed 201808/14/2020 Problem Code: H02.829; Problem Code Type: ICD-10; Not Available [facility] 3 05:29:09 Active immuniza tion Completed 202205/12/2023 Problem Code: Z23; Problem Code Type: ICD-10; Not Available [facility] 4 05:37:43 Secondar y diabetes mellitus 0988166 Active [address], [place] [id number] [place] [address] 4 07:52:12 Lymphade nopathy 93544405 Active [address], [address] 4 08:01:39 Anxiety 73316675 Active [address], [address] 4 16:17:28 COVID-19 426302894 Active [address], [address] 4 16:17:33 Notes:*Problem Name: Hx [address] st Cancer *ICD-10 Codes: *Problem Status: inactive *Comments: *Note Date: 06/08/2000 Problem Notes None recorded. Medical Equipment None Reported. Allergies Allergen ID Allergen Name Allergen Category Reaction Reaction Severity Criticality Documentation Date Start Date Code Code System Note Provider Name and Address Organization Details Recorded Time 27429 Compazine medicatio n Not available Not available Not available 04/17/2023200554 6 RxNorm Not Available [facility] 3 16:19:11 97260 Levaquin medicatio n Not available Not available Not available 04/17/20232005 76611 2 RxNorm Aller gyCod e: '0012 83884 20'; Aller gyNam e: 'LEVA BRANDO' ; Aller gyCon ceptT ype: 'NDC' ; Not Available [facility] 3 16:19:11 Medications Name Sig Start Date Stop Date Status Note LastModified by Organization Details LastModified Time metformin 500 mg tablet Take 1 tab by mouth twice daily 12/02 completed Not Available Not Available Not Available atorvastati n 20 mg tablet TAKE 1 TABLET BY MOUTH AT BEDTIME active Not Available Not Available No t Available cetirizine 10 mg tablet Take 1 tablet every day by oral route as needed for 14 days, for nasal congestio n. 2023 active Not Available Not Available Not Avai lable Glucagon Emergency Kit 1 mg solution for injection UAD 2016 active Not Available Not Available Not Avai lable FreeStyle Test strips TEST 3 TIMES A DAY active Not Available Not Available No t Available Synthroid 100 mcg tablet Take 1 tab by mouth daily 2012 active Not Available Not Available Not Avai lable Diflucan 150 mg tablet Take 1 tab by mouth x 2 days 03/10 completed Not Available Not Available Not Available triamcinolo ne acetonide 0.1 % topical cream Apply 1 a small amount to affected area once a day as needed 2020 active Not Available Not Available Not Avai lable benzonatate 100 mg capsule Take 1 capsule 3 times a day by oral route for 7 days. 10/05 completed Not Available Not Available Not Available Femara 2.5 mg tablet 1 qd 10/09 completed Not Available Not Available Not Available Synthroid 75 mcg tablet 1 QD 2012 active Not Available Not Available Not Avai lable fluticasone propionate 50 mcg/actuati on nasal spray,suspe nsion [place] 1 spray twice a day by intranasa l route for 30 days. 04/30 /2024 completed Not Available Not Available Not Available Ketostix strips for use if BG is >300 03/10 completed Not Available Not Available Not Available levothyroxi ne 112 mcg tablet Take 1 tablet by mouth 5 DAYS A WEEK and 1/2 tablet on thu and sun 2023 active Not Available Not Available Not Avai lable Estrace 0.01% (0.1 mg/gram) vaginal cream Insert 1 applicato rful into vagina twice a week as needed 2020 active Not Available Not Available Not Avai lable Novolog FlexPen U-100 Insulin aspart 100 unit/mL (3 mL) subcutaneou s Inject 02/03 completed Not Available Not Available Not Available Pen Needle 31 gauge x 5/16 Use 1 pen needle as directed for use with Novolog 2020 active Not Available Not Available Not Avai lable OneTouch UltraSoft Lancets test BG up to 5 times daily E:11.9 01/17 completed Not Available Not Available Not Available Zostavax (PF) injection 05/04 completed Not Available Not Available Not Available Lantus Solostar U-100 Insulin 100 unit/mL (3 mL) subcutaneou s pen INJECT 24 UNITS UNDER THE SKIN EVERY MORNING TO KEEP BLOOD GLUCOSE BETWEEN 90 AND 140 active Not Available Not Available No t Available Sure-Fine Pen [place] 31 gauge x 3/16 Use 1 pen needle as directed for use with Novolog 02/25 completed Not Available Not Available Not Available OneTouch Delica Lancets 33 gauge Use 1 lancet as directed three times a day 2020 active Not Available Not Available Not Avai lable Vitamin D3 50 mcg (2,000 unit) capsule 1 tab daily 2017 active Not Available Not Available Not Avai lable Invokana 100 mg tablet Take 1 tablet by mouth every morning with plenty of water 01/03 completed Not Available Not Available Not Available Farxiga 5 mg tablet Take 1 tablet every day by oral route. 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 01/04/2024 14:08:15 What Was The Date Of Your Most Recent Tobacco Screening? 01/04/2024 Information not available 01/04/2024 Has Tobacco Cessation Counseling Been Provided? No Information not available 01/04/2024 Do You Or Have You Ever Used Any Other Forms Of Tobacco Or Nicotine? No Information not available 01/04/2024 Sex: Female Functional Status None recorded. Mental Status None recorded. Family History Relationship Description Onset Age of this Age Resolved Age Notes LastModified by Organization Details LastModified Time Sister Family history of heart failure 70 Not available 2022 04:00:41 Sister Family history of diabetes mellitus type 1 [email or web address] Not available 2022 04:00:41 Notes:*Problem: Father with history of pancreatic cancer and Alzheimer s which he develped in late 70's. passed 1998 Mother with history of afib. passed 2007 Brother with history of valve replacement and another brother has a cardiac murmur. There is no early CAD or diabetes in the family. 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 Positive for depression. Medical History No medical history recorded. Gynecological HistoryNo gynecological history recorded. Obstetrics History GPAL:G 0 P 0 0 0 0 Immunizations Vaccine Type Date Status Provider Name and Address Organization Details Recorded Time COVID-19, mRNA, LNP-S, PF, sharon-sucrose, 30 mcg/0.3 mL 10/06/2023 completed MD Cecy [address], [place], [address], [facility] 10/08/2023 16:42:53 Td (adult), 5 Lf tetanus toxoid, preservative free, adsorbed 06/28/2015 completed Not Available [facility] 04/17/2023 05:56:11 Tdap 06/21/2013 completed Not Available [facility] 05:56:11 Tdap 03/20/2004 completed Not Available [facility] 05:56:11 zoster live 03/10/2017 completed Not Available [facility] 04/17/2023 05:56:12 zoster live 03/24/2012 completed Not Available [facility] 04/17/2023 05:56:12 Influenza, split virus, trivalent, preservative 03/18/2018 completed Not Available [facility] 04/17/2023 05:56:12 Influenza, split virus, trivalent, preservative 05/28/2015 completed Not Available [facility] 04/17/2023 05:56:12 Influenza, split virus, quadrivalent, PF 01/08/2017 completed Not Available [facility] 04/17/2023 05:56:12 Influenza, split virus, quadrivalent, PF 02/14/2020 completed Not Available [facility] 04/17/2023 05:56:13 Influenza, split virus, quadrivalent, PF 03/05/2016 completed Not Available [facility] 04/17/2023 05:56:13 zoster recombinant 10/15/2020 completed Not Available [facility] 04/17/2023 05:56:13 zoster recombinant 05/17/2020 completed Not Available [facility] 04/17/2023 05:56:13 Influenza, high-dose, quadrivalent, PF 04/05/2021 completed Not Available [facility] 04/17/2023 05:56:13 COVID-19, mRNA, LNP-S, PF, 100 mcg/0.5mL dose or 50 mcg/0.25mL dose 08/08/2020 completed Not Available [facility] 04/17/2023 05:56:13 COVID-19, mRNA, LNP-S, PF, 100 mcg/0.5mL dose or 50 mcg/0.25mL dose 09/05/2020 completed Not Available [facility] 04/17/2023 05:56:14 COVID-19, mRNA, LNP-S, PF, 100 mcg/0.5mL dose or 50 mcg/0.25mL dose 04/16/2021 completed Not Available [facility] 04/17/2023 05:56:14 SARS-COV-2 (COVID-19) vaccine, UNSPECIFIED 09/10/2021 completed Not Available [facility] 04/17/2023 05:56:14 Pneumococcal conjugate PCV20, polysaccharide [id number] conjugate, adjuvant, PF 08/04/2022 completed Not Available [facility] 04/17/2023 05:56:14 COVID-19, mRNA, LNP-S, bivalent, PF, 30 mcg/0.3 mL dose 03/04/2022 completed Not Available [facility] 04/17/20 05:56:14 pneumococcal polysaccharide PPV23 02/14/2020 completed Not Available [facility] 2022 05:56:15 pneumococcal polysaccharide PPV23 2013 completed Not Available [facility] 2022 05:56:15 influenza, unspecified formulation 03/20/2009 completed Not Available [facility] 04/17/2023 05:56:15 influenza, unspecified formulation 04/01/2022 completed Not Available [facility] 04/17/2023 05:56:15 influenza, unspecified formulation 04/03/2008 completed Not Available [facility] 04/17/2023 05:56:15 influenza, unspecified formulation 04/24/2012 completed Not Available [facility] 04/17/2023 05:56:15 influenza, unspecified formulation 05/03/2019 completed Not Available [facility] 04/17/2023 05:56:16 influenza, unspecified formulation 05/05/2006 completed Not Available [facility] 04/17/2023 05:56:16 influenza, unspecified formulation 05/10/2013 completed Not Available [facility] 04/17/2023 05:56:16 Influenza, high-dose, quadrivalent, PF 03/31/2023 completed Not Available [facility] 06/19/2023 05:32:48 COVID-19, mRNA, LNP-S, PF, sharon-sucrose, 30 mcg/0.3 mL 03/31/2023 completed Not Available [facility] 06/19/2023 05:32:48 influenza, unspecified formulation 02/17/2024 completed JUSTINO ZAIDI, [place] [facility]. 03/09/2024 17:02:57 Past Encounters Encounter ID Performer Location Encounter Start Date Encounter Closed Date Diagnosis/Indication Diagnosis SNOMED-CT Code Diagnosis ICD10 Code [id number] ROXANNE INFANTE MD [address] [address] 03/09/2024 13:57:23 03/09/2024 15:12:32 Secondary diabetes mellitus 5010936 E08.9 Anxiety 92503573 F41.9 COVID-19 662797448 U07.1 Hypothyroidism 87457400 E03.9 Health Concerns Section Related Observation LastModified by Organization Detai ls LastModified Time None Recorded Concern Status LastModified by Organization Details LastModified Time None Recorded Payers Encounter Date Sequence Insurance Name Policy Number Policy Mathew Covered Member ID Mathew Member ID Guarantor Name 03/09/2024 1 [place]ARE [place]: [employer] Serenity Cummings [id number] Serenity Cummings 03/09/2024 2 [employer] OPTIONS (MEDICARE SUPPLEMENT) Serenity Cummings [id number] Serenity Cummings Notes Date Note Type Note Provider Name and Address Organization Details Recorded Time 03/09/2024 text/html HPI Notes: CC: COVID-19 infection, DM management Telehealth visit. The patient, Serenity, reports being on day four of COVID-19 infection and feeling mildly under the weather. She received the vaccine three weeks ago. Serenity has been experiencing issues with her blood sugars and medications. She recently stopped taking Farxiga due to a suspected adverse reaction, which included severe anxiety, negative thoughts, and feeling unwell. The patient had previously been on Invokana but discontinued it due to cost. She has since increased her Lantus dosage from 22 to 24 units. Serenity reports fasting blood sugar readings ranging from 158 to 170 and postprandial readings up to 230. She has been maintaining a regular eating pattern. Serenity expresses concern about the possibility of other medications, such as levothyroxine, contributing to her anxiety and blood sugar issues. She has been exercising and experienced weight loss, dropping from 160 pounds in September to her current weight of 150-152 pounds. The patient received her flu vaccine 10 days ago and is considering the RSV vaccine. She is currently managing her COVID-19 infection without Paxlovid. MD Cecy [address], [place], [address], [facility]. 03/09/2024 16:19:23 OBGyn Episode No OBEpisode recorded.
--- OUTSIDE RECORDS SUMMARY | 2024-03-17 18:04 | XMS_ITS | Encounter Summary ---
Author Organization [facility] [place] [address] Care Team Providers Care Abalone Processor Name Role Phone Roxanne Dawn MD Primary Care Provider [phone] Encounter Details Date Type Department Care Team (Late st Contact Info) Description 12/01/2007 Orders [place] [phone] Ramiro Lunsford MD [facility] [place] [address] Social History Tobacco Use Types Packs/Day Years Used Date Smoking Tobacco: Never Assessed Sex and Gender Information Value Date Recorded Sex Assigned at Not on file Gender Identity Not on file Sexual Orientation Not on file documented as of this encounter Plan of Treatment Upcoming Encounters Date Type Department Care Team (Late st Contact Info) Description 04/25/2024 10:40 AM EST Appointment Mammography/[place] [phone] Roxanne Dawn MD [address] [place] [address] documented as of this encounter Procedures Procedure Name Priority Date/Time Associated Diagnosis Comments NON-SOCIAL INSURANCE SPECIALIST FINAL REPORT Routine 12/01/2007 9:43 AM EDT documented in this encounter Results * Non-Passenger Screener Final Report (12/01/2007 9:43 AM EDT) Non-Passenger Screener Final Report [id number] ? Location: 4T The signing pathologist has (i) examined the relevant preparation(s) for the specimen(s) and (ii) rendered or confirmed the diagnosis(es). . ? Pathology Non-Passenger Screener Cytology Final Report Clinical Information Specimen Source: ?Lymph Node/FNA: ??[place] gastric Clinical History/Impression: ?? HX: breast Ca 2001. ??Abdominal lymphadenopathy. ??CI: R/O neoplasm. ??R/o lymphoma (flow cytometry). Gross Description: ?? Received ??in Cytorich red, ??approximately 10 ml. total volume of ?? cloudy, red fluid, with core material. ?Total Preparation: ??Liquid Based Prep 1; Cell Block 1. Interpretation Specimen submitted is satisfactory. Diagnosis Negative for Malignancy 12/02/07 ?Screened by: ? RSU ?Rescreened by: ?? CHAR[place]TE 12/04/07 ?Verified by: ? Tamra Valladares ? Pathologist ? (Electronic Signature) Comment Specimen composed of abundant lymphocytes and occasional germinal center cells (confirmed immunohistochemically) , consistent with a reactive lymph node. Immunostudies confirm that the lymphocytes are LCA positive. ??Only fragments of normal sampled bowel mucosa show immunoreactivity for cytokeratins 5D3 and AE1/3. See also the concurrent pancreas FNA report ([id number]). Immunohistochemistry Studies: Formalin-fixed, paraffin-embedded tissue sections are studied using the [employer] system technique with appropriate positive and negative controls. Block ? Antibody ?Result A1 ? CKAE1/3 ?Negative in lymphoid tissue A1 ? CK5D3 ?Negative in lymphoid tissue A1 ? LCA ?Positive in lymphoid tissue These immunohistochemical studies provide ancillary information and are used only in conjunction with standard diagnostic procedures. JARED MUNGUIAIUM 12/01/2007 9:43 AM EDT Ramiro Lunsford MD PATHOLOGY/CYTOLOGY [facility] documented in this encounter Visit Diagnoses Not on filedocumented in this encounter Care Teams Abalone Processor Relationship Specialty Start Date End Date Roxanne Dawn MD [address] [place] [address] PCP - General 04/30/10 documented as of this encounter
--- OUTSIDE RECORDS SUMMARY | 2024-03-17 18:04 | XMS_ITS | Continuity of Care Document ---
Author Organization [place] - [facility] Address [address] [place] [address] Assessment No assessment recorded. Plan of Treatment Reminders Order Date Submit Date Provider Last Modified By Organization Details Last Modified Time Details Appointments Nurse Visit 20 2023 10:50A M [facility] Not available Not available Not available Medicare Wellness 40 (Subs) 2023 02:30P M ROXANNE INFANTE Not available Not available Not available Lab TSH, serum, reflex free T4 2023 024 [facility] (Registration ), [address] [place] [address] [place], [address], 03/17/2024 10:55:15 Referral None recorded. Procedures None recorded. Surgeries None recorded. Imaging None recorded. Medication Orders None recorded. Patient TargetsNo targets recorded. Patient InstructionsNo instructions recorded. 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 Referral fo r Lymphadenopathy several months of enlarged, nontender L submandibular gland in pt with hx breast and neuroendocrine pancreatic cancer, pls evaluate Referring Physician: Roxanne Infante, Family Medicine, Encounter Date: 10/06/2023 Results Created Date Observation Date Name Description Value Unit Range Abnormal Flag Note LastModifiedBy Organization Detail LastModifiedTime 02/21/2011/21/2022 imagi ng/di agnos tic resul t No [...] of primary malignan t neoplasm of breast 248988186 Active 2000 Problem Code: Z85.3; Problem Code Type: ICD-10; Not Available [facility] 3 05:28:58 Hypothyr oidism 52110271 Active 200508/04/19 23 - Comments only - Roxanne Infante MD - With report of increase d fatigue late in the day. Will check TSH which is due anyway and adjust Synthroi d dose if indicate d. We will also check CBC and BMP. Problem Code: E03.9; Problem Code Type: ICD-10; Not Available [facility] 3 05:28:58 Acute pharyngi tis 008038045 Completed 201506/29/2015 06/22/19 16 - Comments only - Roxanne Infante MD - appears viral. Improvin g. conserva tive measures . Problem Code: J02.9; Problem Code Type: ICD-10; Not Available [facility] 3 05:28:58 Atrophic vaginiti s 33165704 Active 201511/14/19 21 - Comments only - Roxanne Infante MD - Will renew Estrace cream. Problem Code: N95.2; Problem Code Type: ICD-10; Not Available [facility] 3 05:28:58 Anxiety disorder 077110271 Active 2015 Problem Code: F41.9; Problem Code Type: ICD-10; Not Available [facility] 3 05:28:58 Type 2 diabetes mellitus without complica tion 894388341 Active 201502/04/20 22 - Comments only - Roxanne Infante MD - Well-con trolled. A1c 6.4 today. Continue current manageme nt. Reviewed symptoms of hypoglyc emia that would necessit ate more frequent monitori ng. Problem Code: E11.9; Problem Code Type: ICD-10; Not Available [facility] 3 05:28:58 Candidia sis of vagina 47001395 Completed 201506/05/2016 05/22/20 16 - Comments only - Roxanne Infante MD - will treat with oral diflucan (or may use OTC cream). Problem Code: B37.3; Problem Code Type: ICD-10; Not Available [facility] 3 05:28:58 Subtotal pancreat ectomy Active 2015 Problem Code: Z90.411; Problem Code Type: ICD-10; Not Available [facility] 3 05:28:58 History of malignan t neoplasm of pancreas 46975045812 105 Active 201511/14/19 21 - Comments only - Roxanne Infante MD - I listened to her concerns and suggeste d perhaps she could connect directly with one of the [facility] based [employer] re provider s advising her friend who also has a history of neuroend ocrine tumor. Problem Code: Z85.07; Problem Code Type: ICD-10; Not Available [facility] 3 05:28:59 Lichen planus 0484160 Active 2015 Problem Code: L43.9; Problem Code Type: ICD-10; Not Available [facility] 3 05:28:59 Low back pain 603826345 Completed 201601/01/2017 Problem Code: M54.5; Problem Code Type: ICD-10; Not Available [facility] 3 05:28:59 Gynecolo gic examinat ion Completed 201603/12/2017 Problem Code: Z01.419; Problem Code Type: ICD-10; Not Available [facility] 3 05:28:59 Adult health examinat ion Completed 201812/14/2018 12/01/19 19 - Comments only - Antonio Gilliam - Referred for screenin g colonosc opy. Up-to-da te with mammogra m and Pap. She will be due for Prevnar in May 2019 or June 2019. Problem Code: Z00.00; Problem Code Type: ICD-10; Not Available [facility] 3 05:28:59 Screenin g for malignan t neoplasm of colon Completed 201806/09/2019 Problem Code: Z12.11; Problem Code Type: ICD-10; Not Available [facility] 3 05:28:59 Pain of right knee joint 74515209100 4100 Active 201805/19/20 19 - Comments only - Roxanen Infante MD - Referred to PT. Problem Code: M25.561; Problem Code Type: ICD-10; Not Available [facility] 3 05:28:59 Acquired hallux valgus 17447777 Active 201805/19/20 19 - Comments only - Roxanne Infante MD - Bilatera l. Referred to podiatry . Problem Code: M20.10; Problem Code Type: ICD-10; Not Available [facility] 3 05:28:59 Pain in thoracic spine 791150183 Completed 201912/09/2019 11/11/19 20 - Comments only - Roxanne Infante MD - UA negative for blood or signs of infectio n today. The fact that pain has resolved makes recurren t carcinom a of the very unlikely etiologi c cause. Advised she call if she has recurren t symptoms . Problem Code: M54.89; Problem Code Type: ICD-10; Not Available [facility] 3 05:29:00 Nonulcer dyspepsi a 7190840 Active 201911/11/19 20 - Comments only - Roxanne Infante MD - Suspect GERD given history, although pancreat ic insuffic iency also a possibil ity. Advised short-te rm trial of Prilosec . Could consider a trial of pancreat ic enzymes if this is not helpful. Problem Code: K30; Problem Code Type: ICD-10; Not Available [facility] 3 05:29:00 Pain of joint of knee 3688178935 Completed 201905/31/2020 Problem Code: M25.569; Problem Code Type: ICD-10; Not Available [facility] 3 05:29:00 Xerostom ia 63141254 Active 201902/14/20 20 - Comments only - Roxanne Infante MD - I have a low suspicio n for Sjogren' s but given concomit ant autoimmu ne conditio ns, will screen for that with blood work today. Problem Code: R68.2; Problem Code Type: ICD-10; Not Available [facility] 3 05:29:00 Somatofo rm disorder 67117661 Active 201908/05/19 22 - Comments only - Roxanne Infante MD - Now with report of mild odynopha bethany associat ed. Will refer to ENT to rule out eosinoph ilic esophagi tis, GERD or other contribu ting factors. If negative eval, will continue to push forward better anxiety manageme nt. Problem Code: F45.8; Problem Code Type: ICD-10; Not Available [facility] 3 05:29:00 Malaise 040658339 Active 2019 Problem Code: R53.81; Problem Code Type: ICD-10; Not Available [facility] 3 05:29:00 Itching of skin 335025526 Active 201902/04/20 22 - Comments only - Roxanne Infante MD - Reviewed option of resuming low-dose naltrexo ne which she is leaning toward. New prescrip tion sent. Problem Code: L29.9; Problem Code Type: ICD-10; Not Available [facility] 3 05:29:00 Neuropat hy due to type 2 diabetes mellitus 08904677644 9106 Active 2019 Problem Code: E11.40; Problem Code Type: ICD-10; Not Available [facility] 3 05:29:01 Screenin g for malignan t neoplasm of colon Active 202008/15/19 21 - Comments only - Roxanne Infante MD - overdue (nl colo 2007), would like to sched with Dr. Corona this spring. Problem Code: Z12.11; Problem Code Type: ICD-10; Not Available [facility] 3 05:29:01 Hyperlip idemia 06160322 Active 202001/01/20 23 - Improved - Roxanne Infante MD - Tolerati ng atorvast atin. LDL down from 1 44-60. Triglyce rides elevated today, patient nonfasti ng. She will continue current manageme nt. Problem Code: E78.5; Problem Code Type: ICD-10; Not Available [facility] 3 05:29:01 Divertic pierce of intestin e 59046341 Active 2020 Problem Code: K57.90; Problem Code Type: ICD-10; Not Available [facility] 3 05:29:01 Spasm 01129089 Active 202008/05/19 22 - Comments only - Roxanne Infante MD - Again advised strength ening and stretchi ng in addition to continue d efforts to hydrate adequate ly. No evidence of electrol yte abnormal ities at last visit. Urged her to resume yoga which she had previous ly found helpful. Problem Code: R25.2; Problem Code Type: ICD-10; Not Available [facility] 3 05:29:01 General symptom 994449254 Active 2021 Problem Code: R68.89; Problem Code Type: ICD-10; Not Available [facility] 3 05:29:01 Dysphagi a 59356697 Active 2021 Problem Code: R13.10; Problem Code Type: ICD-10; Not Available [facility] 3 05:29:01 Edema of larynx 84381526 Active 2021 Problem Code: J38.4; Problem Code Type: ICD-10; Not Available [facility] 3 05:29:02 Actinic keratosi s 296197435 Active 202102/04/20 22 - Comments only - Roxanne Infante MD - Treated with liquid nitrogen today. Recheck at next visit. Problem Code: L57.0; Problem Code Type: ICD-10; Not Available [facility] 3 05:29:02 Gastroes ophageal reflux disease without esophagi tis 992568052 Active 2021 Problem Code: K21.9; Problem Code Type: ICD-10; Not Available [facility] 3 05:29:02 Chest pain 87490938 Active 2021 Problem Code: R07.89; Problem Code Type: ICD-10; Not Available [facility] 3 05:29:02 Fatigue 16699004 Active 2022 Problem Code: R53.83; Problem Code Type: ICD-10; Not Available [facility] 3 05:29:02 Hyperlip idemia screenin g Completed 202208/18/2022 08/04/19 23 - Comments only - Roxanne Infante MD - Nonfasti ng lipids drawn today. Her CAD risk was 11.3%, will update risk calculat ion with updated numbers and urged her to consider starting on statin therapy. Problem Code: Z13.220; Problem Code Type: ICD-10; Not Available [facility] 3 05:29:03 General examinat ion of patient Active 202208/04/19 23 - Comments only - Roxanne Infante MD - Medicare wellness exam. Personal ized preventi on plan competed and rev'd with patient. [facility] Problem Code: Z00.8; Problem Code Type: ICD-10; Not Available [facility] 3 05:29:03 Pain of left knee joint 88136278902 4107 Completed 202212/25/2022 Problem Code: M25.562; Problem Code Type: ICD-10; Not Available [facility] 3 05:29:03 Muscle pain 31686377 Active 2022 Problem Code: M79.10; Problem Code Type: ICD-10; Not Available [facility] 3 05:29:03 Malignan t tumor of tail of pancreas 719984659 Completed 201503/04/2023 Problem Code: C25.2; Problem Code Type: ICD-10; Not Available [facility] 3 05:29:04 Disorder of nervous system 294461895 Completed 201608/18/2017 Problem Code: B02.29; Problem Code Type: ICD-10; Not Available [facility] 3 05:29:04 Overweig ht 716321007 Completed 201508/28/2016 Problem Code: E66.3; Problem Code Type: ICD-10; Not Available [facility] 3 05:29:04 Screenin g for disorder Completed 201603/10/2017 Problem Code: Z13.9; Problem Code Type: ICD-10; Not Available [facility] 3 05:29:04 Hyperlip idemia 65871620 Completed 201203/04/2023 Not Available [facility] 3 05:29:04 New daily persiste nt headache 97176105956 9105 Completed 201708/14/2020 Problem Code: G44.52; Problem Code Type: ICD-10; Not Available [facility] 3 05:29:05 Amnesia 95852736 Completed 201808/14/2020 Problem Code: R41.3; Problem Code Type: ICD-10; Not Available [facility] 3 05:29:05 Liver enzymes level above referenc e range 724758995 Completed 201508/14/2020 Problem Code: R74.01; Problem Code Type: ICD-10; Not Available [facility] 3 05:29:06 Screenin g mammogra phy Completed 201508/18/2017 Problem Code: Z12.31; Problem Code Type: ICD-10; Not Available [facility] 3 05:29:06 Nodule on toe 689627825 Completed 202203/04/2023 Not Available [facility] 3 05:29:06 Neoplasm of uncertai n behavior of skin 80752582 Completed 201905/15/2020 Problem Code: D48.5; Problem Code Type: ICD-10; Not Available [facility] 3 05:29:07 Spasm 59336424 Completed 201808/14/2020 Problem Code: R25.2; Problem Code Type: ICD-10; Not Available [facility] 3 05:29:07 Increase d frequenc y of urinatio n 846394728 Completed 201603/10/2017 Problem Code: R35.0; Problem Code Type: ICD-10; Not Available [facility] 3 05:29:07 Hypergly cemia 81652267 Completed 201508/28/2016 Problem Code: R73.9; Problem Code Type: ICD-10; Not Available [facility] 3 05:29:07 Nonalcoh olic steatohe patitis 441744632 Completed 201503/04/2023 Problem Code: K75.81; Problem Code Type: ICD-10; Not Available [facility] 3 05:29:08 Anorecta l disorder 686297247 Completed 201608/18/2017 Problem Code: K62.89; Problem Code Type: ICD-10; Not Available [facility] 3 05:29:08 Cyst of eyelid 77842471 Completed 201808/14/2020 Problem Code: H02.829; Problem Code Type: ICD-10; Not Available [facility] 3 05:29:09 Active immuniza tion Completed 202205/12/2023 Problem Code: Z23; Problem Code Type: ICD-10; Not Available [facility] 4 05:37:43 Secondar y diabetes mellitus 5179873 Active [address], [facility] [address] , [facility]. 4 07:52:12 Lymphade nopathy 77637956 Active [address], [place], [address] , [facility]. 4 08:01:39 Anxiety 67040452 Active [address], [facility] [address] , [facility]. 4 16:17:28 COVID-19 858933001 Active [address], [place], [address] , [facility]. 4 16:17:33 Notes:*Problem Name: Vania bryan Cancer *ICD-10 Codes: *Problem Status: inactive *Comments: *Note Date: 06/08/2000 Problem Notes None recorded. Medical Equipment None Reported. Allergies Allergen ID Allergen Name Allergen Category Reaction Reaction Severity Criticality Documentation Date Start Date Code Code System Note Provider Name and Address Organization Details Recorded Time Compazine medicatio n Not available Not available Not available 04/17/2023200554 6 RxNorm Not Available [facility] 3 16:19:11 97028 Levaquin medicatio n Not available Not available Not available 04/17/2023200599 2 RxNorm Aller gyCod e: '0012 86931 20'; Aller gyNam e: 'LEVA BRANDO' ; Aller gyCon ceptT ype: 'NDC' ; Not Available [facility] 3 16:19:11 Medications Name Sig Start Date [...] propionate 50 mcg/actuati on nasal spray,suspe nsion [place] 1 spray twice a day by intranasa l route for 30 days. 10/05 completed Not Available Not Available [...] Not Available Pen Needle 31 gauge x 10/21 Use 1 pen needle as directed for [...] Not Available No t Available Sure-Fine Pen [place] 31 gauge x 3/16 Use 1 pen [...] Status Never Smoker MATT SUMMERS LPN null, [place] - [facility]. 01/04/2024 14:08:15 What Was The Date Of [...] Time Sister Family history of heart failure [email or web address] Not available 2022 04:00:41 Sister Family history of diabetes mellitus type 1 [email or web address] Not available 2022 04:00:41 Notes:*Problem: Father with history of pancreatic cancer and Alzheimer s which he develped in late 70's. passed 1998 Mother with history of afib. passed 2007 Brother with history of valve replacement and another brother has a cardiac murmur. There is no early CAD or diabetes in the family. No breast or [employer] cancers in family members. Positive for depression. Medical History No medical history recorded. Gynecological HistoryNo gynecological history recorded. Obstetrics History GPAL:G 0 P 0 0 0 0 Immunizations Vaccine Type Date Status Provider Name and Address Organization Details Recorded Time COVID-19, mRNA, LNP-S, PF, sharon-sucrose, 30 mcg/0.3 mL 10/06/2023 completed ROXANNE INFANTE MD [address], [place], [address], [facility] 10/08/2023 16:42:53 Td (adult), 5 Lf tetanus toxoid, preservative free, adsorbed 06/28/2015 completed Not Available [facility] 04/17/2023 05:56:11 Tdap 06/21/2013 completed Not Available [facility] 05:56:11 Tdap 03/20/2004 completed Not Available [facility] 05:56:11 zoster live 03/10/2017 completed Not Available [facility] 04/17/2023 05:56:12 zoster live 03/24/2012 completed Not Available [facility] 04/17/2023 05:56:12 Influenza, split virus, trivalent, preservative 03/18/2018 completed Not Available [facility] 04/17/2023 05:56:12 Influenza, split virus, trivalent, preservative 05/28/2015 completed Not Available [facility] 04/17/2023 05:56:12 Influenza, split virus, quadrivalent, PF 01/08/2017 completed Not Available [facility] 04/17/2023 05:56:12 Influenza, split virus, quadrivalent, PF 02/14/2020 completed Not Available [facility] 04/17/2023 05:56:13 Influenza, split virus, quadrivalent, PF 03/05/2016 completed Not Available [facility] 04/17/2023 05:56:13 zoster recombinant 10/15/2020 completed Not Available [facility] 04/17/2023 05:56:13 zoster recombinant 05/17/2020 completed Not Available [facility] 04/17/2023 05:56:13 Influenza, high-dose, quadrivalent, PF 04/05/2021 completed Not Available [facility] 04/17/2023 05:56:13 COVID-19, mRNA, LNP-S, PF, 100 mcg/0.5mL dose or 50 mcg/0.25mL dose 08/08/2020 completed Not Available [facility] 04/17/2023 05:56:13 COVID-19, mRNA, LNP-S, PF, 100 mcg/0.5mL dose or 50 mcg/0.25mL dose 09/05/2020 completed Not Available [facility] 04/17/2023 05:56:14 COVID-19, mRNA, LNP-S, PF, 100 mcg/0.5mL dose or 50 mcg/0.25mL dose 04/16/2021 completed Not Available [facility] 04/17/2023 05:56:14 SARS-COV-2 (COVID-19) vaccine, UNSPECIFIED 09/10/2021 completed Not Available [facility] 04/17/2023 05:56:14 Pneumococcal conjugate PCV20, polysaccharide [id number] conjugate, adjuvant, PF 08/04/2022 completed Not Available [facility] 04/17/2023 05:56:14 COVID-19, mRNA, LNP-S, bivalent, PF, 30 mcg/0.3 mL dose 03/04/2022 completed Not Available [facility] 04/17/20 05:56:14 pneumococcal polysaccharide PPV23 02/14/2020 completed Not Available [facility] 2022 05:56:15 pneumococcal polysaccharide PPV23 2013 completed Not Available [facility] 2022 05:56:15 influenza, unspecified formulation 03/20/2009 completed Not Available [facility] 04/17/2023 05:56:15 influenza, unspecified formulation 04/01/2022 completed Not Available [facility] 04/17/2023 05:56:15 influenza, unspecified formulation 04/03/2008 completed Not Available [facility] 04/17/2023 05:56:15 influenza, unspecified formulation 04/24/2012 completed Not Available [facility] 04/17/2023 05:56:15 influenza, unspecified formulation 05/03/2019 completed Not Available [facility] 04/17/2023 05:56:16 influenza, unspecified formulation 05/05/2006 completed Not Available [facility] 04/17/2023 05:56:16 influenza, unspecified formulation 05/10/2013 completed Not Available [facility] 04/17/2023 05:56:16 Influenza, high-dose, quadrivalent, PF 03/31/2023 completed Not Available [facility] 06/19/2023 05:32:48 COVID-19, mRNA, LNP-S, PF, sharon-sucrose, 30 mcg/0.3 mL 03/31/2023 completed Not Available [facility] 06/19/2023 05:32:48 influenza, unspecified formulation 02/17/2024 completed MATT SUMMERS LPN [facility], [place] - [facility] 03/09/2024 17:02:57 Past Encounters Encounter ID Performer Location Encounter Start Date Encounter Closed Date Diagnosis/Indication Diagnosis SNOMED-CT Code Diagnosis ICD10 Code [id number] ROXANNE INFANTE MD [address] [address] 03/09/2024 13:57:23 03/09/2024 15:12:32 Secondary diabetes mellitus 2239984 E08.9 Anxiety 62240431 F41.9 COVID-19 407981705 U07.1 Hypothyroidism 11626386 E03.9 [id number] MIRNA HEBERT RN [address] [address] 03/17/2024 10:43:51 03/17/2024 11:02:59 Hypothyroidism 96197394 E03.9 Health Concerns Section Related Observation LastModified by Organization Detai ls LastModified Time None Recorded Concern Status LastModified by Organization Details LastModified Time None Recorded Payers Encounter Date Sequence Insurance Name Policy Number Policy Mathew Covered Member ID Mathew Member ID Guarantor Name 03/17/2024 1 [place] [employer] Serenity S Zoila [id number] Serenity S Zoila 03/17/2024 2 [employer] OPTIONS (MEDICARE SUPPLEMENT) Serenity S Zoila [id number] Serenity S Zoila OBGyn Episode No OBEpisode recorded.
--- OUTSIDE RECORDS SUMMARY | 2024-03-17 18:04 | XMS_ITS | Encounter Summary ---
Author Organization Formerly [facility] [place] [address] Care Team Providers Care Facility Specialist Name Role Phone Roxanne Dawn MD Primary Care Provider Encounter Details Date Type Department Care Team (Late st Contact Info) Description 12/01/2007 [place] [phone] Ramiro Lunsford MD [facility] [place] [address] Social History Tobacco Use Types Packs/Day Years Used Date Smoking Tobacco: Never Assessed Sex and Gender Information Value Date Recorded Sex Assigned at Not on file Gender Identity Not on file Sexual Orientation Not on file documented as of this encounter Plan of Treatment Upcoming Encounters Date Type Department Care Team (Late st Contact Info) Description 04/25/2024 10:40 AM EST Appointment Mammography/[place] [address] Roxanne Dawn MD [address] [place] [address] documented as of this encounter Procedures Procedure Name Priority Date/Time Associated Diagnosis Comments NON-GIFTED PROGRAM TEACHER FINAL REPORT Routine 12/01/2007 5:50 PM EDT documented in this encounter Results * Non-Admitting Coordinator Final Report (12/01/2007 5:50 PM EDT) Non-Admitting Coordinator Final Report [id number] ? Location: 4T The signing pathologist has (i) examined the relevant preparation(s) for the specimen(s) and (ii) rendered or confirmed the diagnosis(es). . ? Pathology Non-Admitting Coordinator Cytology Final Report Clinical Information Specimen Source: ?Pancreas/FNA; Mass Clinical History/Impression: ?? Hx breast cancer 2001. 6mm pancreas mass. ??R/o neoplasm. Gross Description: ?? Received ??in Cytorich red, ??approximately 10 ml. total volume of ?? cloudy, red fluid, with core material. ?Total Preparation: ??Liquid Based Prep 1; Cell Block 1. Interpretation Specimen submitted is satisfactory. Diagnosis Positive for Malignancy 12/02/07 ?Screened by: ? SLA ?Rescreened by: ?? WAPrasanth 12/04/07 ?Verified by: ? Tamra Valladares ? Pathologist ? (Electronic Signature) Comment Trabecular groups of bland epithelial cells with eccentric nuclei and a speckled chromatin pattern are present, in a background of benign glandular cells and numerous mixed wbcs. The tumor cells show positive immunoreactivity for synaptophysin and chromogranin. 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 ??See also the concurrent jasmyne-gastric node FNA report ([id number]). Immunohistochemistry Studies: Alcohol-fixed, paraffin-embedded cell block sections are studied using the B-SA system technique with appropriate positive and negative controls. Block ? Antibody ? Result A1 ? Chromogranin ?Positive A1 ? Synaptophysin ? Positive These immunohistochemical studies provide ancillary information and are used only in conjunction with standard diagnostic procedures. ? Pathology Flow Cytometry Report Clinical Information PANCREAS MASS, ?Lymphoma Preparation FNA biopsy, lymph node [id number], [id number] . Markers ? Lymphoid (T) ?CD3 ? pos ?CD2/CD3 ? pos ?CD4/CD3 ? pos ?CD8/CD3 ? pos ?CD7/CD3 ? partial ?CD5 ? pos ? Lymphoid (B) ?CD19 ?pos ?CD20 ?pos ?CD10 ?pos (minor) ?CD23 ?pos ?FMC7 ?partial ?kappa ? pos ?lambda ?pos ?CD5/CD20 ?neg Interpretation ?Cells for immunophenotypic analysis were derived from biopsy. ??A lymphoid region, comprising approximately 90% of all cells was used for gated analysis. Blasts based on CD45 expression and orthogonal light scatter, are not increased. The CD19 positive B-cells have a polytypic staining pattern for kappa and lambda Ig light chains. There is a mixture of CD4- and CD8- positive T-cells with normal expression of the rosario-T-cells antigens CD2, CD3, CD5 and CD7. ? Diagnosis: ??Normal immunophenotyping results. No monotypic B-cell population or phenotypically abnormal T-cell population is detected. see comment. 12/02/07 TMS 12/02/07 Verified by: ? Valeriano Obregon ?Hematopathologist ?(Electronic Signature) Comment ? Correlation with ancillary studies, which may include histology, morphology, microscopic cell count, immunohistochemistry, enzyme cytochemistry and/or cyto/ molecular genetics is necessary for interpretation. ? Several tests performed by the [facility] Flow [facility], including that utilized in this case, use Analyte-Specific Reagents, which, do not require approval by the U.S. Food and Drug Administration. ??These tests, though not explicitly approved by the FDA, can be used as clinical assays providing that (1) the laboratory in which it was developed validates the procedure, and (2) the test report includes this disclaimer. ??Please contact the Flow Cytometry Laboratory, or the attending pathologist, with any questions. JARED PRATT 12/01/2007 5:50 PM EDT Ramiro Lunsford MD PATHOLOGY/CYTOLOGY O [facility] JARED PRATT documented in this encounter Visit Diagnoses Not on filedocumented in this encounter Care Teams Facility Specialist Relationship Specialty Start Date End Date Roxanne Dawn MD [address] [place] [address] PCP - General 04/30/10 documented as of this encounter
--- OUTSIDE RECORDS SUMMARY | 2024-03-17 18:04 | XMS_ITS | Encounter Summary ---
[place] [address] Care Team Providers Care Fitness Technician Name Role Phone Unavailable Primary Care Provider Unavailabl e Encounter Details Date Type Department Care Team (Late st Contact Info) Description 04/16/2010 10:30 AM EST Procedure visit [place] [address] Social History Tobacco Use Types Packs/Day Years Used Date Smoking Tobacco: Never Assessed Sex and Gender Information Value Date Recorded Sex Assigned at Not on file Gender Identity Not on file Sexual Orientation Not on file documented as of this encounter Plan of Treatment Upcoming Encounters Date Type Department Care Team (Late st Contact Info) Description 04/25/2024 10:40 AM EST Appointment Mammography[place] [address] Roxanne Dawn MD [address] [place] [address] documented as of this encounter Visit Diagnoses Not on filedocumented in this encounter
--- OUTSIDE RECORDS SUMMARY | 2024-03-17 18:04 | XMS_ITS | Continuity of Care Document ---
Author Organization [facility], [facility] Address [address] [place] [address] Assessment No assessment recorded. Plan of Treatment Reminders Order Date Submit Date Provider Last Modified By Organization Details Last Modified Time Details Appointments Nurse Visit 20 2023 10:50A M Donie Nursing Staff Not available Not available Not available Medicare Wellness 40 (Subs) 2023 02:30P M ROXANNE INFANTE Not available Not available Not available Lab hemoglobi n A1C, fingersti ck 2023 024 [email or web address] 1 [facility], [address] [place], [address], 01/04/2024 17:22:22 Referral None recorded. Procedures None recorded. Surgeries None recorded. Imaging None recorded. Medication Orders None recorded. Patient TargetsNo targets recorded. Patient InstructionsNo instructions recorded. 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 Lymphadenopathy several months of enlarged, nontender L submandibular gland in pt with hx breast and neuroendocrine pancreatic cancer, pls evaluate Referring Physician: Roxanne Infante, Family Medicine, Encounter Date: 10/06/2023 Results Created Date Observation Date Name Description Value Unit Range Abnormal Flag Note LastModifiedBy Organization Detail LastModifiedTime 01/04/20 24 01/04/2024 hemog lobin A1C, finge rstic k hemoglobin A1C 6.9 % <5.7 Not Available [address], [address], 01/04/2024 14:11:32 02/21/20 24 11/21/2022 imagi ng/di agnos tic [...] of primary malignan t neoplasm of breast 217035733 Active 2000 Problem Code: Z85.3; Problem Code Type: ICD-10; Not Available [facility] 3 05:28:58 Hypothyr oidism 02109240 Active 200508/04/19 23 - Comments only - Roxanne Infante MD - With report of increase d fatigue late in the day. Will check TSH which is due anyway and adjust Synthroi d dose if indicate d. We will also check CBC and BMP. Problem Code: E03.9; Problem Code Type: ICD-10; Not Available [facility] 3 05:28:58 Acute pharyngi tis 200647713 Completed 201506/29/2015 06/22/19 16 - Comments only - Roxanne Infante MD - appears viral. Improvin g. conserva tive measures . Problem Code: J02.9; Problem Code Type: ICD-10; Not Available [facility] 3 05:28:58 Atrophic vaginiti s 12409747 Active 201511/14/19 21 - Comments only - Roxanne Infante MD - Will renew Estrace cream. Problem Code: N95.2; Problem Code Type: ICD-10; Not Available [facility] 3 05:28:58 Anxiety disorder 914925652 Active 2015 Problem Code: F41.9; Problem Code Type: ICD-10; Not Available [facility] 3 05:28:58 Type 2 diabetes mellitus without complica tion 398681810 Active 201502/04/20 22 - Comments only - Roxanne Infante MD - Well-con trolled. A1c 6.4 today. Continue current manageme nt. Reviewed symptoms of hypoglyc emia that would necessit ate more frequent monitori ng. Problem Code: E11.9; Problem Code Type: ICD-10; Not Available [facility] 3 05:28:58 Candidia sis of vagina 41982643 Completed 201506/05/2016 05/22/20 16 - Comments only - Roxanne Infante MD - will treat with oral diflucan (or may use OTC cream). Problem Code: B37.3; Problem Code Type: ICD-10; Not Available [facility] 3 05:28:58 Subtotal pancreat ectomy Active 2015 Problem Code: Z90.411; Problem Code Type: ICD-10; Not Available [facility] 3 05:28:58 History of malignan t neoplasm of pancreas 87405119948 105 Active 201511/14/19 21 - Comments only - Roxanne Infante MD - I listened to her concerns and suggeste d perhaps she could connect directly with one of the [facility] based [facility] re provider s advising her friend who also has a history of neuroend ocrine tumor. Problem Code: Z85.07; Problem Code Type: ICD-10; Not Available [facility] 3 05:28:59 Lichen planus 8479694 Active 2015 Problem Code: L43.9; Problem Code Type: ICD-10; Not Available [facility] 3 05:28:59 Low back pain 042738547 Completed 201601/01/2017 Problem Code: M54.5; Problem Code Type: ICD-10; Not Available [facility] 3 05:28:59 Gynecolo gic examinat ion Completed 201603/12/2017 Problem Code: Z01.419; Problem Code Type: ICD-10; Not Available [facility] 3 05:28:59 Adult health examinat ion Completed 201812/14/2018 12/01/19 19 - Comments only - Antonio Gilliam - Referred for screenin g colonosc opy. Up-to-da te with mammogra m and Pap. She will be due for Prevnar in May 2019 or June 2019. Problem Code: Z00.00; Problem Code Type: ICD-10; Not Available [facility] 3 05:28:59 Screenin g for malignan t neoplasm of colon Completed 201806/09/2019 Problem Code: Z12.11; Problem Code Type: ICD-10; Not Available [facility] 3 05:28:59 Pain of right knee joint 91377492506 4100 Active 201805/19/20 19 - Comments only - Roxanne Infante MD - Referred to PT. Problem Code: M25.561; Problem Code Type: ICD-10; Not Available [facility] 3 05:28:59 Acquired hallux valgus 93256671 Active 201805/19/20 19 - Comments only - Roxanne Infante MD - Bilatera l. Referred to podiatry . Problem Code: M20.10; Problem Code Type: ICD-10; Not Available [facility] 3 05:28:59 Pain in thoracic spine 440318861 Completed 201912/09/2019 11/11/19 20 - Comments only - Roxanne Infante MD - UA negative for blood or signs of infectio n today. The fact that pain has resolved makes recurren t carcinom a of the very unlikely etiologi c cause. Advised she call if she has recurren t symptoms . Problem Code: M54.89; Problem Code Type: ICD-10; Not Available [facility] 3 05:29:00 Nonulcer dyspepsi a 5935635 Active 201911/11/19 20 - Comments only - Roxanne Infante MD - Suspect GERD given history, although pancreat ic insuffic iency also a possibil ity. Advised short-te rm trial of Prilosec . Could consider a trial of pancreat ic enzymes if this is not helpful. Problem Code: K30; Problem Code Type: ICD-10; Not Available [facility] 3 05:29:00 Pain of joint of knee 5450346724 Completed 201905/31/2020 Problem Code: M25.569; Problem Code Type: ICD-10; Not Available [facility] 3 05:29:00 Xerostom ia 66096550 Active 201902/14/20 20 - Comments only - Roxanne Infante MD - I have a low suspicio n for Sjogren' s but given concomit ant autoimmu ne conditio ns, will screen for that with blood work today. Problem Code: R68.2; Problem Code Type: ICD-10; Not Available [facility] 3 05:29:00 Somatofo rm disorder 34517656 Active 201908/05/19 22 - Comments only - Roxanne Infante MD - Now with report of mild odynopha bethany associat ed. Will refer to ENT to rule out eosinoph ilic esophagi tis, GERD or other contribu ting factors. If negative eval, will continue to push forward better anxiety manageme nt. Problem Code: F45.8; Problem Code Type: ICD-10; Not Available [facility] 3 05:29:00 Malaise 720231471 Active 2019 Problem Code: R53.81; Problem Code Type: ICD-10; Not Available [facility] 3 05:29:00 Itching of skin 047357250 Active 201902/04/20 22 - Comments only - Roxanne Infante MD - Reviewed option of resuming low-dose naltrexo ne which she is leaning toward. New prescrip tion sent. Problem Code: L29.9; Problem Code Type: ICD-10; Not Available [facility] 3 05:29:00 Neuropat hy due to type 2 diabetes mellitus 33383399058 9106 Active 2019 Problem Code: E11.40; Problem Code Type: ICD-10; Not Available [facility] 3 05:29:01 Screenin g for malignan t neoplasm of colon Active 03/09/ 2021 03/09/20 21 - Comments only - Roxanne Infante MD - overdue (nl colo 2007), would like to sched with Dr. Corona this spring. Problem Code: Z12.11; Problem Code Type: ICD-10; Not Available [facility] 3 05:29:01 Hyperlip idemia 71169034 Active 202001/01/20 23 - Improved - Roxanne Infante MD - Tolerati ng atorvast atin. LDL down from 1 44-60. Triglyce rides elevated today, patient nonfasti ng. She will continue current manageme nt. Problem Code: E78.5; Problem Code Type: ICD-10; Not Available [facility] 3 05:29:01 Divertic pierce of intestin e 92073465 Active 2020 Problem Code: K57.90; Problem Code Type: ICD-10; Not Available [facility] 3 05:29:01 Spasm 63531701 Active 202008/05/19 22 - Comments only - [...] Not Available [facility] 3 05:29:01 General symptom 663530678 Active 2021 Problem Code: R68.89; Problem Code Type: ICD-10; Not Available [facility] 3 05:29:01 Dysphagi a 02477030 Active 2021 Problem Code: R13.10; Problem Code Type: ICD-10; Not Available [facility] 3 05:29:01 Edema of larynx 85634718 Active 2021 Problem Code: J38.4; Problem Code Type: ICD-10; Not Available [facility] 3 05:29:02 Actinic keratosi s 534010876 Active 202102/04/20 22 - Comments only - Roxanne Infante MD - Treated with liquid nitrogen today. Recheck at next visit. Problem Code: L57.0; Problem Code Type: ICD-10; Not Available [facility] 3 05:29:02 Gastroes ophageal reflux disease without esophagi tis 491318716 Active 2021 Problem Code: K21.9; Problem Code Type: ICD-10; Not Available [facility] 3 05:29:02 Chest pain 42726086 Active 2021 Problem Code: R07.89; Problem Code Type: ICD-10; Not Available [facility] 3 05:29:02 Fatigue 65540583 Active 2022 Problem Code: R53.83; Problem Code [...] Z13.220; Problem Code Type: ICD-10; Not Available [facility] 3 05:29:03 General examinat ion of patient Active 202208/04/19 23 - Comments only - Roxanne Infante MD - Medicare wellness exam. Personal ized preventi on plan competed and rev'd with patient. patient was given copy of PPP at [facility] on of visit. 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 582796950 Completed 201503/04/2023 Problem Code: C25.2; Problem Code Type: ICD-10; Not Available [facility] 3 05:29:04 Disorder of nervous system 652059353 Completed 201608/18/2017 Problem Code: B02.29; Problem Code Type: ICD-10; Not Available [facility] 3 05:29:04 Overweig ht 047664511 Completed 201508/28/2016 Problem Code: E66.3; Problem Code Type: ICD-10; Not Available [facility] 3 05:29:04 Screenin g for disorder Completed 201603/10/2017 Problem Code: Z13.9; Problem Code Type: ICD-10; Not Available [facility] 3 05:29:04 Hyperlip idemia 02725919 Completed 201203/04/2023 Not Available [facility] 3 05:29:04 New daily persiste nt headache 08082338141 9105 Completed 201708/14/2020 Problem Code: G44.52; Problem Code Type: ICD-10; Not Available [facility] 3 05:29:05 Amnesia 59346548 Completed 201808/14/2020 Problem Code: R41.3; Problem Code Type: ICD-10; Not Available [facility] 3 05:29:05 Liver enzymes level above referenc e range 682147058 Completed 201508/14/2020 Problem Code: R74.01; Problem Code Type: ICD-10; Not Available [facility] 3 05:29:06 Screenin g mammogra phy Completed 201508/18/2017 Problem Code: Z12.31; Problem Code Type: ICD-10; Not Available [facility] 3 05:29:06 Nodule on toe 399284340 Completed 202203/04/2023 Not Available [facility] 3 05:29:06 Neoplasm of uncertai n behavior of skin 45324142 Completed 201905/15/2020 Problem Code: D48.5; Problem Code Type: ICD-10; Not Available [facility] 3 05:29:07 Spasm 31300768 Completed 201808/14/2020 Problem Code: R25.2; Problem Code Type: ICD-10; Not Available [facility] 3 05:29:07 Increase d frequenc y of urinatio n 131416220 Completed 201603/10/2017 Problem Code: R35.0; Problem Code Type: ICD-10; Not Available [facility] 3 05:29:07 Hypergly cemia 67308567 Completed 201508/28/2016 Problem Code: R73.9; Problem Code Type: ICD-10; Not Available [facility] 3 05:29:07 Nonalcoh olic steatohe patitis 287190969 Completed 201503/04/2023 Problem Code: K75.81; Problem Code Type: ICD-10; Not Available [facility] 3 05:29:08 Anorecta l disorder 849921794 Completed 201608/18/2017 Problem Code: K62.89; Problem Code Type: ICD-10; Not Available [facility] 3 05:29:08 Cyst of eyelid 21328955 Completed 201808/14/2020 Problem Code: H02.829; Problem Code Type: ICD-10; Not Available [facility] 3 05:29:09 Active immuniza tion Completed 202205/12/2023 Problem Code: Z23; Problem Code Type: ICD-10; Not Available [facility] 4 05:37:43 Secondar y diabetes mellitus 2770835 Active [address], [place], [address] , [facility]. 4 07:52:12 Lymphade nopathy 49911600 Active [address], [place], [address] , [facility]. 4 08:01:39 Anxiety 30534127 Active [address], [place], [address] , [facility] 4 16:17:28 COVID-19 547292276 Active [address], [place], [address] , [facility] 4 16:17:33 Notes:*Problem Name: Vania bryan Cancer *ICD-10 Codes: *Problem Status: inactive *Comments: *Note Date: 06/08/2000 Problem Notes None recorded. Medical Equipment None Reported. Allergies Allergen ID Allergen Name Allergen Category Reaction Reaction Severity Criticality Documentation Date Start Date Code Code System Note Provider Name and Address Organization Details Recorded Time 57845 Compazine medicatio n Not available Not available Not available 04/17/2023200554 6 RxNorm Not Available [facility] 3 16:19:11 30618 Levaquin medicatio n Not available Not available Not available 04/17/20232005 54371 2 RxNorm Aller gyCod e: '0012 72589 20'; Aller gyNam e: 'LEVA BRANDO' ; Aller gyCon ceptT ype: 'NDC' ; Not Available [facility] 3 16:19:11 Medications Name Sig Start Date [...] propionate 50 mcg/actuati on nasal spray,suspe nsion [place] 1 spray twice a day by intranasa [...] Not Available Pen Needle 31 gauge x 16 Use 1 pen needle as directed for [...] Not Available No t Available Sure-Fine Pen Child[place] 31 gauge x /16 Use 1 pen needle as directed for [...] Available Not Available Not Avai lable Vitals Date Recorded Body height Body mass index (BMI) Body weight Body temperature Heart rate Oxygen saturation Oxygen saturation in Arterial blood by Pulse oximetry Systolic blood pressure Diastolic blood pressure Provider Name and Address Organization Details Last Updated DateTime 173.99 cm 23.4 kg/m2 09223.1 1 g 97.6 [degF] 68 /min 97 % 97 % 126 mm[Hg] 76 mm[Hg] MATT SUMMERS LPN [facility] 14:06:50 Social History Question Answer Notes LastModified by Organizat ion Details LastModified Time Tobacco Smoking Status Never Smoker MATT SUMMERS LPN [facility] 01/04/2024 14:08:15 What Was The Date Of [...] Time Sister Family history of heart failure rambo Not available 2022 04:00:41 Sister Family history of diabetes mellitus type 1 [email or web address] Not available 2022 04:00:41 Notes:*Problem: Father with history of pancreatic cancer and Alzheimer s which he develped in late 70's. passed 1998 Mother with history of afib. passed 2007 Brother with history of valve replacement and another brother has a cardiac murmur. There is no early CAD or diabetes in the family. No breast or [employer]NAG[employer] LEAD cancers in family members. Positive for depression. Medical History No medical history recorded. Gynecological HistoryNo gynecological history recorded. Obstetrics History GPAL:G 0 P 0 0 0 0 Immunizations Vaccine Type Date Status Provider Name and Address Organization Details Recorded Time COVID-19, mRNA, LNP-S, PF, sharon-sucrose, 30 mcg/0.3 mL 10/06/2023 completed ROXANNE INFANTE MD [address], [place], [address], [facility] 10/08/2023 16:42:53 Td (adult), 5 Lf tetanus toxoid, preservative free, adsorbed 06/28/2015 completed Not Available [facility] 04/17/2023 05:56:11 Tdap 06/21/2013 completed Not Available [facility] 05:56:11 Tdap 03/20/2004 completed Not Available [facility] 05:56:11 zoster live 03/10/2017 completed Not Available [facility] 04/17/2023 05:56:12 zoster live 03/24/2012 completed Not Available [facility] 04/17/2023 05:56:12 Influenza, split virus, trivalent, preservative 03/18/2018 completed Not Available [facility] 04/17/2023 05:56:12 Influenza, split virus, trivalent, preservative 05/28/2015 completed Not Available [facility] 04/17/2023 05:56:12 Influenza, split virus, quadrivalent, PF 01/08/2017 completed Not Available [facility] 04/17/2023 05:56:12 Influenza, split virus, quadrivalent, PF 02/14/2020 completed Not Available [facility] 04/17/2023 05:56:13 Influenza, split virus, quadrivalent, PF 03/05/2016 completed Not Available [facility] 04/17/2023 05:56:13 zoster recombinant 10/15/2020 completed Not Available [facility] 04/17/2023 05:56:13 zoster recombinant 05/17/2020 completed Not Available [facility] 04/17/2023 05:56:13 Influenza, high-dose, quadrivalent, PF 04/05/2021 completed Not Available [facility] 04/17/2023 05:56:13 COVID-19, mRNA, LNP-S, PF, 100 mcg/0.5mL dose or 50 mcg/0.25mL dose 08/08/2020 completed Not Available [facility] 04/17/2023 05:56:13 COVID-19, mRNA, LNP-S, PF, 100 mcg/0.5mL dose or 50 mcg/0.25mL dose 09/05/2020 completed Not Available [facility] 04/17/2023 05:56:14 COVID-19, mRNA, LNP-S, PF, 100 mcg/0.5mL dose or 50 mcg/0.25mL dose 04/16/2021 completed Not Available [facility] 04/17/2023 05:56:14 SARS-COV-2 (COVID-19) vaccine, UNSPECIFIED 09/10/2021 completed Not Available [facility] 04/17/2023 05:56:14 Pneumococcal conjugate PCV20, polysaccharide [id number] conjugate, adjuvant, PF 08/04/2022 completed Not Available [facility] 04/17/2023 05:56:14 COVID-19, mRNA, LNP-S, bivalent, PF, 30 mcg/0.3 mL dose 03/04/2022 completed Not Available [facility] 04/17/20 05:56:14 pneumococcal polysaccharide PPV23 02/14/2020 completed Not Available [facility] 2022 05:56:15 pneumococcal polysaccharide PPV23 2013 completed Not Available [facility] 2022 05:56:15 influenza, unspecified formulation 03/20/2009 completed Not Available [facility] 04/17/2023 05:56:15 influenza, unspecified formulation 04/01/2022 completed Not Available [facility] 04/17/2023 05:56:15 influenza, unspecified formulation 04/03/2008 completed Not Available [facility] 04/17/2023 05:56:15 influenza, unspecified formulation 04/24/2012 completed Not Available [facility] 04/17/2023 05:56:15 influenza, unspecified formulation 05/03/2019 completed Not Available [facility] 04/17/2023 05:56:16 influenza, unspecified formulation 05/05/2006 completed Not Available [facility] 04/17/2023 05:56:16 influenza, unspecified formulation 05/10/2013 completed Not Available [facility] 04/17/2023 05:56:16 Influenza, high-dose, quadrivalent, PF 03/31/2023 completed Not Available [facility] 06/19/2023 05:32:48 COVID-19, mRNA, LNP-S, PF, sharon-sucrose, 30 mcg/0.3 mL 03/31/2023 completed Not Available [facility] 06/19/2023 05:32:48 influenza, unspecified formulation 02/17/2024 completed MATT SUMMERS LPN [facility], [place] - [facility]. 03/09/2024 17:02:57 Past Encounters Encounter ID Performer Location Encounter Start Date Encounter Closed Date Diagnosis/Indication Diagnosis SNOMED-CT Code Diagnosis ICD10 Code [id number] ROXANNE INFANTE MD [address] [address] 01/04/2024 13:52:22 01/04/2024 14:42:15 Type 2 diabetes mellitus without complication 746457623 E11.9 Health Concerns Section Related Observation LastModified by Organization Detai ls LastModified Time None Recorded Concern Status LastModified by Organization Details LastModified Time None Recorded Payers Encounter Date Sequence Insurance Name Policy Number Policy Mathew Covered Member ID Mathew Member ID Guarantor Name 01/04/2024 1 [place]ARE [place] [employer] Serenity Cummings [id number] Serenity Cummings 01/04/2024 2 [employer] OPTIONS (MEDICARE SUPPLEMENT) Serenity Cummings [id number] Serenity Cummings Notes Date Note Type Note Provider Name and Address Organization Details Recorded Time 01/04/2024 text/html HPI Notes: Lanre marshall is no longer covered by [facility] because the federal program is no longer subsidizing it. She would like to know other options. She had tried Jardiance but that was also not covered. She tried Metformin and it caused diarrhea. She is taking Lantus 22 units daily (24 units for priming the needle). She has been taking Invokana for the past approximately 2 years. She has not been checking her blood sugars fasting Her fasting blood sugars are ranging from 117-178. Diabetes was initially found approximately 3 years following removal of a pancreatic tumor. MD Cec[address], [place], [address], [facility]. 01/04/2024 18:00:24 OBGyn Episode No OBEpisode recorded.
== END 2024-03-17 18:00 | disposition home or self-care (01) ==
LOC: NCHCN 17:59
PROVIDERS: Visit Provider Family Medicine
DX: E03.9 Hypothyroidism, unspecified (principal)
CPT/HCPCS: 84443

== ENCOUNTER 2024-05-19 14:50 | Outpatient (REF) | payer MEDICARE, SELFPAY ==
[2024-05-19 21:42] LABS: HCT 42.6 % (36.0-46.0); HGB 14.3 g/dL (11.2-15.7); MCH 32.4 pg (27.0-33.0); MCHC 33.6 % (32.0-36.0); MCV 97 fL (80-95); MPV 9.7 fL (8.0-11.0); Platelet Count 192 10^3/uL (130-400); RBC 4.41 10^6/uL (3.93-5.22); RDW 12.1 % (11.7-14.6); RDW-SD 43.4 fL; WBC 6.27 10^3/uL (4.4-10.8)
[2024-05-19 21:43] LABS: ESR 4 mm/hr (0-30)
[2024-05-19 22:01] LABS: ALT 29 U/L (14-59); AST 23 U/L (15-37); Albumin 4.2 g/dL (3.4-5.0); Alkaline Phosphatase 69 U/L (46-116); Anion Gap 8.7 mmol/L (3-11); BUN 26 mg/dL (7-18); Bilirubin, Total 0.61 mg/dL (0.2-1.0); CO2 29.3 mmol/L (21.0-32.0); CREATININE 0.9 mg/dL (0.55-1.02); Calcium 9.6 mg/dL (8.5-10.1); Chloride 105 mmol/L (98-107); FREE T4 1.18 ng/dL (0.76-1.46); Glucose 113 mg/dL (74-106); Potassium 4.3 mmol/L (3.5-5.1); Sodium 143 mmol/L (136-145); TSH 2.42 uIU/mL (0.36-3.74); Total Protein 7.5 g/dL (6.4-8.2)
[2024-05-20 10:49] LABS: Vitamin B12 434 pg/mL (193-986)
[2024-05-20 18:15] LABS: T3, Total 91 ng/dL (97-169)
== END 2024-05-19 14:51 | disposition home or self-care (01) ==
LOC: NCHCN 14:50
PROVIDERS: Visit Provider Family Medicine
DX: R53.83 Other fatigue (principal); E03.9 Hypothyroidism, unspecified; D64.9 Anemia, unspecified
CPT/HCPCS: 80053; 82533; 85027; 85652; 82607; 84439; 84443; 84480

== ENCOUNTER 2025-01-18 14:32 | Outpatient (REF) | payer MEDICARE, SELFPAY ==
[2025-01-18 16:10] LABS: Calculated LDL 122 mg/dL (<100); Cholesterol 189 mg/dL (<200); HDL Cholesterol 51 mg/dL (>or=50); TSH 0.18 uIU/mL (0.36-3.74); Triglyceride 83 mg/dL (<150)
== END 2025-01-18 14:33 | disposition home or self-care (01) ==
LOC: NCHCN 14:32
PROVIDERS: Visit Provider Family Medicine
DX: E03.9 Hypothyroidism, unspecified (principal)
CPT/HCPCS: 80061; 84443

== ENCOUNTER 2025-03-29 15:56 | Outpatient (REF) | payer MEDICARE, SELFPAY ==
[2025-03-29 17:25] LABS: TSH 2.29 uIU/mL (0.36-3.74)
== END 2025-03-29 15:57 | disposition home or self-care (01) ==
LOC: NCHCN 15:56
PROVIDERS: PCP Family Medicine; Visit Provider Family Medicine
DX: E03.9 Hypothyroidism, unspecified (principal)
CPT/HCPCS: 84443

== ENCOUNTER 2025-04-05 20:48 | Outpatient (REF) | payer MEDICARE, SELFPAY ==
[2025-04-05 22:12] LABS: COMMENT (LAB VIEW ONLY) 161.79 mg/dL; Microalb ug/mg Crea 4.6 ug/mg Cr
== END 2025-04-05 20:49 | disposition home or self-care (01) ==
LOC: NCHCN 20:48
PROVIDERS: PCP Family Medicine; Visit Provider Family Medicine
DX: E11.9 Type 2 diabetes mellitus without complications (principal)
CPT/HCPCS: 82043; 82570